=== PATIENT | female | born 1940 | race Caucasian/White ===

== ENCOUNTER 2019-02-06 20:58 | Inpatient (IN) | payer MEDICARE, MEDICAID ==
--- NOTE | 2019-02-06 21:43 | ER Document Report ---
ED Medical Screen (RME) - General Chief Complaint: Shortness Of Breath Stated Complaint: DIFFICULTY BREATHING Time Seen by Provider: 02/06/19 21:37 Primary Care Provider: TUAN STOUT MD [Primary Care Provider] - Follow up as needed Notes: Patient is a 78-year-old female who presents emergency department with a chief complaint of a cough. She has had her cough in the past 2 weeks. He states that she feels like she has something in her throat and is unable to clear it. She has been on Augmentin. Her doctor sent her for a CAT scan and then was referred here in the emergency department for an evaluation to possibly have an abscess drained. Patient does have a history of COPD and she states that she is normally short of breath, but she feels like she has increased shortness of breath due to her having increased phlegm. Exam: Tenderness noted to her neck. I have greeted and performed a rapid initial assessment of this patient. A comprehensive ED assessment and evaluation of the patient, analysis of test results and completion of medical decision making process will be conducted by an additional ED providers. TRAVEL OUTSIDE OF THE [place] IN LAST 30 DAYS: No - Related Data Allergies/Adverse Reactions: No Known Allergies Allergy (Unverified 11/04/13 09:48) Past Medical History - Past Medical History Cardiac Medical History: Reports: Hx Hypertension Pulmonary Medical History: Reports: Hx COPD Past Surgical History: Reports: Hx Orthopedic Surgery - right rotator cuff - Immunizations Hx Diphtheria, Pertussis, Tetanus Vaccination: Yes Physical Exam - Vital signs Vitals: Temp Pulse Resp BP Pulse Ox 97.9 F 73 18 152/73 H 93 02/06/19 21:08 02/06/19 21:08 02/06/19 21:08 02/06/19 21:08 02/06/19 21:08 Course - Vital Signs Vital signs: Temp Pulse Resp BP Pulse Ox 97.9 F 73 18 152/73 H 93 02/06/19 21:08 02/06/19 21:08 02/06/19 21:08 02/06/19 21:08 02/06/19 21:08 Doctor's Discharge - Discharge Referrals: TUAN STOUT MD [Primary Care Provider] - Follow up as needed
[2019-02-06 22:37] LABS: ABSOLUTE BASOPHILS # (AUTO) 0.1 10^3/uL (0.0-0.2); ABSOLUTE EOSINOPHILS # (AUTO) 0.1 10^3/uL (0.0-0.6); ABSOLUTE LYMPHOCYTES (AUTO) 2.1 10^3/uL (0.5-4.7); ABSOLUTE NEUT (AUTO) 9.6 10^3/uL (1.7-8.2); BASOPHILS % (AUTO) 0.7 % (0-2); EOSINOPHILS % (AUTO) 0.9 % (0-6); HEMATOCRIT 35.8 % (36.0-47.0); HEMOGLOBIN 12.1 g/dL (12.0-15.5); LYMPHOCYTES % (AUTO) 16.2 % (13-45); MEAN CORPUSCULAR HGB CONC 33.8 g/dL (32.0-36.0); MEAN CORPUSCULAR VOLUME 92 fl (80-97); MONOCYTES % (AUTO) 7.8 % (3-13); PLATELET COUNT 360 10^3/uL (150-450); RED BLOOD COUNT 3.89 10^6/uL (3.72-5.28); RED CELL DISTRIBUTION WIDTH 13.4 % (11.5-14.0); SEGMENTED NEUTROPHILS % (AUTO) 74.4 % (42-78); TOTAL CELLS COUNTED % (AUTO) 100 %; WHITE BLOOD COUNT 12.8 10^3/uL (4.0-10.5)
[2019-02-06 22:58] LABS: ALANINE AMINOTRANSFERASE 14 U/L (9-52); ALBUMIN 4.1 g/dL (3.5-5.0); ALKALINE PHOSPHATASE 109 U/L (38-126); ANION GAP 7 (5-19); ASPARTATE AMINO TRANSFERASE 26 U/L (14-36); BILIRUBIN,DIRECT 0.3 mg/dL (0.0-0.4); BILIRUBIN,TOTAL 0.4 mg/dL (0.2-1.3); BLOOD UREA NITROGEN 24 mg/dL (7-20); CALCIUM 9.5 mg/dL (8.4-10.2); CARBON DIOXIDE 32 mmol/L (22-30); CHLORIDE 104 mmol/L (98-107); GLUCOSE 118 mg/dL (75-110); POTASSIUM 3.9 mmol/L (3.6-5.0); SODIUM 142.7 mmol/L (137-145); TOTAL PROTEIN 7.8 g/dL (6.3-8.2)
[2019-02-07] MEDS ORDERED: IPRATROPIUM/ALBUTEROL 0.5-2.5 MG/3 ML AMPUL NEB ONE ×2 (00:33→02:32)
--- NOTE | 2019-02-07 00:42 | RADIOLOGY REPORT (SQ) ---
EXAM DESCRIPTION: CT neck and upper chest with contrast CLINICAL HISTORY: 78 years Female; dysphagia. PLEASE LOOK AT ABNORMALITY IN L LUNG ALSO. TECHNIQUE: Soft tissue CT of the neck, with images extending down to the level of the pulmonary artery. Note that the entire chest was not visualized on this exam. Intravenous Contrast: 68 mL Omnipaque [address] scans at this facility use dose modulation, iterative reconstruction, and/or weight based dosing when appropriate to reduce radiation dose to as low as reasonably achievable. COMPARISON: Previous chest CT on 11/11/2013. No previous neck CT.. FINDINGS: No cervical mass or adenopathy. Mucosal surfaces are within normal limits. No parapharyngeal or retropharyngeal edema. Epiglottis is normal. Larynx is normal. Salivary glands: Normal Thyroid: Normal Vascular: Scattered bilateral carotid calcifications. No evidence for significant stenosis. CHEST: In the left upper lobe there is a cavitary lesion 3.4 cm in diameter with a fluid level, abutting the chest wall. This is new since 2013. Enlarged left hilar lymph node 2.1 cm diameter is also new since 2014. No enlarged nodes in the visualized upper mediastinum. Extensive scattered lucencies in the visualized portions of both lungs are typical for emphysema, as on prior exam. IMPRESSION: 1. 3.4 cm cavitary left upper lobe lesion with fluid, highly suspicious for neoplasm. 2. 2.1 cm enlarged left hilar node, likely metastatic 3. Note that the lower lungs were not evaluated on this study 4. Emphysema 5. No cervical mass or adenopathy. No evidence for metastatic disease in the neck. 6. No acute findings in the neck.
[2019-02-07] MEDS ORDERED: METHYLPREDNISOLONE INJ 125 MG/2 ML SDV IV ONE (02:29)
[2019-02-07] MEDS ORDERED: MAGNESIUM SULFATE/D5W 1 GM/100 ML RTUPB IV ONE (02:45)
--- NOTE | 2019-02-07 02:46 | ER Document Report ---
ED General - General Chief Complaint: Shortness Of Breath Stated Complaint: DIFFICULTY BREATHING Time Seen by Provider: 02/06/19 21:37 Primary Care Provider: TUAN STOUT MD [NO LOCAL MD] - Follow up as needed TRAVEL OUTSIDE OF THE [place] IN LAST 30 DAYS: No - HPI Notes: Patient is a 78-year-old female who presents to the emergency department for evaluation. She is had a feeling of drainage in her throat, has been coughing. She states she was placed on Augmentin by her primary care physician, did not really have any significant improvement. The patient states she is always short of breath, feels more short of breath with this. She does have a history of COPD. She has been referred on to pulmonology, but does not have an appointment for another month. She states that she was at [facility] recently. She states she had a CT scan of her neck. Her doctor told her that she needed to go to the emergency department, that she needed "something drained." The patient cannot elaborate any further for me. She denies any history of travel outside of the country. No unexplained weight loss. - Related Data Allergies/Adverse Reactions: No Known Allergies Allergy (Unverified 11/04/13 09:48) Past Medical History - General Information source: Patient - Social History Smoking Status: Former Smoker Frequency of alcohol use: None Drug Abuse: None Family History: DM - Sisters, Malignancy - Patient's son passed from lung cancer, Thyroid Disfunction - Sisters Patient has suicidal ideation: No Patient has homicidal ideation: No - Past Medical History Cardiac Medical History: Reports: Hx Hypertension Pulmonary Medical History: Reports: Hx COPD Renal/ Medical History: Denies: Hx Peritoneal Dialysis Past Surgical History: Reports: Hx Orthopedic Surgery - right rotator cuff - Immunizations Hx Diphtheria, Pertussis, Tetanus Vaccination: Yes Hx Pneumococcal Vaccination: 07/09/13 Review of Systems - Review of Systems Constitutional: No symptoms reported EENT: See HPI Cardiovascular: No symptoms reported Respiratory: See HPI Gastrointestinal: No symptoms reported Genitourinary: No symptoms reported Musculoskeletal: No symptoms reported Skin: No symptoms reported Neurological/Psychological: No symptoms reported Physical Exam - Vital signs Vitals: Temp Pulse Resp BP Pulse Ox 97.9 F 73 18 152/73 H 93 02/06/19 21:08 02/06/19 21:08 02/06/19 21:08 02/06/19 21:08 02/06/19 21:08 - Notes Notes: Patient is a 78-year-old female appears her stated age in mild distress. She has increased work of breathing, supraclavicular retractions. Vital signs reviewed, please refer to chart. Patient is normocephalic, atraumatic. Pupils equal round, reactive to light. Neck is supple without meningismus. Heart is regular rate and rhythm. Lungs revealed diminished breath sounds throughout, particularly expiratory. Abdomen is soft, nontender, normoactive bowel sounds. Extremities without cyanosis, clubbing. No posterior calf tenderness. Peripheral pulses are equal. Skin is warm and dry. Patient is awake, alert, neurological exam is nonfocal. Course - Re-evaluation Re-evalutation: 02/07/19 02:46 Patient presented to the emergency department for evaluation. She was initially seen through triage, and imaging of the neck was ordered at that point. Laboratory investigations ensued as well. Upon my evaluation I did order a breathing treatment. CT scan of the neck was ordered. No acute findings in the neck were identified, but there was a 3.4 cm cavitary lesion in the left upper lobe of the lung. There was also a corresponding left hilar lymph node. These findings are very returning for malignancy. Findings were explained to the patient. She continues to be short of breath. She continues to have increased work of breathing. She is given Solu-Medrol, magnesium, and another breathing treatment. I spoke with Dr. Turcios, who will happily see the patient in consult. I then spoke with Dr. Ferris, he will admit the patient for further care. - Vital Signs Vital signs: Temp Pulse Resp BP Pulse Ox 97.9 F 73 18 152/73 H 93 02/06/19 21:08 02/06/19 21:08 02/06/19 21:08 02/06/19 21:08 02/06/19 21:08 - Laboratory Result Diagrams: 02/06/19 22:22 02/06/19 22:22 Laboratory results interpreted by me: 02/06/19 02/06/19 22:22 22:22 WBC 12.8 H Hct 35.8 L Absolute Neutrophils 9.6 H Carbon Dioxide 32 H BUN 24 H Glucose 118 H - Diagnostic Test Radiology reviewed: Reports reviewed - Cavitary lesion left upper lobe, enlarged lymph node left hilum, concerning for malignancy Discharge - Discharge Clinical Impression: Acute exacerbation of chronic obstructive pulmonary disease (COPD), Cavitary lesion of lung Condition: Stable Disposition: ADMITTED INPATIENT Admitting Provider: [facility] (Hospitalist) Unit Admitted: Medical Floor Referrals: TUAN STOUT MD [NO LOCAL MD] - Follow up as needed
[2019-02-07] MEDS ORDERED: ONDANSETRON HCL INJ/PF 4 MG/2 ML SDV IV PRN (03:15)
[2019-02-07] MEDS ORDERED: LEVALBUTEROL HCL NEB 1.25 MG/3 ML AMPUL NEB PRN (03:15)
[2019-02-07] MEDS ORDERED: TEMAZEPAM 15 MG CAPSULE PO PRN (03:15)
[2019-02-07] MEDS ORDERED: MAGNESIUM HYDROXIDE SUSP 30 ML UDCUP PO PRN (03:15)
[2019-02-07] MEDS ORDERED: MAG HYDROX/AL HYDROX/SIMETH SUSP 30 ML UDCUP PO PRN (03:15)
[2019-02-07] MEDS ORDERED: ACETAMINOPHEN 325 MG TABLET PO PRN (03:20)
[2019-02-07] MEDS ORDERED: NALBUPHINE HCL INJ 10 MG/1 ML AMPULE IV PRN (03:20)
--- NOTE | 2019-02-07 06:53 | PDOC H&P ---
History of Present Illness Admission Date/PCP: 02/07/19 02:51 TUAN STOUT MD History of Present Illness: MARBELLA HUI is a 78 year old female who presented to the emergency room for an evaluation of an abnormality found on a CT scan of her neck. She admits that for approximately 2 weeks she has been experiencing continuous mild dyspnea with a sensation of drainage in her throat accompanied by an irritant nonproductive cough. She had been treated by her primary care provider with Augmentin which did not result in any improvement and subsequently she was sent for a CT scan of her neck. Her dyspnea has been worsened by exercise or significant activity and somewhat alleviated by rest. She denies prior similar episodes. On the CT scan of her neck a cavitary lesion was discovered in the upper lobe of her left lung and she was told to come to the emergency room for treatment. In the emergency room these findings were confirmed and patient was subsequently admitted to hospital for further evaluation treatment. Past Medical History Cardiac Medical History: Reports: Hypertension Denies: Atrial Fibrillation, Coronary Artery Disease, DVT, Pulmonary Embolism Pulmonary Medical History: Reports: Chronic Obstructive Pulmonary Disease (COPD) Denies: Asthma, Respiratory Failure Neurological Medical History: Denies: Hemorrhagic CVA, Ischemic CVA, Seizures Endocrine Medical History: Denies: Diabetes Mellitus Type 1, Diabetes Mellitus Type 2, Hyperthyroidism, Hypothyroidism Renal/ Medical History: Denies: Chronic Kidney Disease, Nephrolithiasis Malignancy Medical History: Reports: None GI Medical History: Denies: Cirrhosis, Hepatitis Musculoskeltal Medical History: Denies: Arthritis, Gout Skin Medical History: Denies: Eczema, Psoriasis Psychiatric Medical History: Reports: Tobacco Dependency Denies: Alcohol Dependency, Substance Abuse Traumatic Medical History: Reports: None Hematology: Denies: Anemia, Bleeding Tendencies Infectious Medical History: Reports: None Past Surgical History Past Surgical History: Reports: Orthopedic Surgery - right rotator cuff Social History Information Source: Patient Lives with: Spouse/Significant other Smoking Status: Former Smoker Frequency of Alcohol Use: None Hx Recreational Drug Use: No Drugs: None Hx Prescription Drug Abuse: No - Advance Directive Resuscitation Status: Full Code Surrogate healthcare decision maker:: Kolby Saldivar Family History Family History: DM - Sisters, Malignancy - Patient's son passed from lung cancer, Thyroid Disfunction - Sisters Parental Family History Reviewed: Yes Children Family History Reviewed: Yes Sibling(s) Family History Reviewed.: Yes Medication/Allergy Home Medications: Fluticasone/Salmeterol [Advair 100-50 Diskus 14 Dose/Diskus] 1 inh IH Q12H 11/08/13 Tiotropium [place] [Spiriva Handihaler 18 mcg/dose (30 Dose)] 1 cap IH DAILY 11/08/13 Lisinopril/Hydrochlorothiazide [Lisinopril-Hctz 20-12.5 mg Tab] 1 each PO DAILY 11/10/13 Allergies/Adverse Reactions: No Known Allergies Allergy (Unverified 11/04/13 09:48) Review of Systems Constitutional: ABSENT: chills, fever(s) Eyes: ABSENT: visual disturbances, other - Eye pain Ears: ABSENT: hearing changes, other - Ear pain Nose, Mouth, and Throat: ABSENT: mouth pain, sore throat Cardiovascular: PRESENT: dyspnea on exertion. ABSENT: chest pain, edema, orthropnea, palpitations Respiratory: PRESENT: cough, dyspnea. ABSENT: hemoptysis, sputum Gastrointestinal: ABSENT: abdominal pain, constipation, diarrhea, nausea, vomiting Musculoskeletal: ABSENT: back pain, joint swelling, muscle weakness Integumentary: ABSENT: pruritus, rash Neurological: ABSENT: confusion, convulsions, focal weakness, memory loss, syncope Psychiatric: ABSENT: anxiety, depression Endocrine: ABSENT: cold intolerance, heat intolerance Hematologic/Lymphatic: ABSENT: easy bleeding, easy bruising Physical Exam Vital Signs: Temp Pulse Resp BP Pulse Ox 97.9 F 73 18 152/73 H 93 02/06/19 21:08 02/06/19 21:08 02/06/19 21:08 02/06/19 21:08 02/06/19 21:08 Intake & Output 02/05/19 02/06/19 02/07/19 23:59 23:59 23:59 Weight 54.2 kg General appearance: PRESENT: no acute distress, cooperative Head exam: PRESENT: atraumatic, normocephalic Eye exam: ABSENT: conjunctival injection, scleral icterus Ear exam: PRESENT: normal external ear exam. ABSENT: drainage Mouth exam: PRESENT: dry mucosa, neck supple Respiratory exam: PRESENT: decreased breath sounds - Slightly decreased breath sounds throughout all [place], prolonged expiratory phas - Slightly prolonged expiratory phase in all [place], symmetrical, wheezes - Mild expiratory wheezes noted throughout all [place]. ABSENT: accessory muscle use, retraction Cardiovascular exam: PRESENT: RRR. ABSENT: clicks, gallop, rubs Pulses: PRESENT: normal radial pulses, normal dorsalis pedis pul Vascular exam: PRESENT: normal capillary refill. ABSENT: pallor GI/Abdominal exam: PRESENT: normal bowel sounds, soft Rectal exam: PRESENT: deferred Extremities exam: ABSENT: joint swelling, pedal edema Musculoskeletal exam: PRESENT: full ROM, normal inspection Neurological exam: PRESENT: alert, oriented to person, oriented to place, oriented to time, oriented to situation, CN II-XII grossly intact. ABSENT: motor sensory deficit Psychiatric exam: PRESENT: appropriate affect, normal mood Skin exam: PRESENT: dry, intact, warm. ABSENT: jaundice, rash, urticaria Results Laboratory Results: 02/06/19 22:22 02/06/19 22:22 02/06/19 02/06/19 22:22 22:22 WBC 12.8 H RBC 3.89 Hgb 12.1 Hct 35.8 L MCV 92 MCH 31.0 MCHC 33.8 RDW 13.4 Plt Count 360 Seg Neutrophils % 74.4 Lymphocytes % 16.2 Monocytes % 7.8 Eosinophils % 0.9 Basophils % 0.7 Absolute Neutrophils 9.6 H Absolute Lymphocytes 2.1 Absolute Monocytes 1.0 Absolute Eosinophils 0.1 Absolute Basophils 0.1 Sodium 142.7 Potassium 3.9 Chloride 104 Carbon Dioxide 32 H Anion Gap 7 BUN 24 H Creatinine 0.72 Est GFR ( Amer) > 60 Est GFR (Non-Af Amer) > 60 Glucose 118 H Calcium 9.5 Total Bilirubin 0.4 AST 26 ALT 14 Alkaline Phosphatase 109 Total Protein 7.8 Albumin 4.1 Impressions: Soft Tissue Neck CT 02/06/19 21:43 IMPRESSION: 1. 3.4 cm cavitary left upper lobe lesion with fluid, highly suspicious for neoplasm. 2. 2.1 cm enlarged left hilar node, likely metastatic 3. Note that the lower lungs were not evaluated on this study 4. Emphysema 5. No cervical mass or adenopathy. No evidence for metastatic disease in the neck. 6. No acute findings in the neck. Assessment and Plan - Diagnosis (1) Acute exacerbation of chronic obstructive pulmonary disease (COPD) Is this a current diagnosis for this admission?: Yes Plan: Patient be treated with aggressive pulmonary toilet utilizing Xopenex, Pulmicort and Atrovent nebulizers with intravenous Solu-Medrol and supplemental oxygen is required via nasal cannula. Patient's status will be followed with a daily CBC as well as a daily metabolic profile and magnesium level. (2) Cavitary lesion of lung Is this a current diagnosis for this admission?: Yes Plan: Patient will be seen in consult by Dr. Turcios who is consulted by the emergency room physician. A baseline chest x-ray will be obtained and a pulmonary consultation with Dr. Lizett slaughter will also be obtained. (3) HTN (hypertension) Qualifiers: Hypertension type: essential hypertension Qualified Code(s): I10 - Essential (primary) hypertension Is this a current diagnosis for this admission?: Yes Plan: Patient will be continued on her usual antihypertensive medication as available per formulary. Her vital signs were followed closely throughout her hospital course and adjustments will be made if required. Her condition will be followed with daily CBC, metabolic profile and magnesium levels. (4) Leukocytosis Qualifiers: Leukocytosis type: unspecified Qualified Code(s): D72.829 - Elevated white blood cell count, unspecified Is this a current diagnosis for this admission?: Yes Plan: A daily CBC will be used to follow the patient's leukocytosis. - Time Time Spent with patient: 25-34 minutes Medications reviewed and adjusted accordingly: Yes Anticipated discharge: Home - Inpatient Certification Based on my medical assessment, after consideration of the patient's c omorbidities, presenting symptoms, or acuity I expect that the services needed warrant INPATIENT care.: Yes I certify that my determination is in accordance with my understanding of Medicare's requirements for reasonable and necessary INPATIENT services [42 CFR 412.3e].: Yes Medical Necessity: Failure to Improve With Outpatient Therapy, Need for Nebulizer Therapy and Monitoring of Response, Need for Surgery, Risk of Diagnosis Which Will Require Inpatient Eval/Care/Monitoring
[2019-02-07 07:47] LABS: FREE T3 3.81 pg/mL (2.77-5.27); FREE T4 (FREE THYROXINE) 1.47 ng/dL (0.78-2.19)
[2019-02-07] MEDS: BUDESONIDE NEB 0.5 MG/2 ML AMPUL NEB SCH ×2 (08:36→21:03)
[2019-02-07] MEDS: IPRATROPIUM BROMIDE 0.02% NEB 0.5 MG/2.5 ML AMPUL NEB SCH ×2 (08:36→16:29)
[2019-02-07] MEDS: LEVALBUTEROL HCL NEB 1.25 MG/3 ML AMPUL NEB SCH ×2 (08:36→16:29)
[2019-02-07] MEDS ORDERED: (PENDING PHARMACY ID) (Lisinopril/Hydrochlorothiazide [Zestoretic 20-12.5 Mg Tablet] 1 TAB PO SCH (11:30)
[2019-02-07] MEDS ORDERED: MULTIVITAMIN PO SCH (11:30)
--- NOTE | 2019-02-07 12:14 | RADIOLOGY REPORT (SQ) ---
EXAM DESCRIPTION: CHEST 2 VIEWS COMPLETED DATE/TIME: 02/07/2019 11:40 am REASON FOR STUDY: Left lung mass COMPARISON: CT soft tissue neck 02/07/2019 Two-view chest 11/12/2013 EXAM PARAMETERS: NUMBER OF VIEWS: two views TECHNIQUE: Digital Frontal and Lateral radiographic views of the chest acquired. RADIATION DOSE: NA LIMITATIONS: none FINDINGS: LUNGS AND PLEURA: In the left upper lobe, a 3.5 cm cavitary lung parenchymal lesion is pre sent with air-fluid level. This in the periphery of the left upper lobe. Differential is cavitary n eoplasm versus cavitary infection from tuberculosis. Findings were discussed with , 1207 urs 02/07/2019 who has the patient on respiratory isolation. Remainder of the lungs are hyperinflated and hyperlucent from obstructive disease. No pleural effusi on. No pneumothorax. MEDIASTINUM AND HILAR STRUCTURES: Enlarged left hilar node seen on CT soft tissue neck 02/07/2019 is di fficult to visualize by plain film. HEART AND VASCULAR STRUCTURES: Heart normal size. No evidence for failure. BONES: No acute findings. HARDWARE: None in the chest. OTHER: No other significant finding. IMPRESSION: 3.5 cm cavitary lesion left upper lobe with air-fluid level worrisome for cavitary tuber culosis. Findings discussed with the attending physician as above. TECHNICAL DOCUMENTATION: JOB ID: [id number] [employer]- All Rights Reserved Reading location - IP/workstation name: [email or web address]
--- NOTE | 2019-02-07 12:29 | PDOC PROGRESS REPORT ---
Subjective Progress Note for:: 02/07/19 Subjective:: 78 year old female who presented to the emergency room for an evaluation of an abnormality found on a CT scan of her neck. She admits that for approximately 2 weeks she has been experiencing continuous mild dyspnea with a sensation of drainage in her throat accompanied by an irritant nonproductive cough. She had been treated by her primary care provider with Augmentin which did not result in any improvement and subsequently she was sent for a CT scan of her neck. Her dyspnea has been worsened by exercise or significant activity and somewhat alleviated by rest. She denies prior similar episodes. On the CT scan of her neck a cavitary lesion was discovered in the upper lobe of her left lung and she was told to come to the emergency room for treatment. In the emergency room these findings were confirmed and patient was subsequently admitted to hospital for further evaluation treatment. 02/07/[id number]-pgkq-old female came with increasing shortness of breath. In the emergency room they did a soft tissue neck and found to have a cavitary lesion in the CT scan in the left upper lobe. Consult with Dr. Turcios was requested to consult with Dr. Noble was requested. Patient is going to be transferred to negative pressure room for precautionary measure until the TB is ruled out. Sputum AFBs and PPD was requested. CT chest was done with contrast again today Dr. Howard called me and told me it looks like tuberculosis. Isolation precautions are requested. Patient is comfortably in the bed communicating well. Reason For Visit: ACUTE EXACERBATION OF COPD, LEFT UPPER LOBE Physical Exam Vital Signs: Temp Pulse Resp BP Pulse Ox 97.3 F 89 18 125/54 L 92 02/07/19 08:30 02/07/19 08:36 02/07/19 08:36 02/07/19 08:30 02/07/19 08:36 Intake & Output 02/06/19 02/07/19 02/08/19 06:59 06:59 06:59 Intake Total 110 Balance 110 Weight 55.2 kg General appearance: PRESENT: mild distress, thin Head exam: PRESENT: atraumatic Eye exam: PRESENT: PERRLA Mouth exam: PRESENT: moist, tongue midline Neck exam: ABSENT: carotid bruit, JVD, lymphadenopathy, thyromegaly Respiratory exam: PRESENT: decreased breath sounds Cardiovascular exam: PRESENT: tachycardia GI/Abdominal exam: PRESENT: normal bowel sounds, soft. ABSENT: distended, guarding, mass, organolmegaly, rebound, tenderness Rectal exam: PRESENT: deferred Neurological exam: PRESENT: alert, awake, oriented to person, oriented to place, oriented to time, oriented to situation, CN II-XII grossly intact. ABSENT: m otor sensory deficit Psychiatric exam: PRESENT: appropriate affect, normal mood. ABSENT: homicidal ideation, suicidal ideation Results Laboratory Results: 02/06/19 22:22 02/06/19 22:22 02/06/19 02/06/19 02/07/19 22:22 22:22 05:58 WBC 12.8 H RBC 3.89 Hgb 12.1 Hct 35.8 L MCV 92 MCH 31.0 MCHC 33.8 RDW 13.4 Plt Count 360 Seg Neutrophils % 74.4 Lymphocytes % 16.2 Monocytes % 7.8 Eosinophils % 0.9 Basophils % 0.7 Absolute Neutrophils 9.6 H Absolute Lymphocytes 2.1 Absolute Monocytes 1.0 Absolute Eosinophils 0.1 Absolute Basophils 0.1 Sodium 142.7 Potassium 3.9 Chloride 104 Carbon Dioxide 32 H Anion Gap 7 BUN 24 H Creatinine 0.72 Est GFR ( Amer) > 60 Est GFR (Non-Af Amer) > 60 Glucose 118 H Calcium 9.5 Total Bilirubin 0.4 AST 26 ALT 14 Alkaline Phosphatase 109 Total Protein 7.8 Albumin 4.1 Free T4 1.47 Free T3 pg/mL 3.81 Impressions: Soft Tissue Neck CT 02/06/19 21:43 IMPRESSION: 1. 3.4 cm cavitary left upper lobe lesion with fluid, highly suspicious for neoplasm. 2. 2.1 cm enlarged left hilar node, likely metastatic 3. Note that the lower lungs were not evaluated on this study 4. Emphysema 5. No cervical mass or adenopathy. No evidence for metastatic disease in the neck. 6. No acute findings in the neck. Chest X-Ray 02/07/19 00:00 IMPRESSION: 3.5 cm cavitary lesion left upper lobe with air-fluid level worrisome for cavitary tuberculosis. Findings discussed with the attending physician as above. Assessment and Plan - Diagnosis (1) Acute exacerbation of chronic obstructive pulmonary disease (COPD) Is this a current diagnosis for this admission?: Yes Plan: Patient be treated with aggressive pulmonary toilet utilizing Xopenex, Pulmicort and Atrovent nebulizers with intravenous Solu-Medrol and supplemental oxygen is required via nasal cannula. Patient's status will be followed with a daily CBC as well as a daily metabolic profile and magnesium level. 02/07/[id number]-wibe-old female with history of smoking ex-smoker history of COPD admitted for acute exacerbation of COPD. Presently not supplemental oxygen pulse ox is 92% on 2 L. Receiving IV Solu-Medrol. Getting Xopenex, Pulmicort, Atrovent nebulizations. Plan is to continue the present management. (2) Cavitary lesion of lung Is this a current diagnosis for this admission?: Yes Plan: Patient will be seen in consult by Dr. Turcios who is consulted by the emergency room physician. A baseline chest x-ray will be obtained and a pulmonary consultation with Dr. Lizett slaughter will also be obtained. 02/07/2019-cavitary lesion found in the left upper lung. Repeat CT chest with co ntrast was done this morning Dr. Howard called me and told me may look like TB. Patient is going to be moved to negative pressure room, sputum for AFBs sputum cultures, PPD was requested. Hospital protocol was implemented to rule out TB. Dr. Phoenix is aware of the consult. (3) HTN (hypertension) Qualifiers: Hypertension type: essential hypertension Qualified Code(s): I10 - Essential (primary) hypertension Is this a current diagnosis for this admission?: Yes Plan: Patient will be continued on her usual antihypertensive medication as available per formulary. Her vital signs were followed closely throughout her hospital course and adjustments will be made if required. Her condition will be followed with daily CBC, metabolic profile and magnesium levels. 02/07/2019-patient has history of hypertension which was chronic. Blood pressure today is 125/54. Stable. plan Is to continue the present management. (4) Leukocytosis Qualifiers: Leukocytosis type: unspecified Qualified Code(s): D72.829 - Elevated white blood cell count, unspecified Is this a current diagnosis for this admission?: Yes Plan: A daily CBC will be used to follow the patient's leukocytosis. 02/07/2019-patient came in with elevated WBC count. Yesterday WBC count is 12.8 plan is to repeat the labs today and tomorrow. - Time Time Spent with patient: 25-34 minutes Medications reviewed and adjusted accordingly: Yes Anticipated discharge: Home
[2019-02-07] MEDS ORDERED: TUBERCULIN,PURIF.PROT.DERIV. 5 TU/0.1 ML TEST 1 ML VIAL ID ONE (12:30)
[2019-02-07] MEDS: HEPARIN SOD (PORCINE) 5,000 UNIT/ML 1 ML SYRINGE SUBCUT SCH ×3 (14:12→22:19)
[2019-02-07] MEDS: LISINOPRIL 10 MG TABLET PO SCH (14:33)
[2019-02-07] MEDS: HYDROCHLOROTHIAZIDE 12.5 MG TABLET PO SCH (14:33)
[2019-02-07] MEDS: DOCUSATE SODIUM 100 MG CAPSULE PO SCH ×2 (14:34→19:54)
[2019-02-07] MEDS: FLUTICASONE NASAL SPRAY 50 MCG/SPRY 120 SPRAY/16 GM NASL SCH (14:34)
[2019-02-07] MEDS: FAMOTIDINE 20 MG TABLET PO SCH ×2 (14:34→22:19)
[2019-02-07] MEDS: FLUTICASONE/VILANTEROL 200-25 MCG/DOSE IH SCH (14:35)
[2019-02-07] MEDS: TIOTROPIUM BROMIDE DPI 5 CAP/KIT (18 MCG/CAP) IH SCH (14:36)
--- NOTE | 2019-02-07 14:43 | RADIOLOGY REPORT (SQ) ---
EXAM DESCRIPTION: CT CHEST WITHOUT COMPLETED DATE/TIME: 02/07/2019 2:11 pm REASON FOR STUDY: left upperlobe cavitation on neck CT scan COMPARISON: CT soft tissue neck 02/07/2019 CT angio chest 11/11/2013 TECHNIQUE: CT scan performed of the chest without intravenous contrast. Images reviewed with lung, soft tissue and bone windows. Reconstructed coronal and sagittal MPR images reviewed. All images st ored on PACS. All CT scanners at this facility use dose modulation, iterative reconstruction, and/or weight based d osing when appropriate to reduce radiation dose to as low as reasonably achievable (ALARA). [facility]: Dose Right [facility]: CareDose [facility]: Dose Right [facility]: Teradose 4D [facility]: Smart [address] RADIATION DOSE: CT Rad equipment meets quality standard of care and radiation dose reduction techniq ues were employed. CTDIvol: 4.7 mGy. DLP: 186 mGy-cm. mGy. LIMITATIONS: No technical limitations. FINDINGS: LUNGS AND PLEURA: A 3.5 cm peripheral cavitary mass is present in the left upper lobe abut ting the anterolateral pleural surface on axial image 47. There is an air-fluid level within the mas s. Differential is cystic necrotic tumor versus lung abscess versus tuberculosis. Remainder of the lungs demonstrate diffuse changes of obstructive disease. There is bronchiectasis a nd bandlike scarring in the medial aspect right middle lobe. No pleural effusions. No pneumothorax. HILAR AND MEDIASTINAL STRUCTURES: 2 x 2 cm left hilar lymph node. HEART AND VASCULAR STRUCTURES: No aneurysm. No pericardial effusion. Moderate coronary artery calci fications UPPER ABDOMEN: 1.5 cm and 2 cm probable right upper pole renal cortical cysts. 1 cm hepatic cyst lef t lobe liver THYROID AND OTHER SOFT TISSUES: No masses. No adenopathy. BONES: No significant finding. HARDWARE: None in the chest. OTHER: No other significant findings. IMPRESSION: 3.5 cm left upper lobe cavitary mass with air-fluid level, differential is cystic necrot ic tumor versus lung abscess versus tuberculosis. 2 cm left hilar lymph node TECHNICAL DOCUMENTATION: JOB ID: [id number] Quality ID # [id number]: Final reports with documentation of one or more dose reduction techniques (e.g., Au tomated exposure control, adjustment of the mA and/or kV according to patient size, use of iterative reconstruction technique) 2010 [employer]- All Rights Reserved Reading location - IP/workstation name: [email or web address]
[2019-02-07] MEDS: MELOXICAM 15 MG TABLET PO SCH (14:48)
[2019-02-07] MEDS ORDERED: VANCOMYCIN HCL INJ 1000 MG VIAL IV SCH (21:00)
[2019-02-07] MEDS ORDERED: PIPERACILLIN/TAZOBACTAM 3.375 GM VIAL IV SCH (22:00)
[2019-02-07] MEDS: PIPERACILLIN SODIUM/TAZOBACTAM 3.375 GM in NORMAL SALINE 100 ML IV SCH (22:20)
[2019-02-07] MEDS: VANCOMYCIN HCL 750 MG in DEXTROSE 5%-WATER 250 ML IV SCH (23:44)
[2019-02-08] MEDS: LEVALBUTEROL HCL NEB 1.25 MG/3 ML AMPUL NEB SCH ×3 (00:52→16:25)
[2019-02-08] MEDS: IPRATROPIUM BROMIDE 0.02% NEB 0.5 MG/2.5 ML AMPUL NEB SCH ×3 (00:52→16:25)
[2019-02-08] MEDS: PIPERACILLIN SODIUM/TAZOBACTAM 3.375 GM in NORMAL SALINE 100 ML IV SCH ×3 (05:18→21:20)
[2019-02-08] MEDS: HEPARIN SOD (PORCINE) 5,000 UNIT/ML 1 ML SYRINGE SUBCUT SCH ×3 (05:18→21:14)
--- NOTE | 2019-02-08 08:37 | PDOC CONSULTATION ---
Consultation Consult Date: 02/08/19 Attending physician:: COURTNEY OWEN Consult reason:: Left upper lobe cavitary lesion, left hilar adenopathy History of Present Illness Admission Date/PCP: 02/07/19 02:51 Patient complains of: Cough, shortness of breath x3 weeks History of Present Illness: MARBELLA HIU is a 78 year old female with long-standing history of COPD, st judith smoking history of greater than [id number]. Presents with a 3 to 4-week history of cough, nonproductive, no hemoptysis, no major weight loss. No fevers chills or sweats. Ultimately saw her PCP who felt that she was short of breath and needed to be evaluated in the ED with imaging, because of the throat complaints she had a CT of the neck, this actually indicated nothing in the neck but indicated a cavitary left upper lobe lesion. This is followed by CT of the chest which indicated a 3 cm left upper lobe cavitary lesion with air-fluid levels, also left hilar adenopathy up to 2 cm. She does not have any exposure history and mostly stays at home and keeps to herself. Past Medical History Cardiac Medical History: Reports: Hypertension Denies: Atrial Fibrillation, Coronary Artery Disease, DVT, Pulmonary Embolism Pulmonary Medical History: Reports: Chronic Obstructive Pulmonary Disease (COPD) Denies: Asthma, Respiratory Failure Neurological Medical History: Denies: Hemorrhagic CVA, Ischemic CVA, Seizures Endocrine Medical History: Denies: Diabetes Mellitus Type 1, Diabetes Mellitus Type 2, Hyperthyroidism, Hypothyroidism Renal/ Medical History: Denies: Chronic Kidney Disease, Nephrolithiasis Malignancy Medical History: Reports: None GI Medical History: Denies: Cirrhosis, Hepatitis Musculoskeltal Medical History: Denies: Arthritis, Gout Skin Medical History: Denies: Eczema, Psoriasis Psychiatric Medical History: Reports: Tobacco Dependency Denies: Alcohol Dependency, Substance Abuse Traumatic Medical History: Reports: None Hematology: Denies: Anemia, Bleeding Tendencies Infectious Medical History: Reports: None Past Surgical History Past Surgical History: Reports: Orthopedic Surgery - right rotator cuff Social History Lives with: Spouse/Significant other Smoking Status: Former Smoker Cigarettes Packs Per Day: 1.5 Number of Years Smokin Last Time Smoked: 2010 Frequency of Alcohol Use: None Hx Recreational Drug Use: No Drugs: None Hx Prescription Drug Abuse: No - Advance Directive Resuscitation Status: Full Code Family History Family History: DM - Sisters, Malignancy - Patient's son passed from lung cancer, Thyroid Disfunction - Sisters Parental Family History Reviewed: Yes Children Family History Reviewed: Yes Sibling(s) Family History Reviewed.: Yes Medication/Allergy Home Medications: Fluticasone Propionate [Flonase Nasal [place] 50 Mcg/[place] 16 gm] 2 spray NASL DAILY 02/07/19 Fluticasone/Vilanterol [Breo 200-25 Mcg Ellipta 14 Dose/Dpi] 1 puff IH DAILY 02/07/19 Lisinopril/Hydrochlorothiazide [Zestoretic 20-12.5 mg Tablet] 1 tab PO DAILY 02/07/19 Meloxicam [Mobic 15 mg Tablet] 15 mg PO DAILY 02/07/19 Multivitamin [Chewable-Angel] 1 tab PO DAILY 02/07/19 Tiotropium [place] [Spiriva Handihaler 5 Cap/Kit (18 Mcg/Cap)] 1 cap IH DAILY 02/07/19 Allergies/Adverse Reactions: No Known Allergies Allergy (Unverified 11/04/13 09:48) Review of Systems Constitutional: PRESENT: fatigue, weakness Nose, Mouth, and Throat: PRESENT: sore throat Cardiovascular: PRESENT: dyspnea on exertion Respiratory: PRESENT: cough, dyspnea Gastrointestinal: ABSENT: abdominal pain, constipation, diarrhea, hematemesis, hematochezia, nausea, vomiting Musculoskeletal: ABSENT: joint swelling Neurological: ABSENT: abnormal gait, abnormal speech, confusion, dizziness, focal weakness, syncope Endocrine: ABSENT: cold intolerance, heat intolerance, polydipsia, polyuria Hematologic/Lymphatic: ABSENT: easy bleeding, easy bruising Physical Exam Vital Signs: Temp Pulse Resp BP Pulse Ox 97.4 F 74 18 148/63 H 94 02/07/19 20:06 02/08/19 02:00 02/08/19 00:56 02/07/19 20:06 02/08/19 00:56 Intake & Output 02/07/19 02/08/19 02/09/19 06:59 06:59 06:59 Intake Total 110 687 Balance 110 687 Weight 55.2 kg 55.4 kg General appearance: PRESENT: no acute distress, well-developed, well-nourished Head exam: PRESENT: atraumatic, normocephalic Eye exam: PRESENT: conjunctiva pink, EOMI, PERRLA. ABSENT: scleral icterus Ear exam: PRESENT: normal external ear exam Mouth exam: PRESENT: moist, tongue midline Neck exam: ABSENT: carotid bruit, JVD, lymphadenopathy, thyromegaly Respiratory exam: PRESENT: clear to auscultation romelia. ABSENT: rales, rhonchi, wheezes Cardiovascular exam: PRESENT: RRR. ABSENT: diastolic murmur, rubs, systolic murmur Pulses: PRESENT: normal dorsalis pedis pul Vascular exam: PRESENT: normal capillary refill GI/Abdominal exam: PRESENT: normal bowel sounds, soft. ABSENT: distended, guarding, mass, organolmegaly, rebound, tenderness Rectal exam: PRESENT: deferred Extremities exam: PRESENT: full ROM. ABSENT: calf tenderness, clubbing, pedal edema Neurological exam: PRESENT: alert, awake, oriented to person, oriented to place, oriented to time, oriented to situation, CN II-XII grossly intact. ABSENT: motor sensory deficit Psychiatric exam: PRESENT: appropriate affect, normal mood. ABSENT: homicidal ideation, suicidal ideation Skin exam: PRESENT: dry, intact, warm. ABSENT: cyanosis, rash Results Laboratory Results: 02/06/19 22:22 02/06/19 22:22 Impressions: Soft Tissue Neck CT 02/06/19 21:43 IMPRESSION: 1. 3.4 cm cavitary left upper lobe lesion with fluid, highly suspicious for neoplasm. 2. 2.1 cm enlarged left hilar node, likely metastatic 3. Note that the lower lungs were not evaluated on this study 4. Emphysema 5. No cervical mass or adenopathy. No evidence for metastatic disease in the neck. 6. No acute findings in the neck. Chest X-Ray 02/07/19 00:00 IMPRESSION: 3.5 cm cavitary lesion left upper lobe with air-fluid level worrisome for cavitary tuberculosis. Findings discussed with the attending denzel marrero as above. Chest CT 02/07/19 10:57 IMPRESSION: 3.5 cm left upper lobe cavitary mass with air-fluid level, differential is cystic necrotic tumor versus lung abscess versus tuberculosis. 2 cm left hilar lymph node Status: Image reviewed by me Assessment & Plan - Diagnosis (1) Cavitary lesion of lung Is this a current diagnosis for this admission?: Yes Plan: Infection being ruled out, today ordered deep suction for 3 AFB sputum samples. She apparently is planned for bronchoscopy tomorrow. I reviewed the imaging, there is left hilar adenopathy hopefully he will be able to reach that area but unsure. The left upper lobe cavitary lesion looks most easily accessed by percutaneous biopsy CT-guided biopsy. But I do believe we should at least rule out TB by AFB sputum samples before we decide on doing the percutaneous biopsy. She does have certainly enough smoking history to warrant strong consideration for a primary lung cancer. - Time Time Spent: Greater than 70 Minutes - Inpatient Certification Based on my medical assessment, after consideration of the patient's comorbidities, presenting symptoms, or acuity I expect that the services needed warrant INPATIENT care.: Yes I certify that my determination is in accordance with my understanding of Medicare's requirements for reasonable and necessary INPATIENT services [42 CFR 412.3e].: Yes Medical Necessity: Need for Nebulizer Therapy and Monitoring of Response, Need for IV Antibiotics, Need for Surgery, Risk of Complication if Not Cared For in Hospital
[2019-02-08 09:09] LABS: VENOUS BLOOD BASE EXCESS 4.8 mmol/L; VENOUS BLOOD HCO3 30.8 mmol/L (20-32); VENOUS BLOOD PCO2 51.6 mmHg (35-63); VENOUS BLOOD PH 7.39 (7.30-7.42)
[2019-02-08 09:12] LABS: ABSOLUTE EOSINOPHILS # (AUTO) 0.2 10^3/uL (0.0-0.6); ABSOLUTE LYMPHOCYTES (AUTO) 1.9 10^3/uL (0.5-4.7); ABSOLUTE MONOCYTES (AUTO) 0.8 10^3/uL (0.1-1.4); ABSOLUTE NEUT (AUTO) 8.3 10^3/uL (1.7-8.2); BASOPHILS % (AUTO) 0.3 % (0-2); EOSINOPHILS % (AUTO) 1.8 % (0-6); HEMATOCRIT 36.1 % (36.0-47.0); HEMOGLOBIN 12.1 g/dL (12.0-15.5); LYMPHOCYTES % (AUTO) 16.8 % (13-45); MEAN CORPUSCULAR HGB CONC 33.5 g/dL (32.0-36.0); MEAN CORPUSCULAR VOLUME 92 fl (80-97); PLATELET COUNT 329 10^3/uL (150-450); RED BLOOD COUNT 3.91 10^6/uL (3.72-5.28); RED CELL DISTRIBUTION WIDTH 13.7 % (11.5-14.0); SEGMENTED NEUTROPHILS % (AUTO) 74.1 % (42-78); TOTAL CELLS COUNTED % (AUTO) 100 %; WHITE BLOOD COUNT 11.2 10^3/uL (4.0-10.5)
[2019-02-08 09:41] LABS: ALANINE AMINOTRANSFERASE 24 U/L (9-52); ALBUMIN 3.9 g/dL (3.5-5.0); ALKALINE PHOSPHATASE 93 U/L (38-126); ANION GAP 10 (5-19); ASPARTATE AMINO TRANSFERASE 31 U/L (14-36); BILIRUBIN,DIRECT 0.2 mg/dL (0.0-0.4); BILIRUBIN,TOTAL 0.6 mg/dL (0.2-1.3); BLOOD UREA NITROGEN 25 mg/dL (7-20); CALCIUM 9.3 mg/dL (8.4-10.2); CARBON DIOXIDE 31 mmol/L (22-30); CHLORIDE 103 mmol/L (98-107); GLUCOSE 94 mg/dL (75-110); POTASSIUM 3.8 mmol/L (3.6-5.0); SODIUM 143.6 mmol/L (137-145); TOTAL PROTEIN 7.2 g/dL (6.3-8.2)
[2019-02-08] MEDS ORDERED: SODIUM CHLORIDE 3% FOR INHALATION 15 ML AMPUL NEB ONE (10:11)
[2019-02-08] MEDS: FAMOTIDINE 20 MG TABLET PO SCH ×2 (10:54→21:19)
[2019-02-08] MEDS: LISINOPRIL 10 MG TABLET PO SCH (10:55)
[2019-02-08] MEDS: HYDROCHLOROTHIAZIDE 12.5 MG TABLET PO SCH (10:55)
[2019-02-08] MEDS: MULTIVITAMIN TABLET PO SCH (10:55)
[2019-02-08] MEDS: FLUTICASONE/VILANTEROL 200-25 MCG/DOSE IH SCH (10:57)
[2019-02-08] MEDS: TIOTROPIUM BROMIDE DPI 5 CAP/KIT (18 MCG/CAP) IH SCH (10:57)
[2019-02-08] MEDS: FLUTICASONE NASAL SPRAY 50 MCG/SPRY 120 SPRAY/16 GM NASL SCH (10:58)
[2019-02-08] MEDS: DOCUSATE SODIUM 100 MG CAPSULE PO SCH ×2 (11:00→18:11)
[2019-02-08] MEDS: MELOXICAM 15 MG TABLET PO SCH (11:00)
--- NOTE | 2019-02-08 12:04 | CONSULTATION REPORT E ---
Consultation Report NAME: MARBELLA HUI : 1940 AGE: 78Y DATE: 335 A TO: THEO BERRY M.D. FROM: BRADEN NAM M.D. Requesting Physician HISTORY OF PRESENT ILLNESS: The patient is 78 years old, a lady, who came in with chronic cough over the last 1 or 2 weeks. Patient with mild dyspnea and postnasal drip. The patient went to her primary care provider and was started on Augmentin, which did not provide any significant relief. The patient's symptoms persisted. Patient went back to her primary care provider and had a CT scan of the neck, which showed an incidental finding of a cavitary lesion on the left upper lobe. Denies any fever or chills. Denies any sputum production or hemoptysis. Denies any chest pain. Denies worsening dyspnea. The patient claims she traveled to several states, namely [place], [place], [place], [place]. No international travel. Denies any possible exposure to TB. Claims that she is primarily homebound. She does not go out much. The patient denies any gardening hobby or frequent exposure to water, ponds, or lakes, or vegetation. Claimed that she used to smoke heavily in the past, about 1 pack per day for about 40 years and quit several years ago. Initially managed for COPD exacerbation. Consulted because of the cavitary lesion. PAST MEDICAL HISTORY: 1. Hypertension. 2. COPD. SURGICAL HISTORY: Orthopedic surgery right . SOCIAL HISTORY: Lives with spouse. Former smoker, as mentioned above, 1 pack per day for about 40 years. Denies any alcohol abuse or illicit drug use. FAMILY HISTORY: Diabetes sisters and malignancy. Patient's son passed from away from lung cancer. MEDICATIONS AT HOME: 1. Advair Discus inhaler 1 puff b.i.d. 2. Spiriva inhaler 1 puff daily. 3. Lisinopril/hydrochlorothiazide 1 tablet p.o. daily. ALLERGIES: No known drug allergies. REVIEW OF SYSTEMS: CONSTITUTIONAL: Denies any fever or chills, but was not feeling well over the last 1 or 2 weeks. Chronic cough, but nonproductive, and constant clearing of there throat. EYES, EARS, NOSE, AND THROAT: Eyes: No jaundice or pallor or pain. Ears: No ear pain or ear discharge. Nose, mouth, and throat: No dysphagia. No sore throat. No nasal discharge. CARDIOVASCULAR: Complains of exertional dyspnea. Denies any chest pain, edema, orthopnea. RESPIRATORY: Complained about cough, nonproductive. Denies any hemoptysis. GASTROINTESTINAL: No nausea, vomiting, diarrhea. GENITOURINARY: No dysuria or hematuria. EXTREMITIES: No joint swelling, no cellulitis. PHYSICAL EXAMINATION: GENERAL: Patient is awake, alert, coherent, oriented x3. VITAL SIGNS: Temperature of 97.3, with pulse rate of 90, blood pressure is 169/84, respiratory rate is 20, saturation is 94% on room air. EYES: No jaundice or pallor. EARS, NOSE, AND THROAT: No ear drainage. No nasal discharge. CHEST AND LUNGS: No wheezing, no rhonchi, no coarse crackles. CARDIOVASCULAR: S1, S2 distinct. Normal rate and regular rhythm. ABDOMEN: Flabby, positive bowel sounds, soft, nondistended, nontender. EXTREMITIES: No joint swelling, no cellulitis. LABORATORY DATA: CBC done today showed white count of 12.8, which is slightly elevated; hemoglobin 12.1; hematocrit 35.8; platelet count is 260; absolute neutrophils are slightly elevated at 9.6. Chemistry done today showed sodium 142, potassium is 3.9, chloride 104, CO2 is 32, BUN is 24, creatinine 0.72, glucose 118, calcium is 9.5. Total bilirubin is 0.4, direct bilirubin 0.3, SGOT is 26, SGPT is 14, alkaline phosphatase 109, total protein 708, and albumin is 4.1. Chest CT scan showed large cavitary mass with air fluid level of 3.5. ASSESSMENT: 1. Possible malignancy versus mycobacterial infection, either MTB or mycobacterium garo complex or atypical mycobacteria, versus fungal infection versus lung abscess. 2. Chronic obstructive pulmonary disease (COPD): Currently stable and not in acute bronchospasm. PLAN/RECOMMENDATIONS: 1. Will do a sputum culture for bacteria, fungus, and AFB. Ordered one for 10 o'clock this morning, but patient claimed that she could not expectorate anything. Ordered repeat sputum culture for 6 o'clock AM and sputum was not collected. Will order another sputum tomorrow. Patient currently in respiratory isolation. 2. Will schedule patient for blood cultures x2 sets tonight. 3. Agree to repeat a CBC again tomorrow. 4. Discontinue the budesonide nebulizer treatment. Currently the patient is not in bronchospasm. 5. Will change the patient to Trelegy 1 puff once daily. 6. Will start the patient empirically with antibiotics, Zosyn 3.375 g IV piggyback q.8 hours, first dose tonight, and vancomycin 1 g, first dose tonight, for empiric treatment for a lung abscess. 7. Will plan to do a bronchoscopy on Monday depending on the sputum AFB collections on tomorrow, which is Monday. 8. Will follow patient. DICTATING PHYSICIAN: THEO BERRY MD,JUNIOR,MPH [id number] PHY#: [id number] ID: [id number] JOB#: [id number] ACCT: [id number] cc:THEO BERRY M.D. > MTDD
--- NOTE | 2019-02-08 17:06 | PDOC PROGRESS REPORT ---
Subjective Progress Note for:: 02/08/19 Subjective:: No adverse events overnight. No new complaints. She still has a dry cough. She says they have been trying to get a deep sputum sample but have not had much success so far. She has had no fevers. She denies any night sweats. Reason For Visit: ACUTE EXACERBATION OF COPD, LEFT UPPER LOBE Physical Exam Vital Signs: Temp Pulse Resp BP Pulse Ox 97.5 F 65 16 111/59 L 95 02/08/19 14:21 02/08/19 16:25 02/08/19 16:25 02/08/19 14:21 02/08/19 16:25 Intake & Output 02/07/19 02/08/19 02/09/19 06:59 06:59 06:59 Intake Total 110 687 Balance 110 687 Weight 55.2 kg 55.4 kg General appearance: PRESENT: mild distress, thin Respiratory exam: PRESENT: decreased breath sounds, no use of accessory muscles, no wheezes, no rhonchi Cardiovascular exam: PRESENT: RRR S1 S2 GI/Abdominal exam: PRESENT: normal bowel sounds, soft. ABSENT: distended, guarding, mass, organolmegaly, rebound, tenderness Neurological exam: PRESENT: alert, awake, oriented to person, oriented to place, oriented to time, oriented to situation Psychiatric exam: PRESENT: appropriate affect, normal mood Results Laboratory Results: 02/08/19 08:53 02/08/19 08:53 02/08/19 02/08/19 02/08/19 08:53 08:53 08:53 WBC 11.2 H RBC 3.91 Hgb 12.1 Hct 36.1 MCV 92 MCH 31.0 MCHC 33.5 RDW 13.7 Plt Count 329 Seg Neutrophils % 74.1 Lymphocytes % 16.8 Monocytes % 7.0 Eosinophils % 1.8 Basophils % 0.3 Absolute Neutrophils 8.3 H Absolute Lymphocytes 1.9 Absolute Monocytes 0.8 Absolute Eosinophils 0.2 Absolute Basophils 0.0 VBG pH VBG pCO2 VBG HCO3 VBG Base Excess Sodium 143.6 Potassium 3.8 Chloride 103 Carbon Dioxide 31 H Anion Gap 10 BUN 25 H Creatinine 0.75 Est GFR ( Amer) > 60 Est GFR (Non-Af Amer) > 60 Glucose 94 Calcium 9.3 Magnesium 2.2 Total Bilirubin 0.6 AST 31 ALT 24 Alkaline Phosphatase 93 Total Protein 7.2 Albumin 3.9 TSH 0.92 02/08/19 08:53 WBC RBC Hgb Hct MCV MCH MCHC RDW Plt Count Seg Neutrophils % Lymphocytes % Monocytes % Eosinophils % Basophils % Absolute Neutrophils Absolute Lymphocytes Absolute Monocytes Absolute Eosinophils Absolute Basophils VBG pH 7.39 VBG pCO2 51.6 VBG HCO3 30.8 VBG Base Excess 4.8 Sodium Potassium Chloride Carbon Dioxide Anion Gap BUN Creatinine Est GFR ( Amer) Est GFR (Non-Af Amer) Glucose Calcium Magnesium Total Bilirubin AST ALT Alkaline Phosphatase Total Protein Albumin TSH Impressions: Soft Tissue Neck CT 02/06/19 21:43 IMPRESSION: 1. 3.4 cm cavitary left upper lobe lesion with fluid, highly suspicious for neoplasm. 2. 2.1 cm enlarged left hilar node, likely metastatic 3. Note that the lower lungs were not evaluated on this study 4. Emphysema 5. No cervical mass or adenopathy. No evidence for metastatic disease in the neck. 6. No acute findings in the neck. Chest X-Ray 02/07/19 00:00 IMPRESSION: 3.5 cm cavitary lesion left upper lobe with air-fluid level worrisome for cavitary tuberculosis. Findings discussed with the attending physician as above. Chest CT 02/07/19 10:57 IMPRESSION: 3.5 cm left upper lobe cavitary mass with air-fluid level, differential is cystic necrotic tumor versus lung abscess versus tuberculosis. 2 cm left hilar lymph node Assessment and Plan - Diagnosis (1) Cavitary lesion of lung Is this a current diagnosis for this admission?: Yes Plan: Currently being ruled out for TB. Empirically treating with vancomycin and Zosyn in the event this is an abscess. Pulmonology has been consulted. (2) Acute exacerbation of chronic obstructive pulmonary disease (COPD) Is this a current diagnosis for this admission?: Yes Plan: Empirically on antibiotics. Steroids have been discontinued. She is currently on her home medications. The acute exacerbation has resolved. - Time Time Spent with patient: 15-24 minutes
[2019-02-08] MEDS: VANCOMYCIN HCL 750 MG in DEXTROSE 5%-WATER 250 ML IV SCH (21:14)
[2019-02-08] MEDS ORDERED: GLUCAGON,HUMAN RECOMB 1 MG INJ SUBCUT PRN (22:40)
[2019-02-08] MEDS ORDERED: DEXTROSE 40% GEL 15 GM TUBE PO PRN ×2 (22:40)
[2019-02-08] MEDS ORDERED: DEXTROSE 50%-WATER 25 GM/50 ML DISP.SYRIN IV PRN ×2 (22:40)
[2019-02-09] MEDS: IPRATROPIUM BROMIDE 0.02% NEB 0.5 MG/2.5 ML AMPUL NEB SCH ×3 (00:44→15:46)
[2019-02-09] MEDS: LEVALBUTEROL HCL NEB 1.25 MG/3 ML AMPUL NEB SCH ×3 (00:44→15:46)
--- NOTE | 2019-02-09 02:39 | PROGRESS NOTE E ---
Progress Note NAME: MARBELLA HUI : 1940 AGE: 78Y DATE: 02/08/2019 ROOM: 335 SUBJECTIVE: The patient is a 78-year-old female who was admitted for a left upper lobe cavitation. Currently treated empirically for lung abscess. Atypical mycobacterium or bacterial infection or fungal infection or mycobacterial tuberculosis or malignancy could not be completely excluded. The patient tried to cough up phlegm but failed. Respiratory therapist assisted the patient with sputum induction, but unable to collect any sputum still. Denies any fever, chills. Denies any increasing cough or purulent sputum production or hemoptysis. No chest pain. No worsening dyspnea. The patient is scheduled for flexible bronchoscopy tomorrow. OBJECTIVE: GENERAL: Currently awake, alert, coherent, oriented x3. VITAL SIGNS: Temperature of 97.9 with a T-max of 98.1, heart rate 59, blood pressure is 113/61, respiratory rate is 20, oxygen saturation 94% at room air. EYES: No jaundice or pallor. EARS, NOSE, AND THROAT: No ear drainage. No nasal discharge. CHEST AND LUNGS: No wheezing, no rhonchi, no coarse crackles noted. CARDIOVASCULAR: S1, S2 distinct. Normal rate and regular rhythm. ABDOMEN: Flabby, positive bowel sounds, soft, nondistended, nontender. EXTREMITIES: No joint swelling, no cellulitis. LABORATORY DATA: CBC done today showed a white count of 11.2, hemoglobin 12.1, hematocrit is 36.1, platelet count is 729. Chemistry done today showed sodium 143, potassium 3.8, chloride 103, CO2 is 31, BUN is 75, creatinine 0.75, glucose 94, calcium is 9.3, magnesium is 2.2, total bilirubin is 2.2, SGOT 31, SGPT 24, alkaline phosphatase 23, total protein is 7.2. The rest are normal. ASSESSMENT AND PLAN: CAVITARY LESION LEFT UPPER LOBE. CURRENTLY EMPIRICALLY TREATED FOR LUNG ABSCESS WITH IV VANCOMYCIN AND IV ZOSYN. Unable to collect sputum AFB this morning and yesterday. The patient is scheduled for flexible bronchoscopy tomorrow with possible bronchial washing bronchoalveolar lavage, bronchial lung biopsy. NPO tonight. DICTATING PHYSICIAN: THEO BERRY MD,JUNIOR,MPH [id number] PHY#: [id number] ID: [id number] JOB#: [id number] ACCT: [id number] cc: > JORGE L
[2019-02-09] MEDS: HEPARIN SOD (PORCINE) 5,000 UNIT/ML 1 ML SYRINGE SUBCUT SCH ×3 (05:09→21:45)
[2019-02-09] MEDS: PIPERACILLIN SODIUM/TAZOBACTAM 3.375 GM in NORMAL SALINE 100 ML IV SCH ×3 (05:10→21:46)
[2019-02-09 06:54] LABS: ABSOLUTE EOSINOPHILS # (AUTO) 0.4 10^3/uL (0.0-0.6); ABSOLUTE LYMPHOCYTES (AUTO) 1.9 10^3/uL (0.5-4.7); ABSOLUTE MONOCYTES (AUTO) 0.8 10^3/uL (0.1-1.4); ABSOLUTE NEUT (AUTO) 6.4 10^3/uL (1.7-8.2); BASOPHILS % (AUTO) 0.3 % (0-2); EOSINOPHILS % (AUTO) 4.4 % (0-6); HEMATOCRIT 34.9 % (36.0-47.0); HEMOGLOBIN 11.8 g/dL (12.0-15.5); MEAN CORPUSCULAR HEMOGLOBIN 31.1 pg (27.0-33.4); MEAN CORPUSCULAR HGB CONC 33.7 g/dL (32.0-36.0); MEAN CORPUSCULAR VOLUME 92 fl (80-97); MONOCYTES % (AUTO) 8.3 % (3-13); PLATELET COUNT 298 10^3/uL (150-450); RED BLOOD COUNT 3.79 10^6/uL (3.72-5.28); RED CELL DISTRIBUTION WIDTH 13.6 % (11.5-14.0); TOTAL CELLS COUNTED % (AUTO) 100 %; WHITE BLOOD COUNT 9.5 10^3/uL (4.0-10.5)
[2019-02-09 07:16] LABS: ANION GAP 10 (5-19); BLOOD UREA NITROGEN 23 mg/dL (7-20); CARBON DIOXIDE 29 mmol/L (22-30); CHLORIDE 104 mmol/L (98-107); GLUCOSE 98 mg/dL (75-110); POTASSIUM 4.1 mmol/L (3.6-5.0); SODIUM 142.5 mmol/L (137-145)
[2019-02-09] MEDS ORDERED: NALOXONE HCL INJ/PF 0.4 MG/1 ML SDV ONE (08:54)
[2019-02-09] MEDS ORDERED: ONDANSETRON HCL INJ/PF 4 MG/2 ML SDV ONE (08:54)
[2019-02-09] MEDS ORDERED: DIPHENHYDRAMINE HCL 50 MG/ML VIAL ONE (08:54)
[2019-02-09] MEDS ORDERED: EPINEPHRINE INJ 1 MG/10 ML DISP.SYRIN ONE (08:55)
[2019-02-09] MEDS ORDERED: FLUMAZENIL INJ 0.5 MG/5 ML VIAL ONE (08:55)
[2019-02-09] MEDS ORDERED: LIDOCAINE 2% JELLY 30 ML TUBE ONE (08:56)
[2019-02-09] MEDS: LIDOCAINE 2% INJ (20 MG/ML) 20 ML MDV ONE ×2 (09:31→10:13)
[2019-02-09] MEDS: MIDAZOLAM 2 MG/2 ML INJ ONE ×5 (09:46→10:10)
[2019-02-09] MEDS: FENTANYL CITRATE INJ/PF 100 MCG/2 ML AMPUL ONE ×4 (09:49→10:08)
[2019-02-09] MEDS: LISINOPRIL 10 MG TABLET PO SCH (10:58)
[2019-02-09] MEDS: HYDROCHLOROTHIAZIDE 12.5 MG TABLET PO SCH (10:58)
[2019-02-09] MEDS: MULTIVITAMIN TABLET PO SCH (10:59)
[2019-02-09] MEDS: FAMOTIDINE 20 MG TABLET PO SCH ×2 (10:59→21:45)
[2019-02-09] MEDS: FLUTICASONE NASAL SPRAY 50 MCG/SPRY 120 SPRAY/16 GM NASL SCH (10:59)
[2019-02-09] MEDS: FLUTICASONE/VILANTEROL 200-25 MCG/DOSE IH SCH (10:59)
[2019-02-09] MEDS: DOCUSATE SODIUM 100 MG CAPSULE PO SCH ×2 (10:59→19:35)
[2019-02-09] MEDS: TIOTROPIUM BROMIDE DPI 5 CAP/KIT (18 MCG/CAP) IH SCH (10:59)
[2019-02-09] MEDS: MELOXICAM 15 MG TABLET PO SCH (11:12)
--- NOTE | 2019-02-09 12:29 | PDOC PROGRESS REPORT ---
Subjective Progress Note for:: 02/09/19 Subjective:: Patient went for bronchoscopy this morning Reason For Visit: ACUTE EXACERBATION OF COPD, LEFT UPPER LOBE Physical Exam Vital Signs: Temp Pulse Resp BP Pulse Ox 98.1 F 72 23 H 110/64 95 02/09/19 08:12 02/09/19 10:40 02/09/19 10:40 02/09/19 10:40 02/09/19 10:40 Intake & Output 02/08/19 02/09/19 02/10/19 06:59 06:59 06:59 Intake Total 687 1309 200 Balance 687 1309 200 Weight 55.4 kg 56.3 kg General appearance: PRESENT: no acute distress, well-developed, well-nourished Head exam: PRESENT: atraumatic, normocephalic Eye exam: PRESENT: conjunctiva pink, EOMI, PERRLA. ABSENT: scleral icterus Ear exam: PRESENT: normal external ear exam Mouth exam: PRESENT: moist, tongue midline Neck exam: ABSENT: carotid bruit, JVD, lymphadenopathy, thyromegaly Respiratory exam: PRESENT: clear to auscultation romelia. ABSENT: rales, rhonchi, wheezes Cardiovascular exam: PRESENT: RRR. ABSENT: diastolic murmur, rubs, systolic murmur Pulses: PRESENT: normal dorsalis pedis pul Vascular exam: PRESENT: normal capillary refill GI/Abdominal exam: PRESENT: normal bowel sounds, soft. ABSENT: distended, guarding, mass, organolmegaly, rebound, tenderness Rectal exam: PRESENT: deferred Extremities exam: PRESENT: full ROM. ABSENT: calf tenderness, clubbing, pedal edema Neurological exam: PRESENT: alert, awake, oriented to person, oriented to place, oriented to time, oriented to situation, CN II-XII grossly intact. ABSENT: motor sensory deficit Psychiatric exam: PRESENT: appropriate affect, normal mood. ABSENT: homicidal ideation, suicidal ideation Skin exam: PRESENT: dry, intact, warm. ABSENT: cyanosis, rash Results Laboratory Results: 02/09/19 06:30 02/09/19 06:30 02/09/19 02/09/19 06:30 06:30 WBC 9.5 RBC 3.79 Hgb 11.8 L Hct 34.9 L MCV 92 MCH 31.1 MCHC 33.7 RDW 13.6 Plt Count 298 Seg Neutrophils % 67.0 Lymphocytes % 20.0 Monocytes % 8.3 Eosinophils % 4.4 Basophils % 0.3 Absolute Neutrophils 6.4 Absolute Lymphocytes 1.9 Absolute Monocytes 0.8 Absolute Eosinophils 0.4 Absolute Basophils 0.0 Sodium 142.5 Potassium 4.1 Chloride 104 Carbon Dioxide 29 Anion Gap 10 BUN 23 H Creatinine 0.86 Est GFR ( Amer) > 60 Est GFR (Non-Af Amer) > 60 Glucose 98 Calcium 9.0 Magnesium 2.2 Impressions: Soft Tissue Neck CT 02/06/19 21:43 IMPRESSION: 1. 3.4 cm cavitary left upper lobe lesion with fluid, highly suspicious for neoplasm. 2. 2.1 cm enlarged left hilar node, likely metastatic 3. Note that the lower lungs were not evaluated on this study 4. Emphysema 5. No cervical mass or adenopathy. No evidence for metastatic disease in the neck. 6. No acute findings in the neck. Chest X-Ray 02/07/19 00:00 IMPRESSION: 3.5 cm cavitary lesion left upper lobe with air-fluid level worrisome for cavitary tuberculosis. Findings discussed with the attending physician as above. Chest CT 02/07/19 10:57 IMPRESSION: 3.5 cm left upper lobe cavitary mass with air-fluid level, differential is cystic necrotic tumor versus lung abscess versus tuberculosis. 2 cm left hilar lymph node Assessment & Plan - Diagnosis (1) Cavitary lesion of lung Is this a current diagnosis for this admission?: Yes Plan: Very concerning for primary lung cancer, await results of bronchoscopy
--- NOTE | 2019-02-09 16:34 | OPERATIVE REPORT E ---
Operative Report NAME: MARBELLA HUI : 1940 AGE: 78Y DATE OF SURGERY: 02/09/2019 ROOM: 335 INDICATION: The patient is a 78-year-old lady who came in with a cavitating mass on the left upper lobe, cavitated or lung abscess, atypical mycobacterium infection or mycobacterium tuberculosis or fungal infection or malignancy could not be completely excluded. The patient underwent flexible bronchoscopy today. OPERATION: Bronchoscopy with bronchial washing. PREOPERATIVE DIAGNOSIS: Cavitating mass on the left upper lobe about 3 cm. POSTOPERATIVE DIAGNOSIS: Cavitating mass on the left upper lobe about 3 cm. SURGEON: THEO BERRY M.D. SPECIMEN COLLECTED: 1. Bronchial washing specimen from the left upper lobe. 2. Transbronchial lung biopsy attempted but not done. BLOOD LOSS: Minimal, less than 1 mL. COMPLICATIONS: None. OPERATIVE NOTE: Consent was obtained from the patient. The patient verbalized understand of the indication, risk, and potential complications of the procedure. The patient was given 2% lidocaine solution 3 mL via nebulizer. Hurricaine spray x4 sprays was applied on the oropharyngeal wall and 2% lidocaine gel was applied to the posterior pharyngeal wall until gag reflex was eliminated. Flexible bronchoscope was inserted through the mouthguard and 1% lidocaine solution 2 mL was applied through the bronchoscope as the bronchoscope was advanced to the vocal cords, trachea, ibeth, and segmental airway. Versed was given at increments of 0.5 mg, total dose of 4.5 mg. Fentanyl was also given at increments of 25 mcg for a total dose of 100 mcg. Flexible vocal cords appeared normal. Trachea appeared normal, no lesions noted. Ibeth appeared sharp and midline. Right mainstem bronchus and right middle lobe bronchus and right upper lobe bronchus and the right lower lobe bronchus appeared normal. The left mainstem bronchus appeared normal. The left lower lobe bronchus appeared normal. The apical posterior segments appeared normal. No endobronchial lesions noted. The left upper lobe bronchus including the anterior segment of the left upper lobe and the inferior lingula and superior lingula segments, appeared normal. Lidocaine was applied and the bronchial washing was performed on the left upper lobe and suctioned until clear. The patient was noted desaturating to 78% in the middle of this procedure after the patient received about 3 mg of Versed and 75 mcg of Fentanyl. The severe hypoxemia resolved after a few seconds after doing a jaw thrust maneuver and increasing the oxygen to 4 liters and removing the bronchoscope from the airways. The bronchoscope was reinserted through the vocal cords and airways, but the patient started waking up and started coughing severely. The additional doses of topical lidocaine was applied on the ibeth, left mainstem bronchus and left upper lobe bronchus. Additional doses of Versed in increments of 0.5 mg x2 was given and fentanyl 25 mcg x1 was given to a total dose of 100 mcg fentanyl and a total dose of 4.5 mg of Versed. The patient could not stop coughing, irritating the airway, and she could not hold still. Able to collect bronchial washing specimen about 35 mL from the left upper lobe, which we will be sending for cytologic examination and for AFB, bacteria and fungi cultures. Cannot do transbronchial lung biopsy at this time considering the patient's severe O2 desaturation if given more sedation and persistent coughing despite optimizing the topical lidocaine solution use. The procedure is completed and we will schedule the patient for transbronchial lung biopsy in the operating room in the next few days with anesthesia support, pending the culture results from the bronchial washings. If the bronchial washing shows positive for AFB or bacteria, fungal, we might hold the lung biopsy temporarily until we find organisms and treat the infection if present. We will consider lung biopsy transbronchial if the cultures come back all negative. We will reevaluate the patient. DICTATING PHYSICIAN: THEO BERRY MD,JUNIOR,MPH [id number] [id number] PHY#: [id number] ID: [id number] JOB#: [id number] ACCT: [id number] cc:THEO BERRY M.D. > [facility]ITALJ[facility]
--- NOTE | 2019-02-09 17:14 | PROGRESS NOTE E ---
Progress Note NAME: MARBELLA HUI : 1940 AGE: 78Y DATE: 02/09/2019 ROOM: 335 SUBJECTIVE: The patient is a 78-year-old female with cavitating lesion in the left upper lobe about 3 cm in diameter. The patient underwent flexible bronchoscopy today, able to do bronchial washing involving the left upper lobe, unable to do a lung biopsy at this time, because of difficulty with controlling the cough despite adequate sedation with Versed 4.5 mg and Fentanyl 100 mcg and maximal use of topical anesthesia. Then severe hypoxemia in the middle of the procedure. The patient is doing well after the procedure, waking up. Otherwise, no adverse complications. The patient denies any chest pain overnight or increased shortness of breath or purulent sputum production or hemoptysis. OBJECTIVE: GENERAL: The patient is awake, alert, coherent, oriented x3. VITAL SIGNS: Temperature of 98.1, heart rate 72, blood pressure is 110/64, respiratory 23, saturation 95%. EYES: No jaundice or pallor. EARS, NOSE, AND THROAT: No ear drainage. No nasal discharge. CHEST AND LUNGS: No wheezing, no rhonchi, no coarse crackles. CARDIOVASCULAR: S1, S2 distinct. Normal rate and regular rhythm. ABDOMEN: Flabby, positive bowel sounds, soft, nondistended, nontender. EXTREMITIES: No joint swelling, no cellulitis. LABORATORY DATA: Today showed a white count of 9.5, hemoglobin is 11.8, hematocrit is 34.9, and platelet count is 298. Chemistry this morning showed sodium 142, potassium 4.1, chloride 104, CO2 is 29, BUN is 23, creatinine 0.86, and glucose was 98, calcium is 9, and magnesium is 2.2. ASSESSMENT AND PLAN: 1. CAVITATING MASS LEFT UPPER LOBE ABOUT 3 CM. MOST LIKELY AN INFECTIOUS PROCESS. Currently treated empirically as a lung abscess with IV Zosyn and IV vancomycin. Awaiting the bronchial washing cultures. Atypical mycobacterium, pulmonary tuberculosis or fungal infection or stenotrophomas maltophila infection or malignancy cannot be completely excluded. Unable to perform transbronchial lung biopsy today due to severe hypoxemia approximately to 78%, optimal severe coughing despite adequate sedation using Versed and fentanyl and maximal use of topical lidocaine solution. The patient may require anesthesia support for repeat bronchoscopy and subsequently lung biopsy. We will await for the bronchial washing cultures to come in before scheduling the patient for transbronchial lung biopsy next week. 2. COPD. Currently stable and not in acute exacerbation. Currently on BREO 200 and Spiriva inhaler and nebulizer treatments. 3. Continue IV vancomycin, IV Zosyn for now. 4. We will reevaluate the patient. DICTATING PHYSICIAN: THEO BERRY MD,JUNIOR,MPH [id number] [id number] PHY#: [id number] ID: [id number] JOB#: [id number] ACCT: [id number] cc: > MTDD
--- NOTE | 2019-02-09 18:05 | RADIOLOGY REPORT (SQ) ---
EXAM DESCRIPTION: CHEST SINGLE VIEW COMPLETED DATE/TIME: 02/09/2019 4:18 pm REASON FOR STUDY: post bronchoscopy; SOB COMPARISON: 02/07/2019 TECHNIQUE: Single frontal radiographic view of the chest acquired. NUMBER OF VIEWS: One view. LIMITATIONS: None. FINDINGS: LUNGS AND PLEURA: No pneumothorax. Similar 4 cm cavitary lesion in the left upper lobe. No acute consolidation or pleural effusion. MEDIASTINUM AND HILAR STRUCTURES: Stable. HEART AND VASCULAR STRUCTURES: Stable. BONES: No acute findings. HARDWARE: None in the chest. OTHER: No other significant finding. IMPRESSION: Similar 4 cm cavitary lesion in the left upper lobe. TECHNICAL DOCUMENTATION: JOB ID: [id number] [id number] [employer]- All Rights Reserved Reading location - IP/workstation name: [email or web address]
--- NOTE | 2019-02-09 18:35 | PDOC PROGRESS REPORT ---
Subjective Progress Note for:: 02/09/19 Subjective:: No adverse events overnight. No new complaints. She said that she had a bronchoscopy this morning and she tolerated it well. She still has a light dry nagging cough but otherwise is doing okay. No fevers. I spoke with Dr. Phoenix and he said that he could not get the bronchoscope as far into the long as he needs to get, and so he is planning on taking her to the OR on Monday to do it there. Reason For Visit: ACUTE EXACERBATION OF COPD, LEFT UPPER LOBE Physical Exam Vital Signs: Temp Pulse Resp BP Pulse Ox 97.5 F 65 16 127/62 H 91 L 02/09/19 11:57 02/09/19 15:47 02/09/19 15:47 02/09/19 11:57 02/09/19 15:47 Intake & Output 02/08/19 02/09/19 02/10/19 06:59 06:59 06:59 Intake Total 687 1309 950 Balance 687 1309 950 Weight 55.4 kg 56.3 kg General appearance: PRESENT: mild distress, thin Respiratory exam: PRESENT: decreased breath sounds, no use of accessory muscles, no wheezes, no rhonchi Cardiovascular exam: PRESENT: RRR S1 S2 GI/Abdominal exam: PRESENT: normal bowel sounds, soft. ABSENT: distended, guarding, mass, organolmegaly, rebound, tenderness Neurological exam: PRESENT: alert, awake, oriented to person, oriented to place, oriented to time, oriented to situation Psychiatric exam: PRESENT: appropriate affect, normal mood Results Laboratory Results: 02/09/19 06:30 02/09/19 06:30 02/09/19 02/09/19 06:30 06:30 WBC 9.5 RBC 3.79 Hgb 11.8 L Hct 34.9 L MCV 92 MCH 31.1 MCHC 33.7 RDW 13.6 Plt Count 298 Seg Neutrophils % 67.0 Lymphocytes % 20.0 Monocytes % 8.3 Eosinophils % 4.4 Basophils % 0.3 Absolute Neutrophils 6.4 Absolute Lymphocytes 1.9 Absolute Monocytes 0.8 Absolute Eosinophils 0.4 Absolute Basophils 0.0 Sodium 142.5 Potassium 4.1 Chloride 104 Carbon Dioxide 29 Anion Gap 10 BUN 23 H Creatinine 0.86 Est GFR ( Amer) > 60 Est GFR (Non-Af Amer) > 60 Glucose 98 Calcium 9.0 Magnesium 2.2 Impressions: Soft Tissue Neck CT 02/06/19 21:43 IMPRESSION: 1. 3.4 cm cavitary left upper lobe lesion with fluid, highly suspicious for neoplasm. 2. 2.1 cm enlarged left hilar node, likely metastatic 3. Note that the lower lungs were not evaluated on this study 4. Emphysema 5. No cervical mass or adenopathy. No evidence for metastatic disease in the neck. 6. No acute findings in the neck. Chest CT 02/07/19 10:57 IMPRESSION: 3.5 cm left upper lobe cavitary mass with air-fluid level, differential is cystic necrotic tumor versus lung abscess versus tuberculosis. 2 cm left hilar lymph node Chest X-Ray 02/09/19 15:00 IMPRESSION: Similar 4 cm cavitary lesion in the left upper lobe. Assessment and Plan - Diagnosis (1) Cavitary lesion of lung Is this a current diagnosis for this admission?: Yes Plan: Currently being ruled out for TB, not able to get good deep sputum specimens. Empirically treating with vancomycin and Zosyn in the event this is an abscess. Pulmonology has been consulted. As noted above, plan for a bronchoscopy in the OR on Monday for biopsy and bronchial washings. (2) Acute exacerbation of chronic obstructive pulmonary disease (COPD) Is this a current diagnosis for this admission?: Yes Plan: Empirically on antibiotics. Steroids have been discontinued. She is currently on her home medications. The acute exacerbation has resolved. - Time Time Spent with patient: 15-24 minutes
[2019-02-09] MEDS: VANCOMYCIN HCL 750 MG in DEXTROSE 5%-WATER 250 ML IV SCH (21:45)
[2019-02-10] MEDS: IPRATROPIUM BROMIDE 0.02% NEB 0.5 MG/2.5 ML AMPUL NEB SCH ×3 (01:11→16:42)
[2019-02-10] MEDS: LEVALBUTEROL HCL NEB 1.25 MG/3 ML AMPUL NEB SCH ×3 (01:11→16:42)
[2019-02-10] MEDS: PIPERACILLIN SODIUM/TAZOBACTAM 3.375 GM in NORMAL SALINE 100 ML IV SCH ×3 (05:09→22:32)
[2019-02-10] MEDS: HEPARIN SOD (PORCINE) 5,000 UNIT/ML 1 ML SYRINGE SUBCUT SCH ×3 (05:09→22:32)
[2019-02-10 07:16] LABS: ABSOLUTE BASOPHILS # (AUTO) 0.1 10^3/uL (0.0-0.2); ABSOLUTE EOSINOPHILS # (AUTO) 0.4 10^3/uL (0.0-0.6); ABSOLUTE LYMPHOCYTES (AUTO) 1.9 10^3/uL (0.5-4.7); ABSOLUTE MONOCYTES (AUTO) 0.9 10^3/uL (0.1-1.4); ABSOLUTE NEUT (AUTO) 8.8 10^3/uL (1.7-8.2); BASOPHILS % (AUTO) 0.6 % (0-2); EOSINOPHILS % (AUTO) 3.1 % (0-6); HEMATOCRIT 32.1 % (36.0-47.0); HEMOGLOBIN 10.9 g/dL (12.0-15.5); LYMPHOCYTES % (AUTO) 15.6 % (13-45); MEAN CORPUSCULAR HEMOGLOBIN 30.9 pg (27.0-33.4); MEAN CORPUSCULAR HGB CONC 33.9 g/dL (32.0-36.0); MEAN CORPUSCULAR VOLUME 91 fl (80-97); MONOCYTES % (AUTO) 7.5 % (3-13); PLATELET COUNT 267 10^3/uL (150-450); RED BLOOD COUNT 3.52 10^6/uL (3.72-5.28); RED CELL DISTRIBUTION WIDTH 13.5 % (11.5-14.0); SEGMENTED NEUTROPHILS % (AUTO) 73.2 % (42-78); TOTAL CELLS COUNTED % (AUTO) 100 %
[2019-02-10 07:41] LABS: ANION GAP 8 (5-19); BLOOD UREA NITROGEN 20 mg/dL (7-20); CALCIUM 8.9 mg/dL (8.4-10.2); CARBON DIOXIDE 29 mmol/L (22-30); CHLORIDE 104 mmol/L (98-107); GLUCOSE 91 mg/dL (75-110); POTASSIUM 4.1 mmol/L (3.6-5.0); SODIUM 141.4 mmol/L (137-145)
[2019-02-10] MEDS: MULTIVITAMIN TABLET PO SCH (10:45)
[2019-02-10] MEDS: LISINOPRIL 10 MG TABLET PO SCH (10:45)
[2019-02-10] MEDS: FAMOTIDINE 20 MG TABLET PO SCH ×2 (10:45→22:32)
[2019-02-10] MEDS: HYDROCHLOROTHIAZIDE 12.5 MG TABLET PO SCH (10:45)
[2019-02-10] MEDS: DOCUSATE SODIUM 100 MG CAPSULE PO SCH ×2 (10:46→17:20)
[2019-02-10] MEDS: FLUTICASONE NASAL SPRAY 50 MCG/SPRY 120 SPRAY/16 GM NASL SCH (10:46)
[2019-02-10] MEDS: FLUTICASONE/VILANTEROL 200-25 MCG/DOSE IH SCH (10:46)
[2019-02-10] MEDS: MELOXICAM 15 MG TABLET PO SCH (10:47)
[2019-02-10] MEDS: TIOTROPIUM BROMIDE DPI 5 CAP/KIT (18 MCG/CAP) IH SCH (10:47)
--- NOTE | 2019-02-10 11:04 | PDOC PROGRESS REPORT ---
Subjective Progress Note for:: 02/10/19 Subjective:: Bronchoscopy done yesterday, no transbronchial biopsies were done, AFB is pending now Reason For Visit: ACUTE EXACERBATION OF COPD, LEFT UPPER LOBE Physical Exam Vital Signs: Temp Pulse Resp BP Pulse Ox 97.7 F 60 19 126/88 H 93 02/10/19 08:00 02/10/19 08:00 02/10/19 08:00 02/10/19 08:00 02/10/19 08:00 Intake & Output 02/09/19 02/10/19 02/11/19 06:59 06:59 06:59 Intake Total 1309 2155 Balance 1309 2155 Weight 56.3 kg 54.5 kg General appearance: PRESENT: no acute distress, well-developed, well-nourished Head exam: PRESENT: atraumatic, normocephalic Eye exam: PRESENT: conjunctiva pink, EOMI, PERRLA. ABSENT: scleral icterus Ear exam: PRESENT: normal external ear exam Mouth exam: PRESENT: moist, tongue midline Neck exam: ABSENT: carotid bruit, JVD, lymphadenopathy, thyromegaly Respiratory exam: PRESENT: clear to auscultation romelia. ABSENT: rales, rhonchi, wheezes Cardiovascular exam: PRESENT: RRR. ABSENT: diastolic murmur, rubs, systolic murmur Pulses: PRESENT: normal dorsalis pedis pul Vascular exam: PRESENT: normal capillary refill GI/Abdominal exam: PRESENT: normal bowel sounds, soft. ABSENT: distended, guarding, mass, organolmegaly, rebound, tenderness Rectal exam: PRESENT: deferred Extremities exam: PRESENT: full ROM. ABSENT: calf tenderness, clubbing, pedal edema Neurological exam: PRESENT: alert, awake, oriented to person, oriented to place, oriented to time, oriented to situation, CN II-XII grossly intact. ABSENT: motor sensory deficit Psychiatric exam: PRESENT: appropriate affect, normal mood. ABSENT: homicidal ideation, suicidal ideation Skin exam: PRESENT: dry, intact, warm. ABSENT: cyanosis, rash Results Laboratory Results: 02/10/19 06:45 02/10/19 06:45 02/10/19 02/10/19 06:45 06:45 WBC 12.0 H RBC 3.52 L Hgb 10.9 L Hct 32.1 L MCV 91 MCH 30.9 MCHC 33.9 RDW 13.5 Plt Count 267 Seg Neutrophils % 73.2 Lymphocytes % 15.6 Monocytes % 7.5 Eosinophils % 3.1 Basophils % 0.6 Absolute Neutrophils 8.8 H Absolute Lymphocytes 1.9 Absolute Monocytes 0.9 Absolute Eosinophils 0.4 Absolute Basophils 0.1 Sodium 141.4 Potassium 4.1 Chloride 104 Carbon Dioxide 29 Anion Gap 8 BUN 20 Creatinine 0.90 Est GFR ( Amer) > 60 Est GFR (Non-Af Amer) > 60 Glucose 91 Calcium 8.9 Magnesium 2.2 Impressions: Soft Tissue Neck CT 02/06/19 21:43 IMPRESSION: 1. 3.4 cm cavitary left upper lobe lesion with fluid, highly suspicious for neoplasm. 2. 2.1 cm enlarged left hilar node, likely metastatic 3. Note that the lower lungs were not evaluated on this study 4. Emphysema 5. No cervical mass or adenopathy. No evidence for metastatic disease in the neck. 6. No acute findings in the neck. Chest CT 02/07/19 10:57 IMPRESSION: 3.5 cm left upper lobe cavitary mass with air-fluid level, differential is cystic necrotic tumor versus lung abscess versus tuberculosis. 2 cm left hilar lymph node Chest X-Ray 02/09/19 15:00 IMPRESSION: Similar 4 cm cavitary lesion in the left upper lobe. Assessment & Plan - Diagnosis (1) Cavitary lesion of lung Is this a current diagnosis for this admission?: Yes Plan: Concerning for primary lung cancer, awaiting TB testing but feel like it is probably get to be negative. But we have to have a negative AFB before we are able to take her off isolation and discharge her home. Dr. Phoenix was considering taking her to the OR for [facility] under sedation. We will discuss with Dr. Phoenix.
--- NOTE | 2019-02-10 16:31 | PDOC PROGRESS REPORT ---
Subjective Progress Note for:: 02/10/19 Subjective:: No adverse events overnight. No new complaints. Vital signs been stable. Eating and drinking without difficulty. Cough is not as bad as it was yesterday. She said that Dr. Mckeon told her that his planned for a repeat bronchoscopy tomorrow is on hold. He said that if his bronchial washings from bronchoscopy on Monday were negative for evidence of TB, then she could go home and complete her work-up as an outpatient for the mass in her chest. Reason For Visit: ACUTE EXACERBATION OF COPD, LEFT UPPER LOBE Physical Exam Vital Signs: Temp Pulse Resp BP Pulse Ox 97.8 F 68 18 123/70 94 02/10/19 12:27 02/10/19 12:27 02/10/19 12:27 02/10/19 12:27 02/10/19 12:27 Intake & Output 02/09/19 02/10/19 02/11/19 06:59 06:59 06:59 Intake Total 1309 2155 474 Balance 1309 2155 474 Weight 56.3 kg 54.5 kg General appearance: PRESENT: mild distress, thin Respiratory exam: PRESENT: decreased breath sounds, no use of accessory muscles, no wheezes, no rhonchi Cardiovascular exam: PRESENT: RRR S1 S2 GI/Abdominal exam: PRESENT: normal bowel sounds, soft. ABSENT: distended, guarding, mass, organolmegaly, rebound, tenderness Neurological exam: PRESENT: alert, awake, oriented to person, oriented to place, oriented to time, oriented to situation Psychiatric exam: PRESENT: appropriate affect, normal mood Results Laboratory Results: 02/10/19 06:45 02/10/19 06:45 02/10/19 02/10/19 06:45 06:45 WBC 12.0 H RBC 3.52 L Hgb 10.9 L Hct 32.1 L MCV 91 MCH 30.9 MCHC 33.9 RDW 13.5 Plt Count 267 Seg Neutrophils % 73.2 Lymphocytes % 15.6 Monocytes % 7.5 Eosinophils % 3.1 Basophils % 0.6 Absolute Neutrophils 8.8 H Absolute Lymphocytes 1.9 Absolute Monocytes 0.9 Absolute Eosinophils 0.4 Absolute Basophils 0.1 Sodium 141.4 Potassium 4.1 Chloride 104 Carbon Dioxide 29 Anion Gap 8 BUN 20 Creatinine 0.90 Est GFR ( Amer) > 60 Est GFR (Non-Af Amer) > 60 Glucose 91 Calcium 8.9 Magnesium 2.2 Impressions: Soft Tissue Neck CT 02/06/19 21:43 IMPRESSION: 1. 3.4 cm cavitary left upper lobe lesion with fluid, highly suspicious for neoplasm. 2. 2.1 cm enlarged left hilar node, likely metastatic 3. Note that the lower lungs were not evaluated on this study 4. Emphysema 5. No cervical mass or adenopathy. No evidence for metastatic disease in the neck. 6. No acute findings in the neck. Chest CT 02/07/19 10:57 IMPRESSION: 3.5 cm left upper lobe cavitary mass with air-fluid level, differential is cystic necrotic tumor versus lung abscess versus tuberculosis. 2 cm left hilar lymph node Chest X-Ray 02/09/19 15:00 IMPRESSION: Similar 4 cm cavitary lesion in the left upper lobe. Assessment and Plan - Diagnosis (1) Cavitary lesion of lung Is this a current diagnosis for this admission?: Yes Plan: Currently being ruled out for TB, not able to get good deep sputum specimens. Empirically treating with vancomycin and Zosyn in the event this is an abscess. Pulmonology has been consulted. If her bronchial washings turned out to be negative for evidence of TB, she can be discharged home and will follow up with Dr. Turcios as an outpatient for further work-up of the mass. (2) Acute exacerbation of chronic obstructive pulmonary disease (COPD) Is this a current diagnosis for this admission?: Yes Plan: Empirically on antibiotics. Steroids have been discontinued. She is currently on her home medications. The acute exacerbation has resolved. - Time Time Spent with patient: 15-24 minutes
[2019-02-10 20:56] LABS: VANCOMYCIN,TROUGH 7.9 ug/mL (5.0-20.0)
[2019-02-10] MEDS: VANCOMYCIN HCL 750 MG in DEXTROSE 5%-WATER 250 ML IV SCH (22:31)
[2019-02-11] MEDS: IPRATROPIUM BROMIDE 0.02% NEB 0.5 MG/2.5 ML AMPUL NEB SCH ×3 (00:41→16:38)
[2019-02-11] MEDS: LEVALBUTEROL HCL NEB 1.25 MG/3 ML AMPUL NEB SCH ×3 (00:41→16:38)
[2019-02-11] MEDS: PIPERACILLIN SODIUM/TAZOBACTAM 3.375 GM in NORMAL SALINE 100 ML IV SCH ×2 (05:24→13:54)
[2019-02-11] MEDS: HEPARIN SOD (PORCINE) 5,000 UNIT/ML 1 ML SYRINGE SUBCUT SCH ×2 (05:24→13:54)
--- NOTE | 2019-02-11 08:45 | PDOC PROGRESS REPORT ---
Subjective Progress Note for:: 02/11/19 Subjective:: Reviewed AFB, it is negative, will have nurse discussed with Dr. Phoenix but I believe patient can come off isolation, and possibly go home unless Dr. Phoenix is planning to do procedure in the next 24 to 48 hours Reason For Visit: ACUTE EXACERBATION OF COPD, LEFT UPPER LOBE Physical Exam Vital Signs: Temp Pulse Resp BP Pulse Ox 97.9 F 62 20 148/65 H 93 02/11/19 07:53 02/11/19 07:53 02/11/19 07:53 02/11/19 07:53 02/11/19 07:53 Intake & Output 02/10/19 02/11/19 02/12/19 06:59 06:59 06:59 Intake Total 2155 1174 Balance 2155 1174 Weight 54.5 kg 54.4 kg General appearance: PRESENT: no acute distress, well-developed, well-nourished Head exam: PRESENT: atraumatic, normocephalic Eye exam: PRESENT: conjunctiva pink, EOMI, PERRLA. ABSENT: scleral icterus Ear exam: PRESENT: normal external ear exam Mouth exam: PRESENT: moist, tongue midline Neck exam: ABSENT: carotid bruit, JVD, lymphadenopathy, thyromegaly Respiratory exam: PRESENT: clear to auscultation romelia. ABSENT: rales, rhonchi, wheezes Cardiovascular exam: PRESENT: RRR. ABSENT: diastolic murmur, rubs, systolic murmur Pulses: PRESENT: normal dorsalis pedis pul Vascular exam: PRESENT: normal capillary refill GI/Abdominal exam: PRESENT: normal bowel sounds, soft. ABSENT: distended, guarding, mass, organolmegaly, rebound, tenderness Rectal exam: PRESENT: deferred Extremities exam: PRESENT: full ROM. ABSENT: calf tenderness, clubbing, pedal edema Neurological exam: PRESENT: alert, awake, oriented to person, oriented to place, oriented to time, oriented to situation, CN II-XII grossly intact. ABSENT: motor sensory deficit Psychiatric exam: PRESENT: appropriate affect, normal mood. ABSENT: homicidal ideation, suicidal ideation Skin exam: PRESENT: dry, intact, warm. ABSENT: cyanosis, rash Results Laboratory Results: 02/10/19 06:45 02/10/19 06:45 Impressions: Soft Tissue Neck CT 02/06/19 21:43 IMPRESSION: 1. 3.4 cm cavitary left upper lobe lesion with fluid, highly suspicious for neoplasm. 2. 2.1 cm enlarged left hilar node, likely metastatic 3. Note that the lower lungs were not evaluated on this study 4. Emphysema 5. No cervical mass or adenopathy. No evidence for metastatic disease in the neck. 6. No acute findings in the neck. Chest CT 02/07/19 10:57 IMPRESSION: 3.5 cm left upper lobe cavitary mass with air-fluid level, differential is cystic necrotic tumor versus lung abscess versus tuberculosis. 2 cm left hilar lymph node Chest X-Ray 02/09/19 15:00 IMPRESSION: Similar 4 cm cavitary lesion in the left upper lobe. Assessment & Plan - Diagnosis (1) Cavitary lesion of lung Is this a current diagnosis for this admission?: Yes Plan: High concern of cancer, plan for follow-up in office in about 2 weeks time
[2019-02-11] MEDS ORDERED: VANCOMYCIN HCL 500 MG in DEXTROSE 5%-WATER 100 ML IV SCH (10:00)
[2019-02-11] MEDS: HYDROCHLOROTHIAZIDE 12.5 MG TABLET PO SCH (10:06)
[2019-02-11] MEDS: FAMOTIDINE 20 MG TABLET PO SCH (10:06)
[2019-02-11] MEDS: MULTIVITAMIN TABLET PO SCH (10:06)
[2019-02-11] MEDS: DOCUSATE SODIUM 100 MG CAPSULE PO SCH ×2 (10:06→18:27)
[2019-02-11] MEDS: MELOXICAM 15 MG TABLET PO SCH (10:07)
[2019-02-11] MEDS: LISINOPRIL 10 MG TABLET PO SCH (10:07)
[2019-02-11] MEDS: FLUTICASONE NASAL SPRAY 50 MCG/SPRY 120 SPRAY/16 GM NASL SCH (10:08)
[2019-02-11] MEDS: FLUTICASONE/VILANTEROL 200-25 MCG/DOSE IH SCH (10:08)
[2019-02-11] MEDS: TIOTROPIUM BROMIDE DPI 5 CAP/KIT (18 MCG/CAP) IH SCH (10:08)
[2019-02-11 18:45] VITALS: BP 98/53
--- NOTE | 2019-02-11 18:46 | PDOC DISCHARGE SUMMARY ---
General - Admit/Disc Date/PCP Admission Date/Primary Care Provider: 02/07/19 02:51 Discharge Date: 02/11/19 - Discharge Diagnosis (1) Cavitary lesion of lung Is this a current diagnosis for this admission?: Yes Summary: TB work-up has been negative. She is going to follow-up with oncology as an outpatient. Doubtful that this is a pneumonia with an abscess. (2) Acute exacerbation of chronic obstructive pulmonary disease (COPD) Is this a current diagnosis for this admission?: Yes Summary: Resolved with a few days of steroids and some antibiotics. (3) Chronic hypoxemic respiratory failure Is this a current diagnosis for this admission?: Yes Summary: She is been short of breath for months. We evaluated her here for home O2 and she qualified. We arrange this for her at home. - Additional Information Resuscitation Status: Full Code Discharge Diet: Cardiac Discharge Activity: Activity As Tolerated, Balance Activity w/Rest Home Medications: Fluticasone Propionate [Flonase Nasal [place] 50 Mcg/[place] 16 gm] 2 spray NASL DAILY 02/07/19 Fluticasone/Vilanterol [Breo 200-25 Mcg Ellipta 14 Dose/Dpi] 1 puff IH DAILY 02/07/19 Lisinopril/Hydrochlorothiazide [Zestoretic 20-12.5 mg Tablet] 1 tab PO DAILY 02/07/19 Meloxicam [Mobic 15 mg Tablet] 15 mg PO DAILY 02/07/19 Multivitamin [Chewable-Angel] 1 tab PO DAILY 02/07/19 Tiotropium [place] [Spiriva Handihaler 5 Cap/Kit (18 Mcg/Cap)] 1 cap IH DAILY 02/07/19 History of Present Illness History of Present Illness: MARBELLA HUI is a 78 year old female who presented to the emergency room for an evaluation of an abnormality found on a CT scan of her neck. She admits that for approximately 2 weeks she has been experiencing continuous mild dyspnea with a sensation of drainage in her throat accompanied by an irritant nonproductive cough. She had been treated by her primary care provider with Augmentin which did not result in any improvement and subsequently she was sent for a CT scan of her neck. Her dyspnea has been worsened by exercise or significant activity and somewhat alleviated by rest. She denies prior similar episodes. On the CT scan of her neck a cavitary lesion was discovered in the upper lobe of her left lung and she was told to come to the emergency room for treatment. In the emergency room these findings were confirmed and patient was subsequently admitted to hospital for further evaluation treatment. Hospital Course Hospital Course: We were unable to get AFB sputum smears and so we got Dr. Phoenix to see her, he performed a bronchoscopy with bronchial washings and we were able to get an AFB smear from that which was negative. She was not high risk for TB. She had not been showing signs of infection. She was treated empirically with antibiotics in case this was an abscess, but it is felt that this is not likely. She received a few days of some steroids because of her COPD flaring up, but she did not require this for very long. She is received about 5 days of antibiotics. It was not felt that she would need to go home on antibiotics. She did qualify for home oxygen, and has been short of breath for quite some time, probably as a result of her long-standing COPD. She was seen in consultation by oncology and will follow up with them in 2 weeks as an outpatient for further evaluation and management. Her labs and examination were reassuring and she was discharged in good condition. Physical Exam Vital Signs: Temp Pulse Resp BP Pulse Ox 97.6 F 77 18 118/69 100 02/11/19 16:50 02/11/19 16:50 02/11/19 16:50 02/11/19 16:50 02/11/19 16:50 Intake & Output 02/10/19 02/11/19 02/12/19 06:59 06:59 06:59 Intake Total 2155 1174 250 Balance 2155 1174 250 Weight 54.5 kg 54.4 kg General appearance: PRESENT: mild distress, thin Respiratory exam: PRESENT: decreased breath sounds, no use of accessory muscles, no wheezes, no rhonchi Cardiovascular exam: PRESENT: RRR S1 S2 GI/Abdominal exam: PRESENT: normal bowel sounds, soft. ABSENT: distended, guarding, mass, organolmegaly, rebound, tenderness Neurological exam: PRESENT: alert, awake, oriented to person, oriented to place, oriented to time, oriented to situation Psychiatric exam: PRESENT: appropriate affect, normal mood Results Laboratory Results: 02/10/19 06:45 02/10/19 06:45 02/09/19 10:08 Bronchial Washings Gram Stain - Final Impressions: Soft Tissue Neck CT 02/06/19 21:43 IMPRESSION: 1. 3.4 cm cavitary left upper lobe lesion with fluid, highly suspicious for neoplasm. 2. 2.1 cm enlarged left hilar node, likely metastatic 3. Note that the lower lungs were not evaluated on this study 4. Emphysema 5. No cervical mass or adenopathy. No evidence for metastatic disease in the neck. 6. No acute findings in the neck. Chest CT 02/07/19 10:57 IMPRESSION: 3.5 cm left upper lobe cavitary mass with air-fluid level, differential is cystic necrotic tumor versus lung abscess versus tuberculosis. 2 cm left hilar lymph node Chest X-Ray 02/09/19 15:00 IMPRESSION: Similar 4 cm cavitary lesion in the left upper lobe. Qualifiers - * PATIENT BEING DISCHARGED WITH ANY OF THE FOLLOWING DIAGNOSIS: No Acute Heart Failure Is this a Heart Failure Patient?: No Plan Time Spent: Greater than 30 Minutes
== END 2019-02-11 19:07 | disposition home or self-care (01) | DRG 167 ==
LOC: ER 20:58 → EH 02-07 02:51 → 5 02-07 04:00 → 3S 02-07 17:29
PROVIDERS: ADMIT Emergency Medicine; ATTEND Emergency Medicine
PROC: 0B9G8ZZ Drainage of Left Upper Lung Lobe, Via Natural or Artificial Opening Endoscopic (ICD-10-PCS; principal; 2019-02-09 09:00)
DX: J98.4 Other disorders of lung (principal); J44.1 Chronic obstructive pulmonary disease with (acute) exacerbation; J96.11 Chronic respiratory failure with hypoxia; I10 Essential (primary) hypertension; D72.829 Elevated white blood cell count, unspecified; R00.0 Tachycardia, unspecified; Z87.891 Personal history of nicotine dependence; Z79.51 Long term (current) use of inhaled steroids
CPT/HCPCS: 31624; 36415; 70491; 71045; 71046; 71250; 80048; 80053; 80202; 82803; 83735; 84439; 84443; 84481; 85025; 87015; 87040; 87070; 87077; 87101; 87116; 87186; 87205; 87206; 88305; 94640; 96374; 99285; J0171; J1200; J1644; J2250; J2310; J2405; J2543; J2930; J3010; J3370; J3475; J3490; J7050; J7060; J7620

== ENCOUNTER 2019-02-19 08:10 | Inpatient (IN) | payer MEDICARE, MEDICAID ==
--- NOTE | 2019-02-19 08:16 | ER Document Report ---
ED General - General Stated Complaint: SHORT OF BREATH Time Seen by Provider: 02/19/19 08:15 TRAVEL OUTSIDE OF THE [place] IN LAST 30 DAYS: No - HPI Patient complains to provider of: SOB Notes: Vertically ill-appearing 78-year-old female presents with increased work of breathing hypoxia for 1 week with increased sputum production. Patient found by EMS to be hypoxic prehospital given breathing treatment and 125 mg IV steroids. Patient has likely history of COPD. Does not chronically wear oxygen. Patient denies fever chills chest pain. Denies history of CHF. No new leg swelling or weight gain. - Related Data Allergies/Adverse Reactions: No Known Allergies Allergy (Unverified 11/04/13 09:48) Past Medical History - Social History Smoking Status: Former Smoker Family History: DM - Sisters, Malignancy - Patient's son passed from lung cancer, Thyroid Disfunction - Sisters - Past Medical History Cardiac Medical History: Reports: Hx Hypertension Denies: Hx Atrial Fibrillation, Hx Coronary Artery Disease, Hx DVT, Hx Pu lmonary Embolism Pulmonary Medical History: Reports: Hx COPD Denies: Hx Asthma, Hx Respiratory Failure Neurological Medical History: Denies: Hx Seizures Endocrine Medical History: Denies: Hx Diabetes Mellitus Type 1, Hx Diabetes Mellitus Type 2, Hx Hyperthyroidism, Hx Hypothyroidism Renal/ Medical History: Denies: Hx Peritoneal Dialysis GI Medical History: Denies: Hx Cirrhosis, Hx Hepatitis Musculoskeletal Medical History: Denies Hx Arthritis, Denies Hx Gout Skin Medical History: Denies Hx Eczema, Denies Hx Psoriasis Infectious Medical History: Denies: Hx Hepatitis Past Surgical History: Reports: Hx Orthopedic Surgery - right rotator cuff. Denies: Hx Hysterectomy - Immunizations Hx Diphtheria, Pertussis, Tetanus Vaccination: Yes Hx Pneumococcal Vaccination: 01/07/19 Review of Systems - Review of Systems Notes: REVIEW OF SYSTEMS: CONSTITUTIONAL: -fevers, -chills EENT: -eye pain, -difficulty swallowing, -nasal congestion CARDIOVASCULAR: -chest pain, -syncope. RESPIRATORY: positive cough, positive SOB GASTROINTESTINAL: -abdominal pain, -nausea, -vomiting, -diarrhea GENITOURINARY: -dysuria, -hematuria MUSCULOSKELETAL: -back pain, -neck pain SKIN: -rash or skin lesions. HEMATOLOGIC: -easy bruising or bleeding. LYMPHATIC: -swollen, enlarged glands. NEUROLOGICAL: -altered mental status or loss of consciousness, -headache, -n eurologic symptoms PSYCHIATRIC: -anxiety, -depression. ALL OTHER SYSTEMS REVIEWED AND NEGATIVE. Physical Exam - Vital signs Vitals: Pulse Ox 94 02/19/19 08:15 - Notes Notes: PHYSICAL EXAMINATION: GENERAL: Severe acute distress HEAD: Atraumatic, normocephalic. EYES: Pupils equal round and reactive to light, extraocular movements intact, sclera anicteric, conjunctiva are normal. ENT: nares patent, oropharynx clear without exudates. Moist mucous membranes. NECK: Sensory respiratory muscles in use LUNGS: No respiratory distress, decreased air movement HEART: Cardiac and rhythm without murmurs ABDOMEN: Soft, nontender, normoactive bowel sounds. No guarding, no rebound. N o masses appreciated. EXTREMITIES: Normal range of motion, no pitting or edema. No cyanosis. NEUROLOGICAL: Cranial nerves grossly intact. Normal speech, normal gait. Normal sensory and motor exams. PSYCH: Normal mood, normal affect. SKIN: Warm, Dry, normal turgor, no rashes or lesions noted. Course - Re-evaluation Re-evalutation: 02/19/19 08:23 [place]coli ill-appearing female presents with hypoxia and severe respiratory distress coupled with tachycardia. Patient will be given multiple breathing treatments, patient placed on BiPAP due to severe distress. Concern for impending respiratory decline. 02/19/19 09:27 Critically ill-appearing patient also requiring Ativan. Patient's extensive lab work-up shows no leukocytosis, negative troponin, normal proBNP. Chest x-ray redemonstrates the newly found lung mass in the left upper lobe from February 09. Patient's VBG shows no hypercarbia she is not retaining at this time. Patient receives a total of 4 breathing treatments, IV steroids. Patient will be admitted to our stepdown unit for close monitoring. Patient will require oncology consult as well. I reviewed shows they did get a sample of her lung mass. But was noted appropriate sample just some atypical squamous cells identified. Tuberculosis work-up thus far is unremarkable. Patient had been hospitalized and was receiving IV biotics during her course of stay. Lower suspicion that this is an abscess secondary to pneumonia. - Vital Signs Vital signs: Temp Pulse Resp BP Pulse Ox 98.2 F 87 24 H 104/57 L 96 02/19/19 08:17 02/19/19 08:17 02/19/19 09:02 02/19/19 09:02 02/19/19 09:02 - Laboratory Result Diagrams: 02/19/19 08:23 02/19/19 08:23 Laboratory results interpreted by me: 02/19/19 08:23 Glucose 115 H - EKG Interpretation by Ia EKG shows normal: Sinus rhythm Rate: Tachycardia Additional EKG results interpreted by me: 02/19/19 08:[address] elevations or depressions no pathologic T wave inversions. Discharge - Discharge Clinical Impression: Acute and chronic respiratory failure Qualifiers: Respiratory failure complication: hypoxia Qualified Code(s): J96.21 - Acute and chronic respiratory failure with hypoxia COPD (chronic obstructive pulmonary disease) Qualifiers: COPD type: COPD with acute exacerbation Qualified Code(s): J44.1 - Chronic obstructive pulmonary disease with (acute) exacerbation Condition: Serious Disposition: ADMITTED INPATIENT Admitting Provider: Alex (Hospitalist) Unit Admitted: [facility]
[2019-02-19] MEDS ORDERED: IPRATROPIUM/ALBUTEROL 0.5-2.5 MG/3 ML AMPUL NEB ONE ×3 (08:20→08:21)
[2019-02-19 08:35] LABS: VENOUS BLOOD BASE EXCESS -0.2 mmol/L; VENOUS BLOOD PH 7.35 (7.30-7.42)
[2019-02-19 08:36] LABS: ABSOLUTE BASOPHILS # (AUTO) 0.1 10^3/uL (0.0-0.2); ABSOLUTE EOSINOPHILS # (AUTO) 0.4 10^3/uL (0.0-0.6); ABSOLUTE LYMPHOCYTES (AUTO) 1.9 10^3/uL (0.5-4.7); ABSOLUTE MONOCYTES (AUTO) 0.8 10^3/uL (0.1-1.4); ABSOLUTE NEUT (AUTO) 6.9 10^3/uL (1.7-8.2); BASOPHILS % (AUTO) 0.6 % (0-2); EOSINOPHILS % (AUTO) 3.5 % (0-6); HEMATOCRIT 36.7 % (36.0-47.0); HEMOGLOBIN 12.4 g/dL (12.0-15.5); LYMPHOCYTES % (AUTO) 18.8 % (13-45); MEAN CORPUSCULAR HEMOGLOBIN 31.3 pg (27.0-33.4); MEAN CORPUSCULAR HGB CONC 33.8 g/dL (32.0-36.0); MEAN CORPUSCULAR VOLUME 93 fl (80-97); MONOCYTES % (AUTO) 7.8 % (3-13); PLATELET COUNT 315 10^3/uL (150-450); RED BLOOD COUNT 3.96 10^6/uL (3.72-5.28); RED CELL DISTRIBUTION WIDTH 13.5 % (11.5-14.0); SEGMENTED NEUTROPHILS % (AUTO) 69.3 % (42-78); TOTAL CELLS COUNTED % (AUTO) 100 %
[2019-02-19 08:54] LABS: ANION GAP 12 (5-19); BLOOD UREA NITROGEN 20 mg/dL (7-20); CALCIUM 10.2 mg/dL (8.4-10.2); CARBON DIOXIDE 29 mmol/L (22-30); CHLORIDE 102 mmol/L (98-107); GLUCOSE 115 mg/dL (75-110); POTASSIUM 4.1 mmol/L (3.6-5.0); SODIUM 142.5 mmol/L (137-145)
[2019-02-19] MEDS ORDERED: LORAZEPAM INJ 2 MG/1 ML VIAL ONE (08:54)
[2019-02-19 09:06] LABS: NT PRO BNP 104 pg/mL (<450)
[2019-02-19] MEDS ORDERED: LORAZEPAM INJ 2 MG/1 ML VIAL IV ONE (09:07)
[2019-02-19 09:11] LABS: TROPONIN I < 0.012 ng/mL
--- NOTE | 2019-02-19 09:23 | RADIOLOGY REPORT (SQ) ---
EXAM DESCRIPTION: CHEST SINGLE VIEW COMPLETED DATE/TIME: 02/19/2019 8:59 am REASON FOR STUDY: SOB COMPARISON: AP chest 02/09/2019 Two-view chest 02/07/2019, 11/12/2013 CT chest 02/07/2019 EXAM PARAMETERS: NUMBER OF VIEWS: One view. TECHNIQUE: Single frontal radiographic view of the chest acquired. RADIATION DOSE: NA LIMITATIONS: None. FINDINGS: LUNGS AND PLEURA: Thin walled cavitary lesion in the anterior left upper lobe for cysts, f luid within the cavity has cleared. Cavity measures 6 cm in greatest diameter (Was about 4 cm diamet er 02/09/2019). Lungs are otherwise hyperlucent but free of focal infiltrates. No pleural effusion or pneumothorax. MEDIASTINUM AND HILAR STRUCTURES: No masses. Contour normal. HEART AND VASCULAR STRUCTURES: Heart normal in size. Normal vasculature. BONES: No acute findings. HARDWARE: None in the chest. OTHER: No other significant finding. IMPRESSION: Persistent thin walled cavity now all 6 cm in diameter in the anterior left upper lobe. Differential includes cavitary neoplasm versus cavitary infiltrate, tuberculosis remains in the diff erential. TECHNICAL DOCUMENTATION: JOB ID: [id number] [employer]- All Rights Reserved Reading location - IP/workstation name: [email or web address]
[2019-02-19] MEDS ORDERED: IPRATROPIUM/ALBUTEROL 0.5-2.5 MG/3 ML AMPUL NEB PRN (10:02)
[2019-02-19] MEDS ORDERED: LEVALBUTEROL HCL NEB 0.63 MG/3 ML AMPUL NEB PRN (10:02)
[2019-02-19] MEDS ORDERED: ACETAMINOPHEN 325 MG TABLET PO PRN (10:02)
[2019-02-19] MEDS ORDERED: ONDANSETRON HCL INJ/PF 4 MG/2 ML SDV IV PRN (10:02)
[2019-02-19] MEDS ORDERED: PIPERACILLIN/TAZOBACTAM 3.375 GM VIAL IV SCH (10:15)
--- NOTE | 2019-02-19 10:31 | PDOC H&P ---
History of Present Illness Admission Date/PCP: 02/19/19 09:34 ISABELL STOUT MD Patient complains of: Shortness of breath for the last several days History of Present Illness: MARBELLA HUI is a 78 year old female with history of COPD, hypertension recently admitted for right upper lobe cavitary lesion status post bronchoscopy negative for TB and cultures positive for Serratia and Klebsiella discharged home on levofloxacin came back again with complaints of increasing shortness of breath for the last few days. She was discharged last time on 2 L oxygen patient states is not helping her. She is also using the inhalers at home without any improvement. Patient is also saying decreased appetite. Complaining of cough with dry cough associated with the left-sided chest pain and coughing. Denies any fevers. Complaining of phlegm in the throat unable to spit it out. Denies any diarrhea constipation. Denies any nausea. Denies any weight loss. In the emergency room patient is found to be hypoxic requiring BiPAP. Past Medical History Cardiac Medical History: Reports: Hypertension Denies: Atrial Fibrillation, Coronary Artery Disease, DVT, Pulmonary Embolism Pulmonary Medical History: Reports: Chronic Obstructive Pulmonary Disease (COPD) Denies: Asthma, Respiratory Failure Neurological Medical History: Denies: Seizures Endocrine Medical History: Denies: Diabetes Mellitus Type 1, Diabetes Mellitus Type 2, Hyperthyroidism, Hypothyroidism GI Medical History: Denies: Cirrhosis, Hepatitis Musculoskeltal Medical History: Denies: Arthritis, Gout Skin Medical History: Denies: Eczema, Psoriasis Hematology: Denies: Anemia, Bleeding Tendencies Past Surgical History Past Surgical History: Reports: Orthopedic Surgery - right rotator cuff Denies: Hysterectomy Social History Smoking Status: Former Smoker Frequency of Alcohol Use: None Hx Recreational Drug Use: No Drugs: None Hx Prescription Drug Abuse: No - Advance Directive Resuscitation Status: Full Code Family History Family History: DM - Sisters, Malignancy - Patient's son passed from lung cancer, Thyroid Disfunction - Sisters Parental Family History Reviewed: Yes - Sister with breast cancer. Children Family History Reviewed: Yes Sibling(s) Family History Reviewed.: Yes Medication/Allergy Home Medications: Fluticasone Propionate [Flonase Nasal Rhodes 50 Mcg/Rhodes 16 gm] 2 spray NASL DAILY 02/07/19 Fluticasone/Vilanterol [Breo 200-25 Mcg Ellipta 14 Dose/Dpi] 1 puff IH DAILY 02/07/19 Lisinopril/Hydrochlorothiazide [Zestoretic 20-12.5 mg Tablet] 1 tab PO DAILY 02/07/19 Meloxicam [Mobic 15 mg Tablet] 15 mg PO DAILY 02/07/19 Multivitamin [Chewable-Angel] 1 tab PO DAILY 02/07/19 Tiotropium [place] [Spiriva Handihaler 5 Cap/Kit (18 Mcg/Cap)] 1 cap IH DAILY 02/07/19 Allergies/Adverse Reactions: No Known Allergies Allergy (Unverified 11/04/13 09:48) Review of Systems Constitutional: PRESENT: fatigue, weakness. ABSENT: fever(s) Eyes: ABSENT: visual disturbances Ears: ABSENT: hearing changes Nose, Mouth, and Throat: ABSENT: sore throat Cardiovascular: ABSENT: chest pain, dyspnea on exertion, edema, orthropnea, palpitations Respiratory: PRESENT: cough, dyspnea Gastrointestinal: PRESENT: other - Decreased appetite Musculoskeletal: ABSENT: joint swelling Neurological: ABSENT: abnormal gait, abnormal speech, confusion, dizziness, focal weakness, syncope Psychiatric: ABSENT: anxiety, depression, homidical ideation, suicidal ideation Physical Exam Vital Signs: Temp Pulse Resp BP Pulse Ox 98.2 F 87 24 H 104/57 L 96 02/19/19 08:17 02/19/19 08:17 02/19/19 09:02 02/19/19 09:02 02/19/19 09:02 General appearance: PRESENT: mild distress, thin Head exam: PRESENT: atraumatic Eye exam: PRESENT: PERRLA Mouth exam: PRESENT: moist, tongue midline Neck exam: ABSENT: carotid bruit, JVD, lymphadenopathy, thyromegaly Respiratory exam: PRESENT: decreased breath sounds Cardiovascular exam: PRESENT: RRR. ABSENT: diastolic murmur, rubs, systolic murmur Vascular exam: PRESENT: normal capillary refill GI/Abdominal exam: PRESENT: normal bowel sounds, soft. ABSENT: distended, guarding, mass, organolmegaly, rebound, tenderness Rectal exam: PRESENT: deferred Extremities exam: PRESENT: full ROM. ABSENT: calf tenderness, clubbing, pedal edema Neurological exam: PRESENT: alert, awake, oriented to person, oriented to place, oriented to time, oriented to situation, CN II-XII grossly intact. ABSENT: motor sensory deficit Psychiatric exam: PRESENT: appropriate affect, normal mood. ABSENT: homicidal ideation, suicidal ideation Results Laboratory Results: 02/19/19 08:23 02/19/19 08:23 02/19/19 02/19/19 02/19/19 08:23 08:23 08:23 WBC 10.0 RBC 3.96 Hgb 12.4 Hct 36.7 MCV 93 MCH 31.3 MCHC 33.8 RDW 13.5 Plt Count 315 Seg Neutrophils % 69.3 Lymphocytes % 18.8 Monocytes % 7.8 Eosinophils % 3.5 Basophils % 0.6 Absolute Neutrophils 6.9 Absolute Lymphocytes 1.9 Absolute Monocytes 0.8 Absolute Eosinophils 0.4 Absolute Basophils 0.1 VBG pH VBG pCO2 VBG HCO3 VBG Base Excess Sodium 142.5 Potassium 4.1 Chloride 102 Carbon Dioxide 29 Anion Gap 12 BUN 20 Creatinine 0.79 Est GFR ( Amer) > 60 Est GFR (Non-Af Amer) > 60 Glucose 115 H Lactic Acid 1.5 Calcium 10.2 02/19/19 08:23 WBC RBC Hgb Hct MCV MCH MCHC RDW Plt Count Seg Neutrophils % Lymphocytes % Monocytes % Eosinophils % Basophils % Absolute Neutrophils Absolute Lymphocytes Absolute Monocytes Absolute Eosinophils Absolute Basophils VBG pH 7.35 VBG pCO2 48.0 VBG HCO3 26.0 VBG Base Excess -0.2 Sodium Potassium Chloride Carbon Dioxide Anion Gap BUN Creatinine Est GFR ( Amer) Est GFR (Non-Af Amer) Glucose Lactic Acid Calcium 02/19/19 08:23 Troponin I < 0.012 NT-Pro-B Natriuret Pep 104 Impressions: Chest X-Ray 02/19/19 08:20 IMPRESSION: Persistent thin walled cavity now all 6 cm in diameter in the anterior left upper lobe. Differential includes cavitary neoplasm versus cavitary infiltrate, tuberculosis remains in the differential. Assessment and Plan - Diagnosis (1) Acute and chronic respiratory failure Qualifiers: Respiratory failure complication: hypercapnia Qualified Code(s): J96.22 - Acute and chronic respiratory failure with hypercapnia Is this a current diagnosis for this admission?: Yes Plan: 02/[id number]-old female came in with COPD exacerbation with CO2 retention. Patient is going to be placed in IMCU consultation with Dr. Noble in consultation with Dr. feng was was requested. Review of CTs indicates right ca vitary lesion status post bronchoscopy negative for TB and that she was treated for pneumonia. It is highly likely it can be secondary to neoplasm. Patient has history of heavy smoking. Patient was started on BiPAP PRN, albuterol nebulization Xopenex nebulizations continue oxygen 2 L nasal cannula, GI prophylaxis DVT prophylaxis initiated. Blood cultures sputum cultures requested started on IV vancomycin and IV Zosyn. Patient wants to be full code. VBG done in the ER shows PCO2 48%. (2) COPD (chronic obstructive pulmonary disease) Qualifiers: COPD type: COPD with acute exacerbation Qualified Code(s): J44.1 - Chronic obstructive pulmonary disease with (acute) exacerbation Is this a current diagnosis for this admission?: No Plan: 02/19/2019-patient has history of COPD she is on 2 L oxygen at home. Patient is ex-smoker she quit smoking more than 8 years ago. COPD most likely secondary to chronic smoking. (3) Cavitary lesion of lung Is this a current diagnosis for this admission?: No Plan: 02/19/2019-chest x-ray done today shows right-sided cavitary lesion in the upper lobe during the last admission bronchoscopy was done TB was ruled out. At that time bronchial cultures show Serratia and Klebsiella she was treated with IV antibiotic therapy and discharged home on levofloxacin. Consultation with Dr. Velvet espino on consultation with Dr. Carmona was requested patient was started on van comycin and Zosyn blood cultures and sputum cultures are requested again. Plan to do the CT abdomen pelvis with IV contrast to rule out any malignant lesions. (4) HTN (hypertension) Qualifiers: Hypertension type: essential hypertension Qualified Code(s): I10 - Essential (primary) hypertension Is this a current diagnosis for this admission?: No Plan: 02/19/2019-patient history of hypertension latest blood pressure is 167/69. Initially she came in with blood pressure of 98/53 it was improved with oxygenation. - Time Time Spent with patient: 25-34 minutes Medications reviewed and adjusted accordingly: Yes Anticipated discharge: Home
[2019-02-19] MEDS ORDERED: PIPERACILLIN SODIUM/TAZOBACTAM 3.375 GM in NORMAL SALINE 100 ML IV SCH (12:00)
[2019-02-19] MEDS: ENOXAPARIN SODIUM INJ 40 MG/0.4 ML DISP.SYRIN SUBCUT SCH (12:20)
[2019-02-19] MEDS: VANCOMYCIN HCL 500 MG in DEXTROSE 5%-WATER 100 ML IV SCH ×2 (12:21→22:04)
--- NOTE | 2019-02-19 12:33 | RADIOLOGY REPORT (SQ) ---
EXAM DESCRIPTION: CTA CHEST COMPLETED DATE/TIME: 02/19/2019 12:11 pm REASON FOR STUDY: Worsening dyspnea. possible PE COMPARISON: CT chest 07/23/2012, 11/11/2013, 02/07/2019 TECHNIQUE: CT scan of the chest performed using helical scanning technique with dynamic intravenous contrast injection. Images reviewed with lung, soft tissue and bone windows. Reconstructed coronal and sagittal MPR images reviewed. Additional 3 dimensional post-processing performed to develop Maximal Intensity Projection images (WI P). All images stored on PACS. All CT scanners at this facility use dose modulation, iterative reconstruction, and/or weight based d osing when appropriate to reduce radiation dose to as low as reasonably achievable (ALARA). [facility]: Dose Right [facility]: CareDose [facility]: Dose Right [facility]: Teradose 4D [facility]: Arbovax CONTRAST TYPE AND DOSE: contrast/concentration: Isovue 350.00 mg/ml; Total Contrast Delivered: 65.0 ml; Total Saline Delivered: 80.0 ml Contrast bolus optimized for the pulmonary arteries and thoracic aorta. RENAL FUNCTION: Creatinine 0.79 RADIATION DOSE: CT Rad equipment meets quality standard of care and radiation dose reduction techniq ues were employed. CTDIvol: 15.0 - 16.5 mGy. DLP: 606 mGy-cm. . LIMITATIONS: None. FINDINGS: LUNGS AND PLEURA: 4 x 4 cm cavitary lesion is present in the left upper lobe, abutting the pleural surface. Mild nodularity of the wall of this lesion (was 3.5 cm in greatest diameter with a ir-fluid level 02/07/2019). Remainder of the lungs demonstrate obstructive disease. No other focal infiltrates. No pleural effu blaze or pneumothorax. AORTA AND GREAT VESSELS: No CTA evidence of thoracic aortic aneurysm or dissection HEART: No pericardial effusion. Moderate coronary artery calcifications. No cardiomegaly PULMONARY ARTERIES: No emboli visualized in the main pulmonary arteries or the segmental branches. HILAR AND MEDIASTINAL STRUCTURES: 2.3 x 2.1 cm left hilar lymph node axial image 47. HARDWARE: None in the chest. UPPER ABDOMEN: 1.5 cm cyst right upper pole kidney, 1 cm cyst right lobe liver. THYROID AND OTHER SOFT TISSUES: No masses. No adenopathy. BONES: No acute or significant finding. 3D MIPS: Confirm above findings. OTHER: No other significant finding. IMPRESSION: 4 x 4 cm cavitary lesion left upper lobe 2.3 x 2.1 cm left hilar lymph node COMMENT: Quality ID # [id number]: Final reports with documentation of one or more dose reduction techniques (e.g., Automated exposure control, adjustment of the mA and/or kV according to patient size, use of iterative reconstruction technique) TECHNICAL DOCUMENTATION: JOB ID: [id number] EPS- All Rights Reserved Reading location - IP/workstation name: [email or web address]
[2019-02-19 13:38] LABS: ARTERIAL BLOOD BASE EXCESS -0.9 mmol/L; ARTERIAL BLOOD FIO2 2L; ARTERIAL BLOOD H2CO3 1.14 mmol/L (1.05-1.35); ARTERIAL BLOOD HCO3 23.4 mmol/L (20-24); ARTERIAL BLOOD O2 SATURATION 96.8 % (94-98); ARTERIAL BLOOD PCO2 37.8 mmHg (35-45); ARTERIAL BLOOD PH 7.41 (7.35-7.45); ARTERIAL BLOOD PO2 87.8 mmHg (80-100); ARTERIAL BLOOD TOTAL CO2 24.6 mmol/L (21-25)
--- NOTE | 2019-02-19 16:47 | EKG REPORT ---
SEVERITY:- ABNORMAL ECG - SINUS TACHYCARDIA LOW VOLTAGE IN FRONTAL LEADS REPOL ABNORMALITIES DIFFUSE NON-SPECIFIC. : Confirmed by: Chepe Dukes MD 19-Feb-2019 16:46:44
[2019-02-19] MEDS: NORMAL SALINE 1000 ML 1,000 ML IV PRN (16:53)
[2019-02-19] MEDS ORDERED: VANCOMYCIN HCL INJ 1000 MG VIAL IV SCH (18:00)
[2019-02-19] MEDS: PIPERACILLIN SODIUM/TAZOBACTAM 3.375 GM in NORMAL SALINE 100 ML IV SCH (20:59)
[2019-02-19] MEDS: FAMOTIDINE 20 MG TABLET PO SCH (21:05)
[2019-02-19] MEDS: TIOTROPIUM BROMIDE DPI 5 CAP/KIT (18 MCG/CAP) IH SCH (21:57)
[2019-02-19] MEDS: FLUTICASONE/VILANTEROL 200-25 MCG/DOSE IH SCH (21:58)
--- NOTE | 2019-02-19 22:29 | CONSULTATION REPORT E ---
Consultation Report NAME: MARBELLA HUI : 1940 AGE: 78Y DATE: 02/19/2019 307 A TO: THEO BERRY M.D. FROM: COURTNEY OWEN MD Requesting Physician HISTORY OF PRESENT ILLNESS: Patient is a 78-year-old lady who came in for increased shortness of breath. Patient had chest tightness and tachycardia. Treated for COPD exacerbation. Patient was hospitalized about 2 weeks ago, discharged about 8 days ago, treated for pneumonia, treated for lung abscess with IV vancomycin and Zosyn, and sent home after 4 days of IV therapy without antibiotics, because of lung malignancy impression. The bronchial washings of the left upper lobe showed Serratia marcescens and Klebsiella pneumoniae. The acid fast bacilli smear and fungal smear were negative. Cultures are still pending. Called the patient at home after hospital discharge and told patient to start Levaquin 500 mg tablet p.o. daily x 2 weeks. Patient claimed that she completed about a week of Levaquin today, but this morning she said that she is getting more and more short of breath, and that is why she came to the emergency room. She called the paramedics and was given a nebulizer treatment, which afforded some relief. Patient is using oxygen at home as needed. The patient claimed that she is taking Breo inhaler, 1 puff once daily, and Spiriva inhaler, but uncertain if she is using the nebulizer at all. Had a CTA of the chest this morning while the patient was still in the emergency room, showing no abscess or pulmonary emboli, but showing resolution of the air fluid level in the cavitation and thinning of the cavitary wall, with mediastinal lymphadenopathy of about 2 cm in size. Currently, tonight, patient is feeling better. Denies any purulent sputum, hemoptysis or chest pain. PAST MEDICAL HISTORY: 1. Hypertension. 2. COPD. PAST SURGICAL HISTORY: Orthopedic surgery, right rotator cuff. SOCIAL HISTORY: Former smoker. Denies alcohol abuse or illicit drug use. FAMILY HISTORY: Patient has a sister with breast cancer. HOME MEDICATIONS INCLUDE: 1. Flonase nasal spray. 2. Breo 200, one puff once daily. 3. Lisinopril hydrochlorothiazide 1 tablet p.o. daily. 4. Mobic. 5. Spiriva inhaler, 1 capsule daily. 6. Multivitamins. ALLERGIES: No known drug allergies. REVIEW OF SYSTEMS: CONSTITUTIONAL: No fever or chills. Complains of fatigue and weakness. EYES: No visual disturbance or eye pain or blurry vision. EARS: No hearing changes or ear discharge. NOSE, MOUTH AND THROAT: No sore throat. RESPIRATIONS: Complains about increased shortness of breath, chest tightness and wheezing a few hours prior to this admission. CARDIAC: No chest pain, no palpitations. GI: No nausea, vomiting or diarrhea. No abdominal pain. Complaining about anorexia. MUSCULOSKELETAL: No joint swelling. NERVOUS SYSTEM: No dizziness. No focal weakness or syncopal episode. PHYSICAL EXAMINATION: GENERAL: Patient awake, alert, coherent, oriented x3. VITAL SIGNS: Temperature of 97.7 with a T-max of 98.5, a pulse rate of 95, blood pressure is 128/60, saturation 98% on 3 liters nasal cannula. EYES: No jaundice or pallor. EARS, NOSE AND THROAT: No ear drainage. No nasal discharge. CHEST AND LUNGS: No wheezing, no rhonchi, no coarse crackles. CARDIOVASCULAR: S1, S2 distinct. Normal rate, regular rhythm.. ABDOMEN: Flabby. Positive bowel sounds. Soft, nondistended, nontender. EXTREMITIES: No joint swelling or cellulitis. LABORATORY DATA: CBC done today shows white count of 10, hemoglobin is 12.4, hematocrit 36.7, platelet count is 115,000. No bands noted. ABG done this afternoon showed a pH of 7.41, pCO2 of 37.8, pO2 of 87.8 and ABG oxygen saturation of 96.8 on 2 liters. Chemistry done today showed sodium is 142, potassium is 4.1, chloride 102 and CO2 is 29, BUN is 20, creatinine 0.79, glucose 115 and calcium is 10.2. Creatinine kinase 26 and troponin I is negative. NT-BNP is normal. Chest x-ray done today showed enlarging cavitation from 3.5 to 4 cm, thinning of the wall, resolution of the air fluid level inside the cavitation area and mediastinal lymphadenopathy, left perihilar, about 2.5 cm. ASSESSMENT: 1. SEVERE CHRONIC OBSTRUCTIVE PULMONARY DISEASE IN ACUTE SEVERE EXACERBATION, CURRENTLY STABLE AND NOT IN ACUTE BRONCHOSPASM. 2. CAVITATION, LEFT UPPER LOBE; SIZE IS ABOUT 4 CM FROM 3.5 TWO WEEKS AGO, WITH THINNING OF THE WALL AND RESOLUTION OF THE AIR FLUID LEVEL. Positive bronchial washings for Serratia marcescens and Klebsiella pneumoniae, currently being treated with IV Zosyn, previously with IV Levaquin. AFB cultures and fungal cultures pending. Cavitation most likely an inflammatory or infectious process, but malignancy could not be completely excluded. 3. MEDIASTINAL LYMPHADENOPATHY. It is about 2.5 cm in size. Possible infectious etiology; however, malignancy could not also be completely excluded. PLAN/RECOMMENDATIONS: 1. Agree with IV Zosyn for antibiotic coverage. I do not disagree with IV vancomycin, although it is less likely that patient has MRSA. Patient may require antibiotics for about 2 weeks from this date and would require pulmonary clinic followup when discharged to follow up the cavitation. 2. Optimize COPD regimen. Breo 200 mcg 1 puff once daily and Spiriva inhaler 1 capsule daily and albuterol inhaler Xopenex nebulizer treatment every 6 hours as needed. 3. Recommend transfer to a tertiary care hospital, either [facility] or [facility] for possible EBUS-guided TBNA of the mediastinal lymph nodes. Or, this may be done as outpatient. Patient will need an outpatient pulmonology clinic follow up. 4. Home oxygen therapy 2 liyters nasal canula and titrate to keep O2 sat 91-95. 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 If you have any questions, please feel free to call me. Will sign off today. DICTATING PHYSICIAN: THEO BERRY MD,JUNIOR,MPH [id number] PHY#: [id number] ID: [id number] JOB#: [id number] ACCT: [id number] cc:THEO BERRY M.D. > JORGE L
[2019-02-20] MEDS: PIPERACILLIN SODIUM/TAZOBACTAM 3.375 GM in NORMAL SALINE 100 ML IV SCH ×4 (02:30→21:14)
[2019-02-20 03:10] LABS: ABSOLUTE LYMPHOCYTES (AUTO) 0.6 10^3/uL (0.5-4.7); ABSOLUTE MONOCYTES (AUTO) 0.6 10^3/uL (0.1-1.4); ABSOLUTE NEUT (AUTO) 6.8 10^3/uL (1.7-8.2); BASOPHILS % (AUTO) 0.1 % (0-2); HEMATOCRIT 28.9 % (36.0-47.0); LYMPHOCYTES % (AUTO) 7.3 % (13-45); MEAN CORPUSCULAR HGB CONC 33.8 g/dL (32.0-36.0); MEAN CORPUSCULAR VOLUME 92 fl (80-97); MONOCYTES % (AUTO) 7.3 % (3-13); PLATELET COUNT 273 10^3/uL (150-450); RED BLOOD COUNT 3.15 10^6/uL (3.72-5.28); RED CELL DISTRIBUTION WIDTH 13.4 % (11.5-14.0); SEGMENTED NEUTROPHILS % (AUTO) 85.3 % (42-78); TOTAL CELLS COUNTED % (AUTO) 100 %
[2019-02-20 03:17] LABS: HEMOGLOBIN 9.8 g/dL (12.0-15.5)
[2019-02-20 03:33] LABS: ALANINE AMINOTRANSFERASE 18 U/L (9-52); ALBUMIN 3.1 g/dL (3.5-5.0); ALKALINE PHOSPHATASE 71 U/L (38-126); ANION GAP 9 (5-19); ASPARTATE AMINO TRANSFERASE 15 U/L (14-36); BILIRUBIN,DIRECT 0.2 mg/dL (0.0-0.4); BILIRUBIN,TOTAL 0.3 mg/dL (0.2-1.3); BLOOD UREA NITROGEN 25 mg/dL (7-20); CARBON DIOXIDE 26 mmol/L (22-30); CHLORIDE 107 mmol/L (98-107); GLUCOSE 130 mg/dL (75-110); POTASSIUM 4.5 mmol/L (3.6-5.0); SODIUM 142.3 mmol/L (137-145); TOTAL PROTEIN 5.8 g/dL (6.3-8.2)
--- NOTE | 2019-02-20 08:22 | PDOC CONSULTATION ---
Consultation Consult Date: 02/20/19 Attending physician:: COURTNEY OWEN Provider Consulted: LORENZO MARTINEZ Consult reason:: IZABELA cavitary mass History of Present Illness Admission Date/PCP: 02/19/19 09:34 ISABELL STOUT MD Patient complains of: SOB History of Present Illness: MARBELLA HUI is a 78 year old female with known history of a left upper lobe cavitary mass, she presented about 15 days ago here to [facility], ultimately did have broad-spectrum antibiotics followed by bronchoscopy with ultimately ruling out TB with negative AFB from bronchoscopy. She was then discharged with oral antibiotics with plans to see both myself and pulmonology with plans for referral to a tertiary center for endobronchial ultrasound and biopsy along with biopsy of the cavitary mass. Unfortunately, however upon discharge she worsened at home, shortness of breath never improved and ultimately got so severe that she presented back to the ED. Upon presentation she was hypoxic and was quite tachypneic, and ultimately was placed on BiPAP through the night. Today she is doing much better and is back to about 3 L of oxygen with appropriate saturation. She is not having any hemoptysis or cough currently. Past Medical History Cardiac Medical History: Reports: Hypertension Denies: Atrial Fibrillation, Coronary Artery Disease, DVT, Pulmonary Embolism Pulmonary Medical History: Reports: Chronic Obstructive Pulmonary Disease (COPD) Denies: Asthma, Respiratory Failure Neurological Medical History: Denies: Seizures Endocrine Medical History: Denies: Diabetes Mellitus Type 1, Diabetes Mellitus Type 2, Hyperthyroidism, Hypothyroidism GI Medical History: Denies: Cirrhosis, Hepatitis Musculoskeltal Medical History: Denies: Arthritis, Gout Skin Medical History: Denies: Eczema, Psoriasis Hematology: Denies: Anemia, Bleeding Tendencies Past Surgical History Past Surgical History: Reports: Orthopedic Surgery - right rotator cuff Denies: Hysterectomy Social History Smoking Status: Former Smoker Number of Years Smokin Last Time Smoked: 2009 Frequency of Alcohol Use: None Hx Recreational Drug Use: No Drugs: None Hx Prescription Drug Abuse: No - Advance Directive Resuscitation Status: Full Code Family History Family History: DM - Sisters, Malignancy - Patient's son passed from lung cancer, Thyroid Disfunction - Sisters Parental Family History Reviewed: Yes Children Family History Reviewed: Yes Sibling(s) Family History Reviewed.: Yes Medication/Allergy Home Medications: Fluticasone Propionate [Flonase Nasal [place] 50 Mcg/[place] 16 gm] 2 spray NASL DAILY 02/07/19 Fluticasone/Vilanterol [Breo 200-25 Mcg Ellipta 14 Dose/Dpi] 1 puff IH DAILY 02/07/19 Lisinopril/Hydrochlorothiazide [Zestoretic 20-12.5 mg Tablet] 1 tab PO DAILY 02/07/19 Meloxicam [Mobic 15 mg Tablet] 15 mg PO DAILY 02/07/19 Multivitamin [Chewable-Angel] 1 tab PO DAILY 02/07/19 Tiotropium [place] [Spiriva Handihaler 5 Cap/Kit (18 Mcg/Cap)] 1 cap IH DAILY 02/07/19 Amoxicillin/Potassium Clav [Amox-Clav 875-125 mg Tablet] 1 each PO Q12 02/19/19 Levofloxacin [Levaquin 500 mg Tablet] 500 mg PO DAILY 02/19/19 Allergies/Adverse Reactions: No Known Allergies Allergy (Unverified 11/04/13 09:48) Review of Systems Constitutional: ABSENT: chills, fever(s), headache(s), weight gain, weight loss Eyes: ABSENT: visual disturbances Ears: ABSENT: hearing changes Cardiovascular: ABSENT: chest pain, dyspnea on exertion, edema, orthropnea, palpitations Respiratory: ABSENT: cough, hemoptysis Gastrointestinal: ABSENT: abdominal pain, constipation, diarrhea, hematemesis, hematochezia, nausea, vomiting Genitourinary: ABSENT: dysuria, hematuria Musculoskeletal: ABSENT: joint swelling Integumentary: ABSENT: rash, wounds Neurological: ABSENT: abnormal gait, abnormal speech, confusion, dizziness, focal weakness, syncope Psychiatric: ABSENT: anxiety, depression, homidical ideation, suicidal ideation Endocrine: ABSENT: cold intolerance, heat intolerance, polydipsia, polyuria Hematologic/Lymphatic: ABSENT: easy bleeding, easy bruising Physical Exam Vital Signs: Temp Pulse Resp BP Pulse Ox 97.5 F 73 14 113/60 99 02/20/19 03:30 02/20/19 07:00 02/20/19 03:30 02/20/19 03:30 02/20/19 03:30 Intake & Output 02/19/19 02/20/19 02/21/19 06:59 06:59 06:59 Intake Total 1173 Output Total 400 Balance 773 Weight 55.9 kg General appearance: PRESENT: no acute distress, well-developed, well-nourished Head exam: PRESENT: atraumatic, normocephalic Eye exam: PRESENT: conjunctiva pink, EOMI, PERRLA. ABSENT: scleral icterus Ear exam: PRESENT: normal external ear exam Mouth exam: PRESENT: moist, tongue midline Neck exam: ABSENT: carotid bruit, JVD, lymphadenopathy, thyromegaly Respiratory exam: PRESENT: clear to auscultation romelia. ABSENT: rales, rhonchi, wheezes Cardiovascular exam: PRESENT: RRR. ABSENT: diastolic murmur, rubs, systolic murmur Pulses: PRESENT: normal dorsalis pedis pul Vascular exam: PRESENT: normal capillary refill GI/Abdominal exam: PRESENT: normal bowel sounds, soft. ABSENT: distended, guarding, mass, organolmegaly, rebound, tenderness Rectal exam: PRESENT: deferred Extremities exam: PRESENT: full ROM. ABSENT: calf tenderness, clubbing, pedal edema Neurological exam: PRESENT: alert, awake, oriented to person, oriented to place, oriented to time, oriented to situation, CN II-XII grossly intact. ABSENT: motor sensory deficit Psychiatric exam: PRESENT: appropriate affect, normal mood. ABSENT: homicidal ideation, suicidal ideation Skin exam: PRESENT: dry, intact, warm. ABSENT: cyanosis, rash Results Laboratory Results: 02/20/19 02:45 02/20/19 02:45 02/19/19 02/19/19 02/19/19 08:23 08:23 08:23 WBC 10.0 RBC 3.96 Hgb 12.4 Hct 36.7 MCV 93 MCH 31.3 MCHC 33.8 RDW 13.5 Plt Count 315 Seg Neutrophils % 69.3 Lymphocytes % 18.8 Monocytes % 7.8 Eosinophils % 3.5 Basophils % 0.6 Absolute Neutrophils 6.9 Absolute Lymphocytes 1.9 Absolute Monocytes 0.8 Absolute Eosinophils 0.4 Absolute Basophils 0.1 Carbonic Acid HCO3/H2CO3 Ratio ABG pH ABG pCO2 ABG pO2 ABG HCO3 ABG O2 Saturation ABG Base Excess VBG pH VBG pCO2 VBG HCO3 VBG Base Excess FiO2 Sodium 142.5 Potassium 4.1 Chloride 102 Carbon Dioxide 29 Anion Gap 12 BUN 20 Creatinine 0.79 Est GFR ( Amer) > 60 Est GFR (Non-Af Amer) > 60 Glucose 115 H Lactic Acid 1.5 Calcium 10.2 Magnesium Total Bilirubin AST ALT Alkaline Phosphatase Total Protein Albumin TSH 02/19/19 02/19/19 02/20/19 08:23 13:15 02:45 WBC 8.0 RBC 3.15 L Hgb 9.8 L D Hct 28.9 L MCV 92 MCH 31.0 MCHC 33.8 RDW 13.4 Plt Count 273 Seg Neutrophils % 85.3 H Lymphocytes % 7.3 L Monocytes % 7.3 Eosinophils % 0.0 Basophils % 0.1 Absolute Neutrophils 6.8 Absolute Lymphocytes 0.6 Absolute Monocytes 0.6 Absolute Eosinophils 0.0 Absolute Basophils 0.0 Carbonic Acid 1.14 HCO3/H2CO3 Ratio 20:1 ABG pH 7.41 ABG pCO2 37.8 ABG pO2 87.8 ABG HCO3 23.4 ABG O2 Saturation 96.8 ABG Base Excess -0.9 VBG pH 7.35 VBG pCO2 48.0 VBG HCO3 26.0 VBG Base Excess -0.2 FiO2 2L Sodium Potassium Chloride Carbon Dioxide Anion Gap BUN Creatinine Est GFR ( Amer) Est GFR (Non-Af Amer) Glucose Lactic Acid Calcium Magnesium Total Bilirubin AST ALT Alkaline Phosphatase Total Protein Albumin TSH 02/20/19 02/20/19 02:45 02:45 WBC RBC Hgb Hct MCV MCH MCHC RDW Plt Count Seg Neutrophils % Lymphocytes % Monocytes % Eosinophils % Basophils % Absolute Neutrophils Absolute Lymphocytes Absolute Monocytes Absolute Eosinophils Absolute Basophils Carbonic Acid HCO3/H2CO3 Ratio ABG pH ABG pCO2 ABG pO2 ABG HCO3 ABG O2 Saturation ABG Base Excess VBG pH VBG pCO2 VBG HCO3 VBG Base Excess FiO2 Sodium 142.3 Potassium 4.5 Chloride 107 Carbon Dioxide 26 Anion Gap 9 BUN 25 H Creatinine 0.97 Est GFR ( Amer) > 60 Est GFR (Non-Af Amer) 56 L Glucose 130 H Lactic Acid Calcium 9.0 Magnesium 2.1 Total Bilirubin 0.3 AST 15 ALT 18 Alkaline Phosphatase 71 Total Protein 5.8 L Albumin 3.1 L TSH 0.21 L 02/19/19 02/19/19 02/19/19 08:23 14:25 14:25 Creatine Kinase 26 L Troponin I < 0.012 < 0.012 NT-Pro-B Natriuret Pep 104 02/19/19 02/19/19 02/20/19 20:51 20:51 02:45 Creatine Kinase 73 34 Troponin I 0.024 NT-Pro-B Natriuret Pep 02/20/19 02/20/19 02:45 02:45 Creatine Kinase Troponin I < 0.012 NT-Pro-B Natriuret Pep 269 Impressions: Chest X-Ray 02/19/19 08:20 IMPRESSION: Persistent thin walled cavity now all 6 cm in diameter in the anterior left upper lobe. Differential includes cavitary neoplasm versus cavitary infiltrate, tuberculosis remains in the differential. Chest/Abdomen CTA 02/19/19 11:45 IMPRESSION: 4 x 4 cm cavitary lesion left upper lobe 2.3 x 2.1 cm left hilar lymph node Status: Image reviewed by me Assessment & Plan - Diagnosis (1) Cavitary lesion of lung Is this a current diagnosis for this admission?: Yes Plan: This would be the likely cause of her shortness of breath and worsening, I do not believe infection is likely, more likely would be a primary lung tumor. Agree with pulmonology's recommendation for transfer. I contacted Dr. Rey christianson of the interventional pulmonology department at [place], the plan would be for transfer for bronchoscopy plus endo bronchial ultrasound and biopsy. - Time Time Spent: Greater than 70 Minutes - Inpatient Certification Based on my medical assessment, after consideration of the patient's comorbidities, presenting symptoms, or acuity I expect that the services needed warrant INPATIENT care.: Yes I certify that my determination is in accordance with my understanding of Medicare's requirements for reasonable and necessary INPATIENT services [42 CFR 412.3e].: Yes Medical Necessity: Failure to Improve With Outpatient Therapy, Need for Nebulizer Therapy and Monitoring of Response, Risk of Complication if Not Cared For in Hospital
[2019-02-20] MEDS ORDERED: DEXTROSE 50%-WATER 25 GM/50 ML DISP.SYRIN IV PRN ×2 (08:41)
[2019-02-20] MEDS ORDERED: GLUCAGON,HUMAN RECOMB 1 MG INJ SUBCUT PRN (08:41)
[2019-02-20] MEDS ORDERED: DEXTROSE 40% GEL 15 GM TUBE PO PRN ×2 (08:41)
--- NOTE | 2019-02-20 09:01 | PDOC TRANSFER SUMMARY ---
General Admission Date/PCP: 02/19/19 09:34 ISABELL STOUT MD Resuscitation Status: Full Code - Transfer Diagnosis (1) Acute and chronic respiratory failure Is this a current diagnosis for this admission?: Yes Diagnosis Summary: [id number]-old female came in with COPD exacerbation with CO2 retention. Patient is going to be placed in IMCU consultation with Dr. Noble in consultation with Dr. feng was was requested. Review of CTs indicates right cavitary lesion status post bronchoscopy negative for TB and that she was treated for pneumonia. It is highly likely it can be secondary to neoplasm. Patient has history of heavy smoking. Patient was started on BiPAP PRN, albuterol nebulization Xopenex nebulizations continue oxygen 2 L nasal cannula, GI prophylaxis DVT prophylaxis initiated. Blood cultures sputum cultures requested started on IV vancomycin and IV Zosyn. Patient wants to be full code. VBG done in the ER shows PCO2 48%. 02/[id number]-old female admitted for acute on chronic respiratory failure secondary to COPD exacerbation with CO2 retention. Patient initially requiring BiPAP in the emergency room. Today pulse ox is 100% on 2 L. Hematology consult and pulmonary consult was done because chest x-ray showing persistent right upper lung cavitary lesion. Patient was here for the similar problem 2 weeks ago status post bronc was done at that time the sputum culture negative for TB positive for Serratia she was discharged on levofloxacin. At the time of this a dmission yesterday patient is afebrile and WBC count is normal. Dr. Turcios spoke to Dr. Rey Rosen in [place] to make arrange for bronchoscopy and lung biopsy there. (2) COPD (chronic obstructive pulmonary disease) Is this a current diagnosis for this admission?: No Diagnosis Summary: 02/19/2019-patient has history of COPD she is on 2 L oxygen at home. Patient is ex-smoker she quit smoking more than 8 years ago. COPD most likely secondary to chronic smoking. 02/20/2019-patient has history of COPD secondary to heavy smoking. As per the patient she quit smoking 8 years ago but the family disagreeing with that. COPD most likely secondary to history of chronic smoking. Patient on liters oxygen at home. In the emergency room patient was hypoxic requiring BiPAP now the pulse ox is 99% on 2 L. (3) Cavitary lesion of lung Is this a current diagnosis for this admission?: Yes Diagnosis Summary: 02/19/2019-chest x-ray done today shows right-sided cavitary lesion in the upper lobe during the last admission bronchoscopy was done TB was ruled out. At that time bronchial cultures show Serratia and Klebsiella she was treated with IV antibiotic therapy and discharged home on levofloxacin. Consultation with Dr. Velvet espino on consultation with Dr. Carmona was requested patient was started on vancomycin and Zosyn blood cultures and sputum cultures are requested again. Plan to do the CT abdomen pelvis with IV contrast to rule out any malignant lesions. 02/20/2019-chest x-ray done yesterday suggestive right-sided cavitary lesion. CT scan with contrast was done shows persistent 4 into 4 cm cavitary lesion in the left upper lobe abutting the pleural surface. CT abdomen indicates 1.5 centimeters cyst in the right upper lobe. There is also a 1 cm cyst in the right lobe of the liver. Patient has bronchoscopy was done in the last admission the cultures came back positive for Serratia negative for TB. Because of the history of chronic smoking and high possibility of malignancy patient is going to [place] today for possible bronchoscopy and lung biopsy. I spoke to Dr. Natalie Mckoy he agreed to take the patient under his care. Patient is presently on IV vancomycin and Zosyn. Patient is afebrile in the ER with a normal WBC count. (4) HTN (hypertension) Is this a current diagnosis for this admission?: No Diagnosis Summary: 02/19/2019-patient history of hypertension latest blood pressure is 167/69. Initially she came in with blood pressure of 98/53 it was improved with oxygenation. 02/20/2019-patient has history of hypertension blood pressure today is 130/60 sta ble. - Transfer Medications Home Medications: Fluticasone Propionate [Flonase Nasal [place] 50 Mcg/[place] 16 gm] 2 spray NASL DAILY 02/07/19 Fluticasone/Vilanterol [Breo 200-25 Mcg Ellipta 14 Dose/Dpi] 1 puff IH DAILY 02/07/19 Lisinopril/Hydrochlorothiazide [Zestoretic 20-12.5 mg Tablet] 1 tab PO DAILY 02/07/19 Meloxicam [Mobic 15 mg Tablet] 15 mg PO DAILY 02/07/19 Multivitamin [Chewable-Angel] 1 tab PO DAILY 02/07/19 Tiotropium [place] [Spiriva Handihaler 5 Cap/Kit (18 Mcg/Cap)] 1 cap IH DAILY 02/07/19 Amoxicillin/Potassium Clav [Amox-Clav 875-125 mg Tablet] 1 each PO Q12 02/19/19 Levofloxacin [Levaquin 500 mg Tablet] 500 mg PO DAILY 02/19/19 Transfer Medications: Current Medications Acetaminophen (Tylenol 325 Mg Tablet) 650 mg PO Q4HP PRN PRN Reason: FEVER >101 Stop: 03/21/19 10:01 Albuterol/Ipratropium (Duoneb 3 Ml Ampul) 3 ml NEB RTQ4HP PRN PRN Reason: SHORTNESS OF BREATH Stop: 03/21/19 10:01 Dextrose (Dextrose Inj 50% Syringe (25 Gm/50 Ml)) 12.5 gm IV PRN PRN; Protocol PRN Reason: FOR BG 50-69 IN ALERT PATIENT Stop: 03/22/19 08:40 Dextrose (Dextrose Inj 50% Syringe (25 Gm/50 Ml)) 25 gm IV PRN PRN; Protocol PRN Reason: See Label Comments Stop: 03/22/19 08:40 Docusate Sodium (Colace Udc 100 Mg/10 Ml Oral Soln) 100 mg PO DAILY [facility] Stop: 03/22/19 09:59 Enoxaparin Sodium (Lovenox Inj 40 Mg/0.4 Ml Disp.Syrin) 40 mg SUBCUT DAILY [facility] Stop: 03/21/19 10:59 Last Admin: 02/19/19 12:20 Dose: 40 mg Documented by: Famotidine (Pepcid 20 Mg Tablet) 20 mg PO Q12 GALEN Stop: 03/21/19 21:59 Last Admin: 02/19/19 21:05 Dose: 20 mg Documented by: Fluticasone Propionate (Flonase Nasal [place] 50 Mcg/[place] 16 Gm) 2 spray NASL DAILY [facility] Stop: 03/22/19 09:59 Fluticasone/Vilanterol (Breo 200-25 Mcg Ellipta 14 Dose/Dpi) 1 inh IH DAILY [facility] Stop: 03/21/19 21:59 Last Admin: 02/19/19 21:58 Dose: 1 inh Documented by: Glucagon (Glucagen Inj 1 Mg Vial) 1 mg SUBCUT PRN PRN; Protocol PRN Reason: Evaluate for BG < 70 Stop: 03/22/19 08:40 Glucose (Glutose 40% Gel 15 Gm Tube) 15 gm PO PRN PRN; Protocol PRN Reason: For BG 50-69 in Alert Patient Stop: 03/22/19 08:40 Glucose (Glutose 40% Gel 15 Gm Tube) 30 gm PO PRN PRN; Protocol PRN Reason: FOR BG < 50 IN ALERT PATIENT Stop: 03/22/19 08:40 Hydrochlorothiazide (Hydrodiuril 12.5 Mg Tablet) 12.5 mg PO DAILY GALEN Stop: 03/22/19 09:59 Sodium Chloride (Nacl 0.9% 1000 Ml Iv Soln) 1,000 mls @ 75 mls/hr IV CONTINUOUS PRN PRN Reason: THIS MED IS NOT "PRN" Stop: 03/21/19 10:01 Last Infusion: 02/20/19 03:00 Dose: 75 mls/hr Documented by: Piperacillin Sod/Tazobactam (Sod 3.375 gm/ Sodium Chloride) 100 mls @ 200 mls/hr IV Q6A GALEN Stop: 02/26/19 20:59 Last Admin: 02/20/19 08:38 Dose: 200 mls/hr, 200 mls/hr Documented by: Vancomycin HCl 1,000 mg/ (Dextrose) 250 mls @ 166.667 mls/hr IV DAILY [facility] Stop: 02/26/19 09:59 Levalbuterol HCl (Xopenex Neb 0.63 Mg/3 Ml Ampul) 0.63 mg NEB RTQ4HP PRN PRN Reason: SHORTNESS OF BREATH Stop: 03/21/19 10:01 Lisinopril (Prinivil 10 Mg Tablet) 20 mg PO DAILY GALEN Stop: 03/22/19 09:59 Meloxicam (Mobic 15 Mg Tablet) 15 mg PO DAILY GALEN Stop: 03/22/19 09:59 Multivitamins/Iron (Flintstones Chewable Multivit W/Fe Tab) 1 tab PO DAILY GALEN Stop: 03/22/19 09:59 Ondansetron HCl (Zofran Inj/Pf 4 Mg/2 Ml Sdv) 4 mg IV Q6HP PRN PRN Reason: FOR NAUSEA/VOMITING Stop: 03/21/19 10:01 Sodium Chloride (Saline Flush 2.5 Ml Monoject Prefil Syrin) 2.5 ml IV Q8 [facility] Stop: 03/21/19 13:59 Last Admin: 02/20/19 05:08 Dose: Not Given Documented by: Tiotropium [place] (Spiriva Handihaler 5 Cap/Kit (18 Mcg/Cap)) 1 cap IH DAILY GALEN Stop: 03/21/19 21:59 Last Admin: 02/19/19 21:57 Dose: 1 inh Documented by: - Allergies Allergies/Adverse Reactions: No Known Allergies Allergy (Unverified 11/04/13 09:48) Hospital Course Hospital Course: 78 year old female with history of COPD, hypertension recently admitted for right upper lobe cavitary lesion status post bronchoscopy negative for TB and cultures positive for Serratia and Klebsiella discharged home on levofloxacin came back again with complaints of increasing shortness of breath for the last few days. She was discharged last time on 2 L oxygen patient states is not helping her. She is also using the inhalers at home without any improvement. Patient is also saying decreased appetite. Complaining of cough with dry cough associated with the left-sided chest pain and coughing. Denies any fevers. Complaining of phlegm in the throat unable to spit it out. Denies any diarrhea constipation. Denies any nausea. Denies any weight loss. In the emergency room patient is found to be hypoxic requiring BiPAP. Physical Exam Vital Signs: Temp Pulse Resp BP Pulse Ox 97.5 F 73 14 113/60 99 02/20/19 03:30 02/20/19 07:00 02/20/19 03:30 02/20/19 03:30 02/20/19 03:30 Intake & Output 02/19/19 02/20/19 02/21/19 06:59 06:59 06:59 Intake Total 1173 Output Total 400 Balance 773 Weight 55.9 kg General appearance: PRESENT: no acute distress, thin Head exam: PRESENT: atraumatic Eye exam: PRESENT: PERRLA Mouth exam: PRESENT: moist, tongue midline Teeth exam: PRESENT: poor dentation Neck exam: ABSENT: carotid bruit, JVD, lymphadenopathy, thyromegaly Respiratory exam: PRESENT: decreased breath sounds Cardiovascular exam: PRESENT: RRR. ABSENT: diastolic murmur, rubs, systolic murmur GI/Abdominal exam: PRESENT: normal bowel sounds, soft. ABSENT: distended, guarding, mass, organolmegaly, rebound, tenderness Rectal exam: PRESENT: deferred Extremities exam: PRESENT: full ROM. ABSENT: calf tenderness, clubbing, pedal edema Neurological exam: PRESENT: alert, awake, oriented to person, oriented to place, oriented to time, oriented to situation, CN II-XII grossly intact. ABSENT: motor sensory deficit Psychiatric exam: PRESENT: appropriate affect, normal mood. ABSENT: homicidal ideation, suicidal ideation Results Laboratory Results: 02/20/19 02:45 02/20/19 02:45 02/19/19 02/19/19 02/20/19 08:23 13:15 02:45 WBC 8.0 RBC 3.15 L Hgb 9.8 L D Hct 28.9 L MCV 92 MCH 31.0 MCHC 33.8 RDW 13.4 Plt Count 273 Seg Neutrophils % 85.3 H Lymphocytes % 7.3 L Monocytes % 7.3 Eosinophils % 0.0 Basophils % 0.1 Absolute Neutrophils 6.8 Absolute Lymphocytes 0.6 Absolute Monocytes 0.6 Absolute Eosinophils 0.0 Absolute Basophils 0.0 Carbonic Acid 1.14 HCO3/H2CO3 Ratio 20:1 ABG pH 7.41 ABG pCO2 37.8 ABG pO2 87.8 ABG HCO3 23.4 ABG O2 Saturation 96.8 ABG Base Excess -0.9 FiO2 2L Sodium 142.5 Potassium 4.1 Chloride 102 Carbon Dioxide 29 Anion Gap 12 BUN 20 Creatinine 0.79 Est GFR ( Amer) > 60 Est GFR (Non-Af Amer) > 60 Glucose 115 H Calcium 10.2 Magnesium Total Bilirubin AST ALT Alkaline Phosphatase Total Protein Albumin TSH 02/20/19 02/20/19 02:45 02:45 WBC RBC Hgb Hct MCV MCH MCHC RDW Plt Count Seg Neutrophils % Lymphocytes % Monocytes % Eosinophils % Basophils % Absolute Neutrophils Absolute Lymphocytes Absolute Monocytes Absolute Eosinophils Absolute Basophils Carbonic Acid HCO3/H2CO3 Ratio ABG pH ABG pCO2 ABG pO2 ABG HCO3 ABG O2 Saturation ABG Base Excess FiO2 Sodium 142.3 Potassium 4.5 Chloride 107 Carbon Dioxide 26 Anion Gap 9 BUN 25 H Creatinine 0.97 Est GFR ( Amer) > 60 Est GFR (Non-Af Amer) 56 L Glucose 130 H Calcium 9.0 Magnesium 2.1 Total Bilirubin 0.3 AST 15 ALT 18 Alkaline Phosphatase 71 Total Protein 5.8 L Albumin 3.1 L TSH 0.21 L 02/19/19 02/19/19 02/19/19 08:23 14:25 14:25 Creatine Kinase 26 L Troponin I < 0.012 < 0.012 NT-Pro-B Natriuret Pep 104 02/19/19 02/19/19 02/20/19 20:51 20:51 02:45 Creatine Kinase 73 34 Troponin I 0.024 NT-Pro-B Natriuret Pep 02/20/19 02/20/19 02:45 02:45 Creatine Kinase Troponin I < 0.012 NT-Pro-B Natriuret Pep 269 Impressions: Chest X-Ray 02/19/19 08:20 IMPRESSION: Persistent thin walled cavity now all 6 cm in diameter in the anterior left upper lobe. Differential includes cavitary neoplasm versus cavitary infiltrate, tuberculosis remains in the differential. Chest/Abdomen CTA 02/19/19 11:45 IMPRESSION: 4 x 4 cm cavitary lesion left upper lobe 2.3 x 2.1 cm left hilar lymph node Plan Discharge Plan: Patient is going to be transferred to [facility]. Time Spent: Greater than 30 Minutes
[2019-02-20] MEDS: FAMOTIDINE 20 MG TABLET PO SCH ×2 (09:12→21:15)
[2019-02-20] MEDS: LISINOPRIL 10 MG TABLET PO SCH (09:12)
[2019-02-20] MEDS: HYDROCHLOROTHIAZIDE 12.5 MG TABLET PO SCH (09:12)
[2019-02-20] MEDS: TIOTROPIUM BROMIDE DPI 5 CAP/KIT (18 MCG/CAP) IH SCH (09:12)
[2019-02-20] MEDS: MULTIVITAMINS W-IRON TABLET, CHEWABLE PO SCH (09:12)
[2019-02-20] MEDS: FLUTICASONE/VILANTEROL 200-25 MCG/DOSE IH SCH (09:13)
[2019-02-20] MEDS: ENOXAPARIN SODIUM INJ 40 MG/0.4 ML DISP.SYRIN SUBCUT SCH (09:13)
[2019-02-20] MEDS: DOCUSATE SODIUM 100 MG/10 ML UDC PO SCH (09:13)
[2019-02-20] MEDS: FLUTICASONE NASAL SPRAY 50 MCG/SPRY 120 SPRAY/16 GM NASL SCH (09:25)
[2019-02-20] MEDS: VANCOMYCIN HCL 1,000 MG in DEXTROSE 5%-WATER 250 ML IV SCH (09:27)
[2019-02-20] MEDS ORDERED: (PENDING PHARMACY ID) (Lisinopril/Hydrochlorothiazide [Zestoretic 20-12.5 Mg Tablet] 1 TAB PO SCH (10:00)
[2019-02-20] MEDS ORDERED: TIOTROPIUM BROMIDE DPI 5 CAP/KIT (18 MCG/CAP) IH SCH (10:00)
[2019-02-20] MEDS ORDERED: FLUTICASONE/VILANTEROL 200-25 MCG/DOSE IH SCH (10:00)
[2019-02-20] MEDS ORDERED: MULTIVITAMIN PO SCH (10:00)
[2019-02-20] MEDS: NORMAL SALINE 1000 ML 1,000 ML IV PRN (15:28)
[2019-02-20] MEDS: MELOXICAM 15 MG TABLET PO SCH (15:43)
[2019-02-21] MEDS: PIPERACILLIN SODIUM/TAZOBACTAM 3.375 GM in NORMAL SALINE 100 ML IV SCH ×3 (03:36→18:49)
--- NOTE | 2019-02-21 08:35 | PDOC PROGRESS REPORT ---
Subjective Progress Note for:: 02/21/19 Subjective:: Patient is gone for bronchoscopy Reason For Visit: COPD EXACERBATION Physical Exam Vital Signs: Temp Pulse Resp BP Pulse Ox 97.8 F 66 18 126/73 H 99 02/21/19 03:07 02/21/19 03:07 02/21/19 03:07 02/21/19 03:07 02/21/19 03:07 Intake & Output 02/20/19 02/21/19 02/22/19 06:59 06:59 06:59 Intake Total 1173 1764 Output Total 400 600 Balance 773 1164 Weight 55.9 kg 55.9 kg General appearance: PRESENT: no acute distress, well-developed, well-nourished Head exam: PRESENT: atraumatic, normocephalic Eye exam: PRESENT: conjunctiva pink, EOMI, PERRLA. ABSENT: scleral icterus Ear exam: PRESENT: normal external ear exam Mouth exam: PRESENT: moist, tongue midline Neck exam: ABSENT: carotid bruit, JVD, lymphadenopathy, thyromegaly Respiratory exam: PRESENT: clear to auscultation romelia. ABSENT: rales, rhonchi, wheezes Cardiovascular exam: PRESENT: RRR. ABSENT: diastolic murmur, rubs, systolic murmur Pulses: PRESENT: normal dorsalis pedis pul Vascular exam: PRESENT: normal capillary refill GI/Abdominal exam: PRESENT: normal bowel sounds, soft. ABSENT: distended, guarding, mass, organolmegaly, rebound, tenderness Rectal exam: PRESENT: deferred Extremities exam: PRESENT: full ROM. ABSENT: calf tenderness, clubbing, pedal edema Neurological exam: PRESENT: alert, awake, oriented to person, oriented to place, oriented to time, oriented to situation, CN II-XII grossly intact. ABSENT: motor sensory deficit Psychiatric exam: PRESENT: appropriate affect, normal mood. ABSENT: homicidal ideation, suicidal ideation Skin exam: PRESENT: dry, intact, warm. ABSENT: cyanosis, rash Results Laboratory Results: 02/20/19 02:45 02/20/19 02:45 02/21/19 02/21/19 06:20 06:20 Magnesium 2.1 TSH 1.00 02/19/19 02/19/19 02/19/19 08:23 14:25 14:25 Creatine Kinase 26 L Troponin I < 0.012 < 0.012 NT-Pro-B Natriuret Pep 104 02/19/19 02/19/19 02/20/19 20:51 20:51 02:45 Creatine Kinase 73 34 Troponin I 0.024 NT-Pro-B Natriuret Pep 02/20/19 02/20/19 02:45 02:45 Creatine Kinase Troponin I < 0.012 NT-Pro-B Natriuret Pep 269 Impressions: Chest X-Ray 02/19/19 08:20 IMPRESSION: Persistent thin walled cavity now all 6 cm in diameter in the anterior left upper lobe. Differential includes cavitary neoplasm versus cavitary infiltrate, tuberculosis remains in the differential. Chest/Abdomen CTA 02/19/19 11:45 IMPRESSION: 4 x 4 cm cavitary lesion left upper lobe 2.3 x 2.1 cm left hilar lymph node Assessment & Plan - Diagnosis (1) Cavitary lesion of lung Is this a current diagnosis for this admission?: Yes Plan: Follow-up pathology from bronchoscopy, [facility]
--- NOTE | 2019-02-21 08:40 | PDOC PROGRESS REPORT ---
Subjective Progress Note for:: 02/21/19 Subjective:: 02/19/[id number]-nmba-old female came in with COPD exacerbation with CO2 retention. Patient is going to be placed in IMCU consultation with Dr. Noble in consultation with Dr. feng was was requested. Review of CTs indicates right cavitary lesion status post bronchoscopy negative for TB and that she was treated for pneumonia. It is highly likely it can be secondary to neoplasm. Patient has history of heavy smoking. Patient was started on BiPAP PRN, albuterol nebulization Xopenex nebulizations continue oxygen 2 L nasal cannula, GI prophylaxis DVT prophylaxis initiated. Blood cultures sputum cultures requested started on IV vancomycin and IV Zosyn. Patient wants to be full code. VBG done in the ER shows PCO2 48%. 02/20/[id number]-kafm-old female admitted for acute on chronic respiratory failure secondary to COPD exacerbation with CO2 retention. Patient initially requiring BiPAP in the emergency room. Today pulse ox is 100% on 2 L. Hematology consult and pulmonary consult was done because chest x-ray showing persistent right upper lung cavitary lesion. Patient was here for the similar problem 2 weeks ago status post bronc was done at that time the sputum culture negative for TB positive for Serratia she was discharged on levofloxacin. At the time of this admission yesterday patient is afebrile and WBC count is normal. Dr. Turcios spoke to Dr. Rey Rosen in [place] to make arrange for bronchoscopy and lung biopsy there. 02/21/2019-patient went to [facility] this morning around 8:00. No acute events in the last 24 hours. Patient is afebrile. T-max is 97.8. Blood pressure is 126/73. The plan is patient is going to have a bronc and possible biopsy of the left upper lobe cavity and she is going to come back after the pr ocedure. Reason For Visit: COPD EXACERBATION Physical Exam Vital Signs: Temp Pulse Resp BP Pulse Ox 97.8 F 66 18 126/73 H 99 02/21/19 03:07 02/21/19 03:07 02/21/19 03:07 02/21/19 03:07 02/21/19 03:07 Intake & Output 02/20/19 02/21/19 02/22/19 06:59 06:59 06:59 Intake Total 1173 1764 Output Total 400 600 Balance 773 1164 Weight 55.9 kg 55.9 kg General appearance: PRESENT: no acute distress Head exam: PRESENT: atraumatic Eye exam: PRESENT: PERRLA Ear exam: PRESENT: normal external ear exam Teeth exam: PRESENT: poor dentation Neck exam: ABSENT: carotid bruit, JVD, lymphadenopathy, thyromegaly Respiratory exam: PRESENT: decreased breath sounds Cardiovascular exam: PRESENT: systolic murmur, tachycardia GI/Abdominal exam: PRESENT: normal bowel sounds, soft. ABSENT: distended, guarding, mass, organolmegaly, rebound, tenderness Rectal exam: PRESENT: deferred Neurological exam: PRESENT: alert, awake, oriented to person, oriented to place, oriented to time, oriented to situation, CN II-XII grossly intact. ABSENT: motor sensory deficit Psychiatric exam: PRESENT: appropriate affect, normal mood. ABSENT: homicidal ideation, suicidal ideation Results Laboratory Results: 02/20/19 02:45 02/20/19 02:45 02/21/19 02/21/19 06:20 06:20 Magnesium 2.1 TSH 1.00 02/19/19 02/19/19 02/19/19 08:23 14:25 14:25 Creatine Kinase 26 L Troponin I < 0.012 < 0.012 NT-Pro-B Natriuret Pep 104 02/19/19 02/19/19 02/20/19 20:51 20:51 02:45 Creatine Kinase 73 34 Troponin I 0.024 NT-Pro-B Natriuret Pep 02/20/19 02/20/19 02:45 02:45 Creatine Kinase Troponin I < 0.012 NT-Pro-B Natriuret Pep 269 Impressions: Chest X-Ray 02/19/19 08:20 IMPRESSION: Persistent thin walled cavity now all 6 cm in diameter in the anterior left upper lobe. Differential includes cavitary neoplasm versus cavitary infiltrate, tuberculosis remains in the differential. Chest/Abdomen CTA 02/19/19 11:45 IMPRESSION: 4 x 4 cm cavitary lesion left upper lobe 2.3 x 2.1 cm left hilar lymph node Assessment and Plan - Diagnosis (1) Acute and chronic respiratory failure Qualifiers: Respiratory failure complication: hypercapnia Qualified Code(s): J96.22 - Acute and chronic respiratory failure with hypercapnia Is this a current diagnosis for this admission?: Yes Plan: 02/19/[id number]-mzmh-old female came in with COPD exacerbation with CO2 retention. Patient is going to be placed in IMCU consultation with Dr. Noble in onsultation with Dr. feng was was requested. Review of CTs indicates right cavitary lesion status post bronchoscopy negative for TB and that she was treated for pneumonia. It is highly likely it can be secondary to neoplasm. Patient has history of heavy smoking. Patient was started on BiPAP PRN, albuterol nebulization Xopenex nebulizations continue oxygen 2 L nasal cannula, GI prophylaxis DVT prophylaxis initiated. Blood cultures sputum cultures requested started on IV vancomycin and IV Zosyn. Patient wants to be full code. VBG done in the ER shows PCO2 48%. 02/20/[id number]-ludu-old female admitted for acute on chronic respiratory failure secondary to COPD exacerbation with CO2 retention. Patient initially requiring BiPAP in the emergency room. Today pulse ox is 100% on 2 L. Hematology consult and pulmonary consult was done because chest x-ray showing persistent right upper lung cavitary lesion. Patient was here for the similar problem 2 weeks ago status post bronc was done at that time the sputum culture negative for TB positive for Serratia she was discharged on levofloxacin. At the time of this admission yesterday patient is afebrile and WBC count is normal. Dr. Turcios spoke to Dr. Rey Rosen in [place] to make arrange for bronchoscopy and lung biopsy there. 02/21/2019-patient was admitted with acute on chronic respiratory failure most likely secondary to underlying left upper lobe cavitary lesion, pneumonia, COPD. She came in with CO2 retention which was resolved with use of BiPAP. Presently on oxygen 2 L nasal cannula pulse ox is 96%. (2) COPD (chronic obstructive pulmonary disease) Qualifiers: COPD type: COPD with acute exacerbation Qualified Code(s): J44.1 - Chronic obstructive pulmonary disease with (acute) exacerbation Is this a current diagnosis for this admission?: No Plan: 02/19/2019-patient has history of COPD she is on 2 L oxygen at home. Patient is ex-smoker she quit smoking more than 8 years ago. COPD most likely secondary to chronic smoking.02/19/2019-patient has history of COPD she is on 2 L oxygen at home. Patient is ex-smoker she quit smoking more than 8 years ago. COPD most likely secondary to chronic smoking. 02/20/2019-patient has history of COPD secondary to heavy smoking. As per the nicolas duron she quit smoking 8 years ago but the family disagreeing with that. COPD most likely secondary to history of chronic smoking. Patient on 2 liters oxygen at home. In the emergency room patient was hypoxic requiring BiPAP now the pulse ox is 99% on 2 L. -patient has history of COPD secondary to chronic smoking. COPD most likely secondary to chronic smoking. She is on 2 L of oxygen at home. Today pulse ox is 99% on 2.5 L. (3) Cavitary lesion of lung Is this a current diagnosis for this admission?: Yes Plan: 02/19/2019-chest x-ray done today shows right-sided cavitary lesion in the upper lobe during the last admission bronchoscopy was done TB was ruled out. At that time bronchial cultures show Serratia and Klebsiella she was treated with IV antibiotic therapy and discharged home on levofloxacin. Consultation with Dr. Velvet espino on consultation with Dr. Carmona was requested patient was started on vancomycin and Zosyn blood cultures and sputum cultures are requested again. Plan to do the CT abdomen pelvis with IV contrast to rule out any malignant lesions. 02/20/2019-chest x-ray done yesterday suggestive right-sided cavitary lesion. CT scan with contrast was done shows persistent 4 into 4 cm cavitary lesion in the left upper lobe abutting the pleural surface. CT abdomen indicates 1.5 centimeters cyst in the right upper lobe. There is also a 1 cm cyst in the right lobe of the liver. Patient has bronchoscopy was done in the last admission the cultures came back positive for Serratia negative for TB. Because of the history of chronic smoking and high possibility of malignancy patient is going to [place] today for possible bronchoscopy and lung biopsy. I spoke to Dr. Natalie Mckoy he agreed to take the patient under his care. Patient is presently on IV vancomycin and Zosyn. Patient is afebrile in the ER with a normal WBC count. 02/21/2019-repeat CT scan yesterday indicates cavitary lesion in the left upper lobe she went to [facility] for bronchoscopy and biopsy my impression is after the procedure patient is coming back to this hospital. (4) HTN (hypertension) Qualifiers: Hypertension type: essential hypertension Qualified Code(s): I10 - Essential (primary) hypertension Is this a current diagnosis for this admission?: No Plan: 02/19/2019-patient history of hypertension latest blood pressure is 167/69. Initially she came in with blood pressure of 98/53 it was improved with oxygenation 02/20/2019-patient has history of hypertension blood pressure today is 130/60 stable. 2018-patient blood pressure is 126/73 today stable. - Time Time Spent with patient: 25-34 minutes Medications reviewed and adjusted accordingly: Yes
[2019-02-21] MEDS ORDERED: ONDANSETRON HCL INJ/PF 4 MG/2 ML SDV IV PRN (15:00)
[2019-02-21] MEDS: HYDROCHLOROTHIAZIDE 12.5 MG TABLET PO SCH (18:36)
[2019-02-21] MEDS: LISINOPRIL 10 MG TABLET PO SCH (18:37)
--- NOTE | 2019-02-21 18:37 | Progress Note ---
Provider Note Provider Note: ID Consult Note Asked by pharmacy to review patient's chart. Pt not seen or examined. Pt is a 78 year old woman with COPD and HTN who was admitted on 02/07/19 after w/u for 2 weeks SOB, dry cough, and sensation of drainage in her throat lead to CT scan revealing IZABELA cavitary lesion. She was given an outpatient course of Augmentin without improvement. During that admission AFB sputum smears were negative, she was empirically given vancomycin and Zosyn, and she underwent bronchoscopy. Cytology from bronchial washings showed atypical squamous cells - nondiagnostic. Pt was to continue to be worked up for lung cancer as an outpatient. When culture from bronchial washing grew Serratia and Klebsiella, she was prescribed levofloxacin. She continued to have dry cough and presented again on 02/19/19 for admission due to increasing SOB over the last few days along with L sided chest pain. Vancomycin and Zosyn were restarted. She was transferred to [facility] for bronchoscopy with transbronchial biopsy today 02/21. Per bronchoscopy report, inspection of her airways revealed no lesions, inflammation or secretions. Transbronchial biospy of the enlarged station 7 LN was performed. While hospitalized at [facility] she has not had fever. WBC count has been normal. Impression/Recommendations IZABELA cavitary lesion suspicious for malignancy. - Bacterial lung abscess was considered in the differential. However, this is usually associated with predisposing conditions (e.g. dysphagia, seizures, sedating medication) and in a dependent position in the lung (lower lobe, posterior segment of the upper lobe). Pt has had no fever. She has no leukocytosis. She was given empiric Augmentin prior to last admission, vancomycin and Zosyn while admitted 02/07-02/11, followed by Levaquin after discharge; lesion has not regressed in size despite this. Lack of secretions and airway inflammation on bronchoscopy does not suggest a suppurative process. - Recommend stopping vancomycin. No MRSA isolated previously. Consider also stopping Zosyn. Richie Lennon MD [facility] Infectious Diseases pager [phone]
[2019-02-21] MEDS: MULTIVITAMINS W-IRON TABLET, CHEWABLE PO SCH (18:38)
[2019-02-21] MEDS: FLUTICASONE NASAL SPRAY 50 MCG/SPRY 120 SPRAY/16 GM NASL SCH (18:38)
[2019-02-21] MEDS: FLUTICASONE/VILANTEROL 200-25 MCG/DOSE IH SCH (18:39)
[2019-02-21] MEDS: ENOXAPARIN SODIUM INJ 40 MG/0.4 ML DISP.SYRIN SUBCUT SCH (18:39)
[2019-02-21] MEDS: MELOXICAM 15 MG TABLET PO SCH (18:40)
[2019-02-21] MEDS: TIOTROPIUM BROMIDE DPI 5 CAP/KIT (18 MCG/CAP) IH SCH (18:40)
[2019-02-21] MEDS: FAMOTIDINE 20 MG TABLET PO SCH ×2 (18:49→22:17)
[2019-02-21] MEDS: DOCUSATE SODIUM 100 MG/10 ML UDC PO SCH (19:32)
[2019-02-21] MEDS: VANCOMYCIN HCL 1,000 MG in DEXTROSE 5%-WATER 250 ML IV SCH (19:33)
[2019-02-22] MEDS: NORMAL SALINE 1000 ML 1,000 ML IV PRN (06:47)
[2019-02-22 07:50] LABS: ABSOLUTE EOSINOPHILS # (AUTO) 0.4 10^3/uL (0.0-0.6); ABSOLUTE LYMPHOCYTES (AUTO) 1.3 10^3/uL (0.5-4.7); ABSOLUTE MONOCYTES (AUTO) 0.5 10^3/uL (0.1-1.4); ABSOLUTE NEUT (AUTO) 6.3 10^3/uL (1.7-8.2); BASOPHILS % (AUTO) 0.5 % (0-2); EOSINOPHILS % (AUTO) 4.3 % (0-6); HEMATOCRIT 29.2 % (36.0-47.0); HEMOGLOBIN 10.1 g/dL (12.0-15.5); LYMPHOCYTES % (AUTO) 15.6 % (13-45); MEAN CORPUSCULAR HEMOGLOBIN 31.6 pg (27.0-33.4); MEAN CORPUSCULAR HGB CONC 34.4 g/dL (32.0-36.0); MEAN CORPUSCULAR VOLUME 92 fl (80-97); MONOCYTES % (AUTO) 6.3 % (3-13); PLATELET COUNT 252 10^3/uL (150-450); RED BLOOD COUNT 3.18 10^6/uL (3.72-5.28); RED CELL DISTRIBUTION WIDTH 13.7 % (11.5-14.0); SEGMENTED NEUTROPHILS % (AUTO) 73.3 % (42-78); TOTAL CELLS COUNTED % (AUTO) 100 %; WHITE BLOOD COUNT 8.5 10^3/uL (4.0-10.5)
[2019-02-22 08:04] LABS: ALANINE AMINOTRANSFERASE 20 U/L (9-52); ALKALINE PHOSPHATASE 77 U/L (38-126); ANION GAP 7 (5-19); ASPARTATE AMINO TRANSFERASE 20 U/L (14-36); BILIRUBIN,DIRECT 0.2 mg/dL (0.0-0.4); BILIRUBIN,TOTAL 0.5 mg/dL (0.2-1.3); BLOOD UREA NITROGEN 12 mg/dL (7-20); CALCIUM 8.8 mg/dL (8.4-10.2); CARBON DIOXIDE 30 mmol/L (22-30); CHLORIDE 105 mmol/L (98-107); GLUCOSE 74 mg/dL (75-110); SODIUM 141.6 mmol/L (137-145); TOTAL PROTEIN 5.7 g/dL (6.3-8.2)
--- NOTE | 2019-02-22 08:24 | PDOC PROGRESS REPORT ---
Subjective Progress Note for:: 02/22/19 Subjective:: Patient doing a little bit better, I received preliminary results from Dr. christianson who did a bronchoscopy with biopsy, the pathologist at bedside noted that there was malignant cells on the specimen Reason For Visit: COPD EXACERBATION Physical Exam Vital Signs: Temp Pulse Resp BP Pulse Ox 98.4 F 77 16 123/59 L 98 02/22/19 03:11 02/22/19 07:00 02/22/19 03:11 02/22/19 03:11 02/22/19 03:11 Intake & Output 02/21/19 02/22/19 02/23/19 06:59 06:59 06:59 Intake Total 1764 1343 Output Total 600 Balance 1164 1343 Weight 55.9 kg 56.3 kg General appearance: PRESENT: no acute distress, well-developed, well-nourished Head exam: PRESENT: atraumatic, normocephalic Eye exam: PRESENT: conjunctiva pink, EOMI, PERRLA. ABSENT: scleral icterus Ear exam: PRESENT: normal external ear exam Mouth exam: PRESENT: moist, tongue midline Neck exam: ABSENT: carotid bruit, JVD, lymphadenopathy, thyromegaly Respiratory exam: PRESENT: clear to auscultation romelia. ABSENT: rales, rhonchi, wheezes Cardiovascular exam: PRESENT: RRR. ABSENT: diastolic murmur, rubs, systolic murmur Pulses: PRESENT: normal dorsalis pedis pul Vascular exam: PRESENT: normal capillary refill GI/Abdominal exam: PRESENT: normal bowel sounds, soft. ABSENT: distended, guarding, mass, organolmegaly, rebound, tenderness Rectal exam: PRESENT: deferred Extremities exam: PRESENT: full ROM. ABSENT: calf tenderness, clubbing, pedal edema Neurological exam: PRESENT: alert, awake, oriented to person, oriented to place, oriented to time, oriented to situation, CN II-XII grossly intact. ABSENT: motor sensory deficit Psychiatric exam: PRESENT: appropriate affect, normal mood. ABSENT: homicidal i deation, suicidal ideation Skin exam: PRESENT: dry, intact, warm. ABSENT: cyanosis, rash Results Laboratory Results: 02/22/19 05:41 02/22/19 05:41 02/22/19 02/22/19 02/22/19 05:41 05:41 05:41 WBC 8.5 RBC 3.18 L Hgb 10.1 L Hct 29.2 L MCV 92 MCH 31.6 MCHC 34.4 RDW 13.7 Plt Count 252 Seg Neutrophils % 73.3 Lymphocytes % 15.6 Monocytes % 6.3 Eosinophils % 4.3 Basophils % 0.5 Absolute Neutrophils 6.3 Absolute Lymphocytes 1.3 Absolute Monocytes 0.5 Absolute Eosinophils 0.4 Absolute Basophils 0.0 Sodium Potassium Chloride Carbon Dioxide Anion Gap BUN Creatinine Est GFR ( Amer) Est GFR (Non-Af Amer) Glucose Calcium Magnesium 2.3 Total Bilirubin AST ALT Alkaline Phosphatase Total Protein Albumin TSH 0.52 02/22/19 05:41 WBC RBC Hgb Hct MCV MCH MCHC RDW Plt Count Seg Neutrophils % Lymphocytes % Monocytes % Eosinophils % Basophils % Absolute Neutrophils Absolute Lymphocytes Absolute Monocytes Absolute Eosinophils Absolute Basophils Sodium 141.6 Potassium 4.0 Chloride 105 Carbon Dioxide 30 Anion Gap 7 BUN 12 Creatinine 0.60 Est GFR ( Amer) > 60 Est GFR (Non-Af Amer) > 60 Glucose 74 L Calcium 8.8 Magnesium Cancelled Total Bilirubin 0.5 AST 20 ALT 20 Alkaline Phosphatase 77 Total Protein 5.7 L Albumin 3.0 L TSH 02/19/19 02/19/19 02/19/19 08:23 14:25 14:25 Creatine Kinase 26 L Troponin I < 0.012 < 0.012 NT-Pro-B Natriuret Pep 104 02/19/19 02/19/19 02/20/19 20:51 20:51 02:45 Creatine Kinase 73 34 Troponin I 0.024 NT-Pro-B Natriuret Pep 02/20/19 02/20/19 02:45 02:45 Creatine Kinase Troponin I < 0.012 NT-Pro-B Natriuret Pep 269 Impressions: Chest X-Ray 02/19/19 08:20 IMPRESSION: Persistent thin walled cavity now all 6 cm in diameter in the anterior left upper lobe. Differential includes cavitary neoplasm versus cavitary infiltrate, tuberculosis remains in the differential. Chest/Abdomen CTA 02/19/19 11:45 IMPRESSION: 4 x 4 cm cavitary lesion left upper lobe 2.3 x 2.1 cm left hilar lymph node Assessment & Plan - Diagnosis (1) Cavitary lesion of lung Is this a current diagnosis for this admission?: Yes Plan: Likely malignant, awaiting results of biopsy, from an oncologic standpoint I believe she should be ready for discharge home, I discussed her case with Maria Elena her granddaughter who she lives with. She will need a prescription for a pulse oximeter. Unsure if she has nebulizers at home but she probably would benefit from nebulizer treatments as well. She does have oxygen at home already.
[2019-02-22 09:14] VITALS: BP 149/70
[2019-02-22] MEDS ORDERED: DOCUSATE SODIUM 100 MG CAPSULE PO SCH (10:00)
--- NOTE | 2019-02-22 10:50 | PDOC DISCHARGE SUMMARY ---
General - Admit/Disc Date/PCP Admission Date/Primary Care Provider: 02/19/19 09:34 ISABELL STOUT MD Discharge Date: 02/22/19 - Discharge Diagnosis (1) Acute and chronic respiratory failure Is this a current diagnosis for this admission?: Yes Summary: 02/19/[id number]-old female came in with COPD exacerbation with CO2 retention. Patient is going to be placed in IMCU consultation with Dr. Noble in consultation with Dr. feng was was requested. Review of CTs indicates right ca vitary lesion status post bronchoscopy negative for TB and that she was treated for pneumonia. It is highly likely it can be secondary to neoplasm. Patient has history of heavy smoking. Patient was started on BiPAP PRN, albuterol nebulization Xopenex nebulizations continue oxygen 2 L nasal cannula, GI prophylaxis DVT prophylaxis initiated. Blood cultures sputum cultures requested started on IV vancomycin and IV Zosyn. Patient wants to be full code. VBG done in the ER shows PCO2 48%. 02/20/[id number]-tuym-old female admitted for acute on chronic respiratory failure secondary to COPD exacerbation with CO2 retention. Patient initially requiring BiPAP in the emergency room. Today pulse ox is 100% on 2 L. Hematology consult and pulmonary consult was done because chest x-ray showing persistent right upper lung cavitary lesion. Patient was here for the similar problem 2 weeks ago status post [facility] was done at that time the sputum culture negative for TB positive for Serratia she was discharged on levofloxacin. At the time of this admission yesterday patient is afebrile and WBC count is normal. Dr. Turcios spoke to Dr. Rey Rosen in [place] to make arrange for bronchoscopy and lung biopsy there. 02/21/2019-patient was admitted with acute on chronic respiratory failure most likely secondary to underlying left upper lobe cavitary lesion, pneumonia, COPD. She came in with CO2 retention which was resolved with use of BiPAP. Presently on oxygen 2 L nasal cannula pulse ox is 96%. 02/22/2019-patient came back after he had bronchoscopy and lung biopsy in [facility] the preliminary report indicates finding of malignant cells in the tracheal aspirate. Patient is going to follow-up with Dr. Turcios next week. Acute on chronic respiratory failure most likely secondary to COPD exacerbation, underlying left upper lobe cavitation resolved. Pulse ox today is 98% on 3 L. Patient is on 2 L of oxygen at home. Prescription was given for Xopenex nebulizations. And also prescription was given for pulse oximetry. As per ID recommendations antibiotics are discontinued. (2) COPD (chronic obstructive pulmonary disease) Is this a current diagnosis for this admission?: No Summary: 02/19/2019-patient has history of COPD she is on 2 L oxygen at home. Patient is ex-smoker she quit smoking more than 8 years ago. COPD most likely secondary to chronic smoking.02/19/2019-patient has history of COPD she is on 2 L oxygen at home. Patient is ex-smoker she quit smoking more than 8 years ago. COPD most likely secondary to chronic smoking. 02/20/2019-patient has history of COPD secondary to heavy smoking. As per the patient she quit smoking 8 years ago but the family disagreeing with that. COPD most likely secondary to history of chronic smoking. Patient on 2 liters oxygen at home. In the emergency room patient was hypoxic requiring BiPAP now the pulse ox is 99% on 2 L. -patient has history of COPD secondary to chronic smoking. COPD most likely secondary to chronic smoking. She is on 2 L of oxygen at home. Today pulse ox is 99% on 2.5 L. 02/22/2019-patient has history of COPD secondary to smoking. She is on 2 L of oxygen at home pulse ox today is 98% on her 2 L. Patient is advised to continue the home oxygen and prescription was given for Xopenex nebulization. Patient already has a nebulizer machine at home. Prescription was written for pulse oximeter machine to monitor the pulse ox at home. (3) Cavitary lesion of lung Is this a current diagnosis for this admission?: Yes Summary: 02/19/2019-chest x-ray done today shows right-sided cavitary lesion in the upper lobe during the last admission bronchoscopy was done TB was ruled out. At that time bronchial cultures show Serratia and Klebsiella she was treated with IV antibiotic therapy and discharged home on levofloxacin. Consultation with Dr. Velvet espino on consultation with Dr. Carmona was requested patient was started on vancomycin and Zosyn blood cultures and sputum cultures are requested again. Plan to do the CT abdomen pelvis with IV contrast to rule out any malignant lesions. 02/20/2019-chest x-ray done yesterday suggestive right-sided cavitary lesion. CT scan with contrast was done shows persistent 4 into 4 cm cavitary lesion in the left upper lobe abutting the pleural surface. CT abdomen indicates 1.5 centimeters cyst in the right upper lobe. There is also a 1 cm cyst in the right lobe of the liver. Patient has bronchoscopy was done in the last admission the cultures came back positive for Serratia negative for TB. Because of the history of chronic smoking and high possibility of malignancy patient is going to [place] today for possible bronchoscopy and lung biopsy. I spoke to Dr. Natalie Mckoy he agreed to take the patient under his care. Patient is presently on IV vancomycin and Zosyn. Patient is afebrile in the ER with a normal WBC count. 02/21/2019-repeat CT scan yesterday indicates cavitary lesion in the left upper lobe [facility] my impression is after the procedure patient is coming back to this hospital. 02/22/2019-patient came in with a cavitary lesion in the left upper lobe differential is infectious process, malignancy as per ID recommendations ant ibiotics are discontinued pulmonary report from bronchoscopy that was done in [facility] indicates presence of malignant cells in the sputum. Patient is going to follow-up with Dr. Turcios next week. During the previous hospital stay TB is ruled out. (4) HTN (hypertension) Is this a current diagnosis for this admission?: No Summary: 02/19/2019-patient history of hypertension latest blood pressure is 167/69. Initially she came in with blood pressure of 98/53 it was improved with oxygenation 02/20/2019-patient has history of hypertension blood pressure today is 130/60 stable. 02/21/2019-patient blood pressure is 126/73 today stable. 02/22/2019-blood pressure today is 123/60. Stable. Patient advised to continue her home medications. - Additional Information Resuscitation Status: Full Code Discharge Diet: Cardiac Discharge Activity: Activity As Tolerated Prescriptions: Levalbuterol HCl [Xopenex Neb 1.25 mg/3 ml Ampul] 1.25 mg NEB RTQ6HP PRN #30 [email or web address] PRN Reason: Home Medications: Fluticasone Propionate [Flonase Nasal Turner 50 Mcg/Turner 16 gm] 2 spray NASL DAILY 02/07/19 Lisinopril/Hydrochlorothiazide [Zestoretic 20-12.5 mg Tablet] 1 tab PO DAILY 02/07/19 Meloxicam [Mobic 15 mg Tablet] 15 mg PO DAILY 02/07/19 Multivitamin [Chewable-Angel] 1 tab PO DAILY 02/07/19 Tiotropium [place]bes [Spiriva Handihaler 5 Cap/Kit (18 Mcg/Cap)] 1 cap IH DAILY 02/07/19 Fluticasone/Vilanterol [Breo 200-25 Mcg Ellipta 14 Dose/Dpi] 1 inh IH DAILY inhaler 02/22/19 Levalbuterol HCl [Xopenex Neb 1.25 mg/3 ml Ampul] 1.25 mg NEB RTQ6HP PRN #30 [email or web address] 02/22/19 History of Present Illness History of Present Illness: MARBELLA HUI is a 78 year old female with history of COPD, hypertension recently admitted for right upper lobe cavitary lesion status post bronchoscopy negative for TB and cultures positive for Serratia and Klebsiella discharged home on levofloxacin came back again with complaints of increasing shortness of breath for the last few days. She was discharged last time on 2 L oxygen patient states is not helping her. She is also using the inhalers at home without any improvement. Patient is also saying decreased appetite. Complaining of cough with dry cough associated with the left-sided chest pain an d coughing. Denies any fevers. Complaining of phlegm in the throat unable to spit it out. Denies any diarrhea constipation. Denies any nausea. Denies any weight loss. In the emergency room patient is found to be hypoxic requiring BiPAP. Hospital Course Hospital Course: 78-year-old female with history of COPD, left upper lobe cavitary lesion admitted with acute on chronic respiratory failure with hypoxia and hypercapnia. He initially required BiPAP. No complications during the hospital stay. She was started with IV Zosyn and vancomycin as per ID recommendations antibiotics are discontinued. Patient had a bronchoscopy with biopsy done in [facility] initial reports indicate malignant cells in the sputum. Physical Exam Vital Signs: Temp Pulse Resp BP Pulse Ox 97.9 F 83 24 H 149/70 H 98 02/22/19 09:13 02/22/19 09:13 02/22/19 09:13 02/22/19 09:13 02/22/19 09:13 Intake & Output 05/16/19 05/17/19 05/18/19 06:59 06:59 06:59 Intake Total 1764 1343 Output Total 600 Balance 1164 1343 Weight 55.9 kg 56.3 kg General appearance: PRESENT: no acute distress Head exam: PRESENT: atraumatic Eye exam: PRESENT: PERRLA Mouth exam: PRESENT: moist, tongue midline Neck exam: ABSENT: carotid bruit, JVD, lymphadenopathy, thyromegaly Respiratory exam: PRESENT: decreased breath sounds Cardiovascular exam: PRESENT: tachycardia GI/Abdominal exam: PRESENT: normal bowel sounds, soft. ABSENT: distended, guarding, mass, organolmegaly, rebound, tenderness Rectal exam: PRESENT: deferred Extremities exam: PRESENT: full ROM. ABSENT: calf tenderness, clubbing, pedal edema Neurological exam: PRESENT: alert, awake, oriented to person, oriented to place, oriented to time, oriented to situation, CN II-XII grossly intact. ABSENT: motor sensory deficit Psychiatric exam: PRESENT: appropriate affect, normal mood. ABSENT: homicidal ideation, suicidal ideation Skin exam: PRESENT: dry, intact, warm. ABSENT: cyanosis, rash Results Laboratory Results: 02/22/19 05:41 02/22/19 05:41 02/22/19 02/22/19 02/22/19 05:41 05:41 05:41 WBC 8.5 RBC 3.18 L Hgb 10.1 L Hct 29.2 L MCV 92 MCH 31.6 MCHC 34.4 RDW 13.7 Plt Count 252 Seg Neutrophils % 73.3 Lymphocytes % 15.6 Monocytes % 6.3 Eosinophils % 4.3 Basophils % 0.5 Absolute Neutrophils 6.3 Absolute Lymphocytes 1.3 Absolute Monocytes 0.5 Absolute Eosinophils 0.4 Absolute Basophils 0.0 Sodium Potassium Chloride Carbon Dioxide Anion Gap BUN Creatinine Est GFR ( Amer) Est GFR (Non-Af Amer) Glucose Calcium Magnesium 2.3 Total Bilirubin AST ALT Alkaline Phosphatase Total Protein Albumin TSH 0.52 02/22/19 05:41 WBC RBC Hgb Hct MCV MCH MCHC RDW Plt Count Seg Neutrophils % Lymphocytes % Monocytes % Eosinophils % Basophils % Absolute Neutrophils Absolute Lymphocytes Absolute Monocytes Absolute Eosinophils Absolute Basophils Sodium 141.6 Potassium 4.0 Chloride 105 Carbon Dioxide 30 Anion Gap 7 BUN 12 Creatinine 0.60 Est GFR ( Amer) > 60 Est GFR (Non-Af Amer) > 60 Glucose 74 L Calcium 8.8 Magnesium Cancelled Total Bilirubin 0.5 AST 20 ALT 20 Alkaline Phosphatase 77 Total Protein 5.7 L Albumin 3.0 L TSH 02/19/19 02/19/19 02/19/19 08:23 14:25 14:25 Creatine Kinase 26 L Troponin I < 0.012 < 0.012 NT-Pro-B Natriuret Pep 104 02/19/19 02/19/19 02/20/19 20:51 20:51 02:45 Creatine Kinase 73 34 Troponin I 0.024 NT-Pro-B Natriuret Pep 02/20/19 02/20/19 02:45 02:45 Creatine Kinase Troponin I < 0.012 NT-Pro-B Natriuret Pep 269 Impressions: Chest X-Ray 02/19/19 08:20 IMPRESSION: Persistent thin walled cavity now all 6 cm in diameter in the anterior left upper lobe. Differential includes cavitary neoplasm versus cavitary infiltrate, tuberculosis remains in the differential. Chest/Abdomen CTA 02/19/19 11:45 IMPRESSION: 4 x 4 cm cavitary lesion left upper lobe 2.3 x 2.1 cm left hilar lymph node Qualifiers - * PATIENT BEING DISCHARGED WITH ANY OF THE FOLLOWING DIAGNOSIS: No VTE patient discharged on overlapping Therapy?: No Acute Heart Failure Is this a Heart Failure Patient?: No Plan Discharge Plan: Patient is going home today and she is going to see Dr. Turcios in 1 week. Time Spent: Greater than 30 Minutes
[2019-02-22] MEDS: FLUTICASONE/VILANTEROL 200-25 MCG/DOSE IH SCH (11:16)
[2019-02-22] MEDS: MELOXICAM 15 MG TABLET PO SCH (11:17)
[2019-02-22] MEDS: MULTIVITAMINS W-IRON TABLET, CHEWABLE PO SCH (11:17)
[2019-02-22] MEDS: FLUTICASONE NASAL SPRAY 50 MCG/SPRY 120 SPRAY/16 GM NASL SCH (11:17)
[2019-02-22] MEDS: HYDROCHLOROTHIAZIDE 12.5 MG TABLET PO SCH (11:17)
[2019-02-22] MEDS: TIOTROPIUM BROMIDE DPI 5 CAP/KIT (18 MCG/CAP) IH SCH (11:17)
[2019-02-22] MEDS: LISINOPRIL 10 MG TABLET PO SCH (11:17)
[2019-02-22] MEDS: FAMOTIDINE 20 MG TABLET PO SCH (11:17)
[2019-02-22] MEDS: ENOXAPARIN SODIUM INJ 40 MG/0.4 ML DISP.SYRIN SUBCUT SCH (11:17)
== END 2019-02-22 11:18 | disposition home or self-care (01) | DRG 189 ==
LOC: ER 08:10 → EH 09:34 → 3N 15:53
PROVIDERS: ADMIT Internal Medicine; ATTEND Internal Medicine
DX: J96.21 Acute and chronic respiratory failure with hypoxia (principal); J44.1 Chronic obstructive pulmonary disease with (acute) exacerbation; E87.2 Acidosis; J96.22 Acute and chronic respiratory failure with hypercapnia; J98.4 Other disorders of lung; I10 Essential (primary) hypertension; Z87.891 Personal history of nicotine dependence; Z79.51 Long term (current) use of inhaled steroids; Z79.899 Other long term (current) drug therapy
CPT/HCPCS: 36415; 71045; 71275; 80048; 80053; 82550; 82803; 83036; 83605; 83735; 83880; 84443; 84484; 85025; 87040; 93005; 93010; 94640; 94660; 96374; 99285; J1650; J2060; J2543; J3370; J3490; J7030; J7050; J7060; J7620

== ENCOUNTER 2019-02-23 20:09 | Inpatient (IN) | payer MEDICARE, MEDICAID ==
[2019-02-23] MEDS ORDERED: ALBUTEROL SULFATE 0.083% NEB 2.5 MG/3 ML AMPUL NEB ONE ×2 (20:32→21:04)
--- NOTE | 2019-02-23 20:46 | ER Document Report ---
ED Respiratory Problem - General Stated Complaint: TROUBLE BREATHING Time Seen by Provider: 02/23/19 20:45 Notes: 78-year-old female patient emergency department chief complaint of severe shortness of breath. Long-standing history of COPD. Patient states that she has had a recent biopsy of her lung to rule out pathology. Review of records show preliminary results as of malignancy. Aspirate shows Karen tropicalis. EMS was dispatched. Patient was in severe respiratory distress. Solu-Medrol, albuterol treatments given. Magnesium given. On arrival patient was placed on BiPAP. Still has significant work of breathing. Denies any chest pain just very short of breath. Audible wheezing. TRAVEL OUTSIDE OF THE [place] IN LAST 30 DAYS: No - HPI Patient complains to provider of: COPD, Short of breath Duration: Worse/persistent - Related Data Allergies/Adverse Reactions: No Known Allergies Allergy (Unverified 11/04/13 09:48) Past Medical History - General Information source: Patient - Social History Smoking Status: Former Smoker Frequency of alcohol use: None Drug Abuse: None Lives with: Family Family History: DM - Sisters, Malignancy - Patient's son passed from lung cancer, Thyroid Disfunction - Sisters - Past Medical History Cardiac Medical History: Reports: Hx Hypertension Denies: Hx Atrial Fibrillation, Hx Coronary Artery Disease, Hx DVT, Hx Pulmonary Embolism Pulmonary Medical History: Reports: Hx COPD Denies: Hx Asthma, Hx Respiratory Failure Neurological Medical History: Denies: Hx Seizures Endocrine Medical History: Denies: Hx Diabetes Mellitus Type 1, Hx Diabetes Mellitus Type 2, Hx Hyperthyroidism, Hx Hypothyroidism Renal/ Medical History: Denies: Hx Peritoneal Dialysis GI Medical History: Denies: Hx Cirrhosis, Hx Hepatitis Musculoskeletal Medical History: Denies Hx Arthritis, Denies Hx Gout Skin Medical History: Denies Hx Eczema, Denies Hx Psoriasis Infectious Medical History: Denies: Hx Hepatitis Past Surgical History: Reports: Hx Orthopedic Surgery - right rotator cuff. Denies: Hx Hysterectomy - Immunizations Hx Diphtheria, Pertussis, Tetanus Vaccination: Yes Hx Pneumococcal Vaccination: 01/07/19 Review of Systems - Review of Systems -: Yes ROS unobtainable due to patient's medical condition - Patient too short of breath to talk. Physical Exam - Vital signs Vitals: Pulse Ox 97 02/23/19 20:14 Interpretation: Hypotensive, Tachypneic. No: Febrile - General General appearance: Anxious In distress: Severe - HEENT Head: Normocephalic, Atraumatic Eyes: Normal Pupils: PERRL - Respiratory Respiratory status: No respiratory distress Chest status: Nontender Breath sounds: Decreased air movement, Wheezing Chest palpation: Normal - Cardiovascular Rhythm: Tachycardia Heart sounds: Normal auscultation Murmur: No - Abdominal Inspection: Normal Distension: No distension Bowel sounds: Normal Tenderness: Nontender Organomegaly: No organomegaly - Back Back: Normal, Nontender - Extremities General upper extremity: Normal inspection, Nontender, Normal color, Normal ROM, Normal temperature General lower extremity: Normal inspection, Nontender, Normal color, Normal ROM, Normal temperature. No: Anisha's sign - Neurological Neuro grossly intact: Yes Cognition: Normal Orientation: AAOx4 Comstock Coma Scale Eye Opening: Spontaneous Omar Coma Scale Verbal: Oriented Comstock Coma Scale Motor: Obeys Commands Comstock Coma Scale Total: 15 Speech: Normal Motor strength normal: LUE, RUE, LLE, RLE Sensory: Normal - Psychological Associated symptoms: Normal affect, Normal mood - Skin Skin Temperature: Warm Skin Moisture: Dry Skin Color: Normal Course - Re-evaluation Re-evalutation: 02/23/19 21:35 Laboratory 02/23/19 02/23/19 02/23/19 20:20 20:20 20:20 WBC 10.3 RBC 3.55 L Hgb 11.1 L Hct 33.0 L MCV 93 MCH 31.2 MCHC 33.7 RDW 13.7 Plt Count 345 Seg Neutrophils % 65.0 Lymphocytes % 21.5 Monocytes % 8.3 Eosinophils % 4.6 Basophils % 0.6 Absolute Neutrophils 6.7 Absolute Lymphocytes 2.2 Absolute Monocytes 0.9 Absolute Eosinophils 0.5 Absolute Basophils 0.1 Carbonic Acid HCO3/H2CO3 Ratio ABG pH ABG pCO2 ABG pO2 ABG HCO3 ABG Total CO2 ABG O2 Saturation ABG Base Excess VBG pH 7.37 VBG pCO2 54.2 VBG HCO3 30.3 VBG Base Excess 3.8 FiO2 Sodium 143.4 Potassium 3.9 Chloride 110 H Carbon Dioxide 26 Anion Gap 7 BUN 19 Creatinine 0.47 L Est GFR ( Amer) > 60 Est GFR (Non-Af Amer) > 60 Glucose 112 H Lactic Acid Calcium 8.0 L Total Bilirubin 0.4 Direct Bilirubin 0.3 Neonat Total Bilirubin Not Reportable Neonat Direct Bilirubin Not Reportable Neonat Indirect Bili Not Reportable AST 19 ALT 24 Alkaline Phosphatase 80 Total Protein 5.7 L Albumin 3.0 L 02/23/19 02/23/19 20:20 20:41 WBC RBC Hgb Hct MCV MCH MCHC RDW Plt Count Seg Neutrophils % Lymphocytes % Monocytes % Eosinophils % Basophils % Absolute Neutrophils Absolute Lymphocytes Absolute Monocytes Absolute Eosinophils Absolute Basophils Carbonic Acid 1.21 HCO3/H2CO3 Ratio 21:1 ABG pH 7.43 ABG pCO2 40.2 ABG pO2 82.4 ABG HCO3 25.8 H ABG Total CO2 27.0 H ABG O2 Saturation 96.4 ABG Base Excess 1.3 VBG pH VBG pCO2 VBG HCO3 VBG Base Excess FiO2 30% Sodium Potassium Chloride Carbon Dioxide Anion Gap BUN Creatinine Est GFR ( Amer) Est GFR (Non-Af Amer) Glucose Lactic Acid 1.0 Calcium Total Bilirubin Direct Bilirubin Neonat Total Bilirubin Neonat Direct Bilirubin Neonat Indirect Bili AST ALT Alkaline Phosphatase Total Protein Albumin 02/23/19 21:54 This patient was just discharged yesterday. Has a cavitary lesion more likely a malignancy. Was on IV antibiotics while in the hospital. Has follow-up appointment with oncology. Patient became hypoxic in respiratory distress. EMS arrived. Patient has been on BiPAP while in the ED but now refusing. I did have a long discussion with regards to her current condition. Patient does not know what she wants to do but favors complete treatment. Patient realizes that she may need to be intubated if she cannot tolerate the CPAP and oxygen. At this time I have consulted with the hospitalist come down and visit with the family and admit the patient. 02/23/19 22:14 Chest X-Ray 02/23/19 20:33 IMPRESSION: Large cavitary lesion in the left upper lobe with associated adenopathy. This is unchanged when compared to the earlier exams - Vital Signs Vital signs: Temp Pulse Resp BP Pulse Ox 98.5 F 19 117/62 95 02/23/19 20:27 02/23/19 21:01 02/23/19 21:00 02/23/19 21:01 - Laboratory Result Diagrams: 02/23/19 20:20 02/23/19 20:20 Laboratory results interpreted by me: 02/23/19 02/23/19 02/23/19 20:20 20:20 20:41 RBC 3.55 L Hgb 11.1 L Hct 33.0 L ABG HCO3 25.8 H ABG Total CO2 27.0 H Chloride 110 H Creatinine 0.47 L Glucose 112 H Calcium 8.0 L Total Protein 5.7 L Albumin 3.0 L Critical Care Note - Critical Care Note Total time excluding time spent on procedures (mins): 45 Comments: Patient was seen immediately on arrival. Patient placed on BiPAP. Initial physical exam does not reveal any significant crepitus or immediate concerns for pneumothorax. She has had a recent biopsy reportedly so there is concern for pneumothorax immediate chest x-ray was ordered. EKG does not show any signs of significant acute hypoxia or jury however she does appear to have a Mobitz type II block. During an in-line breathing treatment at this time. Solu-Medrol has already been given. Anticipate patient will more likely need to be admitted. Of note, patient was just discharged yesterday. Discharge - Discharge Clinical Impression: Chronic obstructive pulmonary disease with (acute) exacerbation, Respiratory distress Condition: Poor Disposition: ADMITTED INPATIENT Admitting Provider: [facility] (Hospitalist) Unit Admitted: ICU
[2019-02-23 20:52] LABS: ABSOLUTE BASOPHILS # (AUTO) 0.1 10^3/uL (0.0-0.2); ABSOLUTE EOSINOPHILS # (AUTO) 0.5 10^3/uL (0.0-0.6); ABSOLUTE LYMPHOCYTES (AUTO) 2.2 10^3/uL (0.5-4.7); ABSOLUTE MONOCYTES (AUTO) 0.9 10^3/uL (0.1-1.4); ABSOLUTE NEUT (AUTO) 6.7 10^3/uL (1.7-8.2); BASOPHILS % (AUTO) 0.6 % (0-2); EOSINOPHILS % (AUTO) 4.6 % (0-6); HEMOGLOBIN 11.1 g/dL (12.0-15.5); LYMPHOCYTES % (AUTO) 21.5 % (13-45); MEAN CORPUSCULAR HEMOGLOBIN 31.2 pg (27.0-33.4); MEAN CORPUSCULAR HGB CONC 33.7 g/dL (32.0-36.0); MEAN CORPUSCULAR VOLUME 93 fl (80-97); MONOCYTES % (AUTO) 8.3 % (3-13); PLATELET COUNT 345 10^3/uL (150-450); RED BLOOD COUNT 3.55 10^6/uL (3.72-5.28); RED CELL DISTRIBUTION WIDTH 13.7 % (11.5-14.0); TOTAL CELLS COUNTED % (AUTO) 100 %; WHITE BLOOD COUNT 10.3 10^3/uL (4.0-10.5)
[2019-02-23 20:53] LABS: VENOUS BLOOD BASE EXCESS 3.8 mmol/L; VENOUS BLOOD HCO3 30.3 mmol/L (20-32); VENOUS BLOOD PCO2 54.2 mmHg (35-63); VENOUS BLOOD PH 7.37 (7.30-7.42)
[2019-02-23 20:55] LABS: ARTERIAL BLOOD BASE EXCESS 1.3 mmol/L; ARTERIAL BLOOD FIO2 30%; ARTERIAL BLOOD H2CO3 1.21 mmol/L (1.05-1.35); ARTERIAL BLOOD HCO3 25.8 mmol/L (20-24); ARTERIAL BLOOD O2 SATURATION 96.4 % (94-98); ARTERIAL BLOOD PCO2 40.2 mmHg (35-45); ARTERIAL BLOOD PH 7.43 (7.35-7.45); ARTERIAL BLOOD PO2 82.4 mmHg (80-100)
[2019-02-23 21:00] LABS: ALANINE AMINOTRANSFERASE 24 U/L (9-52); ALKALINE PHOSPHATASE 80 U/L (38-126); ANION GAP 7 (5-19); ASPARTATE AMINO TRANSFERASE 19 U/L (14-36); BILIRUBIN,DIRECT 0.3 mg/dL (0.0-0.4); BILIRUBIN,TOTAL 0.4 mg/dL (0.2-1.3); BLOOD UREA NITROGEN 19 mg/dL (7-20); CARBON DIOXIDE 26 mmol/L (22-30); CHLORIDE 110 mmol/L (98-107); GLUCOSE 112 mg/dL (75-110); POTASSIUM 3.9 mmol/L (3.6-5.0); SODIUM 143.4 mmol/L (137-145); TOTAL PROTEIN 5.7 g/dL (6.3-8.2)
[2019-02-23] MEDS ORDERED: VANCOMYCIN HCL INJ 1000 MG VIAL IV ONE (21:36)
--- NOTE | 2019-02-23 21:47 | RADIOLOGY REPORT (SQ) ---
EXAM DESCRIPTION: XR CHEST 1 VIEW COMPLETED DATE/TME: 02/23/2019 20:33 CLINICAL HISTORY: 78 years Female SOB COMPARISON: CT 02/19/2019, chest x-ray 02/19/2019 FINDINGS: Cardiac size is within normal limits. Enlarged left hilum consistent with known adenopathy. Large cavitary lesion in the left upper lobe again noted measuring 5 x 4.8 cm. There appears to be an air-fluid level on today's examination. No pneumothorax. No new area of infiltrate. IMPRESSION: Large cavitary lesion in the left upper lobe with associated adenopathy. This is unchanged when compared to the earlier exams
[2019-02-23] MEDS ORDERED: LORAZEPAM INJ 2 MG/1 ML VIAL IV ONE (22:13)
[2019-02-23] MEDS ORDERED: ONDANSETRON HCL INJ/PF 4 MG/2 ML SDV IV PRN (22:17)
[2019-02-23] MEDS ORDERED: MAGNESIUM HYDROXIDE SUSP 30 ML UDCUP PO PRN (22:17)
[2019-02-23] MEDS ORDERED: LEVALBUTEROL HCL NEB 0.63 MG/3 ML AMPUL NEB PRN (22:17)
[2019-02-23] MEDS ORDERED: MAG HYDROX/AL HYDROX/SIMETH SUSP 30 ML UDCUP PO PRN (22:17)
[2019-02-23] MEDS ORDERED: ACETAMINOPHEN 325 MG TABLET PO PRN (22:24)
[2019-02-23] MEDS: LEVALBUTEROL HCL NEB 1.25 MG/3 ML AMPUL NEB SCH (23:53)
[2019-02-23] MEDS: IPRATROPIUM BROMIDE 0.02% NEB 0.5 MG/2.5 ML AMPUL NEB SCH (23:53)
[2019-02-24] MEDS: METHYLPREDNISOLONE INJ 40 MG/1 ML SDV IV SCH ×4 (00:25→17:31)
[2019-02-24] MEDS: HEPARIN SOD (PORCINE) 5,000 UNIT/ML 1 ML SYRINGE SUBCUT SCH ×3 (05:16→21:47)
[2019-02-24] MEDS: RINGERS SOLUTION,LACTATED 1,000 ML IV PRN ×3 (05:22→20:23)
[2019-02-24 05:44] LABS: ABSOLUTE LYMPHOCYTES (AUTO) 0.2 10^3/uL (0.5-4.7); ABSOLUTE MONOCYTES (AUTO) 0.1 10^3/uL (0.1-1.4); ABSOLUTE NEUT (AUTO) 8.8 10^3/uL (1.7-8.2); BASOPHILS % (AUTO) 0.2 % (0-2); HEMATOCRIT 28.1 % (36.0-47.0); HEMOGLOBIN 9.6 g/dL (12.0-15.5); LYMPHOCYTES % (AUTO) 2.7 % (13-45); MEAN CORPUSCULAR HEMOGLOBIN 31.7 pg (27.0-33.4); MEAN CORPUSCULAR HGB CONC 34.2 g/dL (32.0-36.0); MEAN CORPUSCULAR VOLUME 93 fl (80-97); MONOCYTES % (AUTO) 0.6 % (3-13); PLATELET COUNT 257 10^3/uL (150-450); RED BLOOD COUNT 3.03 10^6/uL (3.72-5.28); RED CELL DISTRIBUTION WIDTH 13.4 % (11.5-14.0); SEGMENTED NEUTROPHILS % (AUTO) 96.5 % (42-78); TOTAL CELLS COUNTED % (AUTO) 100 %; WHITE BLOOD COUNT 9.2 10^3/uL (4.0-10.5)
[2019-02-24 06:02] LABS: ANION GAP 12 (5-19); BLOOD UREA NITROGEN 21 mg/dL (7-20); CALCIUM 8.6 mg/dL (8.4-10.2); CARBON DIOXIDE 26 mmol/L (22-30); CHLORIDE 104 mmol/L (98-107); GLUCOSE 263 mg/dL (75-110); SODIUM 141.5 mmol/L (137-145)
--- NOTE | 2019-02-24 06:03 | PDOC H&P ---
History of Present Illness Admission Date/PCP: 02/23/19 22:03 ISABELL STOUT MD Patient complains of: Dyspnea History of Present Illness: MARBELLA HUI is a 78 year old female who presented to the emergency room with acute dyspnea. Patient indicates that she developed dyspnea earlier in the day that is been progressively worsening to the point where she is now severely dyspneic with her symptoms worsening on any exertion. She further admits he associated symptoms of markedly increased work of breathing and severe wheezing. She admits numerous prior similar episodes related to her COPD. She denies identification of any additional aggravating or ameliorating factors for her dyspnea. In the emergency room she was found to have significant hypoxia and markedly increased work of breathing requiring her to be treated with BiPAP and continuous nebulizer therapy. She did well with this treatment and was subsequently admitted to the hospital for further evaluation and ongoing care. Past Medical History Cardiac Medical History: Reports: Hypertension Denies: Atrial Fibrillation, Coronary Artery Disease, DVT, Pulmonary Embolism Pulmonary Medical History: Reports: Chronic Obstructive Pulmonary Disease (COPD) Denies: Asthma, Respiratory Failure EENT Medical History: Reports: Eyes - Prescription lenses Denies: Cataracts, Ears - Hearing aids Neurological Medical History: Denies: Hemorrhagic CVA, Ischemic CVA, Seizures Endocrine Medical History: Denies: Diabetes Mellitus Type 1, Diabetes Mellitus Type 2, Hyperthyroidism, Hypothyroidism Renal/ Medical History: Denies: Chronic Kidney Disease, Nephrolithiasis Malignancy Medical History: Reports: Lung Cancer - Suspected malignancy and her left lung. GI Medical History: Denies: Cirrhosis, Hepatitis Musculoskeltal Medical History: Denies: Arthritis, Gout Skin Medical History: Denies: Eczema, Psoriasis Psychiatric Medical History: Reports: Tobacco Dependency Denies: Alcohol Dependency, Substance Abuse Traumatic Medical History: Reports: None Hematology: Denies: Anemia, Bleeding Tendencies Infectious Medical History: Reports: None Past Surgical History Past Surgical History: Reports: Orthopedic Surgery - right rotator cuff Social History Information Source: Patient Lives with: Family Smoking Status: Former Smoker Frequency of Alcohol Use: None Hx Recreational Drug Use: No Drugs: None Hx Prescription Drug Abuse: No - Advance Directive Resuscitation Status: Full Code Surrogate healthcare decision maker:: Janna Jarrett Family History Family History: DM - Sisters, Malignancy - Patient's son passed from lung cancer, Thyroid Disfunction - Sisters Parental Family History Reviewed: Yes Children Family History Reviewed: No Sibling(s) Family History Reviewed.: Yes Medication/Allergy Home Medications: Fluticasone Propionate [Flonase Nasal [place] 50 Mcg/[place] 16 gm] 2 spray NASL DAILY 02/07/19 Lisinopril/Hydrochlorothiazide [Zestoretic 20-12.5 mg Tablet] 1 tab PO DAILY 02/07/19 Meloxicam [Mobic 15 mg Tablet] 15 mg PO DAILY 02/07/19 Multivitamin [Chewable-Angel] 1 tab PO DAILY 02/07/19 Tiotropium [place] [Spiriva [place] 5 Cap/Kit (18 Mcg/Cap)] 1 cap IH DAILY 02/07/19 Fluticasone/Vilanterol [Breo 200-25 Mcg Ellipta 14 Dose/Dpi] 1 inh IH DAILY inhaler 02/22/19 Levalbuterol HCl [Xopenex Neb 1.25 mg/3 ml Ampul] 1.25 mg NEB [id number] PRN #30 [email or web address] 02/22/19 Allergies/Adverse Reactions: No Known Allergies Allergy (Unverified 11/04/13 09:48) Review of Systems Constitutional: ABSENT: chills, fever(s) Eyes: ABSENT: visual disturbances, other - Ocular pain Ears: ABSENT: hearing changes, other - Ear pain Nose, Mouth, and Throat: ABSENT: mouth pain, sore throat Cardiovascular: ABSENT: chest pain, palpitations Respiratory: ABSENT: cough, dyspnea Gastrointestinal: ABSENT: abdominal pain, constipation, diarrhea, nausea, vomiting Genitourinary: ABSENT: dysuria, hematuria Musculoskeletal: ABSENT: back pain, joint swelling, muscle weakness Integumentary: ABSENT: pruritus, rash Neurological: ABSENT: confusion, convulsions, focal weakness, memory loss, syncope Psychiatric: ABSENT: anxiety, depression Endocrine: ABSENT: cold intolerance, heat intolerance Hematologic/Lymphatic: ABSENT: easy bleeding, easy bruising Physical Exam Vital Signs: Temp Pulse Resp BP Pulse Ox 98.5 F 19 117/62 95 02/23/19 20:27 02/23/19 21:01 02/23/19 21:00 02/23/19 21:01 Intake & Output 02/21/19 02/22/19 02/23/19 23:59 23:59 23:59 Weight 58.513 kg General appearance: PRESENT: no acute distress, cooperative, other - On BiPAP Head exam: PRESENT: atraumatic, normocephalic Eye exam: ABSENT: conjunctival injection, scleral icterus Ear exam: PRESENT: normal external ear exam. ABSENT: bleeding, drainage Mouth exam: PRESENT: dry mucosa, neck supple Neck exam: ABSENT: thyromegaly, tracheal deviation Respiratory exam: PRESENT: decreased breath sounds - Moderately decreased breath sounds throughout all [place] consistent with moderate to severe COPD, prolonged expiratory phas - Moderately prolonged expiratory phase, symmetrical, wheezes - High-pitched tight end expiratory wheezes, other - On BiPAP Cardiovascular exam: PRESENT: RRR. ABSENT: clicks, gallop, rubs Pulses: PRESENT: normal radial pulses, normal dorsalis pedis pul Vascular exam: PRESENT: normal capillary refill. ABSENT: pallor GI/Abdominal exam: PRESENT: normal bowel sounds, soft Rectal exam: PRESENT: deferred Extremities exam: ABSENT: joint swelling, pedal edema Musculoskeletal exam: ABSENT: deformity, dislocation Neurological exam: PRESENT: alert, oriented to person, oriented to place, oriented to time, oriented to situation, CN II-XII grossly intact. ABSENT: motor sensory deficit Psychiatric exam: PRESENT: appropriate affect, normal mood Skin exam: PRESENT: dry, intact, warm. ABSENT: jaundice, urticaria Results Laboratory Results: 02/23/19 20:20 02/23/19 20:20 02/23/19 02/23/19 02/23/19 20:20 20:20 20:20 WBC 10.3 RBC 3.55 L Hgb 11.1 L Hct 33.0 L MCV 93 MCH 31.2 MCHC 33.7 RDW 13.7 Plt Count 345 Seg Neutrophils % 65.0 Lymphocytes % 21.5 Monocytes % 8.3 Eosinophils % 4.6 Basophils % 0.6 Absolute Neutrophils 6.7 Absolute Lymphocytes 2.2 Absolute Monocytes 0.9 Absolute Eosinophils 0.5 Absolute Basophils 0.1 Carbonic Acid HCO3/H2CO3 Ratio ABG pH ABG pCO2 ABG pO2 ABG HCO3 ABG O2 Saturation ABG Base Excess VBG pH 7.37 VBG pCO2 54.2 VBG HCO3 30.3 VBG Base Excess 3.8 FiO2 Sodium 143.4 Potassium 3.9 Chloride 110 H Carbon Dioxide 26 Anion Gap 7 BUN 19 Creatinine 0.47 L Est GFR ( Amer) > 60 Est GFR (Non-Af Amer) > 60 Glucose 112 H Lactic Acid Calcium 8.0 L Total Bilirubin 0.4 AST 19 ALT 24 Alkaline Phosphatase 80 Total Protein 5.7 L Albumin 3.0 L 02/23/19 02/23/19 20:20 20:41 WBC RBC Hgb Hct MCV MCH MCHC RDW Plt Count Seg Neutrophils % Lymphocytes % Monocytes % Eosinophils % Basophils % Absolute Neutrophils Absolute Lymphocytes Absolute Monocytes Absolute Eosinophils Absolute Basophils Carbonic Acid 1.21 HCO3/H2CO3 Ratio 21:1 ABG pH 7.43 ABG pCO2 40.2 ABG pO2 82.4 ABG HCO3 25.8 H ABG O2 Saturation 96.4 ABG Base Excess 1.3 VBG pH VBG pCO2 VBG HCO3 VBG Base Excess FiO2 30% Sodium Potassium Chloride Carbon Dioxide Anion Gap BUN Creatinine Est GFR ( Amer) Est GFR (Non-Af Amer) Glucose Lactic Acid 1.0 Calcium Total Bilirubin AST ALT Alkaline Phosphatase Total Protein Albumin Impressions: Chest X-Ray 02/23/19 20:33 IMPRESSION: Large cavitary lesion in the left upper lobe with associated adenopathy. This is unchanged when compared to the earlier exams Assessment and Plan - Diagnosis (1) Acute and chronic respiratory failure with hypoxia Is this a current diagnosis for this admission?: Yes Plan: Patient be treated with supplemental oxygen utilizing noninvasive pressure s upport devices if required. Her O2 sat will be monitored closely throughout her hospital course. (2) Acute exacerbation of chronic obstructive pulmonary disease (COPD) Is this a current diagnosis for this admission?: Yes Plan: Patient be treated with an aggressive pulmonary toilet utilizing nebulized Xopenex, Pulmicort and Atrovent. She will also be treated with IV Solu-Medrol and supplemental oxygen with noninvasive pressure support. Daily CBCs and metabolic profiles will be used to evaluate therapy. 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 Patient is unaware of this fact at the present time. Dr. Turcios may see the patient to explain the findings. (4) Anemia Qualifiers: Anemia type: unspecified type Qualified Code(s): D64.9 - Anemia, unspecified Is this a current diagnosis for this admission?: Yes Plan: Patient will be treated with adequate dietary nutrition to support blood formation however further evaluation of her anemia may need to be considered although it is most likely secondary to a chronic disease such as her cavitary lung tumor. - Time Time Spent with patient: 15-24 minutes Medications reviewed and adjusted accordingly: Yes - Inpatient Certification Based on my medical assessment, after consideration of the patient's comorbidities, presenting symptoms, or acuity I expect that the services needed warrant INPATIENT care.: Yes I certify that my determination is in accordance with my understanding of Medicare's requirements for reasonable and necessary INPATIENT services [42 CFR 412.3e].: Yes Medical Necessity: Significant Comorbidiites Make Outpatient Treatment Too Risky, Need Close Monitoring Due to Risk of Patient Decompensation, Need For Continuous Telemetry Monitoring, Need for Nebulizer Therapy and Monitoring of Response, Risk of Complication if Not Cared For in Hospital
[2019-02-24] MEDS: LEVALBUTEROL HCL NEB 1.25 MG/3 ML AMPUL NEB SCH ×2 (07:44→15:46)
[2019-02-24] MEDS: BUDESONIDE NEB 0.5 MG/2 ML AMPUL NEB SCH ×2 (07:44→19:51)
[2019-02-24] MEDS: IPRATROPIUM BROMIDE 0.02% NEB 0.5 MG/2.5 ML AMPUL NEB SCH ×2 (07:44→15:46)
[2019-02-24] MEDS: FAMOTIDINE 20 MG TABLET PO SCH ×2 (10:13→21:47)
[2019-02-24] MEDS: DOCUSATE SODIUM 100 MG CAPSULE PO SCH ×3 (10:13→17:29)
--- NOTE | 2019-02-24 16:05 | PDOC PROGRESS REPORT ---
Subjective Progress Note for:: 02/24/19 Subjective:: 78 y.o. M with a PMH of HTN and COPD presented to [facility] with a complaint of shortness of breath. She was admitted to the hospital service for a COPD exacerbation. Of note, the patient has been admitted to [facility] twice already this month for a COPD exacerbation. It was discovered that she had a cavitary lesion in her left upper lobe. Additionally, her sputum was positive for Klebsiella and Serratia. The patient is followed by Dr. Hall for her oncology work-up. She underwent a biopsy at [facility] a few weeks ago, results are still pending. The patient is currently taking Levaquin for her Klebsiella/Serratia infection. The patient states she was discharged from [facility] 02/22/2019 and was home for less than 48 hours when she became acutely short of breath, prompting her return to the emergency department. Patient was seen this afternoon on rounds, she is resting comfortably in her bedside recliner on supplemental oxygen via nasal cannula. She has multiple family members in the room with her. Patient states that she feels remarkably better, when compared to yesterday. She is able to speak in full sentences without pause. Upon assessment, lungs are clear to auscultation. There is no peripheral or central cyanosis. Based on previous records, it appears that the patient was sent home without steroids or breathing treatments, which she feels she needs. At this point, she is not back to her baseline functioning status. She gets very winded, tired and short of breath upon ambulating to the bathroom. Will attempt to ambulate patient with oxygen while measuring SPO2. Continue nebulizer treatments and steroids. Reason For Visit: ACUTE EXACERBATION OF COPD Physical Exam Vital Signs: Temp Pulse Resp BP Pulse Ox 97.8 F 81 16 132/60 H 92 02/24/19 11:28 02/24/19 11:28 02/24/19 11:28 02/24/19 11:28 02/24/19 11:28 Intake & Output 02/23/19 02/24/19 02/25/19 06:59 06:59 06:59 Intake Total 100 1240 Balance 100 1240 Weight 55.1 kg General appearance: PRESENT: no acute distress, thin Eye exam: PRESENT: conjunctiva pink, PERRLA Mouth exam: PRESENT: moist, tongue midline Teeth exam: ABSENT: poor dentation Neck exam: PRESENT: full ROM Respiratory exam: PRESENT: clear to auscultation romelia, symmetrical, unlabored, other - Requiring the use of supplemental oxygen Cardiovascular exam: PRESENT: RRR Pulses: PRESENT: normal radial pulses Vascular exam: PRESENT: normal capillary refill GI/Abdominal exam: PRESENT: soft. ABSENT: distended Rectal exam: PRESENT: deferred Extremities exam: PRESENT: full ROM. ABSENT: pedal edema Musculoskeletal exam: PRESENT: ambulatory, full ROM. ABSENT: deformity Neurological exam: PRESENT: alert, awake, oriented to person, oriented to place, oriented to time, oriented to situation Psychiatric exam: PRESENT: appropriate affect Skin exam: PRESENT: dry, intact, pallor Results Laboratory Results: 02/24/19 04:20 02/24/19 04:20 02/23/19 02/23/19 02/23/19 20:20 20:20 20:20 WBC 10.3 RBC 3.55 L Hgb 11.1 L Hct 33.0 L MCV 93 MCH 31.2 MCHC 33.7 RDW 13.7 Plt Count 345 Seg Neutrophils % 65.0 Lymphocytes % 21.5 Monocytes % 8.3 Eosinophils % 4.6 Basophils % 0.6 Absolute Neutrophils 6.7 Absolute Lymphocytes 2.2 Absolute Monocytes 0.9 Absolute Eosinophils 0.5 Absolute Basophils 0.1 Carbonic Acid HCO3/H2CO3 Ratio ABG pH ABG pCO2 ABG pO2 ABG HCO3 ABG O2 Saturation ABG Base Excess VBG pH 7.37 VBG pCO2 54.2 VBG HCO3 30.3 VBG Base Excess 3.8 FiO2 Sodium 143.4 Potassium 3.9 Chloride 110 H Carbon Dioxide 26 Anion Gap 7 BUN 19 Creatinine 0.47 L Est GFR ( Amer) > 60 Est GFR (Non-Af Amer) > 60 Glucose 112 H Lactic Acid Calcium 8.0 L Magnesium Total Bilirubin 0.4 AST 19 ALT 24 Alkaline Phosphatase 80 Total Protein 5.7 L Albumin 3.0 L 02/23/19 02/23/19 02/24/19 20:20 20:41 04:20 WBC 9.2 RBC 3.03 L Hgb 9.6 L Hct 28.1 L MCV 93 MCH 31.7 MCHC 34.2 RDW 13.4 Plt Count 257 Seg Neutrophils % 96.5 H Lymphocytes % 2.7 L Monocytes % 0.6 L Eosinophils % 0.0 Basophils % 0.2 Absolute Neutrophils 8.8 H Absolute Lymphocytes 0.2 L Absolute Monocytes 0.1 Absolute Eosinophils 0.0 Absolute Basophils 0.0 Carbonic Acid 1.21 HCO3/H2CO3 Ratio 21:1 ABG pH 7.43 ABG pCO2 40.2 ABG pO2 82.4 ABG HCO3 25.8 H ABG O2 Saturation 96.4 ABG Base Excess 1.3 VBG pH VBG pCO2 VBG HCO3 VBG Base Excess FiO2 30% Sodium Potassium Chloride Carbon Dioxide Anion Gap BUN Creatinine Est GFR ( Amer) Est GFR (Non-Af Amer) Glucose Lactic Acid 1.0 Calcium Magnesium Total Bilirubin AST ALT Alkaline Phosphatase Total Protein Albumin 02/24/19 04:20 WBC RBC Hgb Hct MCV MCH MCHC RDW Plt Count Seg Neutrophils % Lymphocytes % Monocytes % Eosinophils % Basophils % Absolute Neutrophils Absolute Lymphocytes Absolute Monocytes Absolute Eosinophils Absolute Basophils Carbonic Acid HCO3/H2CO3 Ratio ABG pH ABG pCO2 ABG pO2 ABG HCO3 ABG O2 Saturation ABG Base Excess VBG pH VBG pCO2 VBG HCO3 VBG Base Excess FiO2 Sodium 141.5 Potassium 4.0 Chloride 104 Carbon Dioxide 26 Anion Gap 12 BUN 21 H Creatinine 0.53 Est GFR ( Amer) > 60 Est GFR (Non-Af Amer) > 60 Glucose 263 H Lactic Acid Calcium 8.6 Magnesium 2.5 H Total Bilirubin AST ALT Alkaline Phosphatase Total Protein Albumin 02/23/19 20:20 Troponin I < 0.012 Impressions: Chest X-Ray 02/23/19 20:33 IMPRESSION: Large cavitary lesion in the left upper lobe with associated adenopathy. This is unchanged when compared to the earlier exams Status: Imported from PACS Assessment and Plan - Diagnosis (1) Acute exacerbation of chronic obstructive pulmonary disease (COPD) Is this a current diagnosis for this admission?: Yes Plan: Improving PMH COPD, previously not requiring oxygen On Breo and Spiriva at home Within the last month, the patient has been hospitalized 3 times In addition to COPD, a cavitary lesion was discovered and overlying PNA was suspected Previous sputum cultures positive for Klebsiella and Serratia, treated with Levaquin At the time of discharge, it is unclear the patient was sent home with a steroid taper or (requested) nebulizer treatments It is possible that the patient never fully recovered from her original COPD exacerbation Scheduled Atrovent and Xopenex nebulizer treatments Scheduled IV steroids Supplemental oxygen via nasal cannula to maintain SPO2>88% Will require prescriptions for steroids and nebulizers at the time of discharge (2) Cavitary lesion of lung Is this a current diagnosis for this admission?: Yes Plan: Patient has been presumed to be diagnosed as carcinoma CXR shows cavitary lesion of the [place]ELA, unchanged in size or pattern since previous study Recent lung biopsy in [place] a few weeks ago, results are still pending Will consult Dr. Hall to see the patient (3) Anemia Qualifiers: Anemia type: unspecified type Qualified Code(s): D64.9 - Anemia, unspecified Is this a current diagnosis for this admission?: Yes Plan: Likely anemia of chronic disease Hgb remains above 8 No plan for transfusion at this time No obvious source of bleeding, again, likely anemia of chronic disease - Time Time Spent with patient: 15-24 minutes Medications reviewed and adjusted accordingly: Yes Anticipated discharge: Home Within: within 48 hours - Inpatient Certification Based on my medical assessment, after consideration of the patient's comorbidities, presenting symptoms, or acuity I expect that the services needed warrant INPATIENT care.: Yes I certify that my determination is in accordance with my understanding of Medicare's requirements for reasonable and necessary INPATIENT services [42 CFR 412.3e].: Yes Medical Necessity: Need for Nebulizer Therapy and Monitoring of Response
[2019-02-24] MEDS: GUAIFENESIN 600 MG TABLET.SA PO SCH (18:01)
[2019-02-25] MEDS: LEVALBUTEROL HCL NEB 1.25 MG/3 ML AMPUL NEB SCH ×3 (00:04→15:51)
[2019-02-25] MEDS: IPRATROPIUM BROMIDE 0.02% NEB 0.5 MG/2.5 ML AMPUL NEB SCH ×3 (00:04→15:51)
[2019-02-25] MEDS: METHYLPREDNISOLONE INJ 40 MG/1 ML SDV IV SCH ×4 (02:17→17:49)
[2019-02-25 06:17] LABS: HEMATOCRIT 26.5 % (36.0-47.0); MEAN CORPUSCULAR HEMOGLOBIN 31.2 pg (27.0-33.4); MEAN CORPUSCULAR HGB CONC 33.8 g/dL (32.0-36.0); MEAN CORPUSCULAR VOLUME 92 fl (80-97); PLATELET COUNT 279 10^3/uL (150-450); RED BLOOD COUNT 2.87 10^6/uL (3.72-5.28); RED CELL DISTRIBUTION WIDTH 13.7 % (11.5-14.0); WHITE BLOOD COUNT 12.8 10^3/uL (4.0-10.5)
[2019-02-25] MEDS: HEPARIN SOD (PORCINE) 5,000 UNIT/ML 1 ML SYRINGE SUBCUT SCH ×3 (06:18→21:18)
[2019-02-25 06:36] LABS: BLOOD UREA NITROGEN 15 mg/dL (7-20); CALCIUM 8.9 mg/dL (8.4-10.2); GLUCOSE 154 mg/dL (75-110); POTASSIUM 4.4 mmol/L (3.6-5.0)
[2019-02-25 06:41] LABS: CARBON DIOXIDE 30 mmol/L (22-30); CHLORIDE 108 mmol/L (98-107); SODIUM 142.4 mmol/L (137-145)
[2019-02-25 06:46] LABS: ABSOLUTE LYMPHOCYTES# (MANUAL) 0.8 10^3/uL (0.5-4.7); ABSOLUTE MONOCYTES # (MANUAL) 0.4 10^3/uL (0.1-1.4); ABSOLUTE NEUTROPHILS# (MANUAL) 11.6 10^3/uL (1.7-8.2); BAND NEUTROPHILS % (MANUAL) 1 % (3-5); BASOPHILS % (MANUAL) 0 % (0-2); EOSINOPHILS % (MANUAL) 0 % (0-6); LYMPHOCYTES % (MANUAL) 6 % (13-45); MONOCYTES % (MANUAL) 3 % (3-13); SEGMENTED NEUTROPHILS % (MAN) 90 % (42-78); TOTAL CELLS COUNTED 100
[2019-02-25 06:47] LABS: PLATELET COMMENT ADEQUATE
[2019-02-25 06:48] LABS: HYPOCHROMASIA SLIGHT; POLYCHROMASIA SLIGHT
[2019-02-25 06:50] LABS: ANION GAP 4 (5-19)
--- NOTE | 2019-02-25 07:53 | PDOC CONSULTATION ---
Consultation Consult Date: 02/25/19 Attending physician:: BRADEN NAM Provider Consulted: LORENZO MARTINEZ Consult reason:: Known cavitary lung mass, s/p bx with continued SOB/hypoxia History of Present Illness Admission Date/PCP: 02/23/19 22:03 ISABELL STOUT MD Patient complains of: SOB/GONZALEZ History of Present Illness: MARBELLA HUI is a 78 year old female with known history of left upper lobe cavitary mass along with left hilar adenopathy, endobronchial ultrasound with biopsy was done last week, preliminary bedside results indicated malignant cells but we do not have final Pathology. She was discharged just about 3 days ago, went home and soon after became short of breath again, worsened and presented back to the ER. Here she was found to be hypoxic, was placed on BiPAP and is doing better now, satting well on 3 to 4 L. Chest x-ray indicated no change. Past Medical History Cardiac Medical History: Reports: Hypertension Denies: Atrial Fibrillation, Coronary Artery Disease, DVT, Pulmonary Embolism Pulmonary Medical History: Reports: Chronic Obstructive Pulmonary Disease (COPD) Denies: Asthma, Respiratory Failure EENT Medical History: Reports: Eyes - Prescription lenses Denies: Cataracts, Ears - Hearing aids Neurological Medical History: Denies: Hemorrhagic CVA, Ischemic CVA, Seizures Endocrine Medical History: Denies: Diabetes Mellitus Type 1, Diabetes Mellitus Type 2, Hyperthyroidism, Hypothyroidism Renal/ Medical History: Denies: Chronic Kidney Disease, Nephrolithiasis Malignancy Medical History: Reports: Lung Cancer - Suspected malignancy and her left lung. GI Medical History: Denies: Cirrhosis, Hepatitis Musculoskeltal Medical History: Denies: Arthritis, Gout Skin Medical History: Denies: Eczema, Psoriasis Psychiatric Medical History: Reports: Tobacco Dependency Denies: Alcohol Dependency, Substance Abuse Traumatic Medical History: Reports: None Hematology: Denies: Anemia, Bleeding Tendencies Infectious Medical History: Reports: None Past Surgical History Past Surgical History: Reports: Orthopedic Surgery - right rotator cuff Denies: Hysterectomy Social History Information Source: Patient Lives with: Family Smoking Status: Former Smoker Number of Years Smokin Frequency of Alcohol Use: None Hx Recreational Drug Use: No Drugs: None Hx Prescription Drug Abuse: No - Advance Directive Resuscitation Status: Full Code Family History Family History: DM - Sisters, Malignancy - Patient's son passed from lung cancer, Thyroid Disfunction - Sisters Parental Family History Reviewed: Yes Children Family History Reviewed: Yes Sibling(s) Family History Reviewed.: Yes Medication/Allergy Home Medications: Fluticasone Propionate [Flonase Nasal [place] 50 Mcg/[place] 16 gm] 2 spray NASL DAILY 02/24/19 Fluticasone/Vilanterol [Breo 200-25 Mcg Ellipta 14 Dose/Dpi] 1 inh IH DAILY 02/24/19 Levalbuterol HCl [Xopenex Neb 0.63 mg/3 ml Ampul] 0.63 mg NEB RTQ2HP PRN #15 v ial.neb 02/24/19 Lisinopril/Hydrochlorothiazide [Lisinopril-Hctz 20-12.5 mg Tab] 1 each PO DAILY 02/24/19 Meloxicam [Mobic] 15 mg PO DAILYP PRN 02/24/19 Multivitamin [Chewable-Angel] 2 each PO DAILY 02/24/19 Tiotropium Snelling [Spiriva [place] 5 Cap/Kit (18 Mcg/Cap)] 1 cap IH DAILY 02/24/19 Allergies/Adverse Reactions: No Known Allergies Allergy (Unverified 11/04/13 09:48) Review of Systems Constitutional: ABSENT: chills, fever(s), headache(s), weight gain, weight loss Eyes: ABSENT: visual disturbances Ears: ABSENT: hearing changes Cardiovascular: ABSENT: chest pain, dyspnea on exertion, edema, orthropnea, palpitations Respiratory: ABSENT: cough, hemoptysis Gastrointestinal: ABSENT: abdominal pain, constipation, diarrhea, hematemesis, hematochezia, nausea, vomiting Genitourinary: ABSENT: dysuria, hematuria Musculoskeletal: ABSENT: joint swelling Integumentary: ABSENT: rash, wounds Neurological: ABSENT: abnormal gait, abnormal speech, confusion, dizziness, focal weakness, syncope Psychiatric: ABSENT: anxiety, depression, homidical ideation, suicidal ideation Endocrine: ABSENT: cold intolerance, heat intolerance, polydipsia, polyuria Hematologic/Lymphatic: ABSENT: easy bleeding, easy bruising Physical Exam Vital Signs: Temp Pulse Resp BP Pulse Ox 97.8 F 85 18 131/87 H 95 02/24/19 23:00 02/25/19 00:05 02/25/19 00:05 02/24/19 23:00 02/25/19 00:05 Intake & Output 02/24/19 02/25/1902/26/19 06:59 06:59 06:59 Intake Total 100 3240 Balance 100 3240 Weight 55.1 kg 55.3 kg General appearance: PRESENT: no acute distress, well-developed, well-nourished Head exam: PRESENT: atraumatic, normocephalic Eye exam: PRESENT: conjunctiva pink, EOMI, PERRLA. ABSENT: scleral icterus Ear exam: PRESENT: normal external ear exam Mouth exam: PRESENT: moist, tongue midline Neck exam: ABSENT: carotid bruit, JVD, lymphadenopathy, thyromegaly Respiratory exam: PRESENT: clear to auscultation romelia. ABSENT: rales, rhonchi, wheezes Cardiovascular exam: PRESENT: RRR. ABSENT: diastolic murmur, rubs, systolic murmur Pulses: PRESENT: normal dorsalis pedis pul Vascular exam: PRESENT: normal capillary refill GI/Abdominal exam: PRESENT: normal bowel sounds, soft. ABSENT: distended, guarding, mass, organolmegaly, rebound, tenderness Rectal exam: PRESENT: deferred Extremities exam: PRESENT: full ROM. ABSENT: calf tenderness, clubbing, pedal edema Neurological exam: PRESENT: alert, awake, oriented to person, oriented to place, oriented to time, oriented to situation, CN II-XII grossly intact. ABSENT: motor sensory deficit Psychiatric exam: PRESENT: appropriate affect, normal mood. ABSENT: homicidal ideation, suicidal ideation Skin exam: PRESENT: dry, intact, warm. ABSENT: cyanosis, rash Results Laboratory Results: 02/25/19 05:39 02/25/19 05:39 02/25/19 02/25/19 05:39 05:39 WBC 12.8 H RBC 2.87 L Hgb 9.0 L Hct 26.5 L MCV 92 MCH 31.2 MCHC 33.8 RDW 13.7 Plt Count 279 Seg Neutrophils % Not Reportable Lymphocytes % Not Reportable Monocytes % Not Reportable Eosinophils % Not Reportable Basophils % Not Reportable Absolute Neutrophils Not Reportable Absolute Lymphocytes Not Reportable Absolute Monocytes Not Reportable Absolute Eosinophils Not Reportable Absolute Basophils Not Reportable Sodium 142.4 Potassium 4.4 Chloride 108 H Carbon Dioxide 30 Anion Gap 4 L BUN 15 Creatinine 0.56 Est GFR ( Amer) > 60 Est GFR (Non-Af Amer) > 60 Glucose 154 H Calcium 8.9 Magnesium 2.2 0518/19 20:20 Troponin I < 0.012 Impressions: Chest X-Ray 02/23/19 20:33 IMPRESSION: Large cavitary lesion in the left upper lobe with associated adenopathy. This is unchanged when compared to the earlier exams Assessment & Plan - Diagnosis (1) Cavitary lesion of lung Is this a current diagnosis for this admission?: Yes Plan: Most likely going to be primary lung cancer, I will get the results from [facility] probably today or tomorrow. I will discuss this with family as soon as I have it. - Time Time Spent: Greater than 70 Minutes - Inpatient Certification Based on my medical assessment, after consideration of the patient's comorbidities, presenting symptoms, or acuity I expect that the services needed warrant INPATIENT care.: Yes I certify that my determination is in accordance with my understanding of Medicare's requirements for reasonable and necessary INPATIENT services [42 CFR 412.3e].: Yes Medical Necessity: Need For Continuous Telemetry Monitoring, Need for Nebulizer Therapy and Monitoring of Response, Risk of Complication if Not Cared For in Hospital
[2019-02-25] MEDS: BUDESONIDE NEB 0.5 MG/2 ML AMPUL NEB SCH ×2 (08:27→19:53)
[2019-02-25] MEDS: GUAIFENESIN 600 MG TABLET.SA PO SCH ×2 (09:41→17:49)
[2019-02-25] MEDS: FAMOTIDINE 20 MG TABLET PO SCH ×2 (09:41→21:19)
[2019-02-25] MEDS: DOCUSATE SODIUM 100 MG CAPSULE PO SCH ×2 (09:47→17:49)
[2019-02-26] MEDS: IPRATROPIUM BROMIDE 0.02% NEB 0.5 MG/2.5 ML AMPUL NEB SCH ×3 (01:04→16:54)
[2019-02-26] MEDS: LEVALBUTEROL HCL NEB 1.25 MG/3 ML AMPUL NEB SCH ×3 (01:04→16:54)
[2019-02-26] MEDS: HEPARIN SOD (PORCINE) 5,000 UNIT/ML 1 ML SYRINGE SUBCUT SCH ×3 (05:56→22:55)
[2019-02-26 06:20] LABS: ABSOLUTE LYMPHOCYTES (AUTO) 0.7 10^3/uL (0.5-4.7); ABSOLUTE MONOCYTES (AUTO) 0.8 10^3/uL (0.1-1.4); ABSOLUTE NEUT (AUTO) 10.7 10^3/uL (1.7-8.2); BASOPHILS % (AUTO) 0.1 % (0-2); HEMATOCRIT 27.6 % (36.0-47.0); HEMOGLOBIN 9.3 g/dL (12.0-15.5); MEAN CORPUSCULAR HEMOGLOBIN 31.2 pg (27.0-33.4); MEAN CORPUSCULAR HGB CONC 33.6 g/dL (32.0-36.0); MEAN CORPUSCULAR VOLUME 93 fl (80-97); MONOCYTES % (AUTO) 6.6 % (3-13); PLATELET COUNT 284 10^3/uL (150-450); RED BLOOD COUNT 2.98 10^6/uL (3.72-5.28); RED CELL DISTRIBUTION WIDTH 13.6 % (11.5-14.0); SEGMENTED NEUTROPHILS % (AUTO) 87.3 % (42-78); TOTAL CELLS COUNTED % (AUTO) 100 %; WHITE BLOOD COUNT 12.3 10^3/uL (4.0-10.5)
[2019-02-26 06:44] LABS: ANION GAP 6 (5-19); BLOOD UREA NITROGEN 20 mg/dL (7-20); CALCIUM 9.1 mg/dL (8.4-10.2); CARBON DIOXIDE 33 mmol/L (22-30); CHLORIDE 105 mmol/L (98-107); GLUCOSE 129 mg/dL (75-110); POTASSIUM 4.8 mmol/L (3.6-5.0); SODIUM 143.8 mmol/L (137-145)
--- NOTE | 2019-02-26 06:55 | PDOC PROGRESS REPORT ---
Subjective Progress Note for:: 02/25/19 Subjective:: 78 y.o. M with a PMH of HTN and COPD presented to [facility] with a complaint of shortness of breath. She was admitted to the hospital service for a COPD exacerbation. Of note, the patient has been admitted to [facility] twice already this month for a COPD exacerbation. It was discovered that she had a cavitary lesion in her left upper lobe. Additionally, her sputum was positive for Klebsiella and Serratia. The patient is followed by Dr. Hall for her oncology work-up. She underwent a biopsy at [facility] a few weeks ago, results are still pending. The patient is currently taking Levaquin for her Klebsiella/Serratia infection. The patient states she was discharged from [facility] 02/22/2019 and was home for less than 48 hours when she became acutely short of breath, prompting her return to the emergency department. Patient was seen this afternoon on rounds, she is resting comfortably in her bedside recliner on supplemental oxygen via nasal cannula. She has multiple family members in the room with her. Patient states that she feels the same when compared to yesterday, but overall, feels better. She is able to speak in full sentences without pause. Upon assessment, lungs are clear to auscultation. There is no peripheral or central cyanosis. The patient gets very winded, tired and short of breath upon ambulating to the bathroom. Will need to remain at [facility] for continued treatment of her COPD exacerbation. Family is understandably upset that the patient was readmitted twice this month. They have increasingly hostile towards staff. Reason For Visit: ACUTE EXACERBATION OF COPD Physical Exam Vital Signs: Temp Pulse Resp BP Pulse Ox 97.4 F 66 22 H 132/56 H 100 02/26/19 03:38 02/26/19 03:38 02/26/19 03:38 02/26/19 03:38 02/26/19 03:38 Intake & Output 02/24/19 02/25/19 02/26/19 06:59 06:59 06:59 Intake Total 100 3240 420 Balance 100 3240 420 Weight 55.1 kg 55.3 kg 55.4 kg General appearance: PRESENT: no acute distress, thin Head exam: PRESENT: atraumatic, normocephalic Eye exam: PRESENT: conjunctiva pink, EOMI, PERRLA. ABSENT: scleral icterus Ear exam: PRESENT: normal external ear exam Mouth exam: PRESENT: moist, tongue midline Teeth exam: PRESENT: poor dentation Neck exam: ABSENT: carotid bruit, JVD, lymphadenopathy, thyromegaly Respiratory exam: PRESENT: clear to auscultation romelia, symmetrical, unlabored. ABSENT: rales, rhonchi, wheezes Cardiovascular exam: PRESENT: RRR. ABSENT: diastolic murmur, rubs, systolic murmur Pulses: PRESENT: normal radial pulses, normal dorsalis pedis pul Vascular exam: PRESENT: normal capillary refill GI/Abdominal exam: PRESENT: normal bowel sounds, soft. ABSENT: distended, guarding, mass, organolmegaly, rebound, tenderness Rectal exam: PRESENT: deferred Extremities exam: PRESENT: full ROM. ABSENT: calf tenderness, clubbing, pedal edema Neurological exam: PRESENT: alert, awake, oriented to person, oriented to place, oriented to time, oriented to situation Psychiatric exam: PRESENT: appropriate affect, normal mood Skin exam: PRESENT: dry, intact, warm. ABSENT: cyanosis, rash Results Laboratory Results: 02/25/19 05:39 02/25/19 05:39 02/25/19 02/25/19 05:39 05:39 WBC 12.8 H RBC 2.87 L Hgb 9.0 L Hct 26.5 L MCV 92 MCH 31.2 MCHC 33.8 RDW 13.7 Plt Count 279 Seg Neutrophils % Not Reportable Lymphocytes % Not Reportable Monocytes % Not Reportable Eosinophils % Not Reportable Basophils % Not Reportable Absolute Neutrophils Not Reportable Absolute Lymphocytes Not Reportable Absolute Monocytes Not Reportable Absolute Eosinophils Not Reportable Absolute Basophils Not Reportable Sodium 142.4 Potassium 4.4 Chloride 108 H Carbon Dioxide 30 Anion Gap 4 L BUN 15 Creatinine 0.56 Est GFR ( Amer) > 60 Est GFR (Non-Af Amer) > 60 Glucose 154 H Calcium 8.9 Magnesium 2.2 02/23/19 20:20 Troponin I < 0.012 Impressions: Chest X-Ray 02/23/19 20:33 IMPRESSION: Large cavitary lesion in the left upper lobe with associated adenopathy. This is unchanged when compared to the earlier exams Status: Imported from PACS Assessment and Plan - Diagnosis (1) Acute exacerbation of chronic obstructive pulmonary disease (COPD) Is this a current diagnosis for this admission?: Yes Plan: Improving PMH COPD, previously not requiring oxygen On Breo and Spiriva at home Within the last month, the patient has been hospitalized 3 times In addition to COPD, a cavitary lesion was discovered and overlying PNA was suspected Previous sputum cultures positive for Klebsiella and Serratia, treated with Levaquin At the time of discharge, it is unclear the patient was sent home with a steroid taper or (requested) nebulizer treatments It is possible that the patient never fully recovered from her original COPD exacerbation Scheduled Atrovent and Xopenex nebulizer treatments Scheduled IV steroids Supplemental oxygen via nasal cannula to maintain SPO2>88% Will require prescriptions for steroids and nebulizers at the time of discharge (2) Cavitary lesion of lung Is this a current diagnosis for this admission?: Yes Plan: Patient has been presumed to be diagnosed as carcinoma CXR shows cavitary lesion of the IZABELA, unchanged in size or pattern since previous study Recent lung biopsy in [place] a few weeks ago, results are still pending Dr. Hall consulted, should have biopsy results tomorrow/Monday (3) Anemia Qualifiers: Anemia type: unspecified type Qualified Code(s): D64.9 - Anemia, unspecified Is this a current diagnosis for this admission?: Yes Plan: Likely anemia of chronic disease Hgb remains above 8 No plan for transfusion at this time No obvious source of bleeding, again, likely anemia of chronic disease - Time Time Spent with patient: 15-24 minutes Medications reviewed and adjusted accordingly: Yes Anticipated discharge: Home Within: within 48 hours - Inpatient Certification Based on my medical assessment, after consideration of the patient's comorbidities, presenting symptoms, or acuity I expect that the services needed warrant INPATIENT care.: Yes I certify that my determination is in accordance with my understanding of Medicare's requirements for reasonable and necessary INPATIENT services [42 CFR 412.3e].: Yes Medical Necessity: Risk of Complication if Not Cared For in Hospital
[2019-02-26] MEDS: BUDESONIDE NEB 0.5 MG/2 ML AMPUL NEB SCH ×2 (07:48→20:34)
--- NOTE | 2019-02-26 08:41 | PDOC PROGRESS REPORT ---
Subjective Progress Note for:: 02/26/19 Subjective:: Patient seems physically better today. I had a long discussion with patient and family. 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 Of note, the cotton candy maker said that he was not able to get a good angle and to the hilar adenopathy therefore, she did not have that area sampled. I went over all of these findings with the patient. Her family came over yesterday and were unhap py with how she was doing over the last few weeks. We had a long discussion about next steps of care. I wrote a prescription myself for Medrol Dosepak for a steroid wean, I will write for her Xopenex because the pharmacy that they took her to will not be able to get the drug in time for her to have it. We also wrote a prescription for Augmentin 875 twice daily. She will have a 7-day course of this upon discharge. She will also need an appointment with me next week on Monday, we will make that appointment today for patient. She has a PET scan scheduled on Monday. We gave the family that appointment already. She has an MRI planned for today I wrote for that. I went ahead and wrote for Solu- Medrol to continue on a daily basis until she discharges. I told patient that she probably would benefit from another 24 hours inpatient and discharged tomorrow most likely. I have asked nursing to walker and see how her oxygen does. Reason For Visit: ACUTE EXACERBATION OF COPD Physical Exam Vital Signs: Temp Pulse Resp BP Pulse Ox 97.5 F 67 24 H 145/61 H 96 02/26/19 07:43 02/26/19 07:48 02/26/19 07:48 02/26/19 07:43 02/26/19 07:48 Intake & Output 02/25/19 02/26/19 02/27/19 06:59 06:59 06:59 Intake Total 3240 420 Balance 3240 420 Weight 55.3 kg 55.4 kg General appearance: PRESENT: no acute distress, well-developed, well-nourished Head exam: PRESENT: atraumatic, normocephalic Eye exam: PRESENT: conjunctiva pink, EOMI, PERRLA. ABSENT: scleral icterus Ear exam: PRESENT: normal external ear exam Mouth exam: PRESENT: moist, tongue midline Neck exam: ABSENT: carotid bruit, JVD, lymphadenopathy, thyromegaly Respiratory exam: PRESENT: clear to auscultation romelia. ABSENT: rales, rhonchi, wheezes Cardiovascular exam: PRESENT: RRR. ABSENT: diastolic murmur, rubs, systolic murmur Pulses: PRESENT: normal dorsalis pedis pul Vascular exam: PRESENT: normal capillary refill GI/Abdominal exam: PRESENT: normal bowel sounds, soft. ABSENT: distended, guarding, mass, organolmegaly, rebound, tenderness Rectal exam: PRESENT: deferred Extremities exam: PRESENT: full ROM. ABSENT: calf tenderness, clubbing, pedal edema Neurological exam: PRESENT: alert, awake, oriented to person, oriented to place, oriented to time, oriented to situation, CN II-XII grossly intact. ABSENT: motor sensory deficit Psychiatric exam: PRESENT: appropriate affect, normal mood. ABSENT: homicidal ideation, suicidal ideation Skin exam: PRESENT: dry, intact, warm. ABSENT: cyanosis, rash Results Laboratory Results: 02/26/19 05:37 02/26/19 05:37 02/26/19 02/26/19 05:37 05:37 WBC 12.3 H RBC 2.98 L Hgb 9.3 L Hct 27.6 L MCV 93 MCH 31.2 MCHC 33.6 RDW 13.6 Plt Count 284 Seg Neutrophils % 87.3 H Lymphocytes % 6.0 L Monocytes % 6.6 Eosinophils % 0.0 Basophils % 0.1 Absolute Neutrophils 10.7 H Absolute Lymphocytes 0.7 Absolute Monocytes 0.8 Absolute Eosinophils 0.0 Absolute Basophils 0.0 Sodium 143.8 Potassium 4.8 Chloride 105 Carbon Dioxide 33 H Anion Gap 6 BUN 20 Creatinine 0.67 Est GFR ( Amer) > 60 Est GFR (Non-Af Amer) > 60 Glucose 129 H Calcium 9.1 Magnesium 2.4 H 02/23/19 20:20 Troponin I < 0.012 Impressions: Chest X-Ray 02/23/19 20:33 IMPRESSION: Large cavitary lesion in the left upper lobe with associated adenopathy. This is unchanged when compared to the earlier exams Assessment & Plan - Diagnosis (1) Cavitary lesion of lung Is this a current diagnosis for this admission?: Yes Plan: Secondary to lung cancer, not secondary to infection. (2) Cancer of upper lobe of left lung Is this a current diagnosis for this admission?: Yes Plan: New diagnosis of squamous cell carcinoma of the lung, thus far it would be a stage II lung cancer, I will plan for PET/CT and MRI of the brain to complete staging. I went over treatment options with them at length today. She is will have close follow-up with me. - Time Time Spent with patient: 35 or more minutes Anticipated discharge: Home Within: within 24 hours - Inpatient Certification Based on my medical assessment, after consideration of the patient's comorbidit ies, presenting symptoms, or acuity I expect that the services needed warrant INPATIENT care.: Yes I certify that my determination is in accordance with my understanding of Me allison's requirements for reasonable and necessary INPATIENT services [42 CFR 412.3e].: Yes Medical Necessity: Need for Nebulizer Therapy and Monitoring of Response
[2019-02-26] MEDS: DOCUSATE SODIUM 100 MG CAPSULE PO SCH ×2 (09:29→17:34)
[2019-02-26] MEDS: FAMOTIDINE 20 MG TABLET PO SCH ×2 (09:29→22:55)
[2019-02-26] MEDS ORDERED: LORAZEPAM INJ 2 MG/1 ML VIAL IV PRN (17:17)
[2019-02-26] MEDS ORDERED: LORAZEPAM INJ 2 MG/1 ML VIAL IV ONE (17:18)
[2019-02-26] MEDS ORDERED: LORAZEPAM INJ 2 MG/1 ML VIAL ONE (17:25)
[2019-02-26] MEDS: METHYLPREDNISOLONE INJ 40 MG/1 ML SDV IV SCH (17:34)
--- NOTE | 2019-02-26 18:27 | PDOC PROGRESS REPORT ---
Subjective Progress Note for:: 02/26/19 Subjective:: 78 y.o. M with a PMH of HTN and COPD presented to [facility] with a complaint of shortness of breath. She was admitted to the hospital service for a COPD exacerbation. Of note, the patient has been admitted to [facility] twice already this month for a COPD exacerbation. It was discovered that she had a cavitary lesion in her left upper lobe. Additionally, her sputum was positive for Klebsiella and Serratia. The patient is followed by Dr. Hall for her oncology work-up. She underwent a biopsy at [facility] a few weeks ago, resulted squamous cell carcinoma. The patient is currently taking Levaquin for her Klebsiella/Serratia infection. The patient states she was discharged from [facility] 02/22/2019 and was home for less than 48 hours when she became acutely short of breath, prompting her return to the emergency department. Patient was seen this afternoon with family present. She was found sitting upright to edge of bed on nasal cannula at 3 L/min. She was noted to be tachypneic with 3-4 word sentences. She states that she is exhausted from the emotional/stressful day; has just been informed that her biopsy was positive for malignancy. We discussed the benefits of long-acting anxiety medications (BuSpar, SSRI/SNRI) as well as short-acting medications for management of situational anxiety while admitted. Patient is agreeable to trial of IV Ativan as this was beneficial while in the ED at time of admission. M no other questions or concerns at this time. No concerns per nursing. Reason For Visit: ACUTE EXACERBATION OF COPD Physical Exam Vital Signs: Temp Pulse Resp BP Pulse Ox 97.8 F 75 18 143/65 H 98 02/26/19 15:02 02/26/19 15:02 02/26/19 15:02 02/26/19 15:02 02/26/19 15:02 Intake & Output 02/25/19 02/26/19 02/27/19 06:59 06:59 06:59 Intake Total 3240 420 1100 Balance 3240 420 1100 Weight 55.3 kg 55.4 kg General appearance: PRESENT: no acute distress, thin, well-developed Head exam: PRESENT: atraumatic, normocephalic Eye exam: PRESENT: conjunctiva pink, EOMI, PERRLA. ABSENT: scleral icterus Ear exam: PRESENT: normal external ear exam Mouth exam: PRESENT: moist, tongue midline Teeth exam: PRESENT: poor dentation Neck exam: ABSENT: carotid bruit, JVD, lymphadenopathy, thyromegaly Respiratory exam: PRESENT: clear to auscultation romelia, rhonchi, tachypnea, wheezes. ABSENT: rales Cardiovascular exam: PRESENT: RRR. ABSENT: diastolic murmur, rubs, systolic murmur Pulses: PRESENT: normal dorsalis pedis pul Vascular exam: PRESENT: normal capillary refill GI/Abdominal exam: PRESENT: normal bowel sounds, soft. ABSENT: distended, guarding, mass, organolmegaly, rebound, tenderness Rectal exam: PRESENT: deferred Extremities exam: PRESENT: full ROM. ABSENT: calf tenderness, clubbing, pedal edema Neurological exam: PRESENT: alert, awake, oriented to person, oriented to place, oriented to time, oriented to situation, CN II-XII grossly intact. ABSENT: motor sensory deficit Psychiatric exam: PRESENT: anxious, appropriate affect, normal mood. ABSENT: homicidal ideation, suicidal ideation Skin exam: PRESENT: dry, intact, warm. ABSENT: cyanosis, rash Results Laboratory Results: 02/26/19 05:37 02/26/19 05:37 02/26/19 02/26/19 05:37 05:37 WBC 12.3 H RBC 2.98 L Hgb 9.3 L Hct 27.6 L MCV 93 MCH 31.2 MCHC 33.6 RDW 13.6 Plt Count 284 Seg Neutrophils % 87.3 H Lymphocytes % 6.0 L Monocytes % 6.6 Eosinophils % 0.0 Basophils % 0.1 Absolute Neutrophils 10.7 H Absolute Lymphocytes 0.7 Absolute Monocytes 0.8 Absolute Eosinophils 0.0 Absolute Basophils 0.0 Sodium 143.8 Potassium 4.8 Chloride 105 Carbon Dioxide 33 H Anion Gap 6 BUN 20 Creatinine 0.67 Est GFR ( Amer) > 60 Est GFR (Non-Af Amer) > 60 Glucose 129 H Calcium 9.1 Magnesium 2.4 H 02/23/19 20:20 Troponin I < 0.012 Impressions: Chest X-Ray 02/23/19 20:33 IMPRESSION: Large cavitary lesion in the left upper lobe with associated adenopathy. This is unchanged when compared to the earlier exams Assessment and Plan - Diagnosis (1) Acute exacerbation of chronic obstructive pulmonary disease (COPD) Is this a current diagnosis for this admission?: Yes Plan: Improving PMH COPD, per nursing, patient utilizes 2 lpm at home (will need to verify w/ patient as previous provided noted not home O2 dependant). On Breo and Spiriva at home Within the last month, the patient has been hospitalized 3 times Previous sputum cultures positive for Klebsiella and Serratia, treated with Levaquin At the time of discharge, it is unclear the patient was sent home with a steroid taper or (requested) nebulizer treatments She is provided supplemental oxygen as needed to maintain saturations >89%. BiPAP is ordered prn; however, patient has not utilized x 48 hours despite continued increase work of breathing and encouragement. Will repeat ABG and/or CXR if not improved tomorrow. Scheduled Atrovent and Xopenex nebulizer treatments, Pulmicort nebulizer twice daily. Resume home dose Flonase, Spiriva, and Breo. Scheduled IV steroids; has been provided Rx for Medrol taper and Xopenex at discharge by Dr. Turcios. Will obtain oxygen qualification testing tomorrow. Flutter valve to bedside. (2) Cancer of upper lobe of left lung Is this a current diagnosis for this admission?: Yes Plan: Bronchoscopy w/ Biopsy done at [facility] confirms squamous cell carcinoma. MRI of Head for staging was negative for malignancy. Heme/Onc are consulted; appreciate Dr. Turcios's assistance. Further evaluation and management per his expertise. (3) Acute and chronic respiratory failure with hypoxia Is this a current diagnosis for this admission?: Yes Plan: Patient be treated with supplemental oxygen utilizing noninvasive pressure support devices if required. Her O2 sat will be monitored closely throughout her hospital course. (4) Anemia Qualifiers: Anemia type: unspecified type Qualified Code(s): D64.9 - Anemia, unspecified Is this a current diagnosis for this admission?: Yes Plan: Likely anemia of chronic disease Hgb remains above 8; stable at 9.3 today. No plan for transfusion at this time No evidence of bleeding. Heme/Onc following. (5) Cavitary lesion of lung Is this a current diagnosis for this admission?: Yes Plan: Biopsy confirms Squamous cell carcinoma. CXR shows cavitary lesion of the IZABELA, unchanged in size or pattern since previous study Recently ruled out Tb. Dr. Jayaram consulted, further evaluation and management per his recommendations. (6) HTN (hypertension) Qualifiers: Hypertension type: essential hypertension Qualified Code(s): I10 - Ess ential (primary) hypertension Is this a current diagnosis for this admission?: Yes Plan: Patient endorses Hx of HTN. Currently holding home dose Lisinopril/HCTZ; blood pressures remain acceptable. (7) Anxiety Is this a current diagnosis for this admission?: Yes Plan: Situational anxiety r/t new cancer diagnosis. Discussed possible benefits of long acting medications such as SSRI/SNRI. Patient is considering; if she decides to start, will clear with Oncology to ensure there is not an interaction w/ planned chemotherapy agents. Discussed BuSpar and more rapid medications such as xanax/ativan. Patient remains hesitant though family feels she would benefit from prn m edication. Will trial Ativan 0.5 mg IV prn anxiety while admitted. - Time Time Spent with patient: 25-34 minutes Medications reviewed and adjusted accordingly: Yes Anticipated discharge: Home Within: within 24 hours
--- NOTE | 2019-02-26 18:58 | RADIOLOGY REPORT (SQ) ---
EXAM DESCRIPTION: MRI HEAD COMBO COMPLETED DATE/TIME: 02/26/2019 6:29 pm REASON FOR STUDY: Indication lung cancer eval brain mets COMPARISON: None. TECHNIQUE: Multiplanar imaging includes noncontrasted T1, T2, FLAIR, diffusion with ADC map and post gadolinium contrast T1 sequences. Images stored on PACS. CONTRAST TYPE AND DOSE: 10 mL Dotarem. RENAL FUNCTION: Not indicated. ACR Type II contrast agent associated with few, if any, unconfounded cases of NSF LIMITATIONS: None. FINDINGS: ANATOMY: No anomalies. Normal vascular flow voids. Pituitary fossa normal. CSF SPACES: Normal in size and contour. No hemorrhage. CEREBRUM: Sulci and gyri normal in size and contour. There are scattered areas of increased white ma tter signal on FLAIR imaging. No evidence of hemorrhage, mass, or extraaxial fluid collection. No abn ormal enhancement post contrast. POSTERIOR FOSSA: No signal alteration. No hemorrhage. No edema, masses, or mass effect. Internal pretty tory canals, cerebellopontine angles, mastoids normal. No enhancing lesions. No abnormal enhancement post contrast. DIFFUSION IMAGING: Negative for acute or subacute infarction. ORBITS: No masses. Globes normal. PARANASAL SINUSES: No fluid levels. Mucosa normal. OTHER: No other significant finding. IMPRESSION: Mild chronic microvascular ischemia with no acute intracranial imaging finding. No evid ence of brain metastases. EVIDENCE OF ACUTE STROKE: NO. TECHNICAL DOCUMENTATION: JOB ID: [id number] [employer]- All Rights Reserved Reading location - IP/workstation name: [email or web address]
[2019-02-27] MEDS: IPRATROPIUM BROMIDE 0.02% NEB 0.5 MG/2.5 ML AMPUL NEB SCH ×2 (01:31→09:08)
[2019-02-27] MEDS: LEVALBUTEROL HCL NEB 1.25 MG/3 ML AMPUL NEB SCH ×2 (01:31→09:08)
--- NOTE | 2019-02-27 08:03 | PDOC PROGRESS REPORT ---
Subjective Progress Note for:: 02/27/19 Subjective:: Doing very well this am, was anxious most of day yesterday, did well w/ Ativan given by hospitalist. Had MRI, negative for brain mets, I went over results w/ pt and family this am, went over PET instructions again, pt and family given appt for next mon. I gave rx for ativan to family. Reason For Visit: ACUTE EXACERBATION OF COPD Physical Exam Vital Signs: Temp Pulse Resp BP Pulse Ox 97.5 F 63 20 131/73 H 93 02/26/19 19:47 02/27/19 05:23 02/27/19 05:23 02/26/19 19:47 02/27/19 05:23 Intake & Output 02/26/19 02/27/19 02/28/19 06:59 06:59 06:59 Intake Total 420 1350 Balance 420 1350 Weight 55.4 kg 55 kg General appearance: PRESENT: no acute distress, well-developed, well-nourished Head exam: PRESENT: atraumatic, normocephalic Eye exam: PRESENT: conjunctiva pink, EOMI, PERRLA. ABSENT: scleral icterus Ear exam: PRESENT: normal external ear exam Mouth exam: PRESENT: moist, tongue midline Neck exam: ABSENT: carotid bruit, JVD, lymphadenopathy, thyromegaly Respiratory exam: PRESENT: clear to auscultation romelia. ABSENT: rales, rhonchi, wheezes Cardiovascular exam: PRESENT: RRR. ABSENT: diastolic murmur, rubs, systolic mur mur Pulses: PRESENT: normal dorsalis pedis pul Vascular exam: PRESENT: normal capillary refill GI/Abdominal exam: PRESENT: normal bowel sounds, soft. ABSENT: distended, guarding, mass, organolmegaly, rebound, tenderness Rectal exam: PRESENT: deferred Extremities exam: PRESENT: full ROM. ABSENT: calf tenderness, clubbing, pedal edema Neurological exam: PRESENT: alert, awake, oriented to person, oriented to place, oriented to time, oriented to situation, CN II-XII grossly intact. ABSENT: motor sensory deficit Psychiatric exam: PRESENT: appropriate affect, normal mood. ABSENT: homicidal ideation, suicidal ideation Skin exam: PRESENT: dry, intact, warm. ABSENT: cyanosis, rash Results Laboratory Results: 02/26/19 05:37 02/26/19 05:37 02/23/19 20:20 Troponin I < 0.012 Impressions: Chest X-Ray 02/23/19 20:33 IMPRESSION: Large cavitary lesion in the left upper lobe with associated adenopathy. This is unchanged when compared to the earlier exams Head MRI 02/26/19 00:00 IMPRESSION: Mild chronic microvascular ischemia with no acute intracranial imaging finding. No evidence of brain metastases. EVIDENCE OF ACUTE STROKE: NO. Assessment & Plan - Diagnosis (1) Cavitary lesion of lung Is this a current diagnosis for this admission?: Yes Plan: 2nd malignancy, but pt will have 7 day course of augmentin on d/c (2) Cancer of upper lobe of left lung Is this a current diagnosis for this admission?: Yes Plan: F/u after full staging w/ PET next week. Will pursue further rx therafter - Time Time Spent with patient: 35 or more minutes
[2019-02-27] MEDS: BUDESONIDE NEB 0.5 MG/2 ML AMPUL NEB SCH (09:08)
[2019-02-27] MEDS: METHYLPREDNISOLONE INJ 40 MG/1 ML SDV IV SCH (09:32)
[2019-02-27] MEDS: DOCUSATE SODIUM 100 MG CAPSULE PO SCH (09:33)
[2019-02-27] MEDS: FAMOTIDINE 20 MG TABLET PO SCH (09:33)
[2019-02-27] MEDS: HEPARIN SOD (PORCINE) 5,000 UNIT/ML 1 ML SYRINGE SUBCUT SCH (09:34)
[2019-02-27 10:00] VITALS: BP 131/87
[2019-02-27] MEDS ORDERED: FLUTICASONE NASAL SPRAY 50 MCG/SPRY 120 SPRAY/16 GM NASL SCH (10:00)
[2019-02-27] MEDS ORDERED: TIOTROPIUM BROMIDE DPI 5 CAP/KIT (18 MCG/CAP) IH SCH (10:00)
[2019-02-27] MEDS ORDERED: FLUTICASONE/VILANTEROL 200-25 MCG/DOSE IH SCH (10:00)
--- NOTE | 2019-02-28 23:01 | PDOC DISCHARGE SUMMARY ---
General - Admit/Disc Date/PCP Admission Date/Primary Care Provider: 02/23/19 22:03 ISABELL STOUT MD Discharge Date: 02/27/19 - Discharge Diagnosis (1) Acute exacerbation of chronic obstructive pulmonary disease (COPD) Is this a current diagnosis for this admission?: Yes Summary: Improved PMH COPD, patient utilizes 2 lpm at home Within the last month, the patient has been hospitalized 3 times Previous sputum cultures positive for Klebsiella and Serratia, treated with Levaquin Patient was admitted to the medical floor and provided supplemental oxygen as needed to maintain saturations >89%. BiPAP was ordered prn; however, patient did require this level of support. She was supported with scheduled and as needed nebulizer treatments and Pulmicort nebs twice daily. Her home dose Flonase, Spiriva, and Breo were resumed. She was started on Scheduled IV steroids; has been provided Rx for Medrol taper and Xopenex at discharge by Dr. Turcios. (2) Cancer of upper lobe of left lung Is this a current diagnosis for this admission?: Yes Summary: Bronchoscopy w/ Biopsy done at [facility] confirms squamous cell carcinoma. MRI of Head for staging was negative for malignancy. Heme/Onc was consulted; appreciate Dr. Turcios's assistance. Patient to follow up with Dr. Turcios in 1 week following outpatient PET scan. (3) Acute and chronic respiratory failure with hypoxia Is this a current diagnosis for this admission?: Yes Summary: Multifactorial secondary to COPD and lung CA. Evaluation and management as above. (4) Anemia Is this a current diagnosis for this admission?: Yes Summary: Likely anemia of chronic disease Hgb remains above 8; stable at 9.3 today. Heme/Onc following. (5) Cavitary lesion of lung Is this a current diagnosis for this admission?: Yes Summary: Secondary to Squamous cell carcinoma. CXR shows cavitary lesion of the IZABELA, unchanged in size or pattern since p revious study Recently ruled out Tb. Management as above. (6) HTN (hypertension) Is this a current diagnosis for this admission?: Yes Summary: Patient endorses Hx of HTN. Currently holding home dose Lisinopril/HCTZ; blood pressures remain acceptable. Recommend patient continues holding medications at discharge; discuss with PCP at followup appointment. (7) Anxiety Is this a current diagnosis for this admission?: Yes Summary: Situational anxiety r/t new cancer diagnosis. Discussed possible benefits of long acting medications such as SSRI/SNRI. Patient declines at this time. She is encouraged to discuss with PCP at follow up. She has excellent response to Ativan 0.5 mg IV prn anxiety while admitted. Prescription for oral ativan was provided by Dr. Turcios at discharge. - Additional Information Resuscitation Status: Full Code Discharge Diet: Regular Discharge Activity: Activity As Tolerated, Balance Activity w/Rest Prescriptions: Levalbuterol HCl [Xopenex Neb 0.63 mg/3 ml Ampul] 0.63 mg NEB RTQ2HP PRN #15 vial.neb PRN Reason: Home Medications: Fluticasone Propionate [Flonase Nasal Coin 50 Mcg/Coin 16 gm] 2 spray NASL DAILY 02/24/19 Fluticasone/Vilanterol [Breo 200-25 Mcg Ellipta 14 Dose/Dpi] 1 inh IH DAILY 02/24/19 Levalbuterol HCl [Xopenex Neb 0.63 mg/3 ml Ampul] 0.63 mg NEB RTQ2HP PRN #15 vial.neb 02/24/19 Meloxicam [Mobic] 15 mg PO DAILYP PRN 02/24/19 Multivitamin [Chewable-Angel] 2 each PO DAILY 02/24/19 Tiotropium Plain [Spiriva Handihaler 5 Cap/Kit (18 Mcg/Cap)] 1 cap IH DAILY 02/24/19 History of Present Illness History of Present Illness: Per H&P by Dr. Ferris: MARBELLA HUI is a 78 year old female who presented to the emergency room with acute dyspnea. Patient indicates that she developed dyspnea earlier in the day that is been progressively worsening to the point where she is now severely dyspneic with her symptoms worsening on any exertion. She further admits he associated symptoms of markedly increased work of b reathing and severe wheezing. She admits numerous prior similar episodes related to her COPD. She denies identification of any additional aggravating or ameliorating factors for her dyspnea. In the emergency room she was found to have significant hypoxia and markedly increased work of breathing requiring her to be treated with BiPAP and continuous nebulizer therapy. She did well with this treatment and was subsequently admitted to the hospital for further evaluation and ongoing care. Physical Exam Vital Signs: Temp Pulse Resp BP Pulse Ox 97.8 F 74 20 112/61 95 02/27/19 07:40 02/27/19 07:40 02/27/19 07:40 02/27/19 07:40 02/27/19 07:40 Intake & Output 02/26/19 02/27/19 02/28/19 06:59 06:59 06:59 Intake Total 420 1350 Balance 420 1350 Weight 55.4 kg 55 kg General appearance: PRESENT: no acute distress, cooperative, thin, well- developed, well-nourished Head exam: PRESENT: atraumatic, normocephalic Eye exam: PRESENT: conjunctiva pink, EOMI, PERRLA. ABSENT: scleral icterus Ear exam: PRESENT: normal external ear exam Mouth exam: PRESENT: moist, tongue midline Neck exam: ABSENT: carotid bruit, JVD, lymphadenopathy, thyromegaly Respiratory exam: PRESENT: rhonchi, symmetrical, unlabored, other - Baseline supplemental oxygen. ABSENT: rales, wheezes Cardiovascular exam: PRESENT: RRR, +S1, +S2. ABSENT: diastolic murmur, rubs, systolic murmur Vascular exam: PRESENT: normal capillary refill GI/Abdominal exam: PRESENT: normal bowel sounds, soft. ABSENT: distended, guarding, mass, organolmegaly, rebound, tenderness Rectal exam: PRESENT: deferred Extremities exam: PRESENT: full ROM. ABSENT: calf tenderness, clubbing, pedal edema Neurological exam: PRESENT: alert, awake, oriented to person, oriented to place, oriented to time, oriented to situation, CN II-XII grossly intact. ABSENT: motor sensory deficit Psychiatric exam: PRESENT: appropriate affect, normal mood. ABSENT: homicidal ideation, suicidal ideation Skin exam: PRESENT: dry, intact, warm. ABSENT: cyanosis, rash Results Laboratory Results: 02/26/19 05:37 02/26/19 05:37 02/23/19 20:20 Troponin I < 0.012 Impressions: Chest X-Ray 02/23/19 20:33 IMPRESSION: Large cavitary lesion in the left upper lobe with associated adenopathy. This is unchanged when compared to the earlier exams Head MRI 02/26/19 00:00 IMPRESSION: Mild chronic microvascular ischemia with no acute intracranial imaging finding. No evidence of brain metastases. EVIDENCE OF ACUTE STROKE: NO. Qualifiers - * PATIENT BEING DISCHARGED WITH ANY OF THE FOLLOWING DIAGNOSIS: No Acute Heart Failure Is this a Heart Failure Patient?: No Plan Discharge Plan: Discharge to home in the care of family members. Keep PET scan appointment scheduled for Monday. Follow-up with Dr. Turcios's office on Monday as scheduled. Follow-up with PCP, Dr. Stout, within 1 to 2 weeks. Take your medications as prescribed. Return to the emergency department as needed for concerning symptoms. Time Spent: Less than 30 Minutes
== END 2019-02-27 10:10 | disposition home or self-care (01) | DRG 189 ==
LOC: ER 20:09 → EH 22:03 → 5 23:30 → 2N 02-25 22:45
PROVIDERS: ADMIT Emergency Medicine; ATTEND Emergency Medicine
DX: J96.21 Acute and chronic respiratory failure with hypoxia (principal); J44.1 Chronic obstructive pulmonary disease with (acute) exacerbation; C34.12 Malignant neoplasm of upper lobe, left bronchus or lung; D64.9 Anemia, unspecified; I10 Essential (primary) hypertension; F41.9 Anxiety disorder, unspecified; Z87.891 Personal history of nicotine dependence
CPT/HCPCS: 36415; 70553; 71045; 80048; 80053; 82803; 83605; 83735; 84484; 85025; 87040; 94640; 94660; 99291; J1644; J2060; J2920; J3370; J3490; J7120; J7614

== ENCOUNTER → 2019-03-10 | Outpatient (CLI) | payer MEDICARE, MEDICAID ==
--- NOTE | 2019-03-11 08:49 | RADIOLOGY REPORT (SQ) ---
EXAM DESCRIPTION: PET CT SKULL/THIGH COMPLETED DATE/TIME: 03/10/2019 10:38 pm REASON FOR STUDY: (C34.12)MALIGNANT NEOPLASM OF UPPER LOBE, LEFT BRONCHUS OR LUNG C34.12 MALIGNANT NEOPLASM OF UPPER LOBE, LEFT BRONCHUS OR HALIE COMPARISON: None. RADIONUCLIDE AND DOSE: 11.56 mCi F18 FDG The route of agent administration: Intravenous FASTING BLOOD SUGAR: 108 mg/dl CONTRAST TYPE AND DOSE: No CT contrast given. TECHNIQUE: Blood glucose level was verified. Above dose of FDG was injected intravenously. 2-D seg mented attenuation correction images were obtained from the base of the skull to the midthighs. Nonc ontrast CT images were obtained for attenuation correction and fusion with emission images. CT image s were performed without oral or intravenous contrast and are not sensitive for parenchymal lesions. A series of overlapping emission PET images were obtained. Images reviewed and manipulated at [facility] work station by the radiologist. Images stored on PACS. LIMITATIONS: None. FINDINGS: HEAD AND NECK: Hypermetabolic 1.4 cm left thyroid nodule measuring 29.3 SUV. CHEST: Hypermetabolic 4.3 cm cavitary mass left upper lobe measuring 7.4 SUV. Hypermetabolic 2.2 cm left hilar node measuring 6.4 SUV. ABDOMEN AND PELVIS: No areas of abnormal metabolic activity in the abdomen or pelvis. Expected physi ologic activity is present in the genitourinary system and bowel. PROXIMAL LOWER EXTREMITIES: No areas of abnormal metabolic activity in the soft tissues of the lower extremities. BONES: No abnormal metabolic activity in the visualized skeleton. ADDITIONAL CT FINDINGS: No additional significant findings on the noncontrast CT images. OTHER: Blood pool activity 1.5 SUV. Liver background 2.2 SUV. IMPRESSION: 1. Hypermetabolic and cavitary mass left upper lobe. 2. Hypermetabolic level 10 L node. 3. Hypermetabolic left thyroid nodule. TECHNICAL DOCUMENTATION: JOB ID: [id number] [employer]- All Rights Reserved Reading location - IP/workstation name: [email or web address]
== END ==
LOC: RAD 18:52
PROVIDERS: ATTEND Internal Medicine
DX: C34.12 Malignant neoplasm of upper lobe, left bronchus or lung (principal)
CPT/HCPCS: 78815; A9552

== ENCOUNTER → 2019-03-14 | Outpatient (CLI) | payer MEDICARE, MEDICAID ==
--- NOTE | 2019-03-14 18:54 | RADIOLOGY REPORT (SQ) ---
EXAM DESCRIPTION: U/S THYROID/SFT TISS HD NECK COMPLETED DATE/TIME: 03/14/2019 6:12 pm REASON FOR STUDY: E04.1 NONTOXIC SINGLE THYROID NODULE E04.1 NONTOXIC SINGLE THYROID NODULE COMPARISON: None. TECHNIQUE: Dynamic and static reyes-scale images acquired of the thyroid gland. Selected additional c olor/power Doppler images recorded. All images stored to PACS. LIMITATIONS: None. FINDINGS: RIGHT LOBE: Within normal limits in size, 5 x 1.3 x 1.3 cm. Homogeneous echotexture. The re are 2 mixed cystic and solid nodules. The larger measures 8 mm. There is a slightly hypoechoic s olid nodule that measures 5.5 mm in largest diameter. LEFT LOBE: Normal size, 3.4 x 1.4 x 1.4 cm. Homogeneous echotexture. There is a well-defined isoech oic solid nodule in the lower pole measuring 1.6 x 1.1 x 1.1 cm. ISTHMUS: Normal size, 2.5 mm. Homogeneous echotexture. No cystic or solid masses. OTHER: No other significant finding. IMPRESSION: 1. Small complex nodules in the right lobe, likely benign. 2. 5.5 mm very slightly hypoechoic nodule in the right lobe is indeterminate. Recommend six-month f ollow-up ultrasound. 3. Slightly hyperechoic solid nodule in the lower pole of the left lobe that measures [address] diameter. Consider biopsy because of size. TECHNICAL DOCUMENTATION: JOB ID: [id number] [employer]- All Rights Reserved Reading location - IP/workstation name: [email or web address]
== END ==
LOC: RAD 16:12
PROVIDERS: ATTEND Internal Medicine
DX: E04.1 Nontoxic single thyroid nodule (principal)
CPT/HCPCS: 76536

== ENCOUNTER → 2019-05-16 | Outpatient (CLI) | payer MEDICARE, MEDICAID ==
--- NOTE | 2019-05-16 11:51 | RADIOLOGY REPORT (SQ) ---
EXAM DESCRIPTION: CT ABD/PELVIS WITH IV ONLY; CT CHEST WITH COMPLETED DATE/TIME: 05/16/2019 9:56 am REASON FOR STUDY: C34.12 MALIGNANT NEOPLASM OF UPPER LOBE, LEFT BRONCHUS OR LUNG C34.12 MALIGNANT N EOPLASM OF UPPER LOBE, LEFT BRONCHUS OR HALIE COMPARISON: PET-CT 03/10/2019 CT angio chest 02/19/2019 CT chest 02/07/2019 CONTRAST TYPE AND DOSE: contrast/concentration: Isovue 350.00 mg/ml; Total Contrast Delivered: 57.0 ml; Total Saline Delivered: 65.0 ml RENAL FUNCTION: GFR > 60. TECHNIQUE: CT scan of the chest performed using helical scanning technique with dynamic intravenous contrast injection. Images reviewed with lung, soft tissue and bone windows. Reconstructed coronal a nd sagittal MPR images reviewed. All images stored on PACS. CT scan of the abdomen and pelvis performed with intravenous and without oral contrastusing helical s linda technique with dynamic intravenous contrast injection. Images reviewed with lung, soft tissu e and bone windows. Reconstructed coronal and sagittal MPR images reviewed. Delayed images for eval uation of the urinary system also acquired and evaluated. All images stored on PACS. All CT scanners at this facility use dose modulation, iterative reconstruction, and/or weight based d osing when appropriate to reduce radiation dose to as low as reasonably achievable (ALARA). [facility]: Dose Right [facility]: CareDose [facility]: Dose Right [facility]: Teradose 4D [facility]: [employer] RADIATION DOSE: CT Rad equipment meets quality standard of care and radiation dose reduction techniq ues were employed. CTDIvol: 4.4 - 4.5 mGy. DLP: 614 mGy-cm. . LIMITATIONS: None. FINDINGS: CHEST: LUNGS AND PLEURA: Left upper lobe cavitary lesion is overall slightly smaller in size compared to pato or PET-CT 03/10/2019. However, there is more nodular appearing thick soft tissue along the periphery o f the cavity, this nodular tissue now measures 3.6 cm AP x 1.4 cm transverse with adjacent erosion of the anterior left 3rd rib (soft tissue on the periphery of the cavity measured 2.6 x 1 cm on PET-CT 03/10/2019). There is interval decrease in size of the left hilar tumor compared to PET-CT 03/10/2019. On today's s tudy, a small soft tissue nodule persists 1 x 0.7 cm in size (was 2 x 2 cm on prior PET-CT). There i s now a defect along the left apical segmental bronchus medial wall, with a small loculation of extra bronchial air adjacent to the residual small soft tissue nodule. The air pocket along the left hilu m measures 1.8 x 1.3 cm in size, best shown on coronal image 48 and axial image 48. 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 Remainder of the lungs and pleura are otherwise unremarkable aside from diffuse changes of moderate o bstructive lung disease, and right basilar atelectasis. No pleural effusion. No pneumothorax. No o ther worrisome lung nodules. HILAR AND MEDIASTINAL STRUCTURES: No current hilar or mediastinal adenopathy. Tiny residual soft tis tarik nodule left hilum with adjacent extrapleural air as above. HEART AND VASCULAR STRUCTURES: No aneurysm or dissection. No central pulmonary emboli. No pericardi al effusion. Moderate coronary artery calcification HARDWARE: None. THYROID AND OTHER SOFT TISSUES: No masses. No adenopathy. BONES: No significant finding. OTHER: No other significant finding. ABDOMEN AND PELVIS: LIVER: Normal size. No masses. No dilated ducts. Benign subcentimeter hepatic cysts are present, st able SPLEEN: Normal size. No focal lesions. PANCREAS: No masses. No significant calcifications. No adjacent inflammation or peripancreatic fluid collections. Pancreatic duct not dilated. GALLBLADDER: Tiny stones layer in the gallbladder without gallbladder wall thickening or pericholecys tic fluid ADRENAL GLANDS: No significant masses or asymmetry. RIGHT KIDNEY AND URETER: No solid masses. No significant calcification. No hydronephrosis or hydroure ter. Benign right upper and midpole 2 cm renal cortical cysts. LEFT KIDNEY AND URETER: No solid masses. No significant calcification. No hydronephrosis or hydrouret er. Benign left lower pole 2 cm renal cortical cyst AORTA AND VESSELS: No aneurysm. Atherosclerotic aortoiliac and visceral artery branch calcifications RETROPERITONEUM: No retroperitoneal adenopathy, hemorrhage or masses. BOWEL AND PERITONEAL CAVITY: Heavy burden of colonic diverticulosis along the descending and sigmoid colon. No CT evidence of acute diverticulitis. No free intraperitoneal air. No findings worrisome for bowel obstruction. APPENDIX: Normal. ABDOMINAL WALL: No masses. No hernias. PELVIS: No mass or free fluid. Normal bladder.Pessary in the vagina. Female pelvic organs not well s een BONES: No significant or acute findings. OTHER: No other significant finding. IMPRESSION: Increasing nodularity along the periphery of the left upper lobe cavitary lung mass with adjacent destruction of the anterior 3rd rib. This represents a change from prior PET-CT 03/10/2019 Decrease in size of left hilar tumor nodule, however now there is a defect in the medial wall of the left apical segmental bronchus and a small focus of left hilar extrapleural air worrisome for small f istula No CT evidence of metastatic disease to the abdomen or pelvis. TECHNICAL DOCUMENTATION: JOB ID: [id number] Sign Quality ID # [id number]: Final reports with documentation of one or more dose reduction techniques (e.g., Au tomated exposure control, adjustment of the mA and/or kV according to patient size, use of iterative reconstruction technique) 2010 [employer]- All Rights Reserved Reading location - IP/workstation name: [email or web address]
== END ==
LOC: RAD 09:00
PROVIDERS: ATTEND Physician Assistant Medical
DX: C34.12 Malignant neoplasm of upper lobe, left bronchus or lung (principal); K80.80 Other cholelithiasis without obstruction; N28.1 Cyst of kidney, acquired
CPT/HCPCS: 71260; 74177; 82565

== ENCOUNTER → 2019-07-14 | Outpatient (CLI) | payer MEDICARE, MEDICAID ==
--- NOTE | 2019-07-16 10:57 | RADIOLOGY REPORT (SQ) ---
EXAM DESCRIPTION: PET CT SKULL/THIGH COMPLETED DATE/TIME: 07/15/2019 12:29 am REASON FOR STUDY: (C34.12)MALIGNANT NEOPLASM OF UPPER LOBE, LEFT BRONCHUS OR LUNG C34.12 MALIGNANT NEOPLASM OF UPPER LOBE, LEFT BRONCHUS OR HALIE COMPARISON: PET from 03/10/2019, and CT of the chest with contrast 05/16/2019, and CT of the abdomen and pelvis with contrast from. 05/16/2019 RADIONUCLIDE AND DOSE: 13.01 mCi F18 FDG The route of agent administration: Intravenous FASTING BLOOD SUGAR: 104 mg/dl CONTRAST TYPE AND DOSE: No CT contrast given. TECHNIQUE: Blood glucose level was verified. Above dose of FDG was injected intravenously. 2-D seg mented attenuation correction images were obtained from the base of the skull to the midthighs. Nonc ontrast CT images were obtained for attenuation correction and fusion with emission images. CT image s were performed without oral or intravenous contrast and are not sensitive for parenchymal lesions. A series of overlapping emission PET images were obtained. Images reviewed and manipulated at [facility] by the radiologist. Images stored on PACS. LIMITATIONS: None. FINDINGS: HEAD AND NECK: Stable hypodense nodule within the left lobe of the thyroid gland with a ma ximum SUV of 27.3 (maximum SUV on the prior PET measured at 29.3). CHEST: The extent of FDG uptake that extends from the AP window to the rib left hilum, and encompasse s the enlarged left AP window lymph node described on the prior PET, has increased ; the maximum SUV in area equals 14.1 compared to 6.4 on the prior PET. In addition, a aforementioned AP window lymph node has decreased in size and it measures up to 2.3 x 1.6 cm and it has developed a cavitation. The soft tissue component of the cavitary lesion in the left upper lobe has increased compared to the prior PET and invades the adjacent musculature and the left collateral 3rd and 4th ribs; the maximum SUV in the area equals 24 compared to 7.4 on the prior PET. ABDOMEN AND PELVIS: There is expected physiologic uptake throughout the gastrointestinal and genitour inary tracts. No areas of abnormal metabolic activity are identified in the abdomen and pelvis. PROXIMAL LOWER EXTREMITIES: No areas of abnormal metabolic activity in the soft tissues of the lower extremities. BONES: No areas of abnormal metabolic active in the imaged axial and appendicular skeleton. ADDITIONAL CT FINDINGS: There is moderate upper lobe predominant centrilobular emphysema. The areas of centrilobular nodularity throughout the right middle, right lower, and left lower lobes are nonspe cific but clinical correlation to exclude an infectious or inflammatory bronchiolitis is recommend. There are enlarged left upper paratracheal and left lower paratracheal lymph nodes that have decrease d in size from the prior PET but demonstrate no avid FDG uptake; for reference the upper peritracheal lymph node measures up to 12 x 9 mm and is on image 49 of series 3. OTHER: No other findings. IMPRESSION: 1. Increase in the size of and degree of FDG uptake within of the soft tissue component of the cavitary lesion in the left upper lobe ; the lesion invades the adjacent musculature and the left collateral 3rd and 4th ribs. 2. Increased in the degree and extent of FDG uptake in the AP window/left hilum ; the lymph nodes in the area have also increased in size ; for reference the AP window lymph node measures up to 2.3 x 1 .6 cm and it has developed a cavitation. 3. Stable hypermetabolic left thyroid nodule. 4. Enlarging left upper paratracheal and left lower paratracheal lymph nodes that demonstrate no cierra d FDG uptake. 5. Scattered centrilobular nodules throughout the right middle, right lower, and left lower lobes - clinical correlation to exclude an infectious or inflammatory bronchiolitis is recommended. TECHNICAL DOCUMENTATION: JOB ID: [id number] [employer]- All Rights Reserved Reading location - IP/workstation name: [email or web address]
== END ==
LOC: RAD 15:03
PROVIDERS: ATTEND Internal Medicine
DX: C34.12 Malignant neoplasm of upper lobe, left bronchus or lung (principal)
CPT/HCPCS: 78815; A9552

== ENCOUNTER 2019-07-31 03:11 | Emergency (ER) | payer MEDICARE, MEDICAID ==
[2019-07-31 03:39] LABS: ABSOLUTE BASOPHILS # (AUTO) 0.1 10^3/uL (0.0-0.2); ABSOLUTE EOSINOPHILS # (AUTO) 0.4 10^3/uL (0.0-0.6); ABSOLUTE LYMPHOCYTES (AUTO) 1.5 10^3/uL (0.5-4.7); ABSOLUTE MONOCYTES (AUTO) 1.3 10^3/uL (0.1-1.4); ABSOLUTE NEUT (AUTO) 14.7 10^3/uL (1.7-8.2); BASOPHILS % (AUTO) 0.3 % (0-2); HEMATOCRIT 27.8 % (36.0-47.0); HEMOGLOBIN 8.9 g/dL (12.0-15.5); LYMPHOCYTES % (AUTO) 8.2 % (13-45); MEAN CORPUSCULAR HGB CONC 32.1 g/dL (32.0-36.0); MEAN CORPUSCULAR VOLUME 94 fl (80-97); MONOCYTES % (AUTO) 7.5 % (3-13); PLATELET COUNT 376 10^3/uL (150-450); RED BLOOD COUNT 2.97 10^6/uL (3.72-5.28); RED CELL DISTRIBUTION WIDTH 15.1 % (11.5-14.0); TOTAL CELLS COUNTED % (AUTO) 100 %; VENOUS BLOOD BASE EXCESS 0.7 mmol/L; VENOUS BLOOD HCO3 27.5 mmol/L (20-32); VENOUS BLOOD PH 7.32 (7.30-7.42); WHITE BLOOD COUNT 17.9 10^3/uL (4.0-10.5)
[2019-07-31] MEDS ORDERED: IPRATROPIUM/ALBUTEROL 0.5-2.5 MG/3 ML AMPUL NEB ONE (03:42)
--- NOTE | 2019-07-31 03:51 | RADIOLOGY REPORT (SQ) ---
CLINICAL HISTORY: SOB COMPARISON: July 14, 2019 PET/CT. TECHNIQUE: XR CHEST 1 VIEW 07/31/2019 12:00 AM CDT FINDINGS: Cardiac silhouette is normal in size. Vague opacity in the mid left lung corresponds to the cavitary mass seen on CT. There is no pleural effusion. There is no pneumothorax. There are no acute osseous findings. IMPRESSION: Relatively unchanged mid left lung masslike opacity.
[2019-07-31 03:52] LABS: ALBUMIN 2.3 g/dL (3.5-5.0); ALKALINE PHOSPHATASE 82 U/L (38-126); ANION GAP 10 (5-19); ASPARTATE AMINO TRANSFERASE 17 U/L (14-36); BILIRUBIN,DIRECT 0.1 mg/dL (0.0-0.4); BILIRUBIN,TOTAL 0.4 mg/dL (0.2-1.3); BLOOD UREA NITROGEN 17 mg/dL (7-20); CALCIUM 7.7 mg/dL (8.4-10.2); CARBON DIOXIDE 24 mmol/L (22-30); CHLORIDE 108 mmol/L (98-107); GLUCOSE 116 mg/dL (75-110); POTASSIUM 3.2 mmol/L (3.6-5.0); TOTAL PROTEIN 5.4 g/dL (6.3-8.2)
[2019-07-31] MEDS: MAGNESIUM SULFATE/D5W 1 GM/100 ML RTUPB IV SCH ×2 (03:52→05:03)
[2019-07-31 03:55] LABS: INTERNATIONAL RATION (INR) 1.12; PROTHROMBIN TIME 14.5 SEC (11.4-15.4)
--- NOTE | 2019-07-31 06:02 | ER Document Report ---
Entered by SURAJ OCONNELL SCRIBE 07/31/19 0536 Acting as scribe for:STEFAN GARRIDO DO ED Respiratory Problem - General Chief Complaint: Shortness Of Breath Stated Complaint: SHORTNESS OF BREATH Time Seen by Provider: 07/31/19 03:17 Primary Care Provider: ISABELL STOUT MD [Primary Care Provider] - Follow up in 3-5 days Mode of Arrival: Ambulatory Information source: Patient Notes: Patient is a 78-year-old female that presents to the emergency department today with complaints of shortness of breath. Patient has known COPD with a recent diagnosis of stage III lung cancer, being treated by Dr. Turcios. Patient was started on an "experimental drug", Opdivo yesterday. Patient states she felt fine after getting the drug yesterday, stating that the shortness of breath began tonight. Patient states she feels "a lot better now". Patient states she has a slight cough which is chronic. Patient denies any fevers or pain. TRAVEL OUTSIDE OF THE [place] IN LAST 30 DAYS: No - Related Data Allergies/Adverse Reactions: No Known Allergies Allergy (Verified 07/31/19 03:21) Past Medical History - General Information source: Patient - Social History Smoking Status: Former Smoker Cigarette use (# per day): No Chew tobacco use (# tins/day): No Frequency of alcohol use: None Drug Abuse: None Lives with: Family Family History: Reviewed & Not Pertinent, DM, Malignancy, Thyroid Disfunction Patient has suicidal ideation: No Patient has homicidal ideation: No - Past Medical History Cardiac Medical History: Reports: Hx Hypertension Pulmonary Medical History: Reports: Hx COPD Malignancy Medical History: Reports: Hx Lung Cancer - Stage III Past Surgical History: Reports: Hx Orthopedic Surgery - right rotator cuff. Denies: Hx Hysterectomy - Immunizations Hx Diphtheria, Pertussis, Tetanus Vaccination: Yes Hx Pneumococcal Vaccination: 01/07/19 Review of Systems - Review of Systems Constitutional: No symptoms reported EENT: No symptoms reported Cardiovascular: No symptoms reported Respiratory: See HPI, Cough, Short of breath Gastrointestinal: No symptoms reported Genitourinary: No symptoms reported Female Genitourinary: No symptoms reported Musculoskeletal: No symptoms reported Skin: No symptoms reported Hematologic/Lymphatic: No symptoms reported Neurological/Psychological: No symptoms reported -: Yes All other systems reviewed and negative Physical Exam - Vital signs Vitals: Resp 26 H 07/31/19 03:16 Interpretation: Normal - General General appearance: Appears well, Alert - HEENT Head: Normocephalic, Atraumatic Eyes: Normal Pupils: PERRL - Respiratory Respiratory status: Retractions, Tachypnea Breath sounds: Wheezing - Cardiovascular Rhythm: Regular Heart sounds: Normal auscultation Murmur: No - Abdominal Inspection: Normal Distension: No distension Bowel sounds: Normal Tenderness: Nontender Organomegaly: No organomegaly - Back Back: Normal, Nontender - Extremities General upper extremity: Normal inspection, Nontender, Normal color, Normal ROM, Normal temperature General lower extremity: Normal inspection, Nontender, Normal color, Normal ROM, Normal temperature, Normal weight bearing. No: Anisha's sign - Neurological Neuro grossly intact: Yes Cognition: Normal Orientation: AAOx4 Omar Coma Scale Eye Opening: Spontaneous [place] Coma Scale Verbal: Oriented [place] Coma Scale Motor: Obeys Commands Omar Coma Scale Total: 15 Speech: Normal Motor strength normal: LUE, RUE, LLE, RLE Sensory: Normal - Psychological Associated symptoms: Normal affect, Normal mood - Skin Skin Temperature: Warm Skin Moisture: Dry Skin Color: Normal Course - Re-evaluation Re-evalutation: 07/31/19 05:24 Patient is a 78-year-old female who presents with mild respiratory distress. Given DuoNeb and Solu-Medrol prior to arrival. Given another DuoNeb. Magnesium. Patient with leukocytosis that is likely from steroids prior to arrival discussed with Dr. Addison who agrees the patient can be discharged home. States that new medication should not cause any immune suppression. Does not recommend antibiotics at this time but does recommend steroids. Patient is resting comfortably and is 94% at her baseline 2 L oxygen saturation. Symptoms most consistent with COPD exacerbation. Chest x-ray clear. Stable for discharge. Patient agrees with plan. Follow-up with PMD and oncology as scheduled. Return if any further concerns. (STEFAN GARRIDO) - Vital Signs Vital signs: Temp Pulse Resp BP Pulse Ox 98 F 84 18 130/59 H 92 07/31/19 03:21 07/31/19 03:21 07/31/19 03:21 07/31/19 03:21 07/31/19 03:21 - Laboratory Result Diagrams: 07/31/19 03:26 07/31/19 03:26 Laboratory results interpreted by me: 07/31/19 07/31/19 03:26 03:26 WBC 17.9 H RBC 2.97 L Hgb 8.9 L Hct 27.8 L RDW 15.1 H Lymph % (Auto) 8.2 L Absolute Neuts (auto) 14.7 H Seg Neutrophils % 82.0 H Potassium 3.2 L Chloride 108 H Creatinine 0.43 L Glucose 116 H Calcium 7.7 L Total Protein 5.4 L Albumin 2.3 L Discharge - Discharge Clinical Impression: Chronic obstructive pulmonary disease with (acute) exacerbation Condition: Stable Disposition: HOME, SELF-CARE Instructions: Chronic Obstructive Lung Disease ([facility]) Prescriptions: Prednisone [Deltasone 20 mg Tablet] 2 tab PO DAILY 4 Days tablet Referrals: ISABELL STOUT MD [Primary Care Provider] - Follow up in 3-5 days I personally performed the services described in the documentation, reviewed and edited the documentation which was dictated to the scribe in my presence, and it accurately records my words and actions.
[2019-07-31 09:08] VITALS: BP 116/67
--- NOTE | 2019-07-31 19:04 | EKG REPORT ---
SEVERITY:- ABNORMAL ECG - VENTRICULAR PREMATURE COMPLEX LEFT AXIS DEVIATION LOW VOLTAGE IN FRONTAL LEADS BORDERLINE T ABNORMALITIES, ANTERIOR LEADS SINUS RHYTHM : Confirmed by: Karin Murillo MD 31-Jul-2019 19:03:56
== END 2019-07-31 09:00 | disposition home or self-care (01) ==
LOC: ER 03:11
DX: J44.1 Chronic obstructive pulmonary disease with (acute) exacerbation (principal); C34.90 Malignant neoplasm of unspecified part of unspecified bronchus or lung; R06.02 Shortness of breath; R05 Cough; R06.03 Acute respiratory distress; D72.829 Elevated white blood cell count, unspecified; I10 Essential (primary) hypertension; Z87.891 Personal history of nicotine dependence
CPT/HCPCS: 93005; 36415; 87040; 85025; 85610; 80053; 84484; 82803; 83605; 71045; 93010; J3475; A9270; 94640; 96365; 96366; 99285; J7620

== ENCOUNTER 2019-08-02 10:53 | Inpatient (IN) | payer MEDICARE, MEDICAID ==
--- NOTE | 2019-08-02 12:34 | RADIOLOGY REPORT (SQ) ---
EXAM DESCRIPTION: CHEST SINGLE VIEW COMPLETED DATE/TIME: 08/02/2019 12:20 pm REASON FOR STUDY: sob COMPARISON: None. EXAM PARAMETERS: NUMBER OF VIEWS: One view. TECHNIQUE: Single frontal radiographic view of the chest acquired. RADIATION DOSE: NA LIMITATIONS: None. FINDINGS: LUNGS AND PLEURA: COPD and cavitary lesion in the left upper lobe, unchanged from the prio r radiograph. There is no acute consolidation, pleural effusion or pneumothorax. MEDIASTINUM AND HILAR STRUCTURES: Unchanged appearance of the left hilum. HEART AND VASCULAR STRUCTURES: The cardiac silhouette and pulmonary vasculature are within normal lepe its. BONES: No acute findings. HARDWARE: None in the chest. OTHER: No other finding. IMPRESSION: Unchanged cavitary lesion in the left upper lobe. TECHNICAL DOCUMENTATION: JOB ID: [id number] [employer]- All Rights Reserved Reading location - IP/workstation name: [email or web address]
[2019-08-02 12:40] LABS: HEMATOCRIT 27.8 % (36.0-47.0); HEMOGLOBIN 9.3 g/dL (12.0-15.5); MEAN CORPUSCULAR HEMOGLOBIN 30.9 pg (27.0-33.4); MEAN CORPUSCULAR HGB CONC 33.5 g/dL (32.0-36.0); MEAN CORPUSCULAR VOLUME 92 fl (80-97); PLATELET COUNT 491 10^3/uL (150-450); RED BLOOD COUNT 3.01 10^6/uL (3.72-5.28); RED CELL DISTRIBUTION WIDTH 14.9 % (11.5-14.0); WHITE BLOOD COUNT 10.8 10^3/uL (4.0-10.5)
[2019-08-02] MEDS ORDERED: IPRATROPIUM/ALBUTEROL 0.5-2.5 MG/3 ML AMPUL NEB ONE (12:48)
--- NOTE | 2019-08-02 12:53 | ER Document Report ---
ED Medical Screen (RME) - General Chief Complaint: Shortness Of Breath Stated Complaint: DIFFICULTY BREATHING Time Seen by Provider: 08/02/19 12:47 Primary Care Provider: ISABELL STOUT MD [Primary Care Provider] - Follow up as needed Notes: 78-year-old female with known COPD and a recent diagnosis of stage III lung cancer treated by Dr. Velvet espino presents to the emergency department with chief complaint of acute shortness of breath. Patient started immunotherapy on Monday, , and felt fine after that but had an ER visit on 07/31 the following night. Patient states that over the last month things started getting progressively worse. She is on baseline O2 at home [id number] 2 L via nasal cannula. Daughter is concerned because she is had significant shortness of breath over the past few days that they are uncomfortable keeping her at home and feels that she might need admission to the hospital. No fevers or chills, no nausea or vomiting, no chest pain. Exam: Cachectic in no acute distress, speaking in full sentences, she does have mildly increased work of breathing with left sided inspiratory wheezing, right side clear to auscultation I have greeted and performed a rapid initial assessment of this patient. A comprehensive ED assessment and evaluation of the patient, analysis of test results and completion of medical decision making process will be conducted by an additional ED providers. TRAVEL OUTSIDE OF THE [place] IN LAST 30 DAYS: No - Related Data Allergies/Adverse Reactions: No Known Allergies Allergy (Verified 07/31/19 03:21) Past Medical History - Social History Chew tobacco use (# tins/day): No Frequency of alcohol use: None Drug Abuse: None - Past Medical History Cardiac Medical History: Reports: Hx Hypertension Denies: Hx Atrial Fibrillation, Hx Coronary Artery Disease, Hx DVT, Hx Pulmonary Embolism Pulmonary Medical History: Reports: Hx COPD Denies: Hx Asthma, Hx Respiratory Failure Neurological Medical History: Denies: Hx Seizures Endocrine Medical History: Denies: Hx Diabetes Mellitus Type 1, Hx Diabetes Mellitus Type 2, Hx Hyperthyroidism, Hx Hypothyroidism Renal/ Medical History: Denies: Hx Peritoneal Dialysis Malignancy Medical History: Reports: Hx Lung Cancer - Stage III GI Medical History: Denies: Hx Cirrhosis, Hx Hepatitis Musculoskeltal Medical History: Denies Hx Arthritis, Denies Hx Gout Skin Medical History: Denies Hx Eczema, Denies Hx Psoriasis Infectious Medical History: Denies: Hx Hepatitis Past Surgical History: Reports: Hx Orthopedic Surgery - right rotator cuff. Denies: Hx Hysterectomy - Immunizations Hx Diphtheria, Pertussis, Tetanus Vaccination: Yes Course - Laboratory Result Diagrams: 08/02/19 12:28 08/02/19 12:28 Laboratory results interpreted by me: 08/02/19 12:28 WBC 10.8 H RBC 3.01 L Hgb 9.3 L Hct 27.8 L RDW 14.9 H Plt Count 491 H Doctor's Discharge - Discharge Referrals: ISABELL STOUT MD [Primary Care Provider] - Follow up as needed
[2019-08-02 12:59] LABS: ABSOLUTE LYMPHOCYTES# (MANUAL) 0.6 10^3/uL (0.5-4.7); ABSOLUTE MONOCYTES # (MANUAL) 0.1 10^3/uL (0.1-1.4); BASOPHILS % (MANUAL) 0 % (0-2); EOSINOPHILS % (MANUAL) 0 % (0-6); LYMPHOCYTES % (MANUAL) 6 % (13-45); MONOCYTES % (MANUAL) 1 % (3-13); SEGMENTED NEUTROPHILS % (MAN) 93 % (42-78); TOTAL CELLS COUNTED 100
[2019-08-02 13:01] LABS: PLATELET COMMENT INCREASED; POLYCHROMASIA SLIGHT
[2019-08-02 13:19] LABS: ALBUMIN 3.1 g/dL (3.5-5.0); ALKALINE PHOSPHATASE 94 U/L (38-126); ANION GAP 9 (5-19); ASPARTATE AMINO TRANSFERASE 22 U/L (14-36); BILIRUBIN,DIRECT 0.2 mg/dL (0.0-0.4); BILIRUBIN,TOTAL 0.2 mg/dL (0.2-1.3); BLOOD UREA NITROGEN 25 mg/dL (7-20); CALCIUM 9.2 mg/dL (8.4-10.2); CARBON DIOXIDE 30 mmol/L (22-30); CHLORIDE 105 mmol/L (98-107); GLUCOSE 128 mg/dL (75-110); POTASSIUM 4.5 mmol/L (3.6-5.0); TOTAL PROTEIN 6.7 g/dL (6.3-8.2)
[2019-08-02 15:09] LABS: APPEARANCE,URINE CLEAR; BILIRUBIN,URINE NEGATIVE (NEGATIVE); COLOR,URINE YELLOW; GLUCOSE, URINE NEGATIVE (NEGATIVE); KETONES,URINE NEGATIVE (NEGATIVE); LEUKOCYTE ESTERASE,URINE SMALL (NEGATIVE); NITRITE,URINE NEGATIVE (NEGATIVE); PROTEIN,URINE NEGATIVE (NEGATIVE); URINE SPECIFIC GRAVITY 1.012; UROBILINOGEN,URINE NEGATIVE mg/dL (<2.0)
--- NOTE | 2019-08-02 16:02 | ER Document Report ---
ED Respiratory Problem - General Chief Complaint: Shortness Of Breath Stated Complaint: DIFFICULTY BREATHING Time Seen by Provider: 08/02/19 12:47 Notes: Patient is a 78-year-old female that presents to the emergency department today with complaints of shortness of breath. Patient has known COPD with a recent diagnosis of stage III lung cancer, being treated by Dr. Turcios. Patient was started on an "experimental drug", Opdivo on 07/30/2019. Patient states she felt fine after getting the drug, stating that the shortness of breath began 07/31/2019. Pt. was seen at this facility the night of 07/31/2019 for respiratory distress. Patient was given breathing treatments, magnesium, steroids. Provider did consult with oncology on-call. States he sent the patient home with steroids. Patient voices after that visit to the emergency department she was feeling better. States she did follow-up with Dr. Turcios. States patient continues with exertional shortness of breath. Patient voices concern as she cannot get up to use the restroom without becoming short of breath. Pt. voices she is taking her albuterol treatments aprox. twice daily. Last admission was February 2019. TRAVEL OUTSIDE OF THE [place] IN LAST 30 DAYS: No - Related Data Allergies/Adverse Reactions: No Known Allergies Allergy (Verified 08/02/19 18:41) Past Medical History - General Information source: Patient, FORMERLY [facility], 1928–1983 Records - Social History Smoking Status: Former Smoker Chew tobacco use (# tins/day): No Frequency of alcohol use: None Drug Abuse: None Family History: Reviewed & Not Pertinent, DM, Malignancy, Thyroid Disfunction Patient has suicidal ideation: No Patient has homicidal ideation: No - Past Medical History Cardiac Medical History: Reports: Hx Hypertension Denies: Hx Atrial Fibrillation, Hx Coronary Artery Disease, Hx DVT, Hx Pulmonary Embolism Pulmonary Medical History: Reports: Hx COPD Denies: Hx Asthma, Hx Respiratory Failure Neurological Medical History: Denies: Hx Seizures Endocrine Medical History: Denies: Hx Diabetes Mellitus Type 1, Hx Diabetes Mellitus Type 2, Hx Hyperthyroidism, Hx Hypothyroidism Renal/ Medical History: Denies: Hx Peritoneal Dialysis Malignancy Medical History: Reports: Hx Lung Cancer - Stage III GI Medical History: Denies: Hx Cirrhosis, Hx Hepatitis Musculoskeletal Medical History: Denies Hx Arthritis, Denies Hx Gout Skin Medical History: Denies Hx Eczema, Denies Hx Psoriasis Infectious Medical History: Denies: Hx Hepatitis Past Surgical History: Reports: Hx Orthopedic Surgery - right rotator cuff. Denies: Hx Hysterectomy - Immunizations Hx Diphtheria, Pertussis, Tetanus Vaccination: Yes Hx Pneumococcal Vaccination: 01/07/19 Review of Systems - Review of Systems Constitutional: denies: Fever EENT: No symptoms reported Cardiovascular: Dyspnea. denies: Chest pain Respiratory: Cough Gastrointestinal: No symptoms reported Genitourinary: No symptoms reported Female Genitourinary: No symptoms reported Musculoskeletal: No symptoms reported Skin: No symptoms reported Hematologic/Lymphatic: See HPI Neurological/Psychological: No symptoms reported Physical Exam - Vital signs Vitals: Pulse Ox 100 08/02/19 11:52 - Notes Notes: GENERAL: Alert, interacts well. No acute distress. Oxygen via nasal cannula in place, 2 L/min. HEAD: Normocephalic, atraumatic. EYES: Pupils equal, round, and reactive to light. Extraocular movements intact. ENT: Oral mucosa moist, tongue midline. Nares patent, no nasal septal hematoma, TM's intact. NECK: Full range of motion. Supple. Trachea midline. LUNGS: Clear to auscultation bilaterally, no wheezes, rales, or rhonchi. HEART: Regular rate and rhythm. No murmur ABDOMEN: Soft, non-tender. Non-distended. Bowel sounds present in all 4 quadrants. EXTREMITIES: Moves all 4 extremities spontaneously. No edema, normal radial and dorsalis pedis pulses bilaterally. No cyanosis. BACK: no cervical, thoracic, lumbar midline tenderness. No saddle anesthesia, normal distal neurovascular exam. NEUROLOGICAL: Alert and oriented x3. Normal speech. cranial nerves II through XII grossly intact. PSYCH: Normal affect, normal mood. SKIN: Warm, dry, normal turgor. No rashes or lesions noted. Course - Re-evaluation Re-evalutation: 08/02/19 16:02 While no one is in the room with the pt. her RR is 14 with SPO2 of 100% (via monitor tech) When I go into the pt. room she becomes tachypneic at a rate of 26. After assessment I have again walked out of the room. Based on patient's cardiac monitoring respiratory rate slowly returns to 12/min. Based on the fact that patient is a return patient here for respiratory distress will order CTA to rule out pulmonary embolus. Patient did receive a breathing treatment by RME provider. Patient's lung sounds are without wheezing upon my assessment. We have attempted to walk the pt in the ED she becomes tachypneic with obvious respiratory distress, tracheal tugging and nasal flaring noted. Patient's pulse oxygenation around 92%. CURB 65 +4. 08/02/19 18:12 Discussed this case with Dr. Dustin Jiménez, car rider who is following the pt. He would like Vanc, Cefepime and Levaquin started. he would like a PPD test and a sputum cx. Then discussed this case with hospitalist Dr. Garcia who will come to the ED to evaluate the pt. - Vital Signs Vital signs: Temp Pulse Resp BP Pulse Ox 97.8 F 78 26 H 159/88 H 94 08/02/19 22:01 08/02/19 21:35 08/02/19 22:01 08/02/19 22:01 08/02/19 22:01 - Laboratory Result Diagrams: 08/02/19 12:28 08/02/19 12:28 Laboratory results interpreted by me: 08/02/19 08/02/19 08/02/19 12:28 12:28 14:48 WBC 10.8 H RBC 3.01 L Hgb 9.3 L Hct 27.8 L RDW 14.9 H Plt Count 491 H Seg Neuts % (Manual) 93 H Lymphocytes % (Manual) 6 L Monocytes % (Manual) 1 L Abs Neuts (Manual) 10.0 H ABG pH ABG pO2 ABG HCO3 ABG Total CO2 BUN 25 H Creatinine 0.45 L Glucose 128 H Albumin 3.1 L Ur Leukocyte Esterase SMALL H 08/02/19 15:56 WBC RBC Hgb Hct RDW Plt Count Seg Neuts % (Manual) Lymphocytes % (Manual) Monocytes % (Manual) Abs Neuts (Manual) ABG pH 7.46 H ABG pO2 76.6 L ABG HCO3 27.9 H ABG Total CO2 29.1 H BUN Creatinine Glucose Albumin Ur Leukocyte Esterase Discharge - Discharge Clinical Impression: Pneumonia Qualifiers: Pneumonia type: due to unspecified organism Laterality: left Lung location: upper lobe of lung Qualified Code(s): J18.1 - Lobar pneumonia, unspecified organism Condition: Good Disposition: ADMITTED INPATIENT Admitting Provider: Radha (Hospitalist) Unit Admitted: Telemetry
[2019-08-02 16:13] LABS: ARTERIAL BLOOD BASE EXCESS 3.8 mmol/L; ARTERIAL BLOOD H2CO3 1.19 mmol/L (1.05-1.35); ARTERIAL BLOOD HCO3 27.9 mmol/L (20-24); ARTERIAL BLOOD PCO2 39.7 mmHg (35-45); ARTERIAL BLOOD PH 7.46 (7.35-7.45); ARTERIAL BLOOD PO2 76.6 mmHg (80-100); ARTERIAL BLOOD TOTAL CO2 29.1 mmol/L (21-25)
[2019-08-02 16:16] LABS: ARTERIAL BLOOD FIO2 98%
--- NOTE | 2019-08-02 16:59 | RADIOLOGY REPORT (SQ) ---
EXAM DESCRIPTION: CTA CHEST COMPLETED DATE/TIME: 08/02/2019 4:34 pm REASON FOR STUDY: SOB COMPARISON: 05/16/2019 TECHNIQUE: CT scan of the chest performed using helical scanning technique with dynamic intravenous contrast injection. Images reviewed with lung, soft tissue and bone windows. Reconstructed coronal and sagittal MPR images reviewed. Additional 3 dimensional post-processing performed to develop Maximal Intensity Projection images (OK P). All images stored on PACS. All CT scanners at this facility use dose modulation, iterative reconstruction, and/or weight based d osing when appropriate to reduce radiation dose to as low as reasonably achievable (ALARA). [facility]: Dose Right [facility]: CareDose [facility]: Dose Right [facility]: Teradose 4D [facility]: Smart Works.io CONTRAST TYPE AND DOSE: 44 mL Omnipaque 350 IV Contrast bolus not optimized for the pulmonary arteries. RENAL FUNCTION: GFR > 60. RADIATION DOSE: 542 mGy cm LIMITATIONS: None. FINDINGS: LUNGS AND PLEURA: Redemonstrated cavitary mass of the lateral left upper lobe with an maximilian cent soft tissue mass, which is enlarged compared to prior examination dated 05/16/2019 with increased bony destruction involving the left 3rd and 4th ribs. There is new postobstructive consolidation of the medial left upper lobe secondary to obstructing hilar soft tissue. There are clustered centrilob ular and tree-in-bud nodular opacities about the lungs, increased compared to prior examination in th e left lung base and peripheral right upper lobe, relatively unchanged in the right lung base Emphyse ma and bronchial wall thickening. No pleural effusions or pleural calcifications. AORTA AND GREAT VESSELS: No aneurysm. Contrast bolus not optimized for the aorta. HEART: No pericardial effusion. Three-vessel coronary artery calcifications. PULMONARY ARTERIES: No emboli visualized in the main pulmonary arteries or the segmental branches. HILAR AND MEDIASTINAL STRUCTURES: Soft tissue of the left hilum is increased compared to prior examin ation HARDWARE: None in the chest. UPPER ABDOMEN: No significant findings. Limited exam. THYROID AND OTHER SOFT TISSUES: No masses. No adenopathy. BONES: Bony destruction of the anterior left 3rd and 4th ribs adjacent to a cavitary mass and soft ti ssue. 3D MIPS: Confirm above findings. OTHER: No other significant finding. IMPRESSION: 1. Negative examination for pulmonary embolism. 2. Redemonstrated cavitary mass of the lateral left upper lobe with an adjacent soft tissue mass, whi ch is enlarged compared to prior examination dated 05/16/2019 with increased bony destruction involving the left 3rd and 4th ribs. 3. There is new postobstructive consolidation of the medial left upper lobe secondary to obstructing hilar soft tissue. 4. There are clustered centrilobular and tree-in-bud nodular opacities about the lungs, increased com pared to prior examination in the left lung base and peripheral right upper lobe, relatively unchange d in the right lung base. 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 5. Emphysema and bronchial wall thickening. 6. Coronary artery disease. COMMENT: Quality ID # [id number]: Final reports with documentation of one or more dose reduction techniques (e.g., Automated exposure control, adjustment of the mA and/or kV according to patient size, use of iterative reconstruction technique) TECHNICAL DOCUMENTATION: JOB ID: [id number] [employer]- All Rights Reserved Reading location - IP/workstation name: [email or web address]
[2019-08-02] MEDS ORDERED: CEFEPIME 2 GM/D5W RTU 2 GM/50 ML RTUPB IV ONE (18:04)
[2019-08-02] MEDS ORDERED: LEVOFLOXACIN 750 MG/D5W RTU 750 MG/150 ML RTUPB IV ONE (18:04)
[2019-08-02] MEDS ORDERED: TUBERCULIN,PURIF.PROT.DERIV. 5 TU/0.1 ML TEST 1 ML VIAL ID ONE (18:16)
[2019-08-02] MEDS ORDERED: VANCOMYCIN HCL 0 MG in DEXTROSE 5%-WATER 250 ML IV NR (18:45)
--- NOTE | 2019-08-02 18:53 | PDOC H&P ---
History of Present Illness Admission Date/PCP: ISABELL SOTUT MD History of Present Illness: MARBELLA HUI is a 78 year old female with a history of COPD and lung cancer who has done chemotherapy and says she started immunotherapy and is on about 2 L of oxygen at home, who has been having progressive shortness of breath for the last couple of weeks, and it is gotten even worse the last week. She said that she came to the ER couple of days ago and they gave her some steroids and she went home. She says she cannot really walk very far without getting extremely short of breath. She is got a cough but is been dry. She has not been running a fever. She went to Dr. Turcios's office where she got some IV fluids and the decision was made to send her to the emergency department. She had a CT of the chest that was negative for PE and showed the known mass and some minimal pos sible infiltrate. She is being admitted for IV antibiotics, steroids, and further treatment. Past Medical History Cardiac Medical History: Reports: Hypertension Denies: Atrial Fibrillation, Coronary Artery Disease, DVT, Pulmonary Embolism Pulmonary Medical History: Reports: Chronic Obstructive Pulmonary Disease (COPD) Denies: Asthma, Respiratory Failure Neurological Medical History: Denies: Seizures Endocrine Medical History: Denies: Diabetes Mellitus Type 1, Diabetes Mellitus Type 2, Hyperthyroidism, Hypothyroidism Malignancy Medical History: Reports: Lung Cancer - Stage III GI Medical History: Denies: Cirrhosis, Hepatitis Musculoskeltal Medical History: Denies: Arthritis, Gout Skin Medical History: Denies: Eczema, Psoriasis Hematology: Denies: Anemia, Bleeding Tendencies Past Surgical History Past Surgical History: Reports: Orthopedic Surgery - right rotator cuff Denies: Hysterectomy Social History Smoking Status: Former Smoker Electronic Cigarette use?: No Frequency of Alcohol Use: None Hx Recreational Drug Use: No Drugs: None Hx Prescription Drug Abuse: No Family History Family History: Reviewed & Not Pertinent, DM, Malignancy, Thyroid Disfunction Parental Family History Reviewed: Yes Children Family History Reviewed: Yes Sibling(s) Family History Reviewed.: Yes Medication/Allergy Home Medications: Tiotropium [place] [Spiriva Handihaler 5 Cap/Kit (18 Mcg/Cap)] 1 cap IH DAILY 02/24/19 Citalopram Hydrobromide [Citalopram HBr] 10 mg PO DAILY 07/31/19 Dronabinol [Marinol 2.5 mg Capsule] 2.5 mg PO BID 07/31/19 Fluticasone/Vilanterol [Breo Ellipta 200-25 Mcg INH] 1 puff IH DAILY 07/31/19 Naproxen [Naprosyn 250 mg Tablet] 250 mg PO Q8HP PRN 07/31/19 Nivolumab [Opdivo] 0 mg IV ASDIR PRN 07/31/19 Tramadol HCl [Ultram] 50 mg PO BID 07/31/19 Fluticasone Propionate [Flonase Nasal Marathon 50 Mcg/Marathon 16 gm] 2 spray NASL DAILY 08/02/19 Ondansetron HCl [Zofran 8 mg Tablet] 8 mg PO Q8HP PRN 08/02/19 Promethazine HCl [Phenergan 25 mg Tablet] 25 mg PO Q6HP PRN 08/02/19 Allergies/Adverse Reactions: No Known Allergies Allergy (Verified 08/02/19 18:41) Review of Systems All systems: reviewed and no additional remarkable complaints except as stated - All systems were reviewed and were negative except as noted in the HPI Physical Exam Vital Signs: Temp Pulse Resp BP Pulse Ox 98.1 F 16 183/70 H 95 08/02/19 14:19 08/02/19 18:01 08/02/19 18:01 08/02/19 18:01 Intake & Output 08/01/19 08/02/19 08/03/19 06:59 06:59 06:59 Weight 45.178 kg General appearance: PRESENT: cooperative, disheveled, mild distress, thin Head exam: PRESENT: atraumatic, normocephalic Eye exam: PRESENT: EOMI, PERRLA. ABSENT: conjunctival injection, nystagmus, scleral icterus Ear exam: PRESENT: normal external ear exam Mouth exam: PRESENT: moist, neck supple Teeth exam: PRESENT: poor dentation Throat exam: ABSENT: post pharyngeal erythema Neck exam: PRESENT: full ROM. ABSENT: carotid bruit, JVD, lymphadenopathy, meningismus, tenderness, thyromegaly Respiratory exam: PRESENT: accessory muscle use, decreased breath sounds, prolonged expiratory phas, symmetrical. ABSENT: chest wall tenderness, crackles, rhonchi, tachypnea, unlabored, wheezes Cardiovascular exam: PRESENT: RRR, +S1, +S2 Pulses: PRESENT: normal carotid pulses Vascular exam: PRESENT: normal capillary refill GI/Abdominal exam: PRESENT: normal bowel sounds, soft. ABSENT: distended, guarding, rebound, tenderness Extremities exam: ABSENT: clubbing, pedal edema Musculoskeletal exam: PRESENT: normal inspection. ABSENT: deformity Neurological exam: PRESENT: alert, awake, oriented to person, oriented to place, oriented to time, oriented to situation, CN II-XII grossly intact. ABSENT: motor sensory deficit Psychiatric exam: PRESENT: appropriate affect, normal mood Skin exam: PRESENT: dry, warm Results Laboratory Results: 08/02/19 12:28 08/02/19 12:28 08/02/19 08/02/19 08/02/19 12:28 12:28 14:48 WBC 10.8 H RBC 3.01 L Hgb 9.3 L Hct 27.8 L MCV 92 MCH 30.9 MCHC 33.5 RDW 14.9 H Plt Count 491 H Seg Neutrophils % Not Reportable Carbonic Acid HCO3/H2CO3 Ratio ABG pH ABG pCO2 ABG pO2 ABG HCO3 ABG O2 Saturation ABG Base Excess FiO2 Sodium 144.3 Potassium 4.5 Chloride 105 Carbon Dioxide 30 Anion Gap 9 BUN 25 H Creatinine 0.45 L Est GFR ( Amer) > 60 Glucose 128 H Calcium 9.2 Total Bilirubin 0.2 AST 22 Alkaline Phosphatase 94 Total Protein 6.7 Albumin 3.1 L Urine Color YELLOW Urine Appearance CLEAR Urine pH 7.0 Ur Specific Topmost 1.012 Urine Protein NEGATIVE Urine Glucose (UA) NEGATIVE Urine Ketones NEGATIVE Urine Blood NEGATIVE Urine Nitrite NEGATIVE Ur Leukocyte Esterase SMALL H Urine WBC (Auto) 15 Urine RBC (Auto) 2 08/02/19 15:56 WBC RBC Hgb Hct MCV MCH MCHC RDW Plt Count Seg Neutrophils % Carbonic Acid 1.19 HCO3/H2CO3 Ratio 23:1 ABG pH 7.46 H ABG pCO2 39.7 ABG pO2 76.6 L ABG HCO3 27.9 H ABG O2 Saturation 96.0 ABG Base Excess 3.8 FiO2 98% Sodium Potassium Chloride Carbon Dioxide Anion Gap BUN Creatinine Est GFR ( Amer) Glucose Calcium Total Bilirubin AST Alkaline Phosphatase Total Protein Albumin Urine Color Urine Appearance Urine pH Ur Specific Topmost Urine Protein Urine Glucose (UA) Urine Ketones Urine Blood Urine Nitrite Ur Leukocyte Esterase Urine WBC (Auto) Urine RBC (Auto) Impressions: Chest X-Ray 08/02/19 11:52 IMPRESSION: Unchanged cavitary lesion in the left upper lobe. Chest/Abdomen CTA 08/02/19 15:27 IMPRESSION: 1. Negative examination for pulmonary embolism. 2. Redemonstrated cavitary mass of the lateral left upper lobe with an adjacent soft tissue mass, which is enlarged compared to prior examination dated 05/16/2019 with increased bony destruction involving the left 3rd and 4th ribs. 3. There is new postobstructive consolidation of the medial left upper lobe secondary to obstructing hilar soft tissue. 4. There are clustered centrilobular and tree-in-bud nodular opacities about the lungs, increased compared to prior examination in the left lung base and peripheral right upper lobe, relatively unchanged in the right lung base. 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 5. Emphysema and bronchial wall thickening. 6. Coronary artery disease. Assessment and Plan - Diagnosis (1) Pneumonia Qualifiers: Pneumonia type: due to unspecified organism Laterality: left Lung location: upper lobe of lung Qualified Code(s): J18.1 - Lobar pneumonia, unspecified organism Is this a current diagnosis for this admission?: Yes Plan: We called Dr. Jiménez from the ER and he recommended putting her on vancomycin, cefepime, and Levaquin. Cultures have been obtained. (2) Acute and chronic respiratory failure with hypoxia Is this a current diagnosis for this admission?: Yes Plan: She stable while she is at rest but as soon as she moves her saturations drop even on oxygen. She said this is been progressing for the last couple of weeks. We will continue oxygen support and try to keep her SPO2 greater than 90%. (3) Acute exacerbation of chronic obstructive pulmonary disease (COPD) Is this a current diagnosis for this admission?: Yes Plan: In addition to the above, we will start her on some Solu-Medrol with PRN breathing treatments (4) Cancer of upper lobe of left lung Is this a current diagnosis for this admission?: Yes Plan: She follows up outpatient with oncology - Time Time Spent with patient: 35 or more minutes - Inpatient Certification Based on my medical assessment, after consideration of the patient's comorbidities, presenting symptoms, or acuity I expect that the services needed warrant INPATIENT care.: Yes I certify that my determination is in accordance with my understanding of Medicare's requirements for reasonable and necessary INPATIENT services [42 CFR 412.3e].: Yes Medical Necessity: Failure to Improve With Outpatient Therapy, Significant Comorbidiites Make Outpatient Treatment Too Risky, Need Close Monitoring Due to Risk of Patient Decompensation, Need for Nebulizer Therapy and Monitoring of Response, Need for IV Antibiotics
[2019-08-02] MEDS ORDERED: VANCOMYCIN HCL 750 MG in DEXTROSE 5%-WATER 250 ML IV SCH (20:00)
[2019-08-02] MEDS ORDERED: VANCOMYCIN HCL 750 MG in DEXTROSE 5%-WATER 250 ML IV ONE (20:00)
[2019-08-02] MEDS ORDERED: DRONABINOL 2.5 MG CAPSULE PO ONE (23:30)
[2019-08-02] MEDS ORDERED: TRAMADOL HCL 50 MG TABLET PO ONE (23:30)
[2019-08-02] MEDS: KETOROLAC TROMETHAMINE INJ/PF 30 MG/1 ML SDV IV PRN (23:49)
[2019-08-02] MEDS: METHYLPREDNISOLONE INJ 40 MG/1 ML SDV IV SCH (23:50)
[2019-08-02] MEDS: HEPARIN SOD (PORCINE) 5,000 UNIT/ML 1 ML VIAL SUBCUT SCH (23:51)
[2019-08-03] MEDS ORDERED: CEFEPIME 2 GM/D5W RTU 2 GM/50 ML RTUPB IV ONE (04:47)
[2019-08-03] MEDS ORDERED: DRONABINOL 2.5 MG CAPSULE ONE (04:47)
[2019-08-03] MEDS: CEFEPIME 2 GM/D5W RTU 2 GM/50 ML RTUPB IV SCH ×2 (05:10→09:19)
[2019-08-03 06:29] LABS: HEMATOCRIT 28.4 % (36.0-47.0); HEMOGLOBIN 9.2 g/dL (12.0-15.5); MEAN CORPUSCULAR HEMOGLOBIN 29.9 pg (27.0-33.4); MEAN CORPUSCULAR HGB CONC 32.5 g/dL (32.0-36.0); MEAN CORPUSCULAR VOLUME 92 fl (80-97); PLATELET COUNT 438 10^3/uL (150-450); RED CELL DISTRIBUTION WIDTH 14.9 % (11.5-14.0); WHITE BLOOD COUNT 12.5 10^3/uL (4.0-10.5)
[2019-08-03 06:46] LABS: ANION GAP 10 (5-19); BLOOD UREA NITROGEN 19 mg/dL (7-20); CALCIUM 9.4 mg/dL (8.4-10.2); CARBON DIOXIDE 30 mmol/L (22-30); CHLORIDE 101 mmol/L (98-107); GLUCOSE 102 mg/dL (75-110); POTASSIUM 3.9 mmol/L (3.6-5.0)
[2019-08-03] MEDS: METHYLPREDNISOLONE INJ 40 MG/1 ML SDV IV SCH ×3 (08:51→22:52)
[2019-08-03] MEDS: KETOROLAC TROMETHAMINE INJ/PF 30 MG/1 ML SDV IV PRN ×2 (08:51→16:12)
[2019-08-03] MEDS: HEPARIN SOD (PORCINE) 5,000 UNIT/ML 1 ML VIAL SUBCUT SCH ×3 (08:57→22:51)
[2019-08-03] MEDS: TRAMADOL HCL 50 MG TABLET PO SCH ×2 (09:19→17:25)
[2019-08-03] MEDS ORDERED: (PENDING PHARMACY ID) (Citalopram Hydrobromide [Citalopram Hbr] 10 MG) PO SCH (10:00)
[2019-08-03] MEDS ORDERED: DRONABINOL 2.5 MG CAPSULE PO SCH (10:00)
[2019-08-03] MEDS ORDERED: VANCOMYCIN HCL 500 MG in DEXTROSE 5%-WATER 100 ML IV SCH (10:00)
[2019-08-03] MEDS ORDERED: LEVOFLOXACIN 750 MG/D5W RTU 750 MG/150 ML RTUPB IV SCH (10:00)
[2019-08-03] MEDS ORDERED: HYDROCODONE/ACETAMINOPHEN 5-325 MG TABLET ONE ×2 (10:15→14:28)
[2019-08-03] MEDS: CITALOPRAM HYDROBROMIDE 20 MG TABLET PO SCH (10:18)
[2019-08-03] MEDS ORDERED: HYDROCODONE/ACETAMINOPHEN 5-325 MG TABLET PO ONE (11:00)
--- NOTE | 2019-08-03 12:38 | PDOC CONSULTATION ---
Consultation Consult Date: 08/03/19 Provider Consulted: ALANNAH ARGUETA Consult reason:: Hematology/Oncology consultation was requested for patient known to Dr. Turcios with lung cancer, on active treatment. History of Present Illness Admission Date/PCP: 08/02/19 19:04 ISABELL STOUT MD History of Present Illness: MARBELLA HUI is a 78 year old female who is currently being teated for stage IV lung cancer. She completed her chemotherapy and states that she just started her maintenance immunotherapy last Monday. Yesterday, she had increased dyspnea and was admitted for "further test." She also has a history of COPD and was found to have pneumonia on admission. She states that her pain medications were no longer working and she is feeling achey all over. She has not been able to sleep. She is also not eating well, despite the marinol pills. Past Medical History Cardiac Medical History: Reports: Hypertension Denies: Atrial Fibrillation, Coronary Artery Disease, DVT, Pulmonary Embolism Pulmonary Medical History: Reports: Chronic Obstructive Pulmonary Disease (COPD) Denies: Asthma, Respiratory Failure Neurological Medical History: Denies: Seizures Endocrine Medical History: Denies: Diabetes Mellitus Type 1, Diabetes Mellitus Type 2, Hyperthyroidism, Hypothyroidism Malignancy Medical History: Reports: Lung Cancer - Stage III GI Medical History: Denies: Cirrhosis, Hepatitis Musculoskeltal Medical History: Denies: Arthritis, Gout Skin Medical History: Denies: Eczema, Psoriasis Psychiatric Medical History: Denies: Depression Hematology: Denies: Anemia, Bleeding Tendencies Past Surgical History Past Surgical History: Reports: Orthopedic Surgery - right rotator cuff Denies: Hysterectomy Social History Smoking Status: Former Smoker Electronic Cigarette use?: No Frequency of Alcohol Use: None Hx Recreational Drug Use: No Drugs: None Hx Prescription Drug Abuse: No Past Social History Note: Lives with granddaughter. Daughter from [place] is currently at bedside. - Advance Directive Resuscitation Status: Full Code Family History Family History: Reviewed & Not Pertinent, DM, Malignancy, Thyroid Disfunction Parental Family History Reviewed: Yes Children Family History Reviewed: Yes Sibling(s) Family History Reviewed.: No Medication/Allergy Home Medications: Citalopram Hydrobromide [Citalopram HBr] 10 mg PO DAILY 07/31/19 Dronabinol [Marinol 2.5 mg Capsule] 2.5 mg PO BID 07/31/19 Naproxen [Naprosyn 250 mg Tablet] 250 mg PO Q8HP PRN 07/31/19 Nivolumab [Opdivo] 0 mg IV ASDIR PRN 07/31/19 Tramadol HCl [Ultram] 50 mg PO BID 07/31/19 Docusate Sodium [Colace 100 mg Capsule] 100 mg PO QPM 08/02/19 Fluticasone Propionate [Flonase Nasal Rowena 50 Mcg/Rowena 16 gm] 2 spray NASL DAILY 08/02/19 Ondansetron HCl [Zofran 8 mg Tablet] 8 mg PO Q8HP PRN 08/02/19 Promethazine HCl [Phenergan 25 mg Tablet] 25 mg PO Q6HP PRN 08/02/19 Allergies/Adverse Reactions: No Known Allergies Allergy (Verified 08/02/19 18:41) Review of Systems Constitutional: ABSENT: fever(s), headache(s) Eyes: ABSENT: visual disturbances Ears: ABSENT: hearing changes Nose, Mouth, and Throat: ABSENT: sore throat Cardiovascular: ABSENT: chest pain Respiratory: PRESENT: cough, dyspnea Gastrointestinal: ABSENT: nausea Genitourinary: ABSENT: dysuria Musculoskeletal: PRESENT: back pain Integumentary: ABSENT: rash Neurological: PRESENT: weakness Hematologic/Lymphatic: ABSENT: easy bleeding Physical Exam Vital Signs: Temp Pulse Resp BP Pulse Ox 98.3 F 83 18 162/75 H 98 08/03/19 07:41 08/03/19 07:41 08/03/19 07:41 08/03/19 07:41 08/03/19 07:41 Intake & Output 08/02/19 08/03/19 08/04/19 06:59 06:59 06:59 Intake Total 200 300 Balance 200 300 Weight 45.178 kg General appearance: PRESENT: no acute distress, thin Exam: 78 year old female. Head exam: PRESENT: atraumatic, normocephalic Eye exam: PRESENT: EOMI Mouth exam: PRESENT: moist, tongue midline Neck exam: ABSENT: lymphadenopathy, tenderness Respiratory exam: PRESENT: unlabored, wheezes Cardiovascular exam: PRESENT: RRR GI/Abdominal exam: PRESENT: soft. ABSENT: tenderness Extremities exam: ABSENT: pedal edema Musculoskeletal exam: PRESENT: normal inspection Neurological exam: PRESENT: alert, awake Psychiatric exam: PRESENT: appropriate affect Skin exam: PRESENT: pallor Results Laboratory Results: 08/03/19 05:26 08/03/19 05:26 08/02/19 08/02/19 08/02/19 12:28 12:28 14:48 WBC 10.8 H RBC 3.01 L Hgb 9.3 L Hct 27.8 L MCV 92 MCH 30.9 MCHC 33.5 RDW 14.9 H Plt Count 491 H Seg Neutrophils % Not Reportable Carbonic Acid HCO3/H2CO3 Ratio ABG pH ABG pCO2 ABG pO2 ABG HCO3 ABG O2 Saturation ABG Base Excess FiO2 Sodium 144.3 Potassium 4.5 Chloride 105 Carbon Dioxide 30 Anion Gap 9 BUN 25 H Creatinine 0.45 L Est GFR ( Amer) > 60 Glucose 128 H Calcium 9.2 Total Bilirubin 0.2 AST 22 Alkaline Phosphatase 94 Total Protein 6.7 Albumin 3.1 L Urine Color YELLOW Urine Appearance CLEAR Urine pH 7.0 Ur Specific Wayne 1.012 Urine Protein NEGATIVE Urine Glucose (UA) NEGATIVE Urine Ketones NEGATIVE Urine Blood NEGATIVE Urine Nitrite NEGATIVE Ur Leukocyte Esterase SMALL H Urine WBC (Auto) 15 Urine RBC (Auto) 2 08/02/19 08/03/19 08/03/19 15:56 05:26 05:26 WBC 12.5 H RBC 3.10 L Hgb 9.2 L Hct 28.4 L MCV 92 MCH 29.9 MCHC 32.5 RDW 14.9 H Plt Count 438 Seg Neutrophils % Carbonic Acid 1.19 HCO3/H2CO3 Ratio 23:1 ABG pH 7.46 H ABG pCO2 39.7 ABG pO2 76.6 L ABG HCO3 27.9 H ABG O2 Saturation 96.0 ABG Base Excess 3.8 FiO2 98% Sodium 140.5 Potassium 3.9 Chloride 101 Carbon Dioxide 30 Anion Gap 10 BUN 19 Creatinine 0.46 L Est GFR ( Amer) > 60 Glucose 102 Calcium 9.4 Total Bilirubin AST Alkaline Phosphatase Total Protein Albumin Urine Color Urine Appearance Urine pH Ur Specific Wayne Urine Protein Urine Glucose (UA) Urine Ketones Urine Blood Urine Nitrite Ur Leukocyte Esterase Urine WBC (Auto) Urine RBC (Auto) Impressions: Chest X-Ray 08/02/19 11:52 IMPRESSION: Unchanged cavitary lesion in the left upper lobe. Chest/Abdomen CTA 08/02/19 15:27 IMPRESSION: 1. Negative examination for pulmonary embolism. 2. Redemonstrated cavitary mass of the lateral left upper lobe with an adjacent soft tissue mass, which is enlarged compared to prior examination dated 05/16/2019 with increased bony destruction involving the left 3rd and 4th ribs. 3. There is new postobstructive consolidation of the medial left upper lobe secondary to obstructing hilar soft tissue. 4. There are clustered centrilobular and tree-in-bud nodular opacities about the lungs, increased compared to prior examination in the left lung base and peripheral right upper lobe, relatively unchanged in the right lung base. 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 5. Emphysema and bronchial wall thickening. 6. Coronary artery disease. Status: Image reviewed by me Assessment & Plan - Diagnosis (1) Pneumonia Qualifiers: Pneumonia type: due to unspecified organism Laterality: left Lung location: upper lobe of lung Qualified Code(s): J18.1 - Lobar pneumonia, unspecified organism Is this a current diagnosis for this admission?: Yes Plan: Await culture. She is NOT immunocompromised. This may be a reactive pneumoniti s from her immunotherapy. She is currently on levaquin, vanc, and cefapime. I would only continue levaquin at this point. She has not been febrile. (2) Acute exacerbation of chronic obstructive pulmonary disease (COPD) Is this a current diagnosis for this admission?: Yes Plan: she is on steroids and neb treatments. These should continue. (3) Cancer of upper lobe of left lung Is this a current diagnosis for this admission?: Yes Plan: She received Opdivo last week. No further planned for 3 weeks. Will re- evaluate as outpatient. Dr. Turcios to return Monday. Please call me if needed until then.
--- NOTE | 2019-08-03 13:12 | EKG REPORT ---
SEVERITY:- DEFECTIVE ECG - LEFT AXIS DEVIATION BORDERLINE T ABNORMALITIES, INFERIOR LEADS PROBABLY SINUS RHYTHM.SEVERE BASELINE ARTIFACT.REPEAT EKG. : Confirmed by: Karin Murillo MD 03-Aug-2019 13:11:44
[2019-08-03] MEDS ORDERED: HYDROCODONE/ACETAMINOPHEN 5-325 MG TABLET PO PRN (14:46)
--- NOTE | 2019-08-03 16:07 | PDOC PROGRESS REPORT ---
Subjective Progress Note for:: 08/03/19 Subjective:: No adverse events overnight. No new complaints. She still very short of breath even while at rest. She has not had any fevers. Cough is nonproductive. Reason For Visit: ACUTE ON CHRONIC HYPOXEMIC RESPIRATORY FAILURE,COM Physical Exam Vital Signs: Temp Pulse Resp BP Pulse Ox 97.6 F 76 19 137/75 H 97 08/03/19 14:00 08/03/19 14:00 08/03/19 14:00 08/03/19 14:00 08/03/19 14:00 Intake & Output 08/02/19 08/03/19 08/04/19 06:59 06:59 06:59 Intake Total 200 450 Balance 200 450 Weight 45.178 kg 45.178 kg General appearance: PRESENT: cooperative, disheveled, mild distress, thin Respiratory exam: PRESENT: accessory muscle use, decreased breath sounds, prolonged expiratory phase, symmetrical. ABSENT: chest wall tenderness, crackles, rhonchi, tachypnea, unlabored, wheezes Cardiovascular exam: PRESENT: RRR, +S1, +S2 Pulses: PRESENT: normal carotid pulses Vascular exam: PRESENT: normal capillary refill GI/Abdominal exam: PRESENT: normal bowel sounds, soft. ABSENT: distended, g uarding, rebound, tenderness Extremities exam: ABSENT: clubbing, pedal edema Musculoskeletal exam: PRESENT: normal inspection. ABSENT: deformity Neurological exam: PRESENT: alert, awake, oriented to person, oriented to place, oriented to time, oriented to situation Psychiatric exam: PRESENT: appropriate affect, normal mood Skin exam: PRESENT: dry, warm Results Laboratory Results: 08/03/19 05:26 08/03/19 05:26 08/02/19 08/03/19 08/03/19 15:56 05:26 05:26 WBC 12.5 H RBC 3.10 L Hgb 9.2 L Hct 28.4 L MCV 92 MCH 29.9 MCHC 32.5 RDW 14.9 H Plt Count 438 Carbonic Acid 1.19 HCO3/H2CO3 Ratio 23:1 ABG pH 7.46 H ABG pCO2 39.7 ABG pO2 76.6 L ABG HCO3 27.9 H ABG O2 Saturation 96.0 ABG Base Excess 3.8 FiO2 98% Sodium 140.5 Potassium 3.9 Chloride 101 Carbon Dioxide 30 Anion Gap 10 BUN 19 Creatinine 0.46 L Est GFR ( Amer) > 60 Glucose 102 Calcium 9.4 Impressions: Chest X-Ray 08/02/19 11:52 IMPRESSION: Unchanged cavitary lesion in the left upper lobe. Chest/Abdomen CTA 08/02/19 15:27 IMPRESSION: 1. Negative examination for pulmonary embolism. 2. Redemonstrated cavitary mass of the lateral left upper lobe with an adjacent soft tissue mass, which is enlarged compared to prior examination dated 05/16/2019 with increased bony destruction involving the left 3rd and 4th ribs. 3. There is new postobstructive consolidation of the medial left upper lobe secondary to obstructing hilar soft tissue. 4. There are clustered centrilobular and tree-in-bud nodular opacities about the lungs, increased compared to prior examination in the left lung base and peripheral right upper lobe, relatively unchanged in the right lung base. 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 5. Emphysema and bronchial wall thickening. 6. Coronary artery disease. Assessment and Plan - Diagnosis (1) Pneumonia Qualifiers: Pneumonia type: due to unspecified organism Laterality: left Lung location: upper lobe of lung Qualified Code(s): J18.1 - Lobar pneumonia, unspecified organism Is this a current diagnosis for this admission?: Yes Plan: We are going to de-escalate her antibiotics down to just Levaquin because her CT of her chest was not really impressive for an infiltrate and she does not have a fever. We will leave her on Levaquin for the time being and will await any culture results that may box turner. We will continue steroids. (2) Acute and chronic respiratory failure with hypoxia Is this a current diagnosis for this admission?: Yes Plan: She stable while she is at rest but as soon as she moves her saturations drop even on oxygen. She said this is been progressing for the last couple of weeks. We will continue oxygen support and try to keep her SPO2 greater than 90%. (3) Acute exacerbation of chronic obstructive pulmonary disease (COPD) Is this a current diagnosis for this admission?: Yes Plan: Continue steroids and bronchodilators. (4) Cancer of upper lobe of left lung Is this a current diagnosis for this admission?: Yes Plan: She follows up outpatient with oncology, they are following her as an inpatient as well - Time Time Spent with patient: 15-24 minutes
[2019-08-03] MEDS: DOCUSATE SODIUM 100 MG CAPSULE PO SCH (17:25)
[2019-08-03] MEDS: DRONABINOL 2.5 MG CAPSULE PO SCH (17:25)
[2019-08-03] MEDS: HYDROCODONE/ACETAMINOPHEN 5-325 MG TABLET PO PRN (22:52)
[2019-08-03] MEDS: LEVOFLOXACIN 750 MG/D5W RTU 750 MG/150 ML RTUPB IV SCH (22:53)
[2019-08-04 05:27] LABS: HEMATOCRIT 27.8 % (36.0-47.0); HEMOGLOBIN 9.4 g/dL (12.0-15.5); MEAN CORPUSCULAR HEMOGLOBIN 30.9 pg (27.0-33.4); MEAN CORPUSCULAR HGB CONC 33.8 g/dL (32.0-36.0); MEAN CORPUSCULAR VOLUME 91 fl (80-97); PLATELET COUNT 452 10^3/uL (150-450); RED BLOOD COUNT 3.04 10^6/uL (3.72-5.28); RED CELL DISTRIBUTION WIDTH 14.7 % (11.5-14.0); WHITE BLOOD COUNT 8.9 10^3/uL (4.0-10.5)
[2019-08-04 05:56] LABS: ANION GAP 7 (5-19); BLOOD UREA NITROGEN 21 mg/dL (7-20); CALCIUM 9.5 mg/dL (8.4-10.2); CARBON DIOXIDE 31 mmol/L (22-30); CHLORIDE 98 mmol/L (98-107); GLUCOSE 120 mg/dL (75-110)
[2019-08-04] MEDS: IPRATROPIUM/ALBUTEROL 0.5-2.5 MG/3 ML AMPUL NEB PRN (06:43)
[2019-08-04] MEDS: HEPARIN SOD (PORCINE) 5,000 UNIT/ML 1 ML VIAL SUBCUT SCH ×3 (07:13→21:18)
[2019-08-04] MEDS: METHYLPREDNISOLONE INJ 40 MG/1 ML SDV IV SCH ×3 (07:13→21:19)
[2019-08-04] MEDS: CITALOPRAM HYDROBROMIDE 20 MG TABLET PO SCH (09:19)
[2019-08-04] MEDS: TRAMADOL HCL 50 MG TABLET PO SCH ×2 (09:19→17:22)
[2019-08-04] MEDS: DRONABINOL 2.5 MG CAPSULE PO SCH ×2 (09:19→17:21)
[2019-08-04] MEDS: HYDROCODONE/ACETAMINOPHEN 5-325 MG TABLET PO PRN ×3 (11:34→23:14)
--- NOTE | 2019-08-04 14:52 | PDOC PROGRESS REPORT ---
Subjective Progress Note for:: 08/04/19 Subjective:: No adverse events overnight. No new complaints. Her breathing is a little bit more comfortable today. She says she was able to actually get some sleep last night. Reason For Visit: ACUTE ON CHRONIC HYPOXEMIC RESPIRATORY FAILURE,COM Physical Exam Vital Signs: Temp Pulse Resp BP Pulse Ox 97.8 F 87 18 115/68 100 08/04/19 11:34 08/04/19 11:34 08/04/19 11:34 08/04/19 11:34 08/04/19 11:34 Intake & Output 08/03/19 08/04/19 08/05/19 06:59 06:59 06:59 Intake Total 200 1230 510 Balance 200 1230 510 Weight 45.178 kg 45.178 kg General appearance: PRESENT: cooperative, disheveled, mild distress, thin Respiratory exam: PRESENT: decreased breath sounds, prolonged expiratory phase, symmetrical. ABSENT: Accessory muscle use, chest wall tenderness, crackles, rhonchi, tachypnea, unlabored, wheezes Cardiovascular exam: PRESENT: RRR, +S1, +S2 Pulses: PRESENT: normal carotid pulses Vascular exam: PRESENT: normal capillary refill GI/Abdominal exam: PRESENT: normal bowel sounds, soft. ABSENT: distended, guarding, rebound, tenderness Extremities exam: ABSENT: clubbing, pedal edema Musculoskeletal exam: PRESENT: normal inspection. ABSENT: deformity Neurological exam: PRESENT: alert, awake, oriented to person, oriented to place, oriented to time, oriented to situation Psychiatric exam: PRESENT: appropriate affect, normal mood Skin exam: PRESENT: dry, warm Results Laboratory Results: 08/04/19 05:01 08/04/19 05:01 08/04/19 08/04/19 05:01 05:01 WBC 8.9 RBC 3.04 L Hgb 9.4 L Hct 27.8 L MCV 91 MCH 30.9 MCHC 33.8 RDW 14.7 H Plt Count 452 H Sodium 136.3 L Potassium 4.0 Chloride 98 Carbon Dioxide 31 H Anion Gap 7 BUN 21 H Creatinine 0.50 L Est GFR ( Amer) > 60 Glucose 120 H Calcium 9.5 Impressions: Chest X-Ray 08/02/19 11:52 IMPRESSION: Unchanged cavitary lesion in the left upper lobe. Chest/Abdomen CTA 08/02/19 15:27 IMPRESSION: 1. Negative examination for pulmonary embolism. 2. Redemonstrated cavitary mass of the lateral left upper lobe with an adjacent soft tissue mass, which is enlarged compared to prior examination dated 05/16/2019 with increased bony destruction involving the left 3rd and 4th ribs. 3. There is new postobstructive consolidation of the medial left upper lobe secondary to obstructing hilar soft tissue. 4. There are clustered centrilobular and tree-in-bud nodular opacities about the lungs, increased compared to prior examination in the left lung base and peripheral right upper lobe, relatively unchanged in the right lung base. 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 5. Emphysema and bronchial wall thickening. 6. Coronary artery disease. Assessment and Plan - Diagnosis (1) Pneumonia Qualifiers: Pneumonia type: due to unspecified organism Laterality: left Lung location: upper lobe of lung Qualified Code(s): J18.1 - Lobar pneumonia, unspecified organism Is this a current diagnosis for this admission?: Yes Plan: Her CT of her chest was not really impressive for an infiltrate and she does not have a fever. We will leave her on Levaquin for the time being and will await any culture results that may hand turner. We will continue steroids. (2) Acute and chronic respiratory failure with hypoxia Is this a current diagnosis for this admission?: Yes Plan: She stable while she is at rest but as soon as she moves her saturations drop even on oxygen. She said this is been progressing for the last couple of weeks. We will continue oxygen support and try to keep her SPO2 greater than 90%. She is breathing a little bit more comfortably today. (3) Acute exacerbation of chronic obstructive pulmonary disease (COPD) Is this a current diagnosis for this admission?: Yes Plan: Continue steroids and bronchodilators. There is a possibility that this could have been triggered by her immunotherapy. (4) Cancer of upper lobe of left lung Is this a current diagnosis for this admission?: Yes Plan: She follows up outpatient with oncology, they are following her as an inpatient as well - Time Time Spent with patient: 15-24 minutes
[2019-08-04] MEDS: DOCUSATE SODIUM 100 MG CAPSULE PO SCH (17:21)
[2019-08-04] MEDS: LEVOFLOXACIN 750 MG/D5W RTU 750 MG/150 ML RTUPB IV SCH (21:18)
[2019-08-05] MEDS: HYDROCODONE/ACETAMINOPHEN 5-325 MG TABLET PO PRN ×3 (04:06→18:59)
[2019-08-05 05:14] LABS: HEMATOCRIT 25.9 % (36.0-47.0); HEMOGLOBIN 8.7 g/dL (12.0-15.5); MEAN CORPUSCULAR HEMOGLOBIN 30.8 pg (27.0-33.4); MEAN CORPUSCULAR HGB CONC 33.8 g/dL (32.0-36.0); MEAN CORPUSCULAR VOLUME 91 fl (80-97); PLATELET COUNT 408 10^3/uL (150-450); RED BLOOD COUNT 2.84 10^6/uL (3.72-5.28); RED CELL DISTRIBUTION WIDTH 15.2 % (11.5-14.0)
[2019-08-05] MEDS: KETOROLAC TROMETHAMINE INJ/PF 30 MG/1 ML SDV IV PRN ×3 (05:31→20:36)
[2019-08-05] MEDS: METHYLPREDNISOLONE INJ 40 MG/1 ML SDV IV SCH ×3 (05:31→21:58)
[2019-08-05] MEDS: HEPARIN SOD (PORCINE) 5,000 UNIT/ML 1 ML VIAL SUBCUT SCH ×3 (05:33→21:58)
[2019-08-05 05:34] LABS: ANION GAP 6 (5-19); BLOOD UREA NITROGEN 31 mg/dL (7-20); CALCIUM 9.3 mg/dL (8.4-10.2); CARBON DIOXIDE 32 mmol/L (22-30); CHLORIDE 98 mmol/L (98-107); GLUCOSE 113 mg/dL (75-110); POTASSIUM 4.2 mmol/L (3.6-5.0)
[2019-08-05] MEDS: IPRATROPIUM/ALBUTEROL 0.5-2.5 MG/3 ML AMPUL NEB PRN ×2 (06:33→14:32)
--- NOTE | 2019-08-05 08:35 | PDOC PROGRESS REPORT ---
Subjective Progress Note for:: 08/05/19 Subjective:: Patient seems to be doing better today, breathing is improved, still not at baseline however Reason For Visit: ACUTE ON CHRONIC HYPOXEMIC RESPIRATORY FAILURE,COM Physical Exam Vital Signs: Temp Pulse Resp BP Pulse Ox 97.3 F 71 15 148/81 H 97 08/04/19 23:17 08/05/19 07:00 08/05/19 06:30 08/04/19 23:17 08/05/19 06:30 Intake & Output 08/04/19 08/05/19 08/06/19 06:59 06:59 06:59 Intake Total 1230 1268 150 Balance 1230 1268 150 Weight 45.178 kg 48.8 kg General appearance: PRESENT: no acute distress, well-developed, well-nourished Head exam: PRESENT: atraumatic, normocephalic Eye exam: PRESENT: conjunctiva pink, EOMI, PERRLA. ABSENT: scleral icterus Ear exam: PRESENT: normal external ear exam Mouth exam: PRESENT: moist, tongue midline Neck exam: ABSENT: carotid bruit, JVD, lymphadenopathy, thyromegaly Respiratory exam: PRESENT: clear to auscultation romelia. ABSENT: rales, rhonchi, wheezes Cardiovascular exam: PRESENT: RRR. ABSENT: diastolic murmur, rubs, systolic murmur Pulses: PRESENT: normal dorsalis pedis pul Vascular exam: PRESENT: normal capillary refill GI/Abdominal exam: PRESENT: normal bowel sounds, soft. ABSENT: distended, guarding, mass, organolmegaly, rebound, tenderness Rectal exam: PRESENT: deferred Extremities exam: PRESENT: full ROM. ABSENT: calf tenderness, clubbing, pedal e karie Neurological exam: PRESENT: alert, awake, oriented to person, oriented to place, oriented to time, oriented to situation, CN II-XII grossly intact. ABSENT: motor sensory deficit Psychiatric exam: PRESENT: appropriate affect, normal mood. ABSENT: homicidal ideation, suicidal ideation Skin exam: PRESENT: dry, intact, warm. ABSENT: cyanosis, rash Results Laboratory Results: 08/05/19 04:55 08/05/19 04:55 08/05/19 08/05/19 04:55 04:55 WBC 10.0 RBC 2.84 L Hgb 8.7 L Hct 25.9 L MCV 91 MCH 30.8 MCHC 33.8 RDW 15.2 H Plt Count 408 Sodium 135.8 L Potassium 4.2 Chloride 98 Carbon Dioxide 32 H Anion Gap 6 BUN 31 H Creatinine 0.52 Est GFR ( Amer) > 60 Glucose 113 H Calcium 9.3 08/02/19 14:48 Clean Catch Midstream Urine Culture - Final Mixed Urogenital [place] Impressions: Chest X-Ray 08/02/19 11:52 IMPRESSION: Unchanged cavitary lesion in the left upper lobe. Chest/Abdomen CTA 08/02/19 15:27 IMPRESSION: 1. Negative examination for pulmonary embolism. 2. Redemonstrated cavitary mass of the lateral left upper lobe with an adjacent soft tissue mass, which is enlarged compared to prior examination dated 05/16/2019 with increased bony destruction involving the left 3rd and 4th ribs. 3. There is new postobstructive consolidation of the medial left upper lobe secondary to obstructing hilar soft tissue. 4. There are clustered centrilobular and tree-in-bud nodular opacities about the lungs, increased compared to prior examination in the left lung base and peripheral right upper lobe, relatively unchanged in the right lung base. 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 5. Emphysema and bronchial wall thickening. 6. Coronary artery disease. Assessment & Plan - Diagnosis (1) Acute exacerbation of chronic obstructive pulmonary disease (COPD) Is this a current diagnosis for this admission?: Yes Plan: COPD exacerbation, continue with IV steroids, 24 to 48 hours and to improve her lung status continue per hospitalist team (2) Cancer of upper lobe of left lung Is this a current diagnosis for this admission?: Yes Plan: Currently on immunotherapy, she will continue as an outpatient, I do not believe the immunotherapy had anything to do with her current respiratory status, she received her first dose last week and is too soon for pneumonitis to occur (3) Pneumonia Qualifiers: Pneumonia type: due to unspecified organism Laterality: left Lung l ocation: upper lobe of lung Qualified Code(s): J18.1 - Lobar pneumonia, unspecified organism Is this a current diagnosis for this admission?: Yes Plan: Infiltrate noted on imaging, probable pneumonia complicating picture as well continue per hospitalist team (4) Anemia Qualifiers: 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 - Time Time Spent with patient: 35 or more minutes - Inpatient Certification Based on my medical assessment, after consideration of the patient's c omorbidities, presenting symptoms, or acuity I expect that the services needed warrant INPATIENT care.: Yes I certify that my determination is in accordance with my understanding of Medicare's requirements for reasonable and necessary INPATIENT services [42 CFR 412.3e].: Yes Medical Necessity: Risk of Complication if Not Cared For in Hospital
[2019-08-05] MEDS: DRONABINOL 2.5 MG CAPSULE PO SCH ×2 (09:20→17:48)
[2019-08-05] MEDS: CITALOPRAM HYDROBROMIDE 20 MG TABLET PO SCH (09:20)
[2019-08-05] MEDS: TRAMADOL HCL 50 MG TABLET PO SCH ×2 (09:20→17:48)
--- NOTE | 2019-08-05 16:52 | PDOC PROGRESS REPORT ---
Subjective Progress Note for:: 08/05/19 Subjective:: No adverse events overnight. She was able to get a little bit of sleep last night. Her appetite is perhaps a little bit better than it was yesterday. She at least a little bit more today than she did yesterday. Her breathing feels like it is getting closer to her baseline. No fevers. Reason For Visit: ACUTE ON CHRONIC HYPOXEMIC RESPIRATORY FAILURE,COM Physical Exam Vital Signs: Temp Pulse Resp BP Pulse Ox 98.5 F 77 16 130/64 H 94 08/05/19 11:52 08/05/19 14:34 08/05/19 14:34 08/05/19 11:52 08/05/19 15:45 Intake & Output 08/04/19 08/05/19 08/06/19 06:59 06:59 06:59 Intake Total 1230 1268 270 Balance 1230 1268 270 Weight 45.178 kg 48.8 kg General appearance: PRESENT: cooperative, disheveled, mild distress, thin Respiratory exam: PRESENT: decreased breath sounds, prolonged expiratory phase, symmetrical. ABSENT: Accessory muscle use, chest wall tenderness, crackles, rho nchi, tachypnea, unlabored, wheezes Cardiovascular exam: PRESENT: RRR, +S1, +S2 Pulses: PRESENT: normal carotid pulses Vascular exam: PRESENT: normal capillary refill GI/Abdominal exam: PRESENT: normal bowel sounds, soft. ABSENT: distended, guarding, rebound, tenderness Extremities exam: ABSENT: clubbing, pedal edema Musculoskeletal exam: PRESENT: normal inspection. ABSENT: deformity Neurological exam: PRESENT: alert, awake, oriented to person, oriented to place, oriented to time, oriented to situation Psychiatric exam: PRESENT: appropriate affect, normal mood Skin exam: PRESENT: dry, warm Results Laboratory Results: 08/05/19 04:55 08/05/19 04:55 08/05/19 08/05/19 04:55 04:55 WBC 10.0 RBC 2.84 L Hgb 8.7 L Hct 25.9 L MCV 91 MCH 30.8 MCHC 33.8 RDW 15.2 H Plt Count 408 Sodium 135.8 L Potassium 4.2 Chloride 98 Carbon Dioxide 32 H Anion Gap 6 BUN 31 H Creatinine 0.52 Est GFR ( Amer) > 60 Glucose 113 H Calcium 9.3 08/02/19 14:48 Clean Catch Midstream Urine Culture - Final Mixed Urogenital [place] Impressions: Chest X-Ray 08/02/19 11:52 IMPRESSION: Unchanged cavitary lesion in the left upper lobe. Chest/Abdomen CTA 08/02/19 15:27 IMPRESSION: 1. Negative examination for pulmonary embolism. 2. Redemonstrated cavitary mass of the lateral left upper lobe with an adjacent soft tissue mass, which is enlarged compared to prior examination dated 05/16/2019 with increased bony destruction involving the left 3rd and 4th ribs. 3. There is new postobstructive consolidation of the medial left upper lobe secondary to obstructing hilar soft tissue. 4. There are clustered centrilobular and tree-in-bud nodular opacities about the lungs, increased compared to prior examination in the left lung base and peripheral right upper lobe, relatively unchanged in the right lung base. 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 5. Emphysema and bronchial wall thickening. 6. Coronary artery disease. Assessment and Plan - Diagnosis (1) Pneumonia Qualifiers: Pneumonia type: due to unspecified organism Laterality: left Lung location: upper lobe of lung Qualified Code(s): J18.1 - Lobar pneumonia, unspecified organism Is this a current diagnosis for this admission?: Yes Plan: Her CT of her chest was not really impressive for an infiltrate and she does not have a fever. We will leave her on Levaquin for the time being and will await any culture results that may return agent. We will continue steroids. (2) Acute and chronic respiratory failure with hypoxia Is this a current diagnosis for this admission?: Yes Plan: We will continue oxygen support and try to keep her SPO2 greater than 90%. She is breathing a little bit more comfortably each passing day. (3) Acute exacerbation of chronic obstructive pulmonary disease (COPD) Is this a current diagnosis for this admission?: Yes Plan: Continue steroids and bronchodilators. There is a possibility that this could have been triggered by her immunotherapy, but what ever triggered it, she seems to be responding to steroids. (4) Cancer of upper lobe of left lung Is this a current diagnosis for this admission?: Yes Plan: She follows up outpatient with oncology, they are following her as an inpatient as well - Time Time Spent with patient: 15-24 minutes
[2019-08-05] MEDS: DOCUSATE SODIUM 100 MG CAPSULE PO SCH (17:48)
[2019-08-06] MEDS: HYDROCODONE/ACETAMINOPHEN 5-325 MG TABLET PO PRN ×4 (00:46→15:00)
[2019-08-06 01:36] LABS: ANION GAP 7 (5-19); BLOOD UREA NITROGEN 26 mg/dL (7-20); CALCIUM 9.2 mg/dL (8.4-10.2); CARBON DIOXIDE 32 mmol/L (22-30); CHLORIDE 99 mmol/L (98-107); GLUCOSE 124 mg/dL (75-110)
[2019-08-06] MEDS: HEPARIN SOD (PORCINE) 5,000 UNIT/ML 1 ML VIAL SUBCUT SCH ×3 (05:32→21:35)
[2019-08-06] MEDS: METHYLPREDNISOLONE INJ 40 MG/1 ML SDV IV SCH ×3 (05:33→21:35)
--- NOTE | 2019-08-06 08:05 | PDOC PROGRESS REPORT ---
Subjective Progress Note for:: 08/06/19 Subjective:: Patient seems better this morning, breathing seems to be getting closer to baseline, however she really has not gotten up out of the chair much so I have asked nursing to get her up to at least to the restroom to see how she does. Reason For Visit: ACUTE ON CHRONIC HYPOXEMIC RESPIRATORY FAILURE,COM Physical Exam Vital Signs: Temp Pulse Resp BP Pulse Ox 98.0 F 71 16 145/77 H 99 08/05/19 23:38 08/06/19 07:00 08/05/19 23:38 08/05/19 23:38 08/05/19 23:38 Intake & Output 08/05/19 08/06/19 08/07/19 06:59 06:59 06:59 Intake Total 1268 1448 Balance 1268 1448 Weight 48.8 kg 47.7 kg General appearance: PRESENT: no acute distress, well-developed, well-nourished Head exam: PRESENT: atraumatic, normocephalic Eye exam: PRESENT: conjunctiva pink, EOMI, PERRLA. ABSENT: scleral icterus Ear exam: PRESENT: normal external ear exam Mouth exam: PRESENT: moist, tongue midline Neck exam: ABSENT: carotid bruit, JVD, lymphadenopathy, thyromegaly Respiratory exam: PRESENT: clear to auscultation romelia. ABSENT: rales, rhonchi, wheezes Cardiovascular exam: PRESENT: RRR. ABSENT: diastolic murmur, rubs, systolic murmur Pulses: PRESENT: normal dorsalis pedis pul Vascular exam: PRESENT: normal capillary refill GI/Abdominal exam: PRESENT: normal bowel sounds, soft. ABSENT: distended, guarding, mass, organolmegaly, rebound, tenderness Rectal exam: PRESENT: deferred Extremities exam: PRESENT: full ROM. ABSENT: calf tenderness, clubbing, pedal edema Neurological exam: PRESENT: alert, awake, oriented to person, oriented to place, oriented to time, oriented to situation, CN II-XII grossly intact. ABSENT: motor sensory deficit Psychiatric exam: PRESENT: appropriate affect, normal mood. ABSENT: homicidal ideation, suicidal ideation Skin exam: PRESENT: dry, intact, warm. ABSENT: cyanosis, rash Results Laboratory Results: 08/05/19 04:55 08/06/19 00:53 08/06/19 00:53 Sodium 137.9 Potassium 4.0 Chloride 99 Carbon Dioxide 32 H Anion Gap 7 BUN 26 H Creatinine 0.54 Est GFR ( Amer) > 60 Glucose 124 H Calcium 9.2 Magnesium 1.9 Impressions: Chest X-Ray 08/02/19 11:52 IMPRESSION: Unchanged cavitary lesion in the left upper lobe. Chest/Abdomen CTA 08/02/19 15:27 IMPRESSION: 1. Negative examination for pulmonary embolism. 2. Redemonstrated cavitary mass of the lateral left upper lobe with an adjacent soft tissue mass, which is enlarged compared to prior examination dated 05/16/2019 with increased bony destruction involving the left 3rd and 4th ribs. 3. There is new postobstructive consolidation of the medial left upper lobe secondary to obstructing hilar soft tissue. 4. There are clustered centrilobular and tree-in-bud nodular opacities about the lungs, increased compared to prior examination in the left lung base and peripheral right upper lobe, relatively unchanged in the right lung base. 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 5. Emphysema and bronchial wall thickening. 6. Coronary artery disease. Assessment & Plan - Diagnosis (1) Acute exacerbation of chronic obstructive pulmonary disease (COPD) Is this a current diagnosis for this admission?: Yes Plan: Getting better but believe she will need another 24 hours inpatient, with continued IV steroids (2) Cancer of upper lobe of left lung Is this a current diagnosis for this admission?: Yes Plan: Continue immunotherapy as an outpatient (3) Pneumonia Qualifiers: Pneumonia type: due to unspecified organism Laterality: left Lung location: upper lobe of lung Qualified Code(s): J18.1 - Lobar pneumonia, unspecified organism Is this a current diagnosis for this admission?: Yes Plan: Continue with antibiotic course (4) Anemia Qualifiers: 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, antineoplastic chemotherapy-induced Qualified Code(s): D61.810 - Antineoplastic chemotherapy induced pancytopenia; T45.1X5A - Adverse effect of antineoplastic and immunosuppressive drugs, initial encounter Is this a current diagnosis for this admission?: Yes Plan: Hemoglobin stable continue to monitor - Time Time Spent with patient: 25-34 minutes - Inpatient Certification Based on my medical assessment, after consideration of the patient's comorbidities, presenting symptoms, or acuity I expect that the services needed warrant INPATIENT care.: Yes I certify that my determination is in accordance with my understanding of Medicare's requirements for reasonable and necessary INPATIENT services [42 CFR 412.3e].: Yes Medical Necessity: Need for Nebulizer Therapy and Monitoring of Response, Risk of Complication if Not Cared For in Hospital
[2019-08-06] MEDS ORDERED: INFLUENZA QUAD (6MOS+) 2019-20 VAC 0.5 ML SYR IM ONE (08:39)
[2019-08-06] MEDS: KETOROLAC TROMETHAMINE INJ/PF 30 MG/1 ML SDV IV PRN ×3 (08:50→21:50)
[2019-08-06] MEDS: DRONABINOL 2.5 MG CAPSULE PO SCH ×2 (10:03→17:36)
[2019-08-06] MEDS: CITALOPRAM HYDROBROMIDE 20 MG TABLET PO SCH (10:03)
[2019-08-06] MEDS: TRAMADOL HCL 50 MG TABLET PO SCH ×2 (10:03→17:36)
--- NOTE | 2019-08-06 13:17 | PDOC PROGRESS REPORT ---
Subjective Progress Note for:: 08/06/19 Subjective:: Patient with very flat affect. She is curled up in the chair. Flat affect and monotone. Reason For Visit: ACUTE ON CHRONIC HYPOXEMIC RESPIRATORY FAILURE,COM Physical Exam Vital Signs: Temp Pulse Resp BP Pulse Ox 97.5 F 74 18 121/64 100 08/06/19 11:13 08/06/19 11:13 08/06/19 11:13 08/06/19 11:13 08/06/19 11:13 Intake & Output 08/05/19 08/06/19 08/07/19 06:59 06:59 06:59 Intake Total 1268 1448 Balance 1268 1448 Weight 48.8 kg 47.7 kg General appearance: PRESENT: no acute distress, cooperative, well-developed Head exam: PRESENT: atraumatic, normocephalic Eye exam: PRESENT: conjunctiva pale. ABSENT: scleral icterus Ear exam: PRESENT: normal external ear exam. ABSENT: bleeding, drainage Mouth exam: PRESENT: dry mucosa, tongue midline Teeth exam: PRESENT: poor dentation - No front teeth Respiratory exam: PRESENT: clear to auscultation romelia, decreased breath sounds, symmetrical, unlabored. ABSENT: rales, rhonchi, tachypnea, wheezes Cardiovascular exam: PRESENT: RRR, +S1, +S2 GI/Abdominal exam: PRESENT: normal bowel sounds, soft. ABSENT: distended, guarding, tenderness Extremities exam: ABSENT: joint swelling, pedal edema Musculoskeletal exam: PRESENT: normal inspection. ABSENT: deformity Neurological exam: PRESENT: alert, awake, oriented to person, oriented to place, oriented to time, oriented to situation, CN II-XII grossly intact Psychiatric exam: PRESENT: flat affect, other - Monotone voice. ABSENT: agitated, anxious Focused psych exam: ABSENT: delusional, restlessness Results Laboratory Results: 08/05/19 04:55 08/06/19 00:53 08/06/19 00:53 Sodium 137.9 Potassium 4.0 Chloride 99 Carbon Dioxide 32 H Anion Gap 7 BUN 26 H Creatinine 0.54 Est GFR ( Amer) > 60 Glucose 124 H Calcium 9.2 Magnesium 1.9 Impressions: Chest X-Ray 08/02/19 11:52 IMPRESSION: Unchanged cavitary lesion in the left upper lobe. Chest/Abdomen CTA 08/02/19 15:27 IMPRESSION: 1. Negative examination for pulmonary embolism. 2. Redemonstrated cavitary mass of the lateral left upper lobe with an adjacent soft tissue mass, which is enlarged compared to prior examination dated 05/16/2019 with increased bony destruction involving the left 3rd and 4th ribs. 3. There is new postobstructive consolidation of the medial left upper lobe secondary to obstructing hilar soft tissue. 4. There are clustered centrilobular and tree-in-bud nodular opacities about the lungs, increased compared to prior examination in the left lung base and peripheral right upper lobe, relatively unchanged in the right lung base. 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 5. Emphysema and bronchial wall thickening. 6. Coronary artery disease. Assessment and Plan - Diagnosis (1) Pneumonia Qualifiers: Pneumonia type: due to unspecified organism Laterality: left Lung location: upper lobe of lung Qualified Code(s): J18.1 - Lobar pneumonia, unspecified organism Is this a current diagnosis for this admission?: Yes Plan: 08/06/2019-Levaquin therapy we will be completed on August 11. (2) Acute and chronic respiratory failure with hypoxia Is this a current diagnosis for this admission?: Yes Plan: 08/06/2019-continue oxygen supplementation to maintain oxygen saturation 90 to 94%. Taper as tolerated. (3) Acute exacerbation of chronic obstructive pulmonary disease (COPD) Is this a current diagnosis for this admission?: Yes Plan: 08/06/2019-continue as needed nebulizers. Begin to taper steroids. Consider chronic combination inhaler. Will check PFTs to assess severity of chronic obstructive pulmonary disease (4) Cancer of upper lobe of left lung Is this a current diagnosis for this admission?: Yes Plan: 08/06/2019-continue immunotherapy. - Time Time Spent with patient: Less than 15 minutes Medications reviewed and adjusted accordingly: Yes Anticipated discharge: Home
[2019-08-06] MEDS: IPRATROPIUM/ALBUTEROL 0.5-2.5 MG/3 ML AMPUL NEB PRN (16:41)
[2019-08-06] MEDS: DOCUSATE SODIUM 100 MG CAPSULE PO SCH (17:36)
[2019-08-06] MEDS ORDERED: ALBUTEROL SULFATE 0.083% NEB 2.5 MG/3 ML AMPUL NEB PRN (20:13)
[2019-08-06] MEDS: LEVOFLOXACIN 750 MG/D5W RTU 750 MG/150 ML RTUPB IV SCH (21:35)
[2019-08-07] MEDS: IPRATROPIUM/ALBUTEROL 0.5-2.5 MG/3 ML AMPUL NEB PRN ×2 (02:25→17:02)
[2019-08-07] MEDS: HYDROCODONE/ACETAMINOPHEN 5-325 MG TABLET PO PRN ×3 (02:33→16:03)
[2019-08-07] MEDS: KETOROLAC TROMETHAMINE INJ/PF 30 MG/1 ML SDV IV PRN ×2 (05:29→21:38)
[2019-08-07] MEDS: HEPARIN SOD (PORCINE) 5,000 UNIT/ML 1 ML VIAL SUBCUT SCH ×3 (05:29→21:38)
--- NOTE | 2019-08-07 08:09 | PDOC PROGRESS REPORT ---
Subjective Progress Note for:: 08/07/19 Subjective:: No acute events overnight, discussed case w/ DR. Jiménez who will be seeing her this am. Reason For Visit: ACUTE ON CHRONIC HYPOXEMIC RESPIRATORY FAILURE,COM Physical Exam Vital Signs: Temp Pulse Resp BP Pulse Ox 97.9 F 69 18 143/72 H 93 08/06/19 20:00 08/07/19 07:00 08/07/19 02:25 08/06/19 15:26 08/07/19 02:25 Intake & Output 08/06/19 08/07/19 08/08/19 06:59 06:59 06:59 Intake Total 1448 895 Output Total 200 Balance 1448 695 Weight 47.7 kg 48.2 kg General appearance: PRESENT: no acute distress, well-developed, well-nourished Head exam: PRESENT: atraumatic, normocephalic Eye exam: PRESENT: conjunctiva pink, EOMI, PERRLA. ABSENT: scleral icterus Ear exam: PRESENT: normal external ear exam Mouth exam: PRESENT: moist, tongue midline Neck exam: ABSENT: carotid bruit, JVD, lymphadenopathy, thyromegaly Respiratory exam: PRESENT: clear to auscultation romelia. ABSENT: rales, rhonchi, wheezes Cardiovascular exam: PRESENT: RRR. ABSENT: diastolic murmur, rubs, systolic murmur Pulses: PRESENT: normal dorsalis pedis pul Vascular exam: PRESENT: normal capillary refill GI/Abdominal exam: PRESENT: normal bowel sounds, soft. ABSENT: distended, guard ing, mass, organolmegaly, rebound, tenderness Rectal exam: PRESENT: deferred Extremities exam: PRESENT: full ROM. ABSENT: calf tenderness, clubbing, pedal edema Neurological exam: PRESENT: alert, awake, oriented to person, oriented to place, oriented to time, oriented to situation, CN II-XII grossly intact. ABSENT: motor sensory deficit Psychiatric exam: PRESENT: appropriate affect, normal mood. ABSENT: homicidal ideation, suicidal ideation Skin exam: PRESENT: dry, intact, warm. ABSENT: cyanosis, rash Results Laboratory Results: 08/05/19 04:55 08/06/19 00:53 Impressions: Chest X-Ray 08/02/19 11:52 IMPRESSION: Unchanged cavitary lesion in the left upper lobe. Chest/Abdomen CTA 08/02/19 15:27 IMPRESSION: 1. Negative examination for pulmonary embolism. 2. Redemonstrated cavitary mass of the lateral left upper lobe with an adjacent soft tissue mass, which is enlarged compared to prior examination dated 05/16/2019 with increased bony destruction involving the left 3rd and 4th ribs. 3. There is new postobstructive consolidation of the medial left upper lobe secondary to obstructing hilar soft tissue. 4. There are clustered centrilobular and tree-in-bud nodular opacities about the lungs, increased compared to prior examination in the left lung base and peripheral right upper lobe, relatively unchanged in the right lung base. 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 5. Emphysema and bronchial wall thickening. 6. Coronary artery disease. Assessment & Plan - Diagnosis (1) Acute exacerbation of chronic obstructive pulmonary disease (COPD) Is this a current diagnosis for this admission?: Yes Plan: Cont per hospitalist team, await input from pulmonary (2) Cancer of upper lobe of left lung Is this a current diagnosis for this admission?: Yes Plan: cont immunoRx as oupt (3) Pneumonia Qualifiers: Pneumonia type: due to unspecified organism Laterality: left Lung location: upper lobe of lung Qualified Code(s): J18.1 - Lobar pneumonia, unspecified organism Is this a current diagnosis for this admission?: Yes Plan: cont atbx (4) Anemia Qualifiers: 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, antineoplastic chemotherapy-induced Qualified Code(s): D61.810 - Antineoplastic chemotherapy induced pancytopenia; T45.1X5A - Adverse effect of antineoplastic and immunosuppressive drugs, initial encounter Is this a current diagnosis for this admission?: Yes Plan: last hb stable - Time Time Spent with patient: 35 or more minutes - Inpatient Certification Based on my medical assessment, after consideration of the patient's comorbidities, presenting symptoms, or acuity I expect that the services needed warrant INPATIENT care.: Yes I certify that my determination is in accordance with my understanding of Medicare's requirements for reasonable and necessary INPATIENT services [42 CFR 412.3e].: Yes Medical Necessity: Need for Nebulizer Therapy and Monitoring of Response, Risk of Complication if Not Cared For in Hospital
[2019-08-07 08:43] LABS: HEMATOCRIT 27.9 % (36.0-47.0); HEMOGLOBIN 9.4 g/dL (12.0-15.5); MEAN CORPUSCULAR HEMOGLOBIN 31.3 pg (27.0-33.4); MEAN CORPUSCULAR HGB CONC 33.8 g/dL (32.0-36.0); MEAN CORPUSCULAR VOLUME 92 fl (80-97); PLATELET COUNT 451 10^3/uL (150-450); RED BLOOD COUNT 3.02 10^6/uL (3.72-5.28); RED CELL DISTRIBUTION WIDTH 15.5 % (11.5-14.0); WHITE BLOOD COUNT 10.1 10^3/uL (4.0-10.5)
[2019-08-07 09:07] LABS: ANION GAP 6 (5-19); BLOOD UREA NITROGEN 27 mg/dL (7-20); CALCIUM 9.1 mg/dL (8.4-10.2); CARBON DIOXIDE 34 mmol/L (22-30); CHLORIDE 97 mmol/L (98-107); GLUCOSE 78 mg/dL (75-110); POTASSIUM 4.3 mmol/L (3.6-5.0)
[2019-08-07] MEDS: METHYLPREDNISOLONE INJ 40 MG/1 ML SDV IV SCH ×2 (09:48→21:38)
[2019-08-07] MEDS: DRONABINOL 2.5 MG CAPSULE PO SCH ×2 (09:48→18:25)
[2019-08-07] MEDS: TRAMADOL HCL 50 MG TABLET PO SCH ×2 (09:48→18:03)
[2019-08-07] MEDS: CITALOPRAM HYDROBROMIDE 20 MG TABLET PO SCH (09:49)
--- NOTE | 2019-08-07 10:51 | PDOC CONSULTATION ---
Consultation Consult Date: 08/07/19 Attending physician:: AMENA AYERS Provider Consulted: DAVID HERNÁNDEZ Consult reason:: COPD lung cancer History of Present Illness Admission Date/PCP: 08/02/19 19:04 ISABELL STOUT MD History of Present Illness: MARBELLA HUI is a 78 year old female, presents complaining dyspnea she is O2 dependent at home has a history of diagnosis of COPD as well as non-small cell lung cancer left upper lobe current CT scan presents the idea that she has a postobstructive pneumonitis. Her functional status is relatively poor and she also complains of constipation and states that she has a cough that is dry she denies hemoptysis. No history of chronic lung disease as a child or adolescent no pets no recent travel unaware of any snoring does complain of restless sleep nocturia as well as unrestful sleep and daytime somnolence Past Medical History Cardiac Medical History: Reports: Hypertension Denies: Atrial Fibrillation, Coronary Artery Disease, DVT, Pulmonary Embolism Pulmonary Medical History: Reports: Chronic Obstructive Pulmonary Disease (COPD) Denies: Asthma, Respiratory Failure Neurological Medical History: Denies: Seizures Endocrine Medical History: Denies: Diabetes Mellitus Type 1, Diabetes Mellitus Type 2, Hyperthyroidism, Hypothyroidism Malignancy Medical History: Reports: Lung Cancer - Stage III GI Medical History: Denies: Cirrhosis, Hepatitis Musculoskeltal Medical History: Denies: Arthritis, Gout Skin Medical History: Denies: Eczema, Psoriasis Psychiatric Medical History: Denies: Depression Hematology: Denies: Anemia, Bleeding Tendencies Past Surgical History Past Surgical History: Reports: Orthopedic Surgery - right rotator cuff Denies: Hysterectomy Social History Information Source: Patient, [facility] Records Smoking Status: Former Smoker Passive smoke exposure as: Both Frequency of Alcohol Use: None Hx Recreational Drug Use: No Drugs: None Hx Prescription Drug Abuse: No Do you have pets?: No Have you had any respiratory illnesses as a child?: No Have you been exposed to any sick contacts recently?: No Have you had any recent respiratory illnesses?: Yes Have you travelled outside of [place] in the past 12 months?: No - Advance Directive Resuscitation Status: Full Code Family History Family History: DM, Malignancy, Thyroid Disfunction Parental Family History Reviewed: Yes Children Family History Reviewed: Yes Sibling(s) Family History Reviewed.: Yes Medication/Allergy Home Medications: Citalopram Hydrobromide [Citalopram HBr] 10 mg PO DAILY 07/31/19 Dronabinol [Marinol 2.5 mg Capsule] 2.5 mg PO BID 07/31/19 Naproxen [Naprosyn 250 mg Tablet] 250 mg PO Q8HP PRN 07/31/19 Nivolumab [Opdivo] 0 mg IV ASDIR PRN 07/31/19 Tramadol HCl [Ultram] 50 mg PO BID 07/31/19 Docusate Sodium [Colace 100 mg Capsule] 100 mg PO QPM 08/02/19 Fluticasone Propionate [Flonase Nasal Dahinda 50 Mcg/Dahinda 16 gm] 2 spray NASL DAILY 08/02/19 Ondansetron HCl [Zofran 8 mg Tablet] 8 mg PO Q8HP PRN 08/02/19 Promethazine HCl [Phenergan 25 mg Tablet] 25 mg PO Q6HP PRN 08/02/19 Allergies/Adverse Reactions: No Known Allergies Allergy (Verified 08/02/19 18:41) Review of Systems Constitutional: PRESENT: anorexia, fatigue, weakness, weight loss Eyes: ABSENT: visual disturbances Ears: ABSENT: hearing changes Nose, Mouth, and Throat: ABSENT: mouth pain Cardiovascular: PRESENT: dyspnea on exertion, orthropnea Respiratory: PRESENT: cough, dyspnea. ABSENT: hemoptysis Gastrointestinal: PRESENT: constipation. ABSENT: abdominal pain, coffee ground emesis, diarrhea, melena Genitourinary: ABSENT: dysuria, hematuria Neurological: ABSENT: abnormal gait, abnormal speech, confusion, focal weakness, memory loss, numbness Psychiatric: PRESENT: depression. ABSENT: hallucinations, homidical ideation, suicidal ideation Endocrine: ABSENT: cold intolerance, heat intolerance, polydipsia, polyuria Physical Exam Vital Signs: Temp Pulse Resp BP Pulse Ox 97.9 F 69 18 143/72 H 93 08/06/19 20:00 08/07/19 07:00 08/07/19 02:25 08/06/19 15:26 08/07/19 02:25 Intake & Output 08/06/19 08/07/19 08/08/19 06:59 06:59 06:59 Intake Total 1448 895 Output Total 200 Balance 1448 695 Weight 47.7 kg 48.2 kg General appearance: PRESENT: no acute distress, cooperative, disheveled, thin Head exam: PRESENT: atraumatic, normocephalic Eye exam: PRESENT: conjunctiva pale, EOMI. ABSENT: nystagmus, periorbital swelling Mouth exam: PRESENT: dry mucosa, neck supple, tongue midline Neck exam: ABSENT: carotid bruit, full ROM, JVD, lymphadenopathy, meningismus, tenderness, thyromegaly, tracheal deviation, tracheostomy, other Respiratory exam: PRESENT: decreased breath sounds, prolonged expiratory phas, rhonchi, symmetrical, unlabored, wheezes. ABSENT: rales, retraction, stridor, tachypnea Cardiovascular exam: PRESENT: RRR, +S1, +S2. ABSENT: tachycardia Pulses: PRESENT: normal radial pulses GI/Abdominal exam: PRESENT: soft, tenderness. ABSENT: guarding, mass, rebound Extremities exam: ABSENT: calf tenderness, clubbing, joint swelling, tenderness Musculoskeletal exam: ABSENT: ambulatory, deformity, dislocation Neurological exam: PRESENT: alert, awake Psychiatric exam: PRESENT: appropriate affect Skin exam: PRESENT: dry, warm Results Laboratory Results: 08/07/19 07:56 08/07/19 07:56 08/07/19 08/07/19 07:56 07:56 WBC 10.1 RBC 3.02 L Hgb 9.4 L Hct 27.9 L MCV 92 MCH 31.3 MCHC 33.8 RDW 15.5 H Plt Count 451 H Sodium 137.4 Potassium 4.3 Chloride 97 L Carbon Dioxide 34 H Anion Gap 6 BUN 27 H Creatinine 0.50 L Est GFR ( Amer) > 60 Glucose 78 Calcium 9.1 Magnesium 1.7 Impressions: Chest X-Ray 08/02/19 11:52 IMPRESSION: Unchanged cavitary lesion in the left upper lobe. Chest/Abdomen CTA 08/02/19 15:27 IMPRESSION: 1. Negative examination for pulmonary embolism. 2. Redemonstrated cavitary mass of the lateral left upper lobe with an adjacent soft tissue mass, which is enlarged compared to prior examination dated 05/16/2019 with increased bony destruction involving the left 3rd and 4th ribs. 3. There is new postobstructive consolidation of the medial left upper lobe secondary to obstructing hilar soft tissue. 4. There are clustered centrilobular and tree-in-bud nodular opacities about the lungs, increased compared to prior examination in the left lung base and peripheral right upper lobe, relatively unchanged in the right lung base. 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 5. Emphysema and bronchial wall thickening. 6. Coronary artery disease. Assessment & Plan - Diagnosis (1) Constipation Is this a current diagnosis for this admission?: Yes Plan: endebbi (2) Acute and chronic respiratory failure with hypoxia Is this a current diagnosis for this admission?: Yes Plan: PULMICORT ANoro dailresp 500 qd albuterol HHN prn dc duoneb (3) Cancer of upper lobe of left lung Is this a current diagnosis for this admission?: Yes Plan: as per ONCOLOGY (4) HTN (hypertension) Qualifiers: Hypertension type: essential hypertension Qualified Code(s): I10 - Essential (primary) hypertension Is this a current diagnosis for this admission?: Yes Plan: stable - Time Time Spent: 50 to 70 Minutes
[2019-08-07] MEDS: LEVALBUTEROL HCL NEB 1.25 MG/3 ML AMPUL NEB SCH ×2 (12:57→17:03)
--- NOTE | 2019-08-07 13:44 | PDOC PROGRESS REPORT ---
Subjective Progress Note for:: 08/07/19 Subjective:: The patient is in fact in the hallway in a wheelchair heading down for pulmonary function testing. It is good to see her out of bed. She has no complaints at this time. Reason For Visit: ACUTE ON CHRONIC HYPOXEMIC RESPIRATORY FAILURE,COM Physical Exam Vital Signs: Temp Pulse Resp BP Pulse Ox 97.9 F 69 18 143/72 H 93 08/06/19 20:00 08/07/19 07:00 08/07/19 02:25 08/06/19 15:26 08/07/19 02:25 Intake & Output 08/06/19 08/07/19 08/08/19 06:59 06:59 06:59 Intake Total 1448 895 Output Total 200 Balance 1448 695 Weight 47.7 kg 48.2 kg General appearance: PRESENT: no acute distress, cooperative, well-developed Head exam: PRESENT: atraumatic, normocephalic Mouth exam: PRESENT: dry mucosa, tongue midline Teeth exam: PRESENT: poor dentation Respiratory exam: PRESENT: clear to auscultation romelia, unlabored. ABSENT: rales, rhonchi, tachypnea, wheezes Cardiovascular exam: PRESENT: RRR, +S1, +S2 GI/Abdominal exam: PRESENT: normal bowel sounds, soft, other - Large bowel movement earlier today. ABSENT: distended, guarding, tenderness Rectal exam: PRESENT: deferred Extremities exam: ABSENT: joint swelling, pedal edema Musculoskeletal exam: PRESENT: normal inspection Neurological exam: PRESENT: alert, awake, oriented to person, oriented to place, oriented to situation Psychiatric exam: PRESENT: flat affect. ABSENT: agitated, anxious Focused psych exam: ABSENT: delusional, restlessness Skin exam: PRESENT: pallor Results Laboratory Results: 08/07/19 07:56 08/07/19 07:56 08/07/19 08/07/19 07:56 07:56 WBC 10.1 RBC 3.02 L Hgb 9.4 L Hct 27.9 L MCV 92 MCH 31.3 MCHC 33.8 RDW 15.5 H Plt Count 451 H Sodium 137.4 Potassium 4.3 Chloride 97 L Carbon Dioxide 34 H Anion Gap 6 BUN 27 H Creatinine 0.50 L Est GFR ( Amer) > 60 Glucose 78 Calcium 9.1 Magnesium 1.7 Impressions: Chest X-Ray 08/02/19 11:52 IMPRESSION: Unchanged cavitary lesion in the left upper lobe. Chest/Abdomen CTA 08/02/19 15:27 IMPRESSION: 1. Negative examination for pulmonary embolism. 2. Redemonstrated cavitary mass of the lateral left upper lobe with an adjacent soft tissue mass, which is enlarged compared to prior examination dated 05/16/2019 with increased bony destruction involving the left 3rd and 4th ribs. 3. There is new postobstructive consolidation of the medial left upper lobe secondary to obstructing hilar soft tissue. 4. There are clustered centrilobular and tree-in-bud nodular opacities about the lungs, increased compared to prior examination in the left lung base and p eripheral right upper lobe, relatively unchanged in the right lung base. 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 5. Emphysema and bronchial wall thickening. 6. Coronary artery disease. Assessment and Plan - Diagnosis (1) Pneumonia Qualifiers: Pneumonia type: due to unspecified organism Laterality: left Lung locatio n: upper lobe of lung Qualified Code(s): J18.1 - Lobar pneumonia, unspecified organism Is this a current diagnosis for this admission?: Yes Plan: 08/06/2019-Levaquin therapy we will be completed on August 11. 08/07/2019-continue Levaquin (2) Acute and chronic respiratory failure with hypoxia Is this a current diagnosis for this admission?: Yes Plan: 08/06/2019-continue oxygen supplementation to maintain oxygen saturation 90 to 94%. Taper as tolerated. 08/07/2019-still requiring 3.5 L nasal cannula. (3) Acute exacerbation of chronic obstructive pulmonary disease (COPD) Is this a current diagnosis for this admission?: Yes Plan: 08/06/2019-continue as needed nebulizers. Begin to taper steroids. Consider chronic combination inhaler. Will check PFTs to assess severity of chronic obstructive pulmonary disease 08/07/2019-on her way to obtain PFTs. Treatment decisions based on results. (4) Cancer of upper lobe of left lung Is this a current diagnosis for this admission?: Yes Plan: 08/06/2019-continue immunotherapy. 08/07/2019-with the patient's current weekend state and decreased functionality planning for disposition is important. I believe Dr. Turcios is going to be having a family conference. The patient's daughter was in the room while her mother was down at pulmonary testing. Had a chance to speak with her. I believe she recognizes the futility of ongoing aggressive treatment. I told her that Dr. Turcios is planning to have a conference. I think the family would be on board for a comfort measure/hospice plan of care. - Time Time Spent with patient: 15-24 minutes Medications reviewed and adjusted accordingly: Yes
[2019-08-07] MEDS: ROFLUMILAST 500 MCG TABLET PO SCH (14:19)
[2019-08-07] MEDS: DOCUSATE SODIUM 100 MG CAPSULE PO SCH (18:03)
[2019-08-07] MEDS: BUDESONIDE NEB 0.25 MG/2 ML AMPUL NEB SCH (23:22)
[2019-08-08] MEDS: LEVALBUTEROL HCL NEB 1.25 MG/3 ML AMPUL NEB SCH ×3 (00:17→15:54)
[2019-08-08] MEDS: HEPARIN SOD (PORCINE) 5,000 UNIT/ML 1 ML VIAL SUBCUT SCH ×3 (05:25→21:40)
--- NOTE | 2019-08-08 08:31 | PDOC PROGRESS REPORT ---
Subjective Progress Note for:: 08/08/19 Subjective:: Patient had a difficult day yesterday, multiple bowel movements with enemas, pulmonology saw patient, PFTs were done, unfortunately her lung disease is worsening. I had a long discussion with family about that. I discussed DNR status with the patient and she agreed to DNR. Reason For Visit: ACUTE ON CHRONIC HYPOXEMIC RESPIRATORY FAILURE,COM Physical Exam Vital Signs: Temp Pulse Resp BP Pulse Ox 97.7 F 66 20 121/54 L 99 08/08/19 00:00 08/08/19 07:58 08/08/19 00:00 08/08/19 00:00 08/08/19 00:00 Intake & Output 08/07/19 08/08/19 08/09/19 06:59 06:59 06:59 Intake Total 895 800 Output Total 200 Balance 695 800 Weight 48.2 kg 48.2 kg General appearance: PRESENT: no acute distress, well-developed, well-nourished Head exam: PRESENT: atraumatic, normocephalic Eye exam: PRESENT: conjunctiva pink, EOMI, PERRLA. ABSENT: scleral icterus Ear exam: PRESENT: normal external ear exam Mouth exam: PRESENT: moist, tongue midline Neck exam: ABSENT: carotid bruit, JVD, lymphadenopathy, thyromegaly Respiratory exam: PRESENT: clear to auscultation romelia. ABSENT: rales, rhonchi, wheezes Cardiovascular exam: PRESENT: RRR. ABSENT: diastolic murmur, rubs, systolic murmur Pulses: PRESENT: normal dorsalis pedis pul Vascular exam: PRESENT: normal capillary refill GI/Abdominal exam: PRESENT: normal bowel sounds, soft. ABSENT: distended, guarding, mass, organolmegaly, rebound, tenderness Rectal exam: PRESENT: deferred Extremities exam: PRESENT: full ROM. ABSENT: calf tenderness, clubbing, pedal edema Neurological exam: PRESENT: alert, awake, oriented to person, oriented to place, oriented to time, oriented to situation, CN II-XII grossly intact. ABSENT: motor sensory deficit Psychiatric exam: PRESENT: appropriate affect, normal mood. ABSENT: homicidal ideation, suicidal ideation Skin exam: PRESENT: dry, intact, warm. ABSENT: cyanosis, rash Results Laboratory Results: 08/07/19 07:56 08/07/19 07:56 08/07/19 08/07/19 07:56 07:56 WBC 10.1 RBC 3.02 L Hgb 9.4 L Hct 27.9 L MCV 92 MCH 31.3 MCHC 33.8 RDW 15.5 H Plt Count 451 H Sodium 137.4 Potassium 4.3 Chloride 97 L Carbon Dioxide 34 H Anion Gap 6 BUN 27 H Creatinine 0.50 L Est GFR ( Amer) > 60 Glucose 78 Calcium 9.1 Magnesium 1.7 08/02/19 19:33 Blood Blood Culture - Final NO GROWTH IN 5 DAYS 08/02/19 18:27 Blood Blood Culture - Final NO GROWTH IN 5 DAYS Impressions: Chest X-Ray 08/02/19 11:52 IMPRESSION: Unchanged cavitary lesion in the left upper lobe. Chest/Abdomen CTA 08/02/19 15:27 IMPRESSION: 1. Negative examination for pulmonary embolism. 2. Redemonstrated cavitary mass of the lateral left upper lobe with an adjacent soft tissue mass, which is enlarged compared to prior examination dated 05/16/2019 with increased bony destruction involving the left 3rd and 4th ribs. 3. There is new postobstructive consolidation of the medial left upper lobe secondary to obstructing hilar soft tissue. 4. There are clustered centrilobular and tree-in-bud nodular opacities about the lungs, increased compared to prior examination in the left lung base and peripheral right upper lobe, relatively unchanged in the right lung base. 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 5. Emphysema and bronchial wall thickening. 6. Coronary artery disease. Assessment & Plan - Diagnosis (1) Acute exacerbation of chronic obstructive pulmonary disease (COPD) Is this a current diagnosis for this admission?: Yes Plan: Severe, not improving as of yet, continue with current treatment (2) Cancer of upper lobe of left lung Is this a current diagnosis for this admission?: Yes Plan: We were planning on continuing immunotherapy as an outpatient as we just started but her pulmonary status seems to be worsening so we will have further discussions on whether we should go ultimately to comfort care measures. She did agree to DNR however. (3) Pneumonia Qualifiers: Pneumonia type: due to unspecified organism Laterality: left Lung location: upper lobe of lung Qualified Code(s): J18.1 - Lobar pneumonia, unspecified organism Is this a current diagnosis for this admission?: Yes Plan: Antibiotic was continued, she is completed a course of antibiotics and these were DC'd. (4) Anemia Qualifiers: 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, antineoplastic chemotherapy-induced Qualified Code(s): D61.810 - Antineoplastic chemotherapy induced pancytopenia; T45.1X5A - Adverse effect of antineoplastic and immunosuppressive drugs, initial encounter Is this a current diagnosis for this admission?: Yes Plan: Hemoglobin up to 9.4, continue to monitor every 3 to 4 days. - Time Time Spent with patient: 35 or more minutes - Inpatient Certification Based on my medical assessment, after consideration of the patient's comorbidities, presenting symptoms, or acuity I expect that the services needed warrant INPATIENT care.: Yes I certify that my determination is in accordance with my understanding of Medicare's requirements for reasonable and necessary INPATIENT services [42 CFR 412.3e].: Yes Medical Necessity: Need For Continuous Telemetry Monitoring, Need for Nebulizer Therapy and Monitoring of Response, Need for Pain Control, Risk of Complication if Not Cared For in Hospital
[2019-08-08] MEDS: BUDESONIDE NEB 0.25 MG/2 ML AMPUL NEB SCH ×2 (08:55→20:10)
[2019-08-08] MEDS: METHYLPREDNISOLONE INJ 40 MG/1 ML SDV IV SCH ×2 (09:38→21:39)
[2019-08-08] MEDS: CITALOPRAM HYDROBROMIDE 20 MG TABLET PO SCH (09:38)
[2019-08-08] MEDS: LORAZEPAM 0.5 MG TABLET PO PRN ×2 (09:38→18:43)
[2019-08-08] MEDS: TRAMADOL HCL 50 MG TABLET PO SCH ×2 (09:39→18:42)
[2019-08-08] MEDS: DRONABINOL 2.5 MG CAPSULE PO SCH ×2 (09:49→18:42)
--- NOTE | 2019-08-08 11:06 | Pulmonary Function Test ---
Pulmonary Function Test Date of Procedure:: 08/08/19 INDICATION:: Dyspnea Referring Provider: Dr. Garcia Welder/Fitter: Marielena Chambers NUTRITION SERVICES AIDE, INTEGRATED CAMPAIGN MANAGER - Report Spirometry: Spirometry: pre-FVC: 1.78 L 73% post-FVC: 1.97 L 80% pre-FEV:1 0.49 L 27% post-FEV1: 0.57 L 31% pre-FEV1/FVC %: 27 post-FEV1/FVC%: 29 predicted: 82 [id number]%: 0.16 L 10% [id number]%: 0.18 L 11% Diffusion Capactity: DLCO:5.8 4.1% DLCOL/VA: 2.77 79% Impression: Severe obstructive ventilatory defect with insignificant response to bronchodilator therapy. This does not preclude a clinical trial of bronchodilator therapy severe decrease in diffusion capacity.
[2019-08-08] MEDS: ROFLUMILAST 500 MCG TABLET PO SCH (11:15)
--- NOTE | 2019-08-08 11:15 | PDOC PROGRESS REPORT ---
Subjective Progress Note for:: 08/08/19 Subjective:: Sitting comfortably Reason For Visit: ACUTE ON CHRONIC HYPOXEMIC RESPIRATORY FAILURE,COM Physical Exam Vital Signs: Temp Pulse Resp BP Pulse Ox 97.7 F 73 16 121/54 L 97 08/08/19 00:00 08/08/19 08:53 08/08/19 08:53 08/08/19 00:00 08/08/19 08:53 Intake & Output 08/07/19 08/08/19 08/09/19 06:59 06:59 06:59 Intake Total 895 800 Output Total 200 Balance 695 800 Weight 48.2 kg 48.2 kg General appearance: PRESENT: no acute distress, disheveled, thin Head exam: PRESENT: atraumatic, normocephalic Eye exam: PRESENT: conjunctiva pale. ABSENT: nystagmus, periorbital swelling Mouth exam: PRESENT: dry mucosa, neck supple, tongue midline Neck exam: ABSENT: carotid bruit, full ROM, JVD, lymphadenopathy, meningismus, tenderness, thyromegaly, tracheal deviation, tracheostomy, other Respiratory exam: PRESENT: decreased breath sounds, prolonged expiratory phas, rhonchi. ABSENT: retraction, stridor, tachypnea Cardiovascular exam: PRESENT: RRR, +S1, +S2. ABSENT: tachycardia Pulses: PRESENT: normal radial pulses GI/Abdominal exam: PRESENT: soft. ABSENT: distended, guarding, mass, rebound, tenderness Extremities exam: ABSENT: calf tenderness, clubbing, joint swelling Musculoskeletal exam: ABSENT: ambulatory, deformity, dislocation Neurological exam: PRESENT: altered Psychiatric exam: PRESENT: flat affect Skin exam: PRESENT: dry, warm Results Laboratory Results: 08/07/19 07:56 08/07/19 07:56 08/02/19 19:33 Blood Blood Culture - Final NO GROWTH IN 5 DAYS 08/02/19 18:27 Blood Blood Culture - Final NO GROWTH IN 5 DAYS Impressions: Chest X-Ray 08/02/19 11:52 IMPRESSION: Unchanged cavitary lesion in the left upper lobe. Chest/Abdomen CTA 08/02/19 15:27 IMPRESSION: 1. Negative examination for pulmonary embolism. 2. Redemonstrated cavitary mass of the lateral left upper lobe with an adjacent soft tissue mass, which is enlarged compared to prior examination dated 05/16/2019 with increased bony destruction involving the left 3rd and 4th ribs. 3. There is new postobstructive consolidation of the medial left upper lobe secondary to obstructing hilar soft tissue. 4. There are clustered centrilobular and tree-in-bud nodular opacities about the lungs, increased compared to prior examination in the left lung base and peripheral right upper lobe, relatively unchanged in the right lung base. 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 5. Emphysema and bronchial wall thickening. 6. Coronary artery disease. Assessment & Plan - Diagnosis (1) Constipation Is this a current diagnosis for this admission?: Yes (2) Acute and chronic respiratory failure with hypoxia Is this a current diagnosis for this admission?: Yes Plan: By virtue PFTs patient will qualify for BiPAP suggest 14 with 35% O2 (3) Cancer of upper lobe of left lung Is this a current diagnosis for this admission?: Yes Plan: as per ONCOLOGY (4) HTN (hypertension) Qualifiers: Hypertension type: essential hypertension Qualified Code(s): I10 - Essential (primary) hypertension Is this a current diagnosis for this admission?: Yes Plan: stable - Time Time Spent with patient: 15-24 minutes
--- NOTE | 2019-08-08 11:29 | PDOC PROGRESS REPORT ---
Subjective Progress Note for:: 08/08/19 Subjective:: The patient is sitting up in the chair. She is feeling better and is more awake. She is still very tired. She also complains of musculoskeletal pain due to the chair in the bed not being very comfortable. Her poor mobility is also causative. She did report multiple BMs today. Constipation resolved. Reason For Visit: ACUTE ON CHRONIC HYPOXEMIC RESPIRATORY FAILURE,COM Physical Exam Vital Signs: Temp Pulse Resp BP Pulse Ox 97.7 F 73 16 121/54 L 97 08/08/19 00:00 08/08/19 08:53 08/08/19 08:53 08/08/19 00:00 08/08/19 08:53 Intake & Output 08/07/19 08/08/19 08/09/19 06:59 06:59 06:59 Intake Total 895 800 Output Total 200 Balance 695 800 Weight 48.2 kg 48.2 kg General appearance: PRESENT: no acute distress, well-developed - Frail-appearing 78-year-old patient sitting in the chair Head exam: PRESENT: atraumatic, normocephalic Ear exam: PRESENT: normal external ear exam. ABSENT: bleeding, drainage Mouth exam: PRESENT: dry mucosa, tongue midline Teeth exam: PRESENT: poor dentation Respiratory exam: PRESENT: clear to auscultation romelia, symmetrical, unlabored. ABSENT: rales, rhonchi, tachypnea, wheezes Cardiovascular exam: PRESENT: RRR, +S1, +S2. ABSENT: diastolic murmur, systolic murmur GI/Abdominal exam: PRESENT: normal bowel sounds, soft. ABSENT: distended, guarding, tenderness Rectal exam: PRESENT: deferred Extremities exam: ABSENT: joint swelling, pedal edema Musculoskeletal exam: PRESENT: normal inspection Neurological exam: PRESENT: alert, awake, oriented to person, oriented to place, oriented to situation Psychiatric exam: PRESENT: flat affect. ABSENT: agitated, anxious Focused psych exam: ABSENT: delusional, restlessness Results Laboratory Results: 08/07/19 07:56 08/07/19 07:56 08/02/19 19:33 Blood Blood Culture - Final NO GROWTH IN 5 DAYS 08/02/19 18:27 Blood Blood Culture - Final NO GROWTH IN 5 DAYS Impressions: Chest X-Ray 08/02/19 11:52 IMPRESSION: Unchanged cavitary lesion in the left upper lobe. Chest/Abdomen CTA 08/02/19 15:27 IMPRESSION: 1. Negative examination for pulmonary embolism. 2. Redemonstrated cavitary mass of the lateral left upper lobe with an adjacent soft tissue mass, which is enlarged compared to prior examination dated 05/16/2019 with increased bony destruction involving the left 3rd and 4th ribs. 3. There is new postobstructive consolidation of the medial left upper lobe secondary to obstructing hilar soft tissue. 4. There are clustered centrilobular and tree-in-bud nodular opacities about the lungs, increased compared to prior examination in the left lung base and peripheral right upper lobe, relatively unchanged in the right lung base. 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 5. Emphysema and bronchial wall thickening. 6. Coronary artery disease. Assessment and Plan - Diagnosis (1) Pneumonia Qualifiers: Pneumonia type: due to unspecified organism Laterality: left Lung location: upper lobe of lung Qualified Code(s): J18.1 - Lobar pneumonia, unspecified organism Is this a current diagnosis for this admission?: Yes Plan: 08/06/2019-Levaquin therapy we will be completed on August 11. 08/07/2019-continue Levaquin 08/08/2019-no change (2) Acute and chronic respiratory failure with hypoxia Is this a current diagnosis for this admission?: Yes Plan: 08/06/2019-continue oxygen supplementation to maintain oxygen saturation 90 to 94%. Taper as tolerated. 08/07/2019-still requiring 3.5 L nasal cannula. 08/08/2019-still oxygen dependent. The likelihood of tapering is very small. (3) Acute exacerbation of chronic obstructive pulmonary disease (COPD) Is this a current diagnosis for this admission?: Yes Plan: 08/06/2019-continue as needed nebulizers. Begin to taper steroids. Consider chronic combination inhaler. Will check PFTs to assess severity of chronic obstructive pulmonary disease 08/07/2019-on her way to obtain PFTs. Treatment decisions based on results. 08/08/2019-further decisions regarding treatment plan will be on hold until Dr. Turcios has the family conference. (4) Cancer of upper lobe of left lung Is this a current diagnosis for this admission?: Yes Plan: 08/06/2019-continue immunotherapy. 08/07/2019-with the patient's current weekend state and decreased functionality planning for disposition is important. I believe Dr. Turcios is going to be having a family conference. The patient's daughter was in the room while her mother was down at pulmonary testing. Had a chance to speak with her. I believe she recognizes the futility of ongoing aggressive treatment. I told her that Dr. Turcios is planning to have a conference. I think the family would be on board for a comfort measure/hospice plan of care. 08/08/2019-I believe the family understands the futility of ongoing aggressive treatment. Dr. Turcios will broach the subject with the patient. The patient's caregiver, with whom the patient lives, is going away for the weekend. She discussed the need to have prescriptions ahead of time. I told her that without a specific disposition it is difficult to do. She did speak to Dr. Turcios. Because of the social issues involved it is likely that the patient will not go home until after the weekend. - Time Time Spent with patient: 15-24 minutes Medications reviewed and adjusted accordingly: Yes
[2019-08-08] MEDS: DOCUSATE SODIUM 100 MG CAPSULE PO SCH (18:42)
[2019-08-08] MEDS: LEVOFLOXACIN 750 MG/D5W RTU 750 MG/150 ML RTUPB IV SCH (21:40)
[2019-08-09] MEDS: LEVALBUTEROL HCL NEB 1.25 MG/3 ML AMPUL NEB SCH ×3 (00:03→16:07)
[2019-08-09] MEDS: HEPARIN SOD (PORCINE) 5,000 UNIT/ML 1 ML VIAL SUBCUT SCH ×2 (06:11→14:46)
[2019-08-09] MEDS ORDERED: LORAZEPAM INJ 2 MG/1 ML VIAL ONE (08:28)
[2019-08-09] MEDS ORDERED: LORAZEPAM INJ 2 MG/1 ML VIAL IV ONE (08:45)
[2019-08-09] MEDS ORDERED: LORAZEPAM 0.5 MG TABLET PO ONE (08:45)
[2019-08-09] MEDS: BUDESONIDE NEB 0.25 MG/2 ML AMPUL NEB SCH (08:53)
--- NOTE | 2019-08-09 09:07 | PDOC PROGRESS REPORT ---
Subjective Progress Note for:: 08/09/19 Subjective:: Patient actually had a good night of sleep, feels a little bit better this morning. Today her niece in law, daughter and nephew were at bedside and we had a long discussion about next steps of care, we discussed hospice, ultimately patient and family agreed to that, and we are planning on proceeding forward with comfort care, Nivia from [facility] has already been contacted and will be setting up home hospice for them. I gave her medication orders and she will get them ready and get transportation ready as well. Reason For Visit: ACUTE ON CHRONIC HYPOXEMIC RESPIRATORY FAILURE,COM Physical Exam Vital Signs: Temp Pulse Resp BP Pulse Ox 97.6 F 80 22 H 131/66 H 92 08/08/19 20:00 08/09/19 08:57 08/09/19 08:57 08/08/19 20:00 08/09/19 08:57 Intake & Output 08/08/19 08/09/19 08/10/19 06:59 06:59 06:59 Intake Total 800 914 150 Balance 800 914 150 Weight 48.2 kg 48.2 kg General appearance: PRESENT: no acute distress, well-developed, well-nourished Head exam: PRESENT: atraumatic, normocephalic Eye exam: PRESENT: conjunctiva pink, EOMI, PERRLA. ABSENT: scleral icterus Ear exam: PRESENT: normal external ear exam Mouth exam: PRESENT: moist, tongue midline Neck exam: ABSENT: carotid bruit, JVD, lymphadenopathy, thyromegaly Respiratory exam: PRESENT: clear to auscultation romelia. ABSENT: rales, rhonchi, wheezes Cardiovascular exam: PRESENT: RRR. ABSENT: diastolic murmur, rubs, systolic murmur Pulses: PRESENT: normal dorsalis pedis pul Vascular exam: PRESENT: normal capillary refill GI/Abdominal exam: PRESENT: normal bowel sounds, soft. ABSENT: distended, guarding, mass, organolmegaly, rebound, tenderness Rectal exam: PRESENT: deferred Extremities exam: PRESENT: full ROM. ABSENT: calf tenderness, clubbing, pedal edema Neurological exam: PRESENT: alert, awake, oriented to person, oriented to place, oriented to time, oriented to situation, CN II-XII grossly intact. ABSENT: motor sensory deficit Psychiatric exam: PRESENT: appropriate affect, normal mood. ABSENT: homicidal ideation, suicidal ideation Skin exam: PRESENT: dry, intact, warm. ABSENT: cyanosis, rash Results Laboratory Results: 08/07/19 07:56 08/07/19 07:56 Impressions: Chest X-Ray 08/02/19 11:52 IMPRESSION: Unchanged cavitary lesion in the left upper lobe. Chest/Abdomen CTA 08/02/19 15:27 IMPRESSION: 1. Negative examination for pulmonary embolism. 2. Redemonstrated cavitary mass of the lateral left upper lobe with an adjacent soft tissue mass, which is enlarged compared to prior examination dated 05/16/2019 with increased bony destruction involving the left 3rd and 4th ribs. 3. There is new postobstructive consolidation of the medial left upper lobe secondary to obstructing hilar soft tissue. 4. There are clustered centrilobular and tree-in-bud nodular opacities about the lungs, increased compared to prior examination in the left lung base and peripheral right upper lobe, relatively unchanged in the right lung base. 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 5. Emphysema and bronchial wall thickening. 6. Coronary artery disease. Assessment & Plan - Diagnosis (1) Acute exacerbation of chronic obstructive pulmonary disease (COPD) Is this a current diagnosis for this admission?: Yes Plan: Worsening, plan for home hospice (2) Cancer of upper lobe of left lung Is this a current diagnosis for this admission?: Yes Plan: No further treatment plan, proceed with hospice (3) Pneumonia Qualifiers: Pneumonia type: due to unspecified organism Laterality: left Lung location: upper lobe of lung Qualified Code(s): J18.1 - Lobar pneumonia, unspecified organism Is this a current diagnosis for this admission?: Yes (4) Anemia Qualifiers: 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, antineoplastic chemotherapy-induced Qualified Code(s): D61.810 - Antineoplastic chemotherapy induced pancytopenia; T45.1X5A - Adverse effect of antineoplastic and immunosuppressive drugs, initial encounter Is this a current diagnosis for this admission?: Yes - Time Time Spent with patient: 35 or more minutes Disposition: Long discussion about hospice, discharge home today
[2019-08-09] MEDS: DRONABINOL 2.5 MG CAPSULE PO SCH ×2 (10:04→17:08)
[2019-08-09] MEDS: TRAMADOL HCL 50 MG TABLET PO SCH ×2 (10:04→17:08)
[2019-08-09] MEDS: CITALOPRAM HYDROBROMIDE 20 MG TABLET PO SCH (10:05)
[2019-08-09] MEDS: METHYLPREDNISOLONE INJ 40 MG/1 ML SDV IV SCH (10:05)
[2019-08-09] MEDS: ROFLUMILAST 500 MCG TABLET PO SCH (10:05)
--- NOTE | 2019-08-09 11:21 | PDOC DISCHARGE SUMMARY ---
Impression - Admit/DC Date/PCP Admission Date/Primary Care Provider: 08/02/19 19:04 ISABELL STOUT MD Discharge Date: 08/09/19 - Discharge Diagnosis (1) Pneumonia Is this a current diagnosis for this admission?: Yes (2) Acute and chronic respiratory failure with hypoxia Is this a current diagnosis for this admission?: Yes (3) Acute exacerbation of chronic obstructive pulmonary disease (COPD) Is this a current diagnosis for this admission?: Yes (4) Cancer of upper lobe of left lung Is this a current diagnosis for this admission?: Yes - Additional Information Resuscitation Status: Do Not Resuscitate Discharge Diet: As Tolerated Discharge Activity: Activity As Tolerated Referrals: ALANNAH ARGUETA MD [ACTIVE STAFF] - 08/13/19 8:45 am Home Medications: Citalopram Hydrobromide [Citalopram HBr] 10 mg PO DAILY 07/31/19 Dronabinol [Marinol 2.5 mg Capsule] 2.5 mg PO BID 07/31/19 Naproxen [Naprosyn 250 mg Tablet] 250 mg PO Q8HP PRN 07/31/19 Nivolumab [Opdivo] 0 mg IV ASDIR PRN 07/31/19 Tramadol HCl [Ultram] 50 mg PO BID 07/31/19 Docusate Sodium [Colace 100 mg Capsule] 100 mg PO QPM 08/02/19 Fluticasone Propionate [Flonase Nasal Spiro 50 Mcg/Spiro 16 gm] 2 spray NASL DAILY 08/02/19 Ondansetron HCl [Zofran 8 mg Tablet] 8 mg PO Q8HP PRN 08/02/19 Promethazine HCl [Phenergan 25 mg Tablet] 25 mg PO Q6HP PRN 08/02/19 History of Present Illiness History of Present Illness: MARBELLA HUI is a 78 year old female with underlying chronic obstructive pulmonary disease and currently being treated for lung cancer. She has had chemotherapy and is now on immunotherapy. She is oxygen dependent. She noted increasing shortness of breath over the several weeks prior to admission. At the point when she could not really walk very far without getting extremely short of breath she presented to the emergency department. She has a cough that is nonproductive. She feels that she has been running a low temperature. She did see Dr. Turcios in his office. She was given some IV fluids but he decided to send her to the emergency department. She was found to have a pneumonia on evaluation and was referred to the hospital service for admission. Hospital Course Hospital Course: The patient had a reasonable hospital course. With antibiotic therapy she began to improve. She has not had significant pain. She is quite achy from sitting in the chair and bed she claims they are very uncomfortable. Dr. Turcios had been working with the patient and family regarding long-term treatment plans. On the day of discharge he had a family meeting and all decided that home with hospice would be most appropriate. Hospice was able to prepare things at the patient's home and so she was discharged. Physical Exam Vital Signs: Temp Pulse Resp BP Pulse Ox 97.6 F 80 22 H 131/66 H 92 08/08/19 20:00 08/09/19 08:57 08/09/19 08:57 08/08/19 20:00 08/09/19 08:57 Intake & Output 08/08/19 08/09/19 08/10/19 06:59 06:59 06:59 Intake Total 800 914 150 Balance 800 914 150 Weight 48.2 kg 48.2 kg General appearance: PRESENT: no acute distress, cooperative, well-developed Head exam: PRESENT: atraumatic, normocephalic Ear exam: PRESENT: normal external ear exam. ABSENT: bleeding, drainage Mouth exam: PRESENT: moist, tongue midline Teeth exam: PRESENT: poor dentation Respiratory exam: PRESENT: clear to auscultation romelia, symmetrical, unlabored. ABSENT: rales, rhonchi, tachypnea, wheezes Cardiovascular exam: PRESENT: RRR, +S1, +S2 GI/Abdominal exam: PRESENT: normal bowel sounds, soft. ABSENT: distended, tenderness Extremities exam: ABSENT: joint swelling, pedal edema Musculoskeletal exam: PRESENT: normal inspection Neurological exam: PRESENT: alert, awake, oriented to person, oriented to place, oriented to time, oriented to situation, CN II-XII grossly intact Psychiatric exam: PRESENT: flat affect. ABSENT: agitated, anxious Focused psych exam: ABSENT: delusional, restlessness Results Laboratory Results: WBC 10.1 10^3/uL (4.0-10.5) 08/07/19 07:56 RBC 3.02 10^6/uL (3.72-5.28) L 08/07/19 07:56 Hgb 9.4 g/dL (12.0-15.5) L 08/07/19 07:56 Hct 27.9 % (36.0-47.0) L 08/07/19 07:56 MCV 92 fl (80-97) 08/07/19 07:56 MCH 31.3 pg (27.0-33.4) 08/07/19 07:56 MCHC 33.8 g/dL (32.0-36.0) 08/07/19 07:56 RDW 15.5 % (11.5-14.0) H 08/07/19 07:56 Plt Count 451 10^3/uL (150-450) H 08/07/19 07:56 Lymph % (Auto) Not Reportable 08/02/19 12:28 Hughes % (Auto) Not Reportable 08/02/19 12:28 Eos % (Auto) Not Reportable 08/02/19 12:28 Baso % (Auto) Not Reportable 08/02/19 12:28 Absolute Neuts (auto) Not Reportable 08/02/19 12:28 Absolute Lymphs (auto) Not Reportable 08/02/19 12:28 Absolute Monos (auto) Not Reportable 08/02/19 12:28 Absolute Eos (auto) Not Reportable 08/02/19 12:28 Absolute Basos (auto) Not Reportable 08/02/19 12:28 Total Counted 100 08/02/19 12:28 Seg Neutrophils % Not Reportable 08/02/19 12:28 Seg Neuts % (Manual) 93 % (42-78) H 08/02/19 12:28 Lymphocytes % (Manual) 6 % (13-45) L 08/02/19 12:28 Monocytes % (Manual) 1 % (3-13) L 08/02/19 12:28 Eosinophils % (Manual) 0 % (0-6) 08/02/19 12:28 Basophils % (Manual) 0 % (0-2) 08/02/19 12:28 Abs Neuts (Manual) 10.0 10^3/uL (1.7-8.2) H 08/02/19 12:28 Abs Lymphs (Manual) 0.6 10^3/uL (0.5-4.7) 08/02/19 12:28 Abs Monocytes (Manual) 0.1 10^3/uL (0.1-1.4) 08/02/19 12:28 Absolute Eos (Manual) 0.0 10^3/uL (0.0-0.6) 08/02/19 12:28 Abs Basophils (Manual) 0.0 10^3/uL (0.0-0.2) 08/02/19 12:28 Platelet Comment INCREASED 08/02/19 12:28 Polychromasia SLIGHT 08/02/19 12:28 Carbonic Acid 1.19 mmol/L (1.05-1.35) 08/02/19 15:56 HCO3/H2CO3 Ratio 23:1 08/02/19 15:56 ABG pH 7.46 (7.35-7.45) H 08/02/19 15:56 ABG pCO2 39.7 mmHg (35-45) 08/02/19 15:56 ABG pO2 76.6 mmHg (80-100) L 08/02/19 15:56 ABG HCO3 27.9 mmol/L (20-24) H 08/02/19 15:56 ABG Total CO2 29.1 mmol/L (21-25) H 08/02/19 15:56 ABG O2 Saturation 96.0 % (94-98) 08/02/19 15:56 ABG Base Excess 3.8 mmol/L 08/02/19 15:56 FiO2 98% 08/02/19 15:56 Sodium 137.4 mmol/L (137-145) 08/07/19 07:56 Potassium 4.3 mmol/L (3.6-5.0) 08/07/19 07:56 Chloride 97 mmol/L (98-107) L 08/07/19 07:56 Carbon Dioxide 34 mmol/L (22-30) H 08/07/19 07:56 Anion Gap 6 (5-19) 08/07/19 07:56 BUN 27 mg/dL (7-20) H 08/07/19 07:56 Creatinine 0.50 mg/dL (0.52-1.25) L 08/07/19 07:56 Est GFR ( Amer) > 60 (>60) 08/07/19 07:56 Est GFR (MDRD) Non-Af > 60 (>60) 08/07/19 07:56 Glucose 78 mg/dL (75-110) 08/07/19 07:56 Calcium 9.1 mg/dL (8.4-10.2) 08/07/19 07:56 Magnesium 1.7 mg/dL (1.6-2.3) 08/07/19 07:56 Total Bilirubin 0.2 mg/dL (0.2-1.3) 08/02/19 12:28 Direct Bilirubin 0.2 mg/dL (0.0-0.4) 08/02/19 12:28 Neonat Total Bilirubin Not Reportable 08/02/19 12:28 Neonat Direct Bilirubin Not Reportable 08/02/19 12:28 Neonat Indirect Bili Not Reportable 08/02/19 12:28 AST 22 U/L (14-36) 08/02/19 12:28 ALT 10 U/L (<35) 08/02/19 12:28 Alkaline Phosphatase 94 U/L (38-126) 08/02/19 12:28 Total Protein 6.7 g/dL (6.3-8.2) 08/02/19 12:28 Albumin 3.1 g/dL (3.5-5.0) L 08/02/19 12:28 Urine Color YELLOW 08/02/19 14:48 Urine Appearance CLEAR 08/02/19 14:48 Urine pH 7.0 (5.0-9.0) 08/02/19 14:48 Ur Specific [place] 1.012 08/02/19 14:48 Urine Protein NEGATIVE mg/dL (NEGATIVE) 08/02/19 14:48 Urine Glucose (UA) NEGATIVE mg/dL (NEGATIVE) 08/02/19 14:48 Urine Ketones NEGATIVE mg/dL (NEGATIVE) 08/02/19 14:48 Urine Blood NEGATIVE (NEGATIVE) 08/02/19 14:48 Urine Nitrite NEGATIVE (NEGATIVE) 08/02/19 14:48 Urine Bilirubin NEGATIVE (NEGATIVE) 08/02/19 14:48 Urine Urobilinogen NEGATIVE mg/dL (<2.0) 08/02/19 14:48 Ur Leukocyte Esterase SMALL (NEGATIVE) H 08/02/19 14:48 Urine WBC (Auto) 15 /HPF 08/02/19 14:48 Urine RBC (Auto) 2 /HPF 08/02/19 14:48 Urine Bacteria (Auto) TRACE /HPF 08/02/19 14:48 Squamous Epi Cells Auto 1 /HPF 08/02/19 14:48 Urine Mucus (Auto) RARE /LPF 08/02/19 14:48 Urine Ascorbic Acid NEGATIVE (NEGATIVE) 08/02/19 14:48 Impressions: Chest X-Ray 08/02/19 11:52 IMPRESSION: Unchanged cavitary lesion in the left upper lobe. Chest/Abdomen CTA 08/02/19 15:27 IMPRESSION: 1. Negative examination for pulmonary embolism. 2. Redemonstrated cavitary mass of the lateral left upper lobe with an adjacent soft tissue mass, which is enlarged compared to prior examination dated 05/16/2019 with increased bony destruction involving the left 3rd and 4th ribs. 3. There is new postobstructive consolidation of the medial left upper lobe secondary to obstructing hilar soft tissue. 4. There are clustered centrilobular and tree-in-bud nodular opacities about the lungs, increased compared to prior examination in the left lung base and peripheral right upper lobe, relatively unchanged in the right lung base. 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 5. Emphysema and bronchial wall thickening. 6. Coronary artery disease. Plan Health Concerns: Prognosis is poor. Patient is discharging to home with hospice Plan of Treatment: Home hospice Goals: To provide comfort and support for the patient to at home Time Spent: Greater than 30 Minutes Stroke Is this a Stroke Patient?: No Acute Heart Failure - Is this a Heart Failure Patient?: No
[2019-08-09] MEDS: HYDROCODONE/ACETAMINOPHEN 5-325 MG TABLET PO PRN (14:46)
[2019-08-09 16:20] VITALS: BP 127/70
[2019-08-09] MEDS: LORAZEPAM 0.5 MG TABLET PO PRN (17:08)
[2019-08-09] MEDS: DOCUSATE SODIUM 100 MG CAPSULE PO SCH (17:08)
== END 2019-08-09 17:39 | disposition hospice, home (50) | DRG 193 ==
LOC: ER 10:53 → EH 19:04 → 4N 21:45
PROVIDERS: ADMIT Family Medicine; ATTEND Family Medicine
DX: J18.1 Lobar pneumonia, unspecified organism (principal); J96.21 Acute and chronic respiratory failure with hypoxia; D61.810 Antineoplastic chemotherapy induced pancytopenia; C34.12 Malignant neoplasm of upper lobe, left bronchus or lung; J44.0 Chronic obstructive pulmonary disease with (acute) lower respiratory infection; J44.1 Chronic obstructive pulmonary disease with (acute) exacerbation; T45.1X5A Adverse effect of antineoplastic and immunosuppressive drugs, initial encounter; K59.00 Constipation, unspecified; I10 Essential (primary) hypertension; Z87.891 Personal history of nicotine dependence; Z99.81 Dependence on supplemental oxygen; Z83.3 Family history of diabetes mellitus; Z79.899 Other long term (current) drug therapy
CPT/HCPCS: 36415; 71045; 71275; 80048; 80053; 81001; 82803; 83605; 83735; 84484; 85025; 85027; 85610; 87040; 87086; 93005; 93010; 94060; 94640; 94729; 96365; 99285; A9270-GY; J0692; J1644; J1885; J1956; J2060; J2920; J3370; J3490; J7060; J7620; J7626